=== PATIENT | male | born 1960 | race Caucasian/White ===

== ENCOUNTER 2022-01-01 14:48 | Inpatient (IN) | payer MEDICARE, BC ==
[2022-01-01] MEDS ORDERED: HYDROmorphone 1 MG/ML 1 ML SYRINGE IVP STA (15:21)
[2022-01-01] MEDS ORDERED: SODIUM CHLORIDE 0.9% 1,000 ML IV STA ×2 (15:21)
[2022-01-01] MEDS ORDERED: PROCHLORPERAZINE INJ 10 MG/2 ML VIAL IVP STA (15:26)
--- NOTE | 2022-01-01 15:29 | ED ---
Weakness HPI - General Chief complaint: Weakness Stated complaint: Weakness, post chemo Time Seen by Provider: 01/01/22 14:48 Source: patient, RN notes reviewed Mode of arrival: EMS Limitations: no limitations - History of Present Illness Initial comments: 7-year-old male with history of metastatic rectal cancer who his last chemotherapy 6 days ago who presents by EMS with complaints of generalized weakness nausea vomiting some diarrhea chills decreased oral intake for the past 5 days. No overt fevers she states he does have abdominal discomfort in the lower abdomen. He states he does have a ostomy which seems to be functioning well. When he does vomit however he vomits up greenish colored material. He was given Zofran and morphine in the EMS rig nausea was tolerable he stated the abdominal pain was still moderate. MD Complaint: generalized weakness - Related Data Home Medications Medication Instructions Recorded Confirmed Losartan Potassium [Cozaar] 100 mg PO DAILY 11/07/21 11/07/21 Tamsulosin [Flomax] 0.4 mg PO DAILY 11/07/21 11/07/21 Previous Rx's Medication Instructions Recorded Cefdinir [Omnicef] 300 mg PO BID 4 Days #8 cap 11/14/21 LORazepam [Ativan] 1 mg PO Q6H PRN #4 tab 11/14/21 Lactulose [Cephulac] 15 gm PO DAILY ml 11/14/21 Loperamide [Imodium] 2 mg PO QID PRN cap 11/14/21 Morphine Sulfate [Ms Contin] 30 mg PO Q12HR #3 tab 11/14/21 Petrolatum, White [Aquaphor] 1 applic TOPICAL BID 11/14/21 Sennosides-Docusate Sodium 1 each PO DAILY tab 11/14/21 [Senokot-S] oxyCODONE HCL [OxyIR] 15 mg PO Q6HR PRN #6 tab 11/14/21 Allergies Allergy/AdvReac Type Severity Reaction Status Date / Time No Known Allergies Allergy Verified 11/07/21 13:29 Review of Systems ROS Statement: Those systems with pertinent positive or pertinent negative responses have been documented in the HPI. ROS Other: All systems not noted in ROS Statement are negative. Past Medical History Past Medical History: Cancer, Hypertension, Liver Disease Additional Past Medical History / Comment(s): Cerebral palsy, colon CA with mets History of Any Multi-Drug Resistant Organisms: None Reported Past Surgical History: Back Surgery, Joint Replacement, Orthopedic Surgery Additional Past Surgical History / Comment(s): colostomy Past Anesthesia/Blood Transfusion Reactions: Unable to Obtain Past Psychological History: No Psychological Hx Reported Smoking Status: Former smoker Past Alcohol Use History: Occasional Past Drug Use History: None Reported General Exam - General Exam Comments Initial Comments: This is a well-developed well-nourished awake alert oriented 3 male Limitations: no limitations General appearance: alert, anxious, in distress Head exam: Present: atraumatic, normocephalic, normal inspection Eye exam: Present: normal appearance, PERRL, EOMI. Absent: scleral icterus, conjunctival injection, periorbital swelling ENT exam: Present: mucous membranes dry Neck exam: Present: normal inspection, full ROM. Absent: tenderness, men ingismus, lymphadenopathy Respiratory exam: Present: normal lung sounds bilaterally. Absent: respiratory distress, wheezes, rales, rhonchi, stridor Cardiovascular Exam: Present: regular rate, normal rhythm, normal heart sounds. Absent: systolic murmur, diastolic murmur, rubs, gallop, clicks GI/Abdominal exam: Present: soft, tenderness, normal bowel sounds. Absent: distended, guarding, rebound, rigid, bruit, pulsatile mass (Os be present in the left abdomen appears be functional) Extremities exam: Present: normal inspection, full ROM, normal capillary refill. Absent: tenderness, pedal edema, joint swelling, calf tenderness Back exam: Present: normal inspection Neurological exam: Present: alert, oriented X3, CN II-XII intact Psychiatric exam: Present: normal affect, normal mood Skin exam: Present: warm, dry, intact, normal color. Absent: rash Course Vital Signs 01/01/22 01/01/22 01/01/22 15:07 16:53 17:34 Temperature 98 F Pulse Rate 61 62 63 Respiratory 20 20 20 Rate Blood Pressure 188/95 188/91 180/92 O2 Sat by Pulse 98 96 98 Oximetry Medical Decision Making - Medical Decision Making I did discuss the findings with the patient family also Dr. Jerez patient will be admitted with the patient by Dr. Ford - Lab Data Result diagrams: 01/01/22 16:25 01/01/22 16:53 Lab Results 01/01/22 01/01/22 01/01/22 Range/Units 16:25 16:25 16:25 WBC 7.6 (3.8-10.6) k/uL RBC 4.18 L (4.30-5.90) m/uL Hgb 13.3 (13.0-17.5) gm/dL Hct 39.4 (39.0-53.0) % MCV 94.3 D (80.0-100.0) fL MCH 31.9 (25.0-35.0) pg MCHC 33.9 (31.0-37.0) g/dL RDW 14.5 (11.5-15.5) % Plt Count 106 L (150-450) k/uL MPV 8.5 Neutrophils % 76 % Lymphocytes % 14 % Monocytes % 4 % Eosinophils % 2 % Basophils % 1 % Neutrophils # 5.7 (1.3-7.7) k/uL Lymphocytes # 1.1 (1.0-4.8) k/uL Monocytes # 0.3 (0-1.0) k/uL Eosinophils # 0.1 (0-0.7) k/uL Basophils # 0.0 (0-0.2) k/uL Poikilocytosis Slight Sodium (137-145) mmol/L Potassium (3.5-5.1) mmol/L Chloride (98-107) mmol/L Carbon Dioxide (22-30) mmol/L Anion Gap mmol/L BUN (9-20) mg/dL Creatinine (0.66-1.25) mg/dL Est GFR (CKD-EPI)AfAm (>60 ml/min/1.73 sqM) Est GFR (CKD-EPI)NonAf (>60 ml/min/1.73 sqM) Glucose (74-99) mg/dL Calcium (8.4-10.2) mg/dL Magnesium (1.6-2.3) mg/dL Total Bilirubin (0.2-1.3) mg/dL AST (17-59) U/L ALT (4-49) U/L Alkaline Phosphatase (38-126) U/L Troponin I (0.000-0.034) ng/mL NT-Pro-B Natriuret Pep 855 pg/mL Total Protein (6.3-8.2) g/dL Albumin (3.5-5.0) g/dL Urine Color Yellow Urine Appearance Turbid (Clear) Urine pH 6.0 (5.0-8.0) Ur Specific Mcintyre 1.016 (1.001-1.035) Urine Protein Trace H (Negative) Urine Glucose (UA) Negative (Negative) Urine Ketones Negative (Negative) Urine Blood Small H (Negative) Urine Nitrite Negative (Negative) Urine Bilirubin Negative (Negative) Urine Urobilinogen <2.0 (<2.0) mg/dL Ur Leukocyte Esterase Large H (Negative) Urine RBC 8 H (0-5) /hpf Urine WBC >182 H (0-5) /hpf Urine WBC Clumps Moderate H (None) /hpf Urine Bacteria Occasional H (None) /hpf 01/01/22 01/01/22 Range/Units 16:53 16:53 WBC (3.8-10.6) k/uL RBC (4.30-5.90) m/uL Hgb (13.0-17.5) gm/dL Hct (39.0-53.0) % MCV (80.0-100.0) fL MCH (25.0-35.0) pg MCHC (31.0-37.0) g/dL RDW (11.5-15.5) % Plt Count (150-450) k/uL MPV Neutrophils % % Lymphocytes % % Monocytes % % Eosinophils % % Basophils % % Neutrophils # (1.3-7.7) k/uL Lymphocytes # (1.0-4.8) k/uL Monocytes # (0-1.0) k/uL Eosinophils # (0-0.7) k/uL Basophils # (0-0.2) k/uL Poikilocytosis Sodium 140 (137-145) mmol/L Potassium 3.4 L (3.5-5.1) mmol/L Chloride 108 H (98-107) mmol/L Carbon Dioxide 20 L (22-30) mmol/L Anion Gap 12 mmol/L BUN 14 (9-20) mg/dL Creatinine 0.53 L (0.66-1.25) mg/dL Est GFR (CKD-EPI)AfAm >90 (>60 ml/min/1.73 sqM) Est GFR (CKD-EPI)NonAf >90 (>60 ml/min/1.73 sqM) Glucose 95 (74-99) mg/dL Calcium 9.1 (8.4-10.2) mg/dL Magnesium 1.8 (1.6-2.3) mg/dL Total Bilirubin 1.4 H (0.2-1.3) mg/dL AST 51 (17-59) U/L ALT 38 (4-49) U/L Alkaline Phosphatase 284 H (38-126) U/L Troponin I <0.012 (0.000-0.034) ng/mL NT-Pro-B Natriuret Pep pg/mL Total Protein 7.6 (6.3-8.2) g/dL Albumin 3.9 (3.5-5.0) g/dL Urine Color Urine Appearance (Clear) Urine pH (5.0-8.0) Ur Specific Mcintyre (1.001-1.035) Urine Protein (Negative) Urine Glucose (UA) (Negative) Urine Ketones (Negative) Urine Blood (Negative) Urine Nitrite (Negative) Urine Bilirubin (Negative) Urine Urobilinogen (<2.0) mg/dL Ur Leukocyte Esterase (Negative) Urine RBC (0-5) /hpf Urine WBC (0-5) /hpf Urine WBC Clumps (None) /hpf Urine Bacteria (None) /hpf - Radiology Data Radiology results: report reviewed (Image reviewed x-ray shows evidence of a left lower lobe infiltrate question improving from previous ones x-rays of the abdomen show nonspecific bowel gas pattern.), image reviewed Disposition Clinical Impression: 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
[2022-01-01 16:40] LABS: Basophils % (A) 1 %; Eosinophils # (A) 0.1 k/uL (0-0.7); Eosinophils % (A) 2 %; HCT 39.4 % (39.0-53.0); HGB 13.3 gm/dL (13.0-17.5); Lymphocytes # (A) 1.1 k/uL (1.0-4.8); Lymphocytes % (A) 14 %; MCH 31.9 pg (25.0-35.0); MCHC 33.9 g/dL (31.0-37.0); Mean Platelet Volume 8.5; Monocytes # (A) 0.3 k/uL (0-1.0); Monocytes % (A) 4 %; Neutrophils # (A) 5.7 k/uL (1.3-7.7); Neutrophils % (A) 76 %; Platelet Count 106 k/uL (150-450); Poikilocytosis Slight; RBC 4.18 m/uL (4.30-5.90); RDW 14.5 % (11.5-15.5); WBC 7.6 k/uL (3.8-10.6)
[2022-01-01 16:51] LABS: Appearance,Urine Turbid (Clear); Bacteria,Urine Occasional /hpf; Bilirubin,Urine Negative (Negative); Blood,Urine Small (Negative); Color,Urine Yellow; Glucose,Urine (UA) Negative (Negative); Ketones,Urine Negative (Negative); Leukocyte Esterase,Urine Large (Negative); Nitrite,Urine Negative (Negative); Protein,Urine Trace (Negative); RBC,Urine 8 /hpf (0-5); Specific Gravity,Urine 1.016 (1.001-1.035); Urobilinogen,Urine <2.0 mg/dL (<2.0); WBC,Urine >182 /hpf (0-5)
[2022-01-01 17:02] LABS: MCV 94.3 fL (80.0-100.0)
[2022-01-01 17:17] LABS: ALT 38 U/L (4-49); AST 51 U/L (17-59); African American GFR (CKD) >90 (>60 ml/min/1.73 sqM); Albumin 3.9 g/dL (3.5-5.0); Alkaline Phosphatase 284 U/L (38-126); Anion Gap 12 mmol/L; Blood Urea Nitrogen 14 mg/dL (9-20); Calcium 9.1 mg/dL (8.4-10.2); Carbon Dioxide 20 mmol/L (22-30); Chloride 108 mmol/L (98-107); Glucose 95 mg/dL (74-99); Magnesium 1.8 mg/dL (1.6-2.3); Non-African American GFR(CKD) >90 (>60 ml/min/1.73 sqM); Potassium 3.4 mmol/L (3.5-5.1); Sodium 140 mmol/L (137-145); Total Bilirubin 1.4 mg/dL (0.2-1.3); Total Protein 7.6 g/dL (6.3-8.2)
--- NOTE | 2022-01-01 17:26 | XR ---
EXAMINATION TYPE: XR KUB DATE OF EXAM: 01/01/2022 COMPARISON: NONE HISTORY: Weakness. Abdominal pain TECHNIQUE: 2 views supine FINDINGS: There is no sign of intestinal obstruction or pneumoperitoneum. Fecal pattern is fairly nor mal. There is bilateral hip prosthesis. There are no calcifications over the kidneys. There is fusion surgery in the thoracolumbar junction. IMPRESSION: Nonacute abdomen.
--- NOTE | 2022-01-01 17:28 | XR ---
EXAMINATION TYPE: XR chest 2V DATE OF EXAM: 01/01/2022 COMPARISON: 11/07/2021 HISTORY: Weakness TECHNIQUE: FINDINGS: Heart is normal. There is no heart failure. There is a 2 cm irregular infiltrate in the lat eral aspect of the right mid lung field. There is right central venous catheter with tip in the super ior vena cava. There is multilevel thoracic spine fusion surgery. There is mild subsegmental atelecta sis right lung base. IMPRESSION: There is some mild infiltrate or atelectasis in the right lung which is slightly improved compared to last exam. No heart failure seen. Normal heart.
[2022-01-01] MEDS ORDERED: fentaNYL (PF) 50 MCG/ML 2 ML AMP IV STA (17:36)
[2022-01-01] MEDS ORDERED: cefTRIAXone IN SWFI 1,000 MG/10 ML SYRINGE IVP STA ×2 (18:22→19:55)
[2022-01-01] MEDS ORDERED: PNEUMONIA PROTOCOL UTILIZED 1 EACH MISC PO PRN (18:24)
[2022-01-01] MEDS ORDERED: AZITHROMYCIN 500 MG in SODIUM CHLORIDE 0.9% 250 ML IVPB STA (18:32)
[2022-01-01] MEDS: ACETAMINOPHEN TAB 325 MG TAB PO PRN (20:45)
[2022-01-01 21:43] VITALS: RESP 16
[2022-01-01] MEDS ORDERED: LORazepam 1 MG TAB PO PRN (23:19)
[2022-01-01] MEDS ORDERED: LOPERAMIDE 2 MG CAP PO PRN (23:19)
[2022-01-01] MEDS ORDERED: ONDANSETRON 4 MG/2 ML VIAL IVP PRN (23:20)
[2022-01-01] MEDS: SODIUM CHLORIDE 0.9% 1,000 ML IV SCH (23:28)
[2022-01-01] MEDS: MORPHINE SULFATE ER 30 MG TABLET PO SCH (23:28)
[2022-01-02] MEDS: ACETAMINOPHEN TAB 325 MG TAB PO PRN (06:01)
[2022-01-02 06:26] LABS: HCT 35.1 % (39.0-53.0); HGB 11.7 gm/dL (13.0-17.5); MCH 32.2 pg (25.0-35.0); MCHC 33.3 g/dL (31.0-37.0); MCV 96.7 fL (80.0-100.0); Mean Platelet Volume 9.1; Platelet Count 108 k/uL (150-450); Poikilocytosis Slight; RBC 3.63 m/uL (4.30-5.90); RDW 14.4 % (11.5-15.5); WBC 7.6 k/uL (3.8-10.6)
[2022-01-02 06:31] LABS: INR 1.1 (<1.2); Partial Thromboplastin Time 27.9 sec (22.0-30.0); Prothrombin Time 11.8 sec (9.0-12.0)
[2022-01-02] MEDS: TAMSULOSIN 0.4 MG CAP.ER.24H PO SCH ×2 (07:50→07:51)
[2022-01-02] MEDS ORDERED: SENNOSIDES-DOCUSATE SODIUM 1 EACH TAB PO SCH (09:00)
[2022-01-02 09:07] LABS: African American GFR (CKD) 118.9 (60.0-200.0); Anion Gap 13.3 mmol/L (10.00-18.00); BUN/Creat Ratio 19.43 Ratio (12.00-20.00); Blood Urea Nitrogen 13.6 mg/dL (9.0-27.0); Calcium 8.1 mg/dL (8.7-10.3); Carbon Dioxide 18.7 mmol/L (20.0-27.5); Non-African American GFR(CKD) 102.6 (60.0-200.0); Potassium 3.3 mmol/L (3.5-5.5)
--- NOTE | 2022-01-02 09:36 | XR ---
EXAMINATION TYPE: XR chest 2V DATE OF EXAM: 01/02/2022 COMPARISON: 01/01/2022 TECHNIQUE: PA and lateral views submitted. HISTORY: Cough FINDINGS: Postsurgical changes are noted in the vertebral column. Mediport catheter seen. Coarsened interstitiu m. Hyperinflation suggests COPD. Arthropathy of the AC joint on the left. Vague nodular density right midlung laterally is again noted. Follow resolution recommended. IMPRESSION: 1. COPD correlate for chronic interstitial lung disease. Mild bronchitis or superimposed interstitial pneumonitis in the differential diagnosis. 2. Stable right upper lobe vague area of consolidation or small area of nodularity. Follow-up to reso lution recommended otherwise consider CT chest
[2022-01-02] MEDS ORDERED: PANTOPRAZOLE 40 MG/10 ML VIAL IVP SCH (09:45)
[2022-01-02] MEDS: POTASSIUM CHLORIDE ER 20 MEQ TAB.ER PO SCH ×3 (09:56→12:21)
[2022-01-02] MEDS: MORPHINE SULFATE ER 30 MG TABLET PO SCH (11:15)
--- NOTE | 2022-01-02 11:17 | P.HPIM ---
History of Present Illness Patient returns 61-year-old male with history of metastatic rectal cancer received chemotherapy about 6 days ago this is a 30 round of chemotherapy came in with compensative for generalized weakness nausea vomiting diarrhea all of w hich resolved at this time. Patient was even having diarrhea post colostomy location. Patient does have colostomy in place and having normal stool today. Patient is exposed to his who had viral gastroenteritis. Patient although denied any body aches or fever chills. Patient was vomiting greenish colored material which resolved at this time. She also had a chest x-ray and a KUB x- ray chest X was read as a vague area of consolidation and small area of nodularity both of which I was unable to appreciate when I reviewed the images. Patient doesn't have any clinical symptoms of significant cough with sputum production or fever and leukocytosis. Patient was given antibiotics Rocephin and azithromycin believing that he has pneumonia because of the low clinical suspicion for pneumonia I am discontinuing antibiotics for calcitonin is being ordered. REVIEW OF SYSTEMS: CONSTITUTIONAL: No fever, no malaise, no fatigue. HEENT: No recent visual problems or hearing problems. Denied any sore throat. CARDIOVASCULAR: No chest pain, orthopnea, PND, no palpitations, no syncope. PULMONARY: No shortness of breath, no cough, no hemoptysis. GASTROINTESTINAL: As mentioned in HPI NEUROLOGICAL: No headaches, no weakness, no numbness. HEMATOLOGICAL: Denies any bleeding or petechiae. GENITOURINARY: Denies any burning micturition, frequency, or urgency. MUSCULOSKELETAL/RHEUMATOLOGICAL: Denies any joint pain, swelling, or any muscle pain. ENDOCRINE: Denies any polyuria or polydipsia. The rest of the 14-point review of systems is negative. PHYSICAL EXAMINATION: GENERAL: The patient is alert and oriented x3, not in any acute distress. Well developed, well nourished. HEENT: Pupils are round and equally reacting to light. EOMI. No scleral icterus. No conjunctival pallor. Normocephalic, atraumatic. No pharyngeal erythema. No thyromegaly. CARDIOVASCULAR: S1 and S2 present. No murmurs, rubs, or gallops. PULMONARY: Chest is clear to auscultation, no wheezing or crackles. ABDOMEN: Soft, nontender, nondistended, normoactive bowel sounds. No palpable organomegaly. Colostomy with normal stool MUSCULOSKELETAL: No joint swelling or deformity. EXTREMITIES: No cyanosis, clubbing, or pedal edema. NEUROLOGICAL: Gross neurological examination did not reveal any focal deficits. SKIN: No rashes. Assessment and plan -Vital gastroenteritis with improvement in symptoms. My suspicion is low that patient had mucositis from chemotherapy. Patient's symptoms improved patient can be discharged today -Hypokalemia: Secondary to IV fluids will replace potassium -Hypertension continue with losartan -Rule out pneumonia will not require any antibiotics -History of colon colorectal cancer with metastases to liver: Patient is actively receiving chemotherapy DVT prophylaxis: Patient will be discharged today Past Medical History Past Medical History: Cancer, Hypertension, Liver Disease Additional Past Medical History / Comment(s): Right sided cerebral palsy, colon CA with mets to liver History of Any Multi-Drug Resistant Organisms: None Reported Past Surgical History: Back Surgery, Joint Replacement, Orthopedic Surgery Additional Past Surgical History / Comment(s): colostomy Past Anesthesia/Blood Transfusion Reactions: Unable to Obtain Past Psychological History: No Psychological Hx Reported Smoking Status: Former smoker Past Alcohol Use History: Occasional Past Drug Use History: None Reported Medications and Allergies Home Medications Medication Instructions Recorded Confirmed Type Losartan Potassium [Cozaar] 100 mg PO DAILY 11/07/21 01/01/22 History LORazepam [Ativan] 1 mg PO Q6H PRN #4 tab 11/14/21 01/01/22 Rx Loperamide [Imodium] 2 mg PO QID PRN cap 11/14/21 01/01/22 Rx oxyCODONE HCL [OxyIR] 15 mg PO Q6HR PRN #6 tab 11/14/21 01/01/22 Rx Morphine Sulfate [Ms Contin] 30 mg PO Q12H 01/01/22 01/01/22 History Omeprazole [PriLOSEC] 20 mg PO AC-BRKFST #14 cap 01/02/22 Rx Tamsulosin [Flomax] 0.4 mg PO DAILY #30 01/02/22 Rx Allergies Allergy/AdvReac Type Severity Reaction Status Date / Time No Known Allergies Allergy Verified 01/01/22 19:01 Physical Exam Vitals: Vital Signs Temp Pulse Pulse Resp BP BP Pulse Ox 01/02/22 05:00 98.7 F 86 16 102/62 95 01/01/22 22:16 98.7 F 74 16 155/80 97 01/01/22 22:00 16 01/01/22 21:41 70 16 142/90 97 01/01/22 19:33 68 20 180/92 96 01/01/22 17:34 63 20 180/92 98 01/01/22 16:53 62 20 188/91 96 01/01/22 15:07 98 F 61 20 188/95 98 Intake and Output 01/01/22 01/02/22 01/02/22 22:59 06:59 14:59 Intake Total 1690 Balance 1690 Intake: Intake, IV Titration 500 Amount Sodium Chloride 0.9% 1, 500 000 ml @ 75 mls/hr IV . [id number] ARIEL Rx#:[id number] Oral 1190 Other: Voiding Method Toilet # Voids 2 Weight 62.596 kg Results CBC & Chem 7: 01/02/22 06:06 01/02/22 06:06 Labs: Abnormal Lab Results - Last 24 Hours (Table) 01/01/22 01/01/22 01/01/22 Range/Units 16:25 16:25 16:53 RBC 4.18 L (4.30-5.90) m/uL Hgb (13.0-17.5) gm/dL Hct (39.0-53.0) % Plt Count 106 L (150-450) k/uL Potassium 3.4 L (3.5-5.1) mmol/L Chloride 108 H (98-107) mmol/L Carbon Dioxide 20 L (22-30) mmol/L Creatinine 0.53 L (0.66-1.25) mg/dL Calcium (8.7-10.3) mg/dL Total Bilirubin 1.4 H (0.2-1.3) mg/dL Alkaline Phosphatase 284 H (38-126) U/L Urine Protein Trace H (Negative) Urine Blood Small H (Negative) Ur Leukocyte Esterase Large H (Negative) Urine RBC 8 H (0-5) /hpf Urine WBC >182 H (0-5) /hpf Urine WBC Clumps Moderate H (None) /hpf Urine Bacteria Occasional H (None) /hpf 01/02/22 01/02/22 Range/Units 06:06 06:06 RBC 3.63 L (4.30-5.90) m/uL Hgb 11.7 L (13.0-17.5) gm/dL Hct 35.1 L (39.0-53.0) % Plt Count 108 L (150-450) k/uL Potassium 3.3 L (3.5-5.1) mmol/L Chloride (98-107) mmol/L Carbon Dioxide 18.7 L (22-30) mmol/L Creatinine (0.66-1.25) mg/dL Calcium 8.1 L (8.7-10.3) mg/dL Total Bilirubin (0.2-1.3) mg/dL Alkaline Phosphatase (38-126) U/L Urine Protein (Negative) Urine Blood (Negative) Ur Leukocyte Esterase (Negative) Urine RBC (0-5) /hpf Urine WBC (0-5) /hpf Urine WBC Clumps (None) /hpf Urine Bacteria (None) /hpf Microbiology - Last 24 Hours (Table) 01/01/22 16:25 Urine Culture - Preliminary Urine,Voided Thrombosis Risk Factor Assmnt - Choose All That Apply Any of the Below Risk Factors Present?: Yes Each Factor Represents 1 point: Age 41-60 years Other Risk Factors: Yes Each Risk Factor Represents 2 Points: Malignancy Other congenital or acquired thrombophilia - If yes, enter type in comment: No Thrombosis Risk Factor Assessment Total Risk Factor Score: 3 Thrombosis Risk Factor Assessment Level: Moderate Risk
--- NOTE | 2022-01-02 11:17 | P.DS ---
Providers Date of admission: 01/01/22 18:32 Attending physician: Sharon Jerez MD Consults: 01/01/22 18:24 Consult Physician Routine Consulting Provider: Luis Ford Consult Reason/Comments: Metastatic rectal cancer Do you want consulting provider notified?: Yes Primary care physician: Tonya Lu MD Hospital Course: Please refer to my history of present illness for further details Patient Condition at Discharge: Fair Plan - Discharge Summary Discharge Rx Participant: No New Discharge Prescriptions: New Tamsulosin [Flomax] 0.4 mg PO DAILY #30 Omeprazole [PriLOSEC] 20 mg PO AC-BRKFST #14 cap Continue Losartan Potassium [Cozaar] 100 mg PO DAILY Loperamide [Imodium] 2 mg PO QID PRN cap PRN Reason: Diarrhea oxyCODONE HCL [OxyIR] 15 mg PO Q6HR PRN #6 tab PRN Reason: Pain LORazepam [Ativan] 1 mg PO Q6H PRN #4 tab PRN Reason: Anxiety Morphine Sulfate [Ms Contin] 30 mg PO Q12H Discharge Medication List Losartan Potassium [Cozaar] 100 mg PO DAILY 11/07/21 [History] LORazepam [Ativan] 1 mg PO Q6H PRN #4 tab 11/14/21 [Rx] Loperamide [Imodium] 2 mg PO QID PRN cap 11/14/21 [Rx] oxyCODONE HCL [OxyIR] 15 mg PO Q6HR PRN #6 tab 11/14/21 [Rx] Morphine Sulfate [Ms Contin] 30 mg PO Q12H 01/01/22 [History] Omeprazole [PriLOSEC] 20 mg PO AC-BRKFST #14 cap 01/02/22 [Rx] Tamsulosin [Flomax] 0.4 mg PO DAILY #30 01/02/22 [Rx] Follow up Appointment(s)/Referral(s): Tonya Lu MD [Primary Care Provider] - 3 Days
[2022-01-02 11:51] VITALS: BP 122/70; PULSE 71; TEMP 97.7
[2022-01-02 12:45] VITALS: BMI 19.8
[2022-01-02] MEDS: SODIUM CHLORIDE 0.9% 1,000 ML IV SCH (13:00)
--- NOTE | 2022-01-02 15:17 | P.CONS ---
History of Present Illness - Reason for Consult Consult date: 01/02/22 metastatic rectal adenocarcinoma Requesting physician: Robby Sutherland - Chief Complaint weak, intractable N, bilious V - History of Present Illness Pt admitted yesterday when he presented to the ER with c/o intractable nausea with bilious emesis. He reported progressive weakness. He has bad taste in his mouth which was impacting his oral intake and contributing to his anorexia. He reported some diarrhea and bright red blood in his ostomy but this is no longer apparent. Denies fever, oral irritation, urine symptoms. He is feeling better today. He is not sure if his symptoms were from chemo because he had no side effects previously. Onc Hx: Pt presented to [facility] with rapidly progressive mid abdominal pain and weight loss of 50 LBS in 4-[address] revealed large rectal tumor with evidence of diffuse lymphadenopathy in abdomen, pelvis and retroperitoneal space, diffuse liver mets. Colonoscopy with near complete obstruction, Bx revealed poorly-differentiated Adenocarcinoma. L2 lytic lesion on CT scan. Radiation Oncology consulted on patient. He has cerebral palsey, but able to stand up and walk. After cycle#1 of FOLFOX/Avastin was in P[facility]. His LFTs improved after 1st chemo. Cycle #2 no c/o. Now admitted after cycle #3, completed on 12/26. Cycle #4 due 01/09. He will see Dr. Ford on later this week. Review of Systems 10 point ROS is neg except as stated in HPI Past Medical History Past Medical History: Cancer, Hypertension, Liver Disease Additional Past Medical History / Comment(s): Right sided cerebral palsy, colon CA with mets to liver History of Any Multi-Drug Resistant Organisms: None Reported Past Surgical History: Back Surgery, Joint Replacement, Orthopedic Surgery Additional Past Surgical History / Comment(s): colostomy Past Anesthesia/Blood Transfusion Reactions: Unable to Obtain Past Psychological History: No Psychological Hx Reported Smoking Status: Former smoker Past Alcohol Use History: Occasional Past Drug Use History: None Reported - Past Family History Mother Family Medical History: No Reported History Medications and Allergies Home Medications Medication Instructions Recorded Confirmed Type Losartan Potassium [Cozaar] 100 mg PO DAILY 11/07/21 01/01/22 History LORazepam [Ativan] 1 mg PO Q6H PRN #4 tab 11/14/21 01/01/22 Rx Loperamide [Imodium] 2 mg PO QID PRN cap 11/14/21 01/01/22 Rx oxyCODONE HCL [OxyIR] 15 mg PO Q6HR PRN #6 tab 11/14/21 01/01/22 Rx Morphine Sulfate [Ms Contin] 30 mg PO Q12H 01/01/22 01/01/22 History Omeprazole [PriLOSEC] 20 mg PO AC-BRKFST #14 cap 01/02/22 Rx Tamsulosin [Flomax] 0.4 mg PO DAILY #30 01/02/22 Rx Allergies Allergy/AdvReac Type Severity Reaction Status Date / Time No Known Allergies Allergy Verified 01/01/22 19:01 Physical Exam Vitals: Vital Signs Temp Pulse Pulse Resp BP BP Pulse Ox 01/02/22 11:04 97.7 F 71 16 122/70 95 01/02/22 05:00 98.7 F 86 16 102/62 95 01/01/22 22:16 98.7 F 74 16 155/80 97 01/01/22 22:00 16 01/01/22 21:41 70 16 142/90 97 01/01/22 19:33 68 20 180/92 96 01/01/22 17:34 63 20 180/92 98 01/01/22 16:53 62 20 188/91 96 01/01/22 15:07 98 F 61 20 188/95 98 Intake and Output 01/01/22 01/02/22 01/02/22 22:59 06:59 14:59 Intake Total 1690 Balance 1690 Intake: Intake, IV Titration 500 Amount Sodium Chloride 0.9% 1, 500 000 ml @ 75 mls/hr IV . [id number] [facility] Rx#:[id number] Oral 1190 Other: Voiding Method Toilet # Voids 2 Weight 62.596 kg - Constitutional General appearance: average body habitus, cooperative, no acute distress - EENT Eyes: anicteric sclerae, EOMI ENT: hearing grossly normal, normal oropharynx - Neck Neck: no lymphadenopathy - Respiratory Respiratory: bilateral: CTA - Cardiovascular Rhythm: regular Heart sounds: normal: S1, S2 Abnormal Heart Sounds: no systolic murmur, no diastolic murmur, no rub, no S3 Gallop, no S4 Gallop, no click, no other leg Peripheral Edema: bilateral: None - Gastrointestinal left abd ostomy with liquid brown stool General gastrointestinal: no absent bowel sounds, no decreased bowel sounds, no distended, no hepatomegaly, no hyperactive bowel sounds, normal bowel sounds, no organomegaly, no rigid, no scaphoid, soft, no splenomegaly, no tenderness, no umbilical hernia, no ventral hernia - Integumentary Integumentary: normal - Psychiatric Psychiatric: A&O x's 3, appropriate affect, intact judgment & insight Results CBC & Chem 7: 01/02/22 06:06 01/02/22 06:06 Labs: Abnormal Lab Results - Last 24 Hours (Table) 01/01/22 01/01/22 01/01/22 Range/Units 16:25 16:25 16:53 RBC 4.18 L (4.30-5.90) m/uL Hgb (13.0-17.5) gm/dL Hct (39.0-53.0) % Plt Count 106 L (150-450) k/uL Potassium 3.4 L (3.5-5.1) mmol/L Chloride 108 H (98-107) mmol/L Carbon Dioxide 20 L (22-30) mmol/L Creatinine 0.53 L (0.66-1.25) mg/dL Calcium (8.7-10.3) mg/dL Total Bilirubin 1.4 H (0.2-1.3) mg/dL Alkaline Phosphatase 284 H (38-126) U/L Urine Protein Trace H (Negative) Urine Blood Small H (Negative) Ur Leukocyte Esterase Large H (Negative) Urine RBC 8 H (0-5) /hpf Urine WBC >182 H (0-5) /hpf Urine WBC Clumps Moderate H (None) /hpf Urine Bacteria Occasional H (None) /hpf 01/02/22 01/02/22 Range/Units 06:06 06:06 RBC 3.63 L (4.30-5.90) m/uL Hgb 11.7 L (13.0-17.5) gm/dL Hct 35.1 L (39.0-53.0) % Plt Count 108 L (150-450) k/uL Potassium 3.3 L (3.5-5.1) mmol/L Chloride (98-107) mmol/L Carbon Dioxide 18.7 L (22-30) mmol/L Creatinine (0.66-1.25) mg/dL Calcium 8.1 L (8.7-10.3) mg/dL Total Bilirubin (0.2-1.3) mg/dL Alkaline Phosphatase (38-126) U/L Urine Protein (Negative) Urine Blood (Negative) Ur Leukocyte Esterase (Negative) Urine RBC (0-5) /hpf Urine WBC (0-5) /hpf Urine WBC Clumps (None) /hpf Urine Bacteria (None) /hpf Microbiology - Last 24 Hours (Table) 01/01/22 16:25 Urine Culture - Preliminary Urine,Voided Assessment and Plan (1) Intractable vomiting with nausea Narrative/Plan: Pt doing better with supportive care. Not clear if actually from chemo or if related to possible UTI. Pt received abx in ER. No abx Rx on DC. Will follow up on urine culture. Status: Acute Priority: High Code(s): R11.2 - NAUSEA WITH VOMITING, UNSPECIFIED SNOMED Code(s): 939099399 (2) Rectal cancer Narrative/Plan: Plan is to continue on treatment. May need adjustments in dose if pt acute illness is felt to be 2/2 infection or chemo. He will be seen in ofc for evaluation prior to next cycles. Status: Acute Priority: High Code(s): C20 - MALIGNANT NEOPLASM OF RECTUM SNOMED Code(s): 545695788 Plan: attests: I have performed H&P, developed impression and plan of care. Discussed with dictator. Agree with dictation, documented as a scribe.
[2022-01-03] MEDS ORDERED: LOSARTAN 50 MG TAB PO SCH (09:00)
== END 2022-01-02 13:55 | disposition home or self-care (01) | DRG 392 ==
LOC: EC 14:48 → 5NMEDONC 18:32
PROVIDERS: ADMIT Internal Medicine; ATTEND Internal Medicine
DX: A08.4 Viral intestinal infection, unspecified (principal); C20 Malignant neoplasm of rectum; C78.7 Secondary malignant neoplasm of liver and intrahepatic bile duct; C79.51 Secondary malignant neoplasm of bone; E86.0 Dehydration; Z20.822 Contact with and (suspected) exposure to COVID-19; E87.6 Hypokalemia; G80.9 Cerebral palsy, unspecified; I10 Essential (primary) hypertension; K52.9 Noninfective gastroenteritis and colitis, unspecified; R53.1 Weakness; Z79.899 Other long term (current) drug therapy; Z85.048 Personal history of other malignant neoplasm of rectum, rectosigmoid junction, and anus; Z87.891 Personal history of nicotine dependence; Z93.3 Colostomy status
CPT/HCPCS: 36415; 71046; 74018; 80048; 80053; 81001; 83605; 83735; 83880; 84145; 84484; 85025; 85027; 85610; 85730; 87040; 87086; 87635; 96361; 96365; 96366; 96375; 99285

== ENCOUNTER 2022-02-03 13:10 | Inpatient (IN) | payer MEDICARE, BC ==
[2022-02-03] MEDS ORDERED: SODIUM CHLORIDE 0.9% 1,000 ML IV STA (13:12)
[2022-02-03] MEDS ORDERED: SODIUM CHLORIDE 0.9% 500 ML 500 ML IV STA (13:12)
--- NOTE | 2022-02-03 13:23 | ED ---
General Adult HPI - General Stated complaint: Hypotensive Time Seen by Provider: 02/03/22 13:10 Source: patient, RN notes reviewed, old records reviewed - History of Present Illness Initial comments: This is a 61-year-old male who presents emergency Department with stage IV rectal cancer. Patient wanted to come in today because he was feeling extremely weak and fatigued. Patient states he has no pain patient states that he has been vomiting but not having any diarrhea. Patient denies any shortness of breath or difficulty breathing. Patient does any headache. Patient states he is not taking in much food or fluid. Patient states he's got stage IV cancer with metastases to the bowel and liver. - Related Data Home Medications Medication Instructions Recorded Confirmed Losartan Potassium [Cozaar] 100 mg PO DAILY 11/07/21 02/03/22 Morphine Sulfate [Ms Contin] 30 mg PO Q12H 01/01/22 02/03/22 Previous Rx's Medication Instructions Recorded LORazepam [Ativan] 1 mg PO Q6H PRN #4 tab 11/14/21 Loperamide [Imodium] 2 mg PO QID PRN cap 11/14/21 oxyCODONE HCL [OxyIR] 15 mg PO Q6HR PRN #6 tab 11/14/21 Tamsulosin [Flomax] 0.4 mg PO DAILY #30 01/02/22 Allergies Allergy/AdvReac Type Severity Reaction Status Date / Time No Known Allergies Allergy Verified 02/03/22 14:15 Review of Systems ROS Statement: Those systems with pertinent positive or pertinent negative responses have been documented in the HPI. ROS Other: All systems not noted in ROS Statement are negative. Past Medical History Past Medical History: Cancer, Hypertension, Liver Disease Additional Past Medical History / Comment(s): Right sided cerebral palsy, colon CA with mets to liver History of Any Multi-Drug Resistant Organisms: None Reported Past Surgical History: Back Surgery, Joint Replacement, Orthopedic Surgery Additional Past Surgical History / Comment(s): colostomy Past Anesthesia/Blood Transfusion Reactions: Unable to Obtain Past Psychological History: No Psychological Hx Reported Smoking Status: Former smoker Past Alcohol Use History: Occasional Past Drug Use History: None Reported - Past Family History Mother Family Medical History: No Reported History General Exam - General Exam Comments Initial Comments: GENERAL: Patient is well-developed and well-nourished. Patient is nontoxic and well- hydrated and is in mild distress. ENT: Neck is soft and supple. No significant lymphadenopathy is noted. Oropharynx is clear. Dry mucous membranes. Neck has full range of motion without eliciting any pain. EYES: The sclera were anicteric and conjunctiva were pink and moist. Extraocular movements were intact and pupils were equal round and reactive to light. Eyelids were unremarkable. PULMONARY: Unlabored respirations. Good breath sounds bilaterally. No audible rales rhonchi or wheezing was noted. CARDIOVASCULAR: Patient is tachycardic at about 160 beats a minute and it is irregular. ABDOMEN: Soft and nontender with normal bowel sounds. SKIN: Skin is clear with no lesions or rashes and otherwise unremarkable. NEUROLOGIC: Patient is alert and oriented x3. Cranial nerves II through XII are grossly intact. Motor and sensory are also intact. Normal speech, volume and content. Symmetrical smile. MUSCULOSKELETAL: Normal extremities with adequate strength and full range of motion. LYMPHATICS: No significant lymphadenopathy is noted PSYCHIATRIC: Normal psychiatric evaluation. Course Vital Signs 02/03/22 02/03/22 02/03/22 13:12 13:24 13:30 Temperature 98.2 F Pulse Rate 165 H 126 H 168 H Respiratory 27 H 18 16 Rate Blood Pressure 109/74 61/48 89/59 O2 Sat by Pulse 100 97 100 Oximetry 02/03/22 02/03/22 02/03/22 13:40 14:00 14:12 Temperature Pulse Rate 150 H 154 H 147 H Respiratory 18 18 18 Rate Blood Pressure 108/72 87/67 79/54 O2 Sat by Pulse 99 100 100 Oximetry 02/03/22 02/03/22 02/03/22 14:20 14:25 14:30 Temperature Pulse Rate 151 H 126 H 135 H Respiratory 18 18 18 Rate Blood Pressure 64/51 87/56 101/82 O2 Sat by Pulse 100 100 100 Oximetry 02/03/22 02/03/22 02/03/22 14:40 14:44 14:50 Temperature Pulse Rate 151 H 135 H 149 H Respiratory 18 18 18 Rate Blood Pressure 103/80 91/54 87/53 O2 Sat by Pulse 99 100 100 Oximetry 02/03/22 02/03/22 02/03/22 15:01 15:05 15:57 Temperature Pulse Rate 137 H 147 H 129 H Respiratory 18 18 18 Rate Blood Pressure 87/59 72/52 83/44 O2 Sat by Pulse 97 100 100 Oximetry 02/03/22 02/03/22 02/03/22 16:17 16:34 17:02 Temperature Pulse Rate 126 H 130 H 106 H Respiratory 18 18 18 Rate Blood Pressure 85/46 86/61 96/57 O2 Sat by Pulse 100 99 98 Oximetry 02/03/22 02/03/22 02/03/22 18:31 19:31 20:00 Temperature Pulse Rate 91 79 Respiratory 18 20 20 Rate Blood Pressure 98/67 87/48 O2 Sat by Pulse 98 96 99 Oximetry 02/03/22 02/03/22 20:41 22:16 Temperature Pulse Rate 78 87 Respiratory 22 20 Rate Blood Pressure 92/55 93/57 O2 Sat by Pulse 99 97 Oximetry Procedures - Sepsis Sepsis Focused Exam #1 Sepsis Focused Exam Date: 02/03/22 Sepsis Focused Exam Time: 20:30 Sepsis Focused Exam Complete: Yes Vital Signs & RN Notes Reviewed: Yes Capillary Refill: < 2 Seconds: Fingers Peripheral Pulses: Weak: Radial (R) Skin Color: Normal for Patient Respiratory Exam: normal lung sounds Cardiovascular Exam: regular rate Medical Decision Making - Medical Decision Making EKG shows atrial fibrillation with rapid ventricular response at 152 bpm QRS is 90 QT interval is 295 QTC is 381. Patient's EKG shows no ST segment elevation. Patient refused cardioversion after asking for 5 times he continued to refuse. I tried a couple boluses of Cardizem that did not convert the patient it was at this point time I spoke with cardiology and he agreed that I started him on amiodarone after an amiodarone bolus. He should eventually converted to a sinus rhythm. Chest x-ray shows no acute abnormality. Patient's lactate was high and believe it was secondary to lack of perfusion I find no source of infection however I did start him on cefepime at 625 just in case he is harboring infection and he is neutropenic. I spoke with sound physician agreed to admit the patient admitted the patient wrote admitting orders. Patient refused to be catheterized for urine it was unable to provide us a urine A focused physical exam was done because there was a possibility the patient was in septic shock however no source was found in the emergency department. Patient to get the records fluids and did get antibiotics empirically. - Lab Data Result diagrams: 02/05/22 08:17 02/06/22 07:26 Lab Results 02/03/22 02/03/22 02/03/22 Range/Units 13:59 13:59 13:59 WBC 1.2 L* (3.8-10.6) k/uL RBC 3.48 L (4.30-5.90) m/uL Hgb 10.6 L (13.0-17.5) gm/dL Hct 31.3 L (39.0-53.0) % MCV 89.8 D (80.0-100.0) fL MCH 30.3 (25.0-35.0) pg MCHC 33.7 (31.0-37.0) g/dL RDW 15.5 (11.5-15.5) % Plt Count 115 L (150-450) k/uL MPV 8.8 Neutrophils % (Manual) 40 % Lymphocytes % (Manual) 24 % Monocytes % (Manual) 34 % Basophils % (Manual) 2 % Neutrophils # (Manual) 0.48 L* (1.3-7.7) k/uL Lymphocytes # (Manual) 0.29 L (1.0-4.8) k/uL Monocytes # (Manual) 0.41 (0-1.0) k/uL Basophils # (Manual) 0.02 (0-0.2) k/uL Nucleated RBCs 0 (0-0) /100 WBC Poikilocytosis Slight PT 19.1 H (9.0-12.0) sec INR 1.9 H (<1.2) APTT 25.6 (22.0-30.0) sec Sodium 136 L (137-145) mmol/L Potassium 2.8 L (3.5-5.1) mmol/L Chloride 106 (98-107) mmol/L Carbon Dioxide 11 L (22-30) mmol/L Anion Gap 19 mmol/L BUN 43 H (9-20) mg/dL Creatinine 3.70 H (0.66-1.25) mg/dL Est GFR (CKD-EPI)AfAm 19 (>60 ml/min/1.73 sqM) Est GFR (CKD-EPI)NonAf 17 (>60 ml/min/1.73 sqM) Glucose 95 (74-99) mg/dL Lactic Ac Sepsis Rflx Plasma Lactic Acid Yared (0.7-2.0) mmol/L Calcium 7.2 L (8.4-10.2) mg/dL Magnesium 1.4 L (1.6-2.3) mg/dL Total Bilirubin 1.1 (0.2-1.3) mg/dL AST 33 (17-59) U/L ALT 26 (4-49) U/L Alkaline Phosphatase 123 (38-126) U/L Troponin I (0.000-0.034) ng/mL Total Protein 5.4 L (6.3-8.2) g/dL Albumin 2.4 L (3.5-5.0) g/dL 02/03/22 02/03/22 02/03/22 Range/Units 13:59 13:59 15:13 WBC (3.8-10.6) k/uL RBC (4.30-5.90) m/uL Hgb (13.0-17.5) gm/dL Hct (39.0-53.0) % MCV (80.0-100.0) fL MCH (25.0-35.0) pg MCHC (31.0-37.0) g/dL RDW (11.5-15.5) % Plt Count (150-450) k/uL MPV Neutrophils % (Manual) % Lymphocytes % (Manual) % Monocytes % (Manual) % Basophils % (Manual) % Neutrophils # (Manual) (1.3-7.7) k/uL Lymphocytes # (Manual) (1.0-4.8) k/uL Monocytes # (Manual) (0-1.0) k/uL Basophils # (Manual) (0-0.2) k/uL Nucleated RBCs (0-0) /100 WBC Poikilocytosis PT (9.0-12.0) sec INR (<1.2) APTT (22.0-30.0) sec Sodium (137-145) mmol/L Potassium (3.5-5.1) mmol/L Chloride (98-107) mmol/L Carbon Dioxide (22-30) mmol/L Anion Gap mmol/L BUN (9-20) mg/dL Creatinine (0.66-1.25) mg/dL Est GFR (CKD-EPI)AfAm (>60 ml/min/1.73 sqM) Est GFR (CKD-EPI)NonAf (>60 ml/min/1.73 sqM) Glucose (74-99) mg/dL Lactic Ac Sepsis Rflx Y Plasma Lactic Acid Yared 8.0 H* (0.7-2.0) mmol/L Calcium (8.4-10.2) mg/dL Magnesium (1.6-2.3) mg/dL Total Bilirubin (0.2-1.3) mg/dL AST (17-59) U/L ALT (4-49) U/L Alkaline Phosphatase (38-126) U/L Troponin I 0.039 H* (0.000-0.034) ng/mL Total Protein (6.3-8.2) g/dL Albumin (3.5-5.0) g/dL Critical Care Time Critical Care Time: Yes Total Critical Care Time: 55 Disposition Clinical Impression: Atrial fibrillation with RVR, Hypokalemia, Acute renal failure, Hyponatremia, Elevated troponin, Lactic acidosis Disposition: ADMITTED IP TO THIS [facility] Time of Disposition: 18:30
[2022-02-03] MEDS ORDERED: ONDANSETRON 4 MG/2 ML VIAL IVP STA (13:47)
[2022-02-03] MEDS ORDERED: HYDROmorphone 0.5 MG/0.5 ML SYRINGE IVP STA ×2 (13:47→20:00)
[2022-02-03] MEDS ORDERED: DILTIAZEM DRIP BOLUS FROM BAG 1 MG SOLN IV ONE (13:47)
[2022-02-03] MEDS ORDERED: DILTIAZEM 125 MG in SODIUM CHLORIDE 0.9% 100 ML IV SCH (14:00)
[2022-02-03] MEDS ORDERED: SODIUM CHLORIDE 0.9% 500 ML 500 ML IV ONE (14:13)
[2022-02-03 14:21] LABS: INR 1.9 (<1.2); Partial Thromboplastin Time 25.6 sec (22.0-30.0); Prothrombin Time 19.1 sec (9.0-12.0)
[2022-02-03 14:23] LABS: HCT 31.3 % (39.0-53.0); HGB 10.6 gm/dL (13.0-17.5); MCH 30.3 pg (25.0-35.0); MCHC 33.7 g/dL (31.0-37.0); Mean Platelet Volume 8.8; Platelet Count 115 k/uL (150-450); Poikilocytosis Slight; RBC 3.48 m/uL (4.30-5.90); RDW 15.5 % (11.5-15.5)
[2022-02-03 14:24] LABS: MCV 89.8 fL (80.0-100.0)
[2022-02-03 14:26] LABS: Albumin 2.4 g/dL (3.5-5.0); Calcium 7.2 mg/dL (8.4-10.2); Magnesium 1.4 mg/dL (1.6-2.3); Potassium 2.8 mmol/L (3.5-5.1); Total Bilirubin 1.1 mg/dL (0.2-1.3); Total Protein 5.4 g/dL (6.3-8.2); WBC 1.2 k/uL (3.8-10.6)
[2022-02-03 14:41] LABS: Neutrophils % (M) 40 %
[2022-02-03 14:42] LABS: Basophils # (M) 0.02 k/uL (0-0.2); Lymphocytes # (M) 0.29 k/uL (1.0-4.8); Monocytes # (M) 0.41 k/uL (0-1.0); Neutrophils # (M) 0.48 k/uL (1.3-7.7); Nucleated Red Blood Cells 0 /100 WBC (0-0); Total Cells Counted 50
--- NOTE | 2022-02-03 14:54 | XR ---
EXAMINATION TYPE: XR chest 1V portable DATE OF EXAM: 02/03/2022 COMPARISON: 01/02/2022 HISTORY: History of pneumonia and rectal cancer TECHNIQUE: Single frontal view of the chest is obtained. FINDINGS: There is a Mediport catheter on the right and metallic stabilization rods in the dorsal sp ine. There is a vague small density in the right midlung which was seen previously and is stable. The lung s are clear of airspace consolidation, pleural effusion or pneumothorax. The heart size normal. IMPRESSION: 1. Stable small ill-defined density in the right mid lung. 2. No pleural effusion or pneumothorax. 3. No cardiomegaly or pulmonary vascular congestion.
[2022-02-03] MEDS ORDERED: POTASSIUM CHLORIDE 20 MEQ in WATER FOR INJECTION 1 100ML.BAG IVPB STA (15:31)
[2022-02-03] MEDS ORDERED: SODIUM CHLORIDE 0.9% 1,000 ML IV ONE ×2 (15:58→18:27)
[2022-02-03] MEDS ORDERED: AMIODARONE 360 MG in DEXTROSE 5% IN WATER 200 ML IV ONE ×2 (16:21)
[2022-02-03] MEDS ORDERED: DEXTROSE 5% IN WATER 100 ML with AMIODARONE 150 MG IV ONE (16:21)
[2022-02-03] MEDS ORDERED: HYDROCORTISONE SUCCINATE 100 MG/2 ML VIAL IV STA (17:27)
[2022-02-03] MEDS ORDERED: FILGRASTIM-SNDZ 480 MCG/0.8 ML SYRINGE SQ STA (18:23)
[2022-02-03] MEDS ORDERED: CEFEPIME 2 GM in SODIUM CHLORIDE 0.9% 100 ML IVPB STA (18:25)
[2022-02-03] MEDS ORDERED: NALOXONE 0.4 MG/ML 1 ML VIAL IV PRN (18:31)
[2022-02-03] MEDS: POTASSIUM CHLORIDE 10 MEQ in WATER FOR INJECTION 1 100ML.BAG IVPB SCH ×5 (18:34→23:53)
[2022-02-03 19:15] LABS: HGB 9.7 gm/dL (13.0-17.5); MCH 30.9 pg (25.0-35.0); MCHC 34.6 g/dL (31.0-37.0); MCV 89.1 fL (80.0-100.0); Mean Platelet Volume 9.1; Platelet Count 112 k/uL (150-450); Poikilocytosis Moderate; RBC 3.14 m/uL (4.30-5.90); RDW 15.4 % (11.5-15.5)
[2022-02-03 19:17] LABS: WBC 1.2 k/uL (3.8-10.6)
[2022-02-03 19:47] LABS: Calcium 6.5 mg/dL (8.4-10.2); Total Bilirubin 0.8 mg/dL (0.2-1.3); Total Protein 4.6 g/dL (6.3-8.2)
[2022-02-03 19:51] LABS: Potassium 2.3 mmol/L (3.5-5.1)
[2022-02-03] MEDS: POTASSIUM CHLORIDE ER 20 MEQ TAB.ER PO STA ×2 (21:07→21:41)
[2022-02-03 21:48] LABS: Neutrophils % (M) 40 %
[2022-02-03 21:49] LABS: Band Neutrophils % 13 %; Metamyelocytes # (M) 0.01 k/uL (0); Metamyelocytes % 1 %; Monocytes # (M) 0.35 k/uL (0-1.0); Nucleated Red Blood Cells 0 /100 WBC (0-0); Total Cells Counted 100
[2022-02-03 21:50] LABS: Anisocytosis (M) Present; Poikilocytosis (M) Present; Polychromasia Present
[2022-02-03 22:38] LABS: Glucose,Whole Blood 135 mg/dL (75-99)
[2022-02-03] MEDS: AMIODARONE 450 MG in DEXTROSE 5% IN WATER 250 ML IV SCH ×2 (23:52)
[2022-02-04] MEDS ORDERED: CEFEPIME 2 GM in SODIUM CHLORIDE 0.9% 100 ML IVPB SCH ×2
[2022-02-04] MEDS ORDERED: VANCOMYCIN IV PER PHARMACY 1 EACH MISC MISCELLANE PRN (00:56)
--- NOTE | 2022-02-04 00:59 | P.HPIM ---
History of Present Illness H&P Date: 02/03/22 Patient is a 61-year-old male with a PMH of stage IV rectal CA status post resection with colostomy and chemotherapy with metastasis to the liver, cerebral palsy with right upper extremity weakness, who presents to the emergency room with complaints of intractable nausea, vomiting, and diarrhea. Patient reports that over the past 2 days, he has had severe nausea with vomiting episodes of vomiting to count along with liquid stools in his colostomy bag, having to empty it 3-4 times a day. He reports feeling extremely fatigued as a result and unable to tolerate any food or water. Denies experiencing fever, chills, chest pain, shortness of breath. Denied leg pain or swelling. Denied headaches, focal weakness, numbness, or tingling. Chest x-ray in the emergency room revealed no acute abnormalities with EKG showing A. fib with RVR at 152 bpm. Laboratory evaluation was remarkable for WBC count of 1.2, hemoglobin 9.7, potassium 2.3, CO2 12, BUN 41, creatinine 3.31 (up from 0.7), lactic acid 8.0, with albumin 2.0. Review of systems: Pertinent positives and negatives as discussed in HPI, a complete review of systems was performed and all other systems are negative. Physical examination: General: Chronically ill-appearing male, no acute distress, appears older than stated age Derm: no unusual rashes/lesions no unusual ecchymoses, warm, dry Head: atraumatic, normocephalic, symmetric Eyes: EOMI, no lid lag, anicteric sclera, pupils equal round reactive to light ENT: Nose and ears atraumatic, no thrush, no pharyngeal erythema Neck: No thyromegaly, no cervical lymphadenopathy, trachea midline, supple Mouth: no lip lesion, mucus membranes dry Cardiovascular: Irregularly irregular, no murmur, positive posterior tibial pulse bilateral, no edema, capillary refill less than 2 seconds Lungs: CTA bilateral, no rhonchi, no rales , no accessory muscle use Abdominal: soft, nontender to palpation, colostomy in place with watery stool in bag, no guarding, no appreciable organomegaly, normal bowel sounds Ext: no gross muscle atrophy, muscle strength 3 out of 5 in all extremities grossly except RUE distal strength 2/5 with R wrist contacture Neuro: CN II-XI grossly intact, light touch intact all 4 extremities, finger to nose within normal limits, Psych: Alert, oriented, appropriate affect Assessment/plan Neutropenic sepsis in setting of stage IV rectal CA with chemotherapy -C/w broad spectrum antibiotics with cefepime -Follow-up blood cultures -Hematology/oncology consulted Acute kidney injury, likely secondary to severe dehydration -IV fluids -Monitor BMP Lactic acidosis -Continue IV fluids and monitor to resolution Severe hypokalemia -Replace and monitor Afib with RVR -Continue the amiodarone infusion -Cardiology consulted -Cardiac monitoring DVT prophylaxis -Heparin subq The patient is admitted with an anticipated greater than 2 midnight stay for norman luation of neutropenic sepsis CODE STATUS: full Code Discussed with: Patient Anticipated discharge date: 02/[address]: Home Past Medical History Past Medical History: Cancer, Hypertension, Liver Disease Additional Past Medical History / Comment(s): Right sided cerebral palsy, colon CA with mets to liver History of Any Multi-Drug Resistant Organisms: None Reported Past Surgical History: Back Surgery, Joint Replacement, Orthopedic Surgery Additional Past Surgical History / Comment(s): colostomy Past Anesthesia/Blood Transfusion Reactions: Unable to Obtain Past Psychological History: No Psychological Hx Reported Smoking Status: Former smoker Past Alcohol Use History: Occasional Past Drug Use History: None Reported - Past Family History Mother Family Medical History: No Reported History Medications and Allergies Home Medications Medication Instructions Recorded Confirmed Type Losartan Potassium [Cozaar] 100 mg PO DAILY 11/07/21 02/03/22 History LORazepam [Ativan] 1 mg PO Q6H PRN #4 tab 11/14/21 02/03/22 Rx Loperamide [Imodium] 2 mg PO QID PRN cap 11/14/21 02/03/22 Rx oxyCODONE HCL [OxyIR] 15 mg PO Q6HR PRN #6 tab 11/14/21 02/03/22 Rx Morphine Sulfate [Ms Contin] 30 mg PO Q12H 01/01/22 02/03/22 History Tamsulosin [Flomax] 0.4 mg PO DAILY #30 01/02/22 02/03/22 Rx Allergies Allergy/AdvReac Type Severity Reaction Status Date / Time No Known Allergies Allergy Verified 02/03/22 14:15 Physical Exam Vitals: Vital Signs Temp Pulse Resp BP Pulse Ox 02/03/22 22:16 87 20 93/57 97 02/03/22 20:41 78 22 92/55 99 02/03/22 20:00 79 20 87/48 99 02/03/22 18:31 91 18 98/67 98 02/03/22 17:02 106 H 18 96/57 98 02/03/22 16:34 130 H 18 86/61 99 02/03/22 16:17 126 H 18 85/46 100 02/03/22 15:57 129 H 18 83/44 100 02/03/22 15:05 147 H 18 72/52 100 02/03/22 15:01 137 H 18 87/59 97 02/03/22 14:50 149 H 18 87/53 100 02/03/22 14:44 135 H 18 91/54 100 02/03/22 14:40 151 H 18 103/80 99 02/03/22 14:30 135 H 18 101/82 100 02/03/22 14:25 126 H 18 87/56 100 02/03/22 14:20 151 H 18 64/51 100 02/03/22 14:12 147 H 18 79/54 100 02/03/22 14:00 154 H 18 87/67 100 02/03/22 13:40 150 H 18 108/72 99 02/03/22 13:30 168 H 16 89/59 100 02/03/22 13:24 126 H 18 61/48 97 02/03/22 13:12 98.2 F 165 H 27 H 109/74 100 Intake and Output 02/03/22 02/03/22 02/03/22 06:59 14:59 22:59 Intake Total 4.458 Balance 4.458 Intake: Intake, IV Titration 4.458 Amount Diltiazem 125 mg In 4.458 Sodium Chloride 0.9% 100 ml @ 2.5 MG/HR 2.5 mls/hr IV .Q24H [facility] Rx#: [id number] Other: Weight 72.575 kg Results CBC & Chem 7: 02/03/22 18:49 02/03/22 18:49 Labs: Abnormal Lab Results - Last 24 Hours (Table) 02/03/22 02/03/22 02/03/22 Range/Units 13:59 13:59 13:59 WBC 1.2 L* (3.8-10.6) k/uL RBC 3.48 L (4.30-5.90) m/uL Hgb 10.6 L (13.0-17.5) gm/dL Hct 31.3 L (39.0-53.0) % Plt Count 115 L (150-450) k/uL Neutrophils # (Manual) 0.48 L* (1.3-7.7) k/uL Lymphocytes # (Manual) 0.29 L (1.0-4.8) k/uL Metamyelocytes # (Man) (0) k/uL PT 19.1 H (9.0-12.0) sec INR 1.9 H (<1.2) Sodium 136 L (137-145) mmol/L Potassium 2.8 L (3.5-5.1) mmol/L Chloride (98-107) mmol/L Carbon Dioxide 11 L (22-30) mmol/L BUN 43 H (9-20) mg/dL Creatinine 3.70 H (0.66-1.25) mg/dL Glucose (74-99) mg/dL Plasma Lactic Acid Yared (0.7-2.0) mmol/L Calcium 7.2 L (8.4-10.2) mg/dL Magnesium 1.4 L (1.6-2.3) mg/dL Troponin I (0.000-0.034) ng/mL Total Protein 5.4 L (6.3-8.2) g/dL Albumin 2.4 L (3.5-5.0) g/dL 02/03/22 02/03/22 02/03/22 Range/Units 13:59 13:59 18:45 WBC (3.8-10.6) k/uL RBC (4.30-5.90) m/uL Hgb (13.0-17.5) gm/dL Hct (39.0-53.0) % Plt Count (150-450) k/uL Neutrophils # (Manual) (1.3-7.7) k/uL Lymphocytes # (Manual) (1.0-4.8) k/uL Metamyelocytes # (Man) (0) k/uL PT (9.0-12.0) sec INR (<1.2) Sodium (137-145) mmol/L Potassium (3.5-5.1) mmol/L Chloride (98-107) mmol/L Carbon Dioxide (22-30) mmol/L BUN (9-20) mg/dL Creatinine (0.66-1.25) mg/dL Glucose (74-99) mg/dL Plasma Lactic Acid Yared 8.0 H* 3.6 H* (0.7-2.0) mmol/L Calcium (8.4-10.2) mg/dL Magnesium (1.6-2.3) mg/dL Troponin I 0.039 H* (0.000-0.034) ng/mL Total Protein (6.3-8.2) g/dL Albumin (3.5-5.0) g/dL 02/03/22 02/03/22 02/03/22 Range/Units 18:49 18:49 21:46 WBC 1.2 L* (3.8-10.6) k/uL RBC 3.14 L (4.30-5.90) m/uL Hgb 9.7 L (13.0-17.5) gm/dL Hct 28.0 L (39.0-53.0) % Plt Count 112 L (150-450) k/uL Neutrophils # (Manual) 0.60 L (1.3-7.7) k/uL Lymphocytes # (Manual) 0.20 L (1.0-4.8) k/uL Metamyelocytes # (Man) 0.01 H (0) k/uL PT (9.0-12.0) sec INR (<1.2) Sodium 134 L (137-145) mmol/L Potassium 2.3 L* (3.5-5.1) mmol/L Chloride 109 H (98-107) mmol/L Carbon Dioxide 12 L (22-30) mmol/L BUN 41 H (9-20) mg/dL Creatinine 3.31 H (0.66-1.25) mg/dL Glucose 120 H (74-99) mg/dL Plasma Lactic Acid Yared 2.2 H* (0.7-2.0) mmol/L Calcium 6.5 L (8.4-10.2) mg/dL Magnesium (1.6-2.3) mg/dL Troponin I (0.000-0.034) ng/mL Total Protein 4.6 L (6.3-8.2) g/dL Albumin 2.0 L (3.5-5.0) g/dL
[2022-02-04] MEDS: POTASSIUM CHLORIDE ER 20 MEQ TAB.ER PO SCH ×3 (01:01→22:35)
[2022-02-04] MEDS ORDERED: VANCOMYCIN 1,250 MG in SODIUM CHLORIDE 0.9% 250 ML IVPB ONE ×2 (01:15→14:00)
[2022-02-04] MEDS: SODIUM CHLORIDE 0.9% 1,000 ML IV SCH ×3 (01:24→17:01)
[2022-02-04 01:34] LABS: Amorphous Sediment,Urine Occasional /hpf; Appearance,Urine Cloudy (Clear); Bacteria,Urine Many /hpf; Bilirubin,Urine Negative (Negative); Blood,Urine Small (Negative); Color,Urine Yellow; Glucose,Urine (UA) Negative (Negative); Hyaline Casts,Urine 6 /lpf (0-2); Ketones,Urine Negative (Negative); Leukocyte Esterase,Urine Large (Negative); Nitrite,Urine Negative (Negative); PH, Urine 5.5 (5.0-8.0); Protein,Urine 1+ (Negative); RBC,Urine 4 /hpf (0-5); Specific Gravity,Urine 1.013 (1.001-1.035); Squamous Epithelial Cell,Urine 1 /hpf (0-4); Urobilinogen,Urine <2.0 mg/dL (<2.0); WBC,Urine >182 /hpf (0-5)
[2022-02-04 01:42] LABS: HCT 26.9 % (39.0-53.0); HGB 9.2 gm/dL (13.0-17.5); Hypochromasia Slight; MCH 31.1 pg (25.0-35.0); MCV 91.6 fL (80.0-100.0); Mean Platelet Volume 9.1; Platelet Count 119 k/uL (150-450); Poikilocytosis Moderate; RBC 2.94 m/uL (4.30-5.90); RDW 15.5 % (11.5-15.5); WBC 1.9 k/uL (3.8-10.6)
[2022-02-04] MEDS ORDERED: NOREPINEPHRIN 4 MG-0.9% NS PMX 4 MG/250 ML ML IV ONE (01:50)
[2022-02-04] MEDS: NOREPINEPHRINE 4 MG in SODIUM CHLORIDE 0.9% 250 ML IV SCH (02:01)
[2022-02-04 02:13] LABS: Calcium 6.5 mg/dL (8.4-10.2); Potassium 3.2 mmol/L (3.5-5.1)
[2022-02-04] MEDS: POTASSIUM CHLORIDE 10 MEQ in WATER FOR INJECTION 1 100ML.BAG IVPB SCH ×2 (02:39→04:32)
[2022-02-04] MEDS: DEXTROSE 5% IN WATER 1,000 ML with SODIUM BICARB (1 MEQ/ML) 150 ML IV SCH ×3 (03:18→19:29)
[2022-02-04 03:44] LABS: ABG Base Excess -13.2 mmol/L; ABG HCO3 13 mmol/L (21-25); ABG Oxygen Saturation 96.9 % (94-97); ABG PCO2 26 mmHg (35-45); ABG PH 7.31 (7.35-7.45); ABG PO2 100 mmHg (83-108); ABG TCO2 14 mmol/L (19-24); Allen Test Performed? Yes
[2022-02-04 06:46] LABS: HCT 28.3 % (39.0-53.0); HGB 9.2 gm/dL (13.0-17.5); Hypochromasia Slight; MCH 30.1 pg (25.0-35.0); MCHC 32.5 g/dL (31.0-37.0); MCV 92.5 fL (80.0-100.0); Mean Platelet Volume 9.3; Platelet Count 113 k/uL (150-450); Poikilocytosis Moderate; RBC 3.06 m/uL (4.30-5.90); RDW 15.1 % (11.5-15.5); WBC 2.8 k/uL (3.8-10.6)
[2022-02-04 07:10] LABS: Calcium 6.5 mg/dL (8.4-10.2); Potassium 3.4 mmol/L (3.5-5.1)
[2022-02-04 07:52] LABS: Band Neutrophils % 14 %; Lymphocytes # (M) 0.53 k/uL (1.0-4.8); Metamyelocytes # (M) 0.06 k/uL (0); Metamyelocytes % 2 %; Monocytes # (M) 0.31 k/uL (0-1.0); Neutrophils % (M) 54 %; Nucleated Red Blood Cells 1 /100 WBC (0-0); Total Cells Counted 100
--- NOTE | 2022-02-04 08:40 | US ---
EXAMINATION TYPE: US renals and bladder DATE OF EXAM: 02/04/2022 COMPARISON: CT CLINICAL HISTORY: Acute renal failure . Acute renal failure. EXAM MEASUREMENTS: Right Kidney: 11.9 x 6.6 x 6.7 cm Left Kidney: 10.7 x 5.7 x 5.3 cm Right Kidney: There appears to be hydronephrosis-dilated anechoic collecting system seen. Left Kidney: There appears to be hydronephrosis-dilated anechoic collecting system seen. Bladder: Wall appears thickened at 0.7 cm. Echogenic material seen within the bladder: 6.2 x 7.3 x 2. 6 cm. Bilateral Jets seen: Not during ultrasound exam. Incidental findings: -Spleen appears to be slightly enlarged measuring 13.7 cm in length (versus upper limits of normal). -Free fluid seen within the right and left pelvic area. IMPRESSION: 1. Mild bilateral hydronephrosis with debris layering in the urinary bladder. Correlate for urinary bladder outlet obstruction. Correlation with urinalysis for cystitis. 2. Spleen at the upper limits of normal for size.
--- NOTE | 2022-02-04 09:44 | P.NPCON ---
History of Present Illness - Reason for Consult acute renal failure - History of Present Illness Reason for consultation: Acute kidney injury History of present illness: Patient is a 61-year-old male seen in renal consultation for acute kidney injury. Patient's creatinine from December 2021 was 0.7. This admission was elevated at 3.7 and is down to 3.09 today. Patient has history of colon cancer with metastatic disease. He has a colostomy. Patient states his last chemotherapy was about 10 days ago. He was receiving FOLFOX. He presented with nausea vomiting and diarrhea going on for about 2-3 days. Oral intake has been poor. He was noted to be in A. fib with RVR and is currently maintained on amiodarone drip. Cardizem drip has been discontinued. He is also on low-dose Levophed. He did receive 4 L of normal saline on admission and is currently maintained on bicarb drip running at 1 50 mL an hour. Patient bicarb level was 9 on admission and is 12 today. He is nonoliguric. Denies chest pain or shortness of breath. Denies use of nonsteroidals. He was on losartan which is currently held. No history of diabetes. Feels hungry and is requesting food. Vital signs are stable. On low-dose Levophed. General: Awake. No acute distress. HEENT: Head exam is unremarkable. LUNGS: Breath sounds decreased. HEART: Rate and Rhythm are regular. ABDOMEN: Soft. Colostomy noted. Liquid stool noted. EXTREMITITES: No edema. Past Medical History Past Medical History: Cancer, Hypertension, Liver Disease Additional Past Medical History / Comment(s): Right sided cerebral palsy, colon CA with mets to liver History of Any Multi-Drug Resistant Organisms: None Reported Past Surgical History: Back Surgery, Joint Replacement, Orthopedic Surgery Additional Past Surgical History / Comment(s): colostomy Past Anesthesia/Blood Transfusion Reactions: Unable to Obtain Past Psychological History: No Psychological Hx Reported Smoking Status: Former smoker Past Alcohol Use History: Occasional Past Drug Use History: None Reported - Past Family History Mother Family Medical History: No Reported History Medications and Allergies Home Medications Medication Instructions Recorded Confirmed Type Losartan Potassium [Cozaar] 100 mg PO DAILY 11/07/21 02/03/22 History LORazepam [Ativan] 1 mg PO Q6H PRN #4 tab 11/14/21 02/03/22 Rx Loperamide [Imodium] 2 mg PO QID PRN cap 11/14/21 02/03/22 Rx oxyCODONE HCL [OxyIR] 15 mg PO Q6HR PRN #6 tab 11/14/21 02/03/22 Rx Morphine Sulfate [Ms Contin] 30 mg PO Q12H 01/01/22 02/03/22 History Tamsulosin [Flomax] 0.4 mg PO DAILY #30 01/02/22 02/03/22 Rx Allergies Allergy/AdvReac Type Severity Reaction Status Date / Time No Known Allergies Allergy Verified 02/03/22 14:15 Physical Exam Vitals: Vital Signs Temp Pulse Resp BP Pulse Ox 02/04/22 07:00 55 L 18 96/58 96 02/04/22 06:30 54 L 17 86/55 97 02/04/22 06:00 55 L 19 95/59 97 02/04/22 05:30 54 L 15 92/61 96 02/04/22 05:00 54 L 18 86/58 96 02/04/22 04:30 59 L 19 88/58 96 02/04/22 04:00 97.4 F L 55 L 31 H 89/63 97 02/04/22 03:32 97 02/04/22 03:30 56 L 17 88/59 94 L 02/04/22 03:00 53 L 17 84/57 96 02/04/22 02:30 56 L 16 84/57 96 02/04/22 02:15 55 L 18 81/45 96 02/04/22 02:00 55 L 18 81/45 96 02/04/22 01:45 57 L 16 72/51 96 02/04/22 01:30 59 L 16 72/51 96 02/04/22 01:15 62 23 71/42 96 02/04/22 01:00 59 L 18 86/49 95 02/04/22 00:00 65 17 86/49 95 02/03/22 23:00 97.4 F L 67 17 83/59 96 02/03/22 22:30 36 H 97 02/03/22 22:16 87 20 93/57 97 02/03/22 20:41 78 22 92/55 99 02/03/22 20:00 79 20 87/48 99 02/03/22 19:31 20 96 02/03/22 18:31 91 18 98/67 98 02/03/22 17:02 106 H 18 96/57 98 02/03/22 16:34 130 H 18 86/61 99 02/03/22 16:17 126 H 18 85/46 100 02/03/22 15:57 129 H 18 83/44 100 02/03/22 15:05 147 H 18 72/52 100 02/03/22 15:01 137 H 18 87/59 97 02/03/22 14:50 149 H 18 87/53 100 02/03/22 14:44 135 H 18 91/54 100 02/03/22 14:40 151 H 18 103/80 99 02/03/22 14:30 135 H 18 101/82 100 02/03/22 14:25 126 H 18 87/56 100 02/03/22 14:20 151 H 18 64/51 100 02/03/22 14:12 147 H 18 79/54 100 02/03/22 14:00 154 H 18 87/67 100 02/03/22 13:40 150 H 18 108/72 99 02/03/22 13:30 168 H 16 89/59 100 02/03/22 13:24 126 H 18 61/48 97 02/03/22 13:12 98.2 F 165 H 27 H 109/74 100 Intake and Output 02/03/22 02/04/22 02/04/22 22:59 06:59 14:59 Intake Total 4.458 1075 Output Total 0 2020 Balance 4.458 -945 Intake: Intake, IV Titration 4.458 975 Amount Dextrose 5% in Water 1, 600 000 ml @ 150 mls/hr IV . Q7H40M [facility] with Sodium Bicarb (1 Meq/ml) 150 ml Rx#:[id number] Diltiazem 125 mg In 4.458 Sodium Chloride 0.9% 100 ml @ 2.5 MG/HR 2.5 mls/hr IV .Q24H [facility] Rx#: [id number] Sodium Chloride 0.9% 1, 375 000 ml @ 125 mls/hr IV . Q8H [facility] Rx#:[id number] Oral 100 Output: Urine 0 70 Stool 1950 Other: Voiding Method External Catheter External Catheter # Voids 1 Weight 63.4 kg 63.4 kg Results - Lab Results Most recent lab results ABG pH 7.31 (7.35-7.45) L 02/04/22 03:41 ABG pCO2 26 mmHg (35-45) L 02/04/22 03:41 ABG pO2 100 mmHg (83-108) 02/04/22 03:41 ABG HCO3 13 mmol/L (21-25) L 02/04/22 03:41 ABG O2 Saturation 96.9 % (94-97) 02/04/22 03:41 Calcium 6.5 mg/dL (8.4-10.2) L 02/04/22 05:51 Magnesium 1.4 mg/dL (1.6-2.3) L 02/03/22 13:59 02/04/22 05:51 02/04/22 05:51 Assessment and Plan Plan: Assessment: 1. Acute kidney injury secondary to ATN secondary to septic shock. Creatinine 3.7 on admission and is 3.09 today. Baseline creatinine 0.7 from December 2021. 2. Metabolic acidosis secondary to acute kidney injury and GI losses. 3. Colon cancer status post colostomy with metastatic disease. 4. A. fib with RVR maintained on amiodarone drip. 5. Hypokalemia from poor intake and intrasellar shifting from IV bicarb. 6. Hypomagnesemia from GI losses. 7. Hypocalcemia secondary to acute kidney injury and hypoalbuminemia. Plan: Maintain bicarb drip. Wean vasopressors. Continue to monitor renal function and urine output. Replace potassium. Repeat magnesium level today. Check ionized calcium level. Follow-up cultures. Check C. diff as well. Thank you for the consultation. I will continue to follow the patient with you during his hospital stay.
[2022-02-04] MEDS: CEFEPIME 1 GM in SODIUM CHLORIDE 0.9% 50 ML IVPB SCH ×2 (10:05→20:43)
[2022-02-04] MEDS: HEPARIN SODIUM,PORCINE/PF 5,000 UNIT/0.5 ML SYRINGE SQ SCH ×3 (10:05→16:17)
[2022-02-04 10:52] LABS: Magnesium 1.4 mg/dL (1.6-2.3)
[2022-02-04 11:20] LABS: Ionized Calcium 4.2 mg/dL (4.5-5.3)
[2022-02-04] MEDS ORDERED: POTASSIUM CHLORIDE ER 20 MEQ TAB.ER PO STA (11:54)
[2022-02-04] MEDS ORDERED: Magnesium Replacement Protocol 1 EACH MISC MISCELLANE PRN (11:55)
--- NOTE | 2022-02-04 12:04 | P.CNPUL ---
History of Present Illness Consult date: 02/04/22 Chief complaint: Generalized weakness, A. fib, acute kidney injury History of present illness: This is a 61-year-old male patient who came in to the burst department yesterday with generalized weakness, intractable nausea and vomiting and diarrhea as the patient is a colostomy the patient has been having liquidy stool in his colostomy bag. The patient was having high output liquidy stool and his bag was emptying and getting filled up multiple times a day. At the same time, the patient was feeling very much fatigued and was unable to maintain himself. He had no fever chills. No symptoms of acute shortness of breath. He came into the ED with the patient was found to be in A. fib with RVR. His heart rate was around 150. His white cell count was at 1.2 and hemoglobin was at 9.7 and the potassium level was at 2.3 with a mean of 41 and a creatinine of 3.3 consistent with acute kidney injury knowing that his baseline kidney function has been within normal limits. 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 The patient underwent colectomy and diverting colostomy. Note that the patient also had diffuse lymphadenopathy in the abdomen and pelvis and the retroperitoneal space and diffuse liver metastases. he was also found to have a L2 lytic lesion. The patient received radiation to his back. The patient was also given 4 cycles of systemic chemotherapy using FOLFOX/Avastin combination. Note that he got sick after the third cycle when he was hospitalized and at that time the patient was found to have enterococcus p UTI. Currently is being admitted following his fourth cycle the was given to approximately a week ago. In the emergency department, the patient was given filgrastim and a white cell count is improving for now. The patient was given examination cefepime and vancomycin. The patient was given a total of 4 L of IV fluid in the patient's urine output is currently no other 30s an hour and the creatinine is down to 3.0. Overnight, he was placed on amiodarone and Cardizem and the Cardizem drip has been off and the patient converted into normal sinus rhythm and amiodarone drip will be also discontinued today. He remains on low dose norepinephrine at a rate of 0.05 mg/kg/m. He is awake and alert. He is on room air oxygen. His chest x-ray showing some atelectatic changes and small effusion the lung bases bilaterally. Review of Systems Constitutional: Reports fatigue, Reports lethargy, Reports poor appetite, Reports weakness Eyes: denies as per HPI, denies blurred vision, denies bulging eye, denies decreased vision, denies diplopia, denies discharge, denies dry eye, denies irritation, denies itching, denies pain, denies photophobia, denies loss of peripheral vision, denies loss of vision, denies tunnel vision/blind spots Ears: deny: decreased hearing, ear discharge, earache, tinnitus Ears, nose, mouth and throat: Reports as per HPI Breasts: absent: as per HPI, gynecomastia Cardiovascular: Reports as per HPI Respiratory: Reports as per HPI Gastrointestinal: Reports change in bowel habits, Reports diarrhea, Reports nausea, Reports vomiting Genitourinary: Reports as per HPI Musculoskeletal: Reports muscle weakness Musculoskeletal: absent: ankle pain, ankle stiffness, ankle swelling Integumentary: Reports as per HPI Neurological: Reports as per HPI Psychiatric: Reports as per HPI Endocrine: Reports as per HPI Hematologic/Lymphatic: Reports as per HPI Allergic/Immunologic: Reports as per HPI Past Medical History Past Medical History: Cancer, Hypertension, Liver Disease Additional Past Medical History / Comment(s): Right sided cerebral palsy, colon CA with mets to liver History of Any Multi-Drug Resistant Organisms: None Reported Past Surgical History: Back Surgery, Joint Replacement, Orthopedic Surgery Additional Past Surgical History / Comment(s): colostomy Past Anesthesia/Blood Transfusion Reactions: Unable to Obtain Past Psychological History: No Psychological Hx Reported Smoking Status: Former smoker Past Alcohol Use History: Occasional Past Drug Use History: None Reported - Past Family History Mother Family Medical History: No Reported History Medications and Allergies Home Medications Medication Instructions Recorded Confirmed Type Losartan Potassium [Cozaar] 100 mg PO DAILY 11/07/21 02/03/22 History LORazepam [Ativan] 1 mg PO Q6H PRN #4 tab 11/14/21 02/03/22 Rx Loperamide [Imodium] 2 mg PO QID PRN cap 11/14/21 02/03/22 Rx oxyCODONE HCL [OxyIR] 15 mg PO Q6HR PRN #6 tab 11/14/21 02/03/22 Rx Morphine Sulfate [Ms Contin] 30 mg PO Q12H 01/01/22 02/03/22 History Tamsulosin [Flomax] 0.4 mg PO DAILY #30 01/02/22 02/03/22 Rx Allergies Allergy/AdvReac Type Severity Reaction Status Date / Time No Known Allergies Allergy Verified 02/03/22 14:15 Physical Exam Vitals: Vital Signs Temp Pulse Resp BP Pulse Ox 02/04/22 11:30 56 L 16 114/68 98 02/04/22 11:00 56 L 15 120/75 97 02/04/22 10:30 55 L 14 107/77 98 02/04/22 10:00 55 L 15 121/76 98 02/04/22 09:30 54 L 12 110/74 98 02/04/22 09:00 55 L 17 112/71 97 02/04/22 08:30 54 L 11 L 103/63 97 02/04/22 08:00 53 L 15 99/88 96 02/04/22 07:30 58 L 28 H 100/67 97 02/04/22 07:00 55 L 18 96/58 96 02/04/22 06:30 54 L 17 86/55 97 02/04/22 06:00 55 L 19 95/59 97 02/04/22 05:30 54 L 15 92/61 96 02/04/22 05:00 54 L 18 86/58 96 02/04/22 04:30 59 L 19 88/58 96 02/04/22 04:00 97.4 F L 55 L 31 H 89/63 97 02/04/22 03:32 97 02/04/22 03:30 56 L 17 88/59 94 L 02/04/22 03:00 53 L 17 84/57 96 02/04/22 02:30 56 L 16 84/57 96 02/04/22 02:15 55 L 18 81/45 96 02/04/22 02:00 55 L 18 81/45 96 02/04/22 01:45 57 L 16 72/51 96 02/04/22 01:30 59 L 16 72/51 96 02/04/22 01:15 62 23 71/42 96 02/04/22 01:00 59 L 18 86/49 95 02/04/22 00:00 65 17 86/49 95 02/03/22 23:00 97.4 F L 67 17 83/59 96 02/03/22 22:30 36 H 97 02/03/22 22:16 87 20 93/57 97 02/03/22 20:41 78 22 92/55 99 02/03/22 20:00 79 20 87/48 99 02/03/22 19:31 20 96 02/03/22 18:31 91 18 98/67 98 02/03/22 17:02 106 H 18 96/57 98 02/03/22 16:34 130 H 18 86/61 99 02/03/22 16:17 126 H 18 85/46 100 02/03/22 15:57 129 H 18 83/44 100 02/03/22 15:05 147 H 18 72/52 100 02/03/22 15:01 137 H 18 87/59 97 02/03/22 14:50 149 H 18 87/53 100 02/03/22 14:44 135 H 18 91/54 100 02/03/22 14:40 151 H 18 103/80 99 02/03/22 14:30 135 H 18 101/82 100 02/03/22 14:25 126 H 18 87/56 100 02/03/22 14:20 151 H 18 64/51 100 02/03/22 14:12 147 H 18 79/54 100 02/03/22 14:00 154 H 18 87/67 100 02/03/22 13:40 150 H 18 108/72 99 02/03/22 13:30 168 H 16 89/59 100 02/03/22 13:24 126 H 18 61/48 97 02/03/22 13:12 98.2 F 165 H 27 H 109/74 100 Intake and Output 02/03/22 02/04/22 02/04/22 22:59 06:59 14:59 Intake Total 4.458 1075 719.17 Output Total 0 2020 640 Balance 4.458 -945 79.17 Intake: IV 150 Dextrose 5% in Water 1, 150 000 ml @ 150 mls/hr IV . Q7H40M [facility] with Sodium Bicarb (1 Meq/ml) 150 ml Rx#:[id number] Intake, IV Titration 4.458 975 569.17 Amount Dextrose 5% in Water 1, 600 450 000 ml @ 150 mls/hr IV . Q7H40M [facility] with Sodium Bicarb (1 Meq/ml) 150 ml Rx#:[id number] Diltiazem 125 mg In 4.458 Sodium Chloride 0.9% 100 ml @ 2.5 MG/HR 2.5 mls/hr IV .Q24H [facility] Rx#: [id number] Norepinephrine 4 mg In 119.17 Sodium Chloride 0.9% 250 ml @ 0.05 MCG/KG/MIN 12. 078 mls/hr IV .Q21H2M [facility] Rx#:[id number] Sodium Chloride 0.9% 1, 375 000 ml @ 125 mls/hr IV . Q8H [facility] Rx#:[id number] Oral 100 Output: Urine 0 70 40 Stool 1950 600 Other: Voiding Method External Catheter External Catheter External Catheter # Voids 1 Weight 63.4 kg 63.4 kg General: Chronically ill-appearing male, no acute distress, appears older than stated age, the patient is currently on room air oxygen and the patient is calm and comfortable and communicating Derm: no unusual rashes/lesions no unusual ecchymoses, warm, dry Head: atraumatic, normocephalic, symmetric Eyes: EOMI, no lid lag, anicteric sclera, pupils equal round reactive to light ENT: Nose and ears atraumatic, no thrush, no pharyngeal erythema Neck: No thyromegaly, no cervical lymphadenopathy, trachea midline, supple Mouth: no lip lesion, mucus membranes dry Cardiovascular: Irregularly irregular, no murmur, positive posterior tibial pulse bilateral, no edema, capillary refill less than 2 seconds Lungs: CTA bilateral, no rhonchi, no rales , no accessory muscle use Abdominal: soft, nontender to palpation, colostomy in place with watery stool in bag, no guarding, no appreciable organomegaly, normal bowel sounds, the patient has a colostomy bag that his fall with liquidy material. No direct tenderness no rebound tensile guarding. Ext: no gross muscle atrophy, muscle strength 3 out of 5 in all extremities grossly except RUE distal strength 2/5 with R wrist contacture Neuro: CN II-XI grossly intact, light touch intact all 4 extremities, finger to nose within normal limits, Psych: Alert, oriented, appropriate affect Results - Laboratory Findings CBC and BMP: 02/04/22 05:51 02/04/22 05:51 ABG ABG pH 7.31 (7.35-7.45) L 02/04/22 03:41 ABG pCO2 26 mmHg (35-45) L 02/04/22 03:41 ABG pO2 100 mmHg (83-108) 02/04/22 03:41 ABG O2 Saturation 96.9 % (94-97) 02/04/22 03:41 PT/INR, D-dimer PT 19.1 sec (9.0-12.0) H 02/03/22 13:59 INR 1.9 (<1.2) H 02/03/22 13:59 Abnormal lab findings: Abnormal Labs 02/03/22 02/03/22 02/03/22 13:59 13:59 13:59 WBC 1.2 L* RBC 3.48 L Hgb 10.6 L Hct 31.3 L Plt Count 115 L Neutrophils # (Manual) 0.48 L* Lymphocytes # (Manual) 0.29 L Metamyelocytes # (Man) Nucleated RBCs PT 19.1 H INR 1.9 H ABG pH ABG pCO2 ABG HCO3 ABG Total CO2 Sodium 136 L Potassium 2.8 L Chloride Carbon Dioxide 11 L BUN 43 H Creatinine 3.70 H Glucose POC Glucose (mg/dL) Plasma Lactic Acid Yared Calcium 7.2 L Ionized Calcium Santosh Magnesium 1.4 L Troponin I Total Protein 5.4 L Albumin 2.4 L Urine Protein Urine Blood Ur Leukocyte Esterase Urine WBC Urine WBC Clumps Amorphous Sediment Urine Bacteria Hyaline Casts 02/03/22 02/03/22 02/03/22 13:59 13:59 18:45 WBC RBC Hgb Hct Plt Count Neutrophils # (Manual) Lymphocytes # (Manual) Metamyelocytes # (Man) Nucleated RBCs PT INR ABG pH ABG pCO2 ABG HCO3 ABG Total CO2 Sodium Potassium Chloride Carbon Dioxide BUN Creatinine Glucose POC Glucose (mg/dL) Plasma Lactic Acid Yared 8.0 H* 3.6 H* Calcium Ionized Calcium Santosh Magnesium Troponin I 0.039 H* Total Protein Albumin Urine Protein Urine Blood Ur Leukocyte Esterase Urine WBC Urine WBC Clumps Amorphous Sediment Urine Bacteria Hyaline Casts 02/03/22 02/03/22 02/03/22 18:49 18:49 21:46 WBC 1.2 L* RBC 3.14 L Hgb 9.7 L Hct 28.0 L Plt Count 112 L Neutrophils # (Manual) 0.60 L Lymphocytes # (Manual) 0.20 L Metamyelocytes # (Man) 0.01 H Nucleated RBCs PT INR ABG pH ABG pCO2 ABG HCO3 ABG Total CO2 Sodium 134 L Potassium 2.3 L* Chloride 109 H Carbon Dioxide 12 L BUN 41 H Creatinine 3.31 H Glucose 120 H POC Glucose (mg/dL) Plasma Lactic Acid Yared 2.2 H* Calcium 6.5 L Ionized Calcium Santosh Magnesium Troponin I Total Protein 4.6 L Albumin 2.0 L Urine Protein Urine Blood Ur Leukocyte Esterase Urine WBC Urine WBC Clumps Amorphous Sediment Urine Bacteria Hyaline Casts 02/03/22 02/04/22 02/04/22 22:36 01:13 01:15 WBC 1.9 L RBC 2.94 L Hgb 9.2 L Hct 26.9 L Plt Count 119 L Neutrophils # (Manual) Lymphocytes # (Manual) Metamyelocytes # (Man) Nucleated RBCs PT INR ABG pH ABG pCO2 ABG HCO3 ABG Total CO2 Sodium Potassium Chloride Carbon Dioxide BUN Creatinine Glucose POC Glucose (mg/dL) 135 H Plasma Lactic Acid Yared Calcium Ionized Calcium Santosh Magnesium Troponin I Total Protein Albumin Urine Protein 1+ H Urine Blood Small H Ur Leukocyte Esterase Large H Urine WBC >182 H Urine WBC Clumps Many H Amorphous Sediment Occasional H Urine Bacteria Many H Hyaline Casts 6 H 02/04/22 02/04/22 02/04/22 01:15 03:41 05:51 WBC 2.8 L RBC 3.06 L Hgb 9.2 L Hct 28.3 L Plt Count 113 L Neutrophils # (Manual) Lymphocytes # (Manual) 0.53 L Metamyelocytes # (Man) 0.06 H Nucleated RBCs 1 H PT INR ABG pH 7.31 L ABG pCO2 26 L ABG HCO3 13 L ABG Total CO2 14 L Sodium 133 L Potassium 3.2 L Chloride 110 H Carbon Dioxide 9 L* BUN 43 H Creatinine 3.18 H Glucose 130 H POC Glucose (mg/dL) Plasma Lactic Acid Yared Calcium 6.5 L Ionized Calcium Santosh Magnesium Troponin I Total Protein Albumin Urine Protein Urine Blood Ur Leukocyte Esterase Urine WBC Urine WBC Clumps Amorphous Sediment Urine Bacteria Hyaline Casts 02/04/22 02/04/22 05:51 10:03 WBC RBC Hgb Hct Plt Count Neutrophils # (Manual) Lymphocytes # (Manual) Metamyelocytes # (Man) Nucleated RBCs PT INR ABG pH ABG pCO2 ABG HCO3 ABG Total CO2 Sodium 134 L Potassium 3.4 L Chloride 109 H Carbon Dioxide 12 L BUN 43 H Creatinine 3.09 H Glucose 187 H POC Glucose (mg/dL) Plasma Lactic Acid Yared Calcium 6.5 L Ionized Calcium Santosh 4.2 L Magnesium 1.4 L Troponin I Total Protein Albumin Urine Protein Urine Blood Ur Leukocyte Esterase Urine WBC Urine WBC Clumps Amorphous Sediment Urine Bacteria Hyaline Casts - Diagnostic Findings Chest x-ray: image reviewed Assessment and Plan Plan: 1 hypotension, consider neutropenic sepsis exacerbated by a new onset atrial fibrillation with rapid ventricular response, hypovolemia and acute kidney injury. The patient is still under investigation. The patient was given a total of 4 L of IV fluid in the form of normal saline and the patient is currently on a bicarb infusion and the patient is also on low dose norepinephrine infusion 2 acute new onset atrial fibrillation with RVR, treated with a combination of Cardizem and amiodarone and the patient is currently on normal sinus rhythm. 3 acute kidney injury, consider obstructive uropathy as the patient's The Kidneys Showed Some early hydronephrosis. Nevertheless, the bladder itself is thickened and the patient is to had a Shipman catheter in place and there are signs of UTI on his urinalysis 4 UTI suspected, cultures were sent and the patient was covered with empiric antibiotics 5 electrode imbalance with hypokalemia, being replaced, the patient was also found to have hypomagnesemia and hypocalcemia 6 mild lactic acidosis 7 metabolic acidosis essentially of a non-anion gap type 8 metastatic rectal carcinoma post colectomy and diverting colostomy. The patient has received a total of 4 cycles of systemic chemotherapy utilizing FOLFOX/Avastin and the last cycle was approximately 4 weeks ago. The patient has had metastases to L2 spine and to the liver and there is also a vague opacity in the right midlung which could be potentially pulmonary metastases 9 neutropenia secondary to systemic chemotherapy 10 anemia secondary to above 11 recent enterococcal UTI Plan Continue bicarb infusion for now Wean off levo fed and discontinue if possible keeping a mean arterial pressure above 65 Monitor urine output This is a Shipman catheter May need a urology consultation as the patient has lymphadenopathy within the abdomen and this could potentially cause obstructive uropathy. We will insert a Shipman catheter and the patient will be reevaluated Consult nephrology Continue the current antibiotic coverage with IV cefepime and vancomycin Given another dose of filgrastim regarding underlying neutropenia Stop Cardizem and amiodarone for now Replace electrolytes Condition is critical and obviously prognosis poor baseline above-mentioned comorbidities. We'll continue to follow. Time with Patient: Greater than 30
[2022-02-04] MEDS: MAGNESIUM SULFATE-D5W PMX 1 GM in DEXTROSE/WATER 1 100ML.BAG IVPB SCH ×3 (12:40→17:59)
[2022-02-04] MEDS: AMIODARONE 200 MG TAB PO SCH ×2 (12:41→20:43)
[2022-02-04] MEDS ORDERED: FILGRASTIM-SNDZ 480 MCG/0.8 ML SYRINGE SQ ONE (13:00)
--- NOTE | 2022-02-04 14:16 | P.CRDCN ---
History of Present Illness Consult date: 02/04/22 History of present illness: This is a 61-year-old gentleman with history of metastatic rectal cancer including hepatic metastasis came to the hospital with complaints of nausea vomiting diarrhea. Patient also has a colostomy and has been having liquid stools. On arrival in the emergency room patient was found to be in atrial fibrillation with rapid ventricular response. Patient was initially put on IV Cardizem and subsequently switched to IV amiodarone. Patient did convert to sinus rhythm. Patient does have neutropenia and anemia. It is felt that patient may have sepsis. He is also require some vasopressin as per blood pressure support. Patient appears very cachectic and weak. From Cardec standpoint we'll continue with by mouth amiodarone. We'll get an echocardiogram to assess LV function. 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 Review of Systems As per the chart Past Medical History Past Medical History: Cancer, Hypertension, Liver Disease Additional Past Medical History / Comment(s): Right sided cerebral palsy, colon CA with mets to liver History of Any Multi-Drug Resistant Organisms: None Reported Past Surgical History: Back Surgery, Joint Replacement, Orthopedic Surgery Additional Past Surgical History / Comment(s): colostomy Past Anesthesia/Blood Transfusion Reactions: Unable to Obtain Past Psychological History: No Psychological Hx Reported Smoking Status: Former smoker Past Alcohol Use History: Occasional Past Drug Use History: None Reported - Past Family History Mother Family Medical History: No Reported History Medications and Allergies Home Medications Medication Instructions Recorded Confirmed Type Losartan Potassium [Cozaar] 100 mg PO DAILY 11/07/21 02/03/22 History LORazepam [Ativan] 1 mg PO Q6H PRN #4 tab 11/14/21 02/03/22 Rx Loperamide [Imodium] 2 mg PO QID PRN cap 11/14/21 02/03/22 Rx oxyCODONE HCL [OxyIR] 15 mg PO Q6HR PRN #6 tab 11/14/21 02/03/22 Rx Morphine Sulfate [Ms Contin] 30 mg PO Q12H 01/01/22 02/03/22 History Tamsulosin [Flomax] 0.4 mg PO DAILY #30 01/02/22 02/03/22 Rx Allergies Allergy/AdvReac Type Severity Reaction Status Date / Time No Known Allergies Allergy Verified 02/03/22 14:15 Physical Exam Vitals: Vital Signs Temp Pulse Resp BP Pulse Ox 02/04/22 11:30 56 L 16 114/68 98 02/04/22 11:00 56 L 15 120/75 97 02/04/22 10:30 55 L 14 107/77 98 02/04/22 10:00 55 L 15 121/76 98 02/04/22 09:30 54 L 12 110/74 98 02/04/22 09:00 55 L 17 112/71 97 02/04/22 08:30 54 L 11 L 103/63 97 02/04/22 08:00 53 L 15 99/88 96 02/04/22 07:30 58 L 28 H 100/67 97 02/04/22 07:00 55 L 18 96/58 96 02/04/22 06:30 54 L 17 86/55 97 02/04/22 06:00 55 L 19 95/59 97 02/04/22 05:30 54 L 15 92/61 96 02/04/22 05:00 54 L 18 86/58 96 02/04/22 04:30 59 L 19 88/58 96 02/04/22 04:00 97.4 F L 55 L 31 H 89/63 97 02/04/22 03:32 97 02/04/22 03:30 56 L 17 88/59 94 L 02/04/22 03:00 53 L 17 84/57 96 02/04/22 02:30 56 L 16 84/57 96 02/04/22 02:15 55 L 18 81/45 96 02/04/22 02:00 55 L 18 81/45 96 02/04/22 01:45 57 L 16 72/51 96 02/04/22 01:30 59 L 16 72/51 96 02/04/22 01:15 62 23 71/42 96 02/04/22 01:00 59 L 18 86/49 95 02/04/22 00:00 65 17 86/49 95 02/03/22 23:00 97.4 F L 67 17 83/59 96 02/03/22 22:30 36 H 97 02/03/22 22:16 87 20 93/57 97 02/03/22 20:41 78 22 92/55 99 02/03/22 20:00 79 20 87/48 99 02/03/22 19:31 20 96 02/03/22 18:31 91 18 98/67 98 02/03/22 17:02 106 H 18 96/57 98 02/03/22 16:34 130 H 18 86/61 99 02/03/22 16:17 126 H 18 85/46 100 02/03/22 15:57 129 H 18 83/44 100 02/03/22 15:05 147 H 18 72/52 100 02/03/22 15:01 137 H 18 87/59 97 02/03/22 14:50 149 H 18 87/53 100 02/03/22 14:44 135 H 18 91/54 100 02/03/22 14:40 151 H 18 103/80 99 02/03/22 14:30 135 H 18 101/82 100 02/03/22 14:25 126 H 18 87/56 100 02/03/22 14:20 151 H 18 64/51 100 02/03/22 14:12 147 H 18 79/54 100 Intake and Output 02/03/22 02/04/22 02/04/22 22:59 06:59 14:59 Intake Total 4.458 1075 719.17 Output Total 0 2020 640 Balance 4.458 -945 79.17 Intake: IV 150 Dextrose 5% in Water 1, 150 000 ml @ 150 mls/hr IV . Q7H40M [facility] with Sodium Bicarb (1 Meq/ml) 150 ml Rx#:[id number] Intake, IV Titration 4.458 975 569.17 Amount Dextrose 5% in Water 1, 600 450 000 ml @ 150 mls/hr IV . Q7H40M [facility] with Sodium Bicarb (1 Meq/ml) 150 ml Rx#:[id number] Diltiazem 125 mg In 4.458 Sodium Chloride 0.9% 100 ml @ 2.5 MG/HR 2.5 mls/hr IV .Q24H [facility] Rx#: [id number] Norepinephrine 4 mg In 119.17 Sodium Chloride 0.9% 250 ml @ 0.05 MCG/KG/MIN 12. 078 mls/hr IV .Q21H2M [facility] Rx#:[id number] Sodium Chloride 0.9% 1, 375 000 ml @ 125 mls/hr IV . Q8H [facility] Rx#:[id number] Oral 100 Output: Urine 0 70 40 Stool 1950 600 Other: Voiding Method External Catheter External Catheter External Catheter # Voids 1 Weight 63.4 kg 63.4 kg 63.4 kg GENERAL EXAM: Patient is weak, frail and cachectic HEENT: Normocephalic. NECK: No masses, no nuchal rigidity. CHEST: No chest wall deformity. LUNGS:, Diminished breath sounds HEART: S1 and S2 normal with no audible mumurs or gallops. Regular rhythm ABDOMEN: Previous colostomy SKIN: No rashes CENTRAL NERVOUS SYSTEM: No focal deficits. EXTREMITIES: No cyanosis, clubbing or edema. Results 02/04/22 05:51 02/04/22 05:51 Cardiac Enzymes 02/03/22 02/03/22 02/03/22 Range/Units 13:59 13:59 18:49 AST 33 25 (17-59) U/L Troponin I 0.039 H* (0.000-0.034) ng/mL Coagulation 02/03/22 Range/Units 13:59 PT 19.1 H (9.0-12.0) sec APTT 25.6 (22.0-30.0) sec CBC 02/03/22 02/03/22 02/04/22 Range/Units 13:59 18:49 01:15 WBC 1.2 L* 1.2 L* 1.9 L (3.8-10.6) k/uL RBC 3.48 L 3.14 L 2.94 L (4.30-5.90) m/uL Hgb 10.6 L 9.7 L 9.2 L (13.0-17.5) gm/dL Hct 31.3 L 28.0 L 26.9 L (39.0-53.0) % Plt Count 115 L 112 L 119 L (150-450) k/uL 02/04/22 Range/Units 05:51 WBC 2.8 L (3.8-10.6) k/uL RBC 3.06 L (4.30-5.90) m/uL Hgb 9.2 L (13.0-17.5) gm/dL Hct 28.3 L (39.0-53.0) % Plt Count 113 L (150-450) k/uL Comprehensive Metabolic Panel 02/03/22 02/03/22 02/04/22 Range/Units 13:59 18:49 01:15 Sodium 136 L 134 L 133 L (137-145) mmol/L Potassium 2.8 L 2.3 L* 3.2 L (3.5-5.1) mmol/L Chloride 106 109 H 110 H (98-107) mmol/L Carbon Dioxide 11 L 12 L 9 L* (22-30) mmol/L BUN 43 H 41 H 43 H (9-20) mg/dL Creatinine 3.70 H 3.31 H 3.18 H (0.66-1.25) mg/dL Glucose 95 120 H 130 H (74-99) mg/dL Calcium 7.2 L 6.5 L 6.5 L (8.4-10.2) mg/dL AST 33 25 (17-59) U/L ALT 26 14 (4-49) U/L Alkaline Phosphatase 123 105 (38-126) U/L Total Protein 5.4 L 4.6 L (6.3-8.2) g/dL Albumin 2.4 L 2.0 L (3.5-5.0) g/dL 02/04/22 Range/Units 05:51 Sodium 134 L (137-145) mmol/L Potassium 3.4 L (3.5-5.1) mmol/L Chloride 109 H (98-107) mmol/L Carbon Dioxide 12 L (22-30) mmol/L BUN 43 H (9-20) mg/dL Creatinine 3.09 H (0.66-1.25) mg/dL Glucose 187 H (74-99) mg/dL Calcium 6.5 L (8.4-10.2) mg/dL AST (17-59) U/L ALT (4-49) U/L Alkaline Phosphatase (38-126) U/L Total Protein (6.3-8.2) g/dL Albumin (3.5-5.0) g/dL Current Medications Generic Name Dose Route Start Last Admin Trade Name Freq PRN Reason Stop Dose Admin Amiodarone HCl 200 mg 02/04/22 12:00 02/04/22 12:41 Amiodarone 200 Mg Tab PO 200 mg BID [facility] Administration Heparin Sodium (Porcine) 5,000 unit 02/04/22 08:00 02/04/22 10:05 Heparin Sodium,Porcine/Pf 5,000 Unit/0.5 Ml Syringe SQ 5,000 unit Q8HR [facility] Administration Amiodarone HCl 450 mg/ 250 mls @ 16.667 mls/hr 02/03/22 22:30 02/03/22 23:52 Dextrose/Water IV 02/04/22 16:29 0.5 mg/min .Q15H [facility] 16.667 mls/hr Administration Protocol 0.5 MG/MIN Cefepime HCl 1 gm/ Sodium 50 mls @ 12.5 mls/hr 02/04/22 09:00 02/04/22 10:05 Chloride IVPB 12.5 mls/hr Q12HR [facility] Administration Sodium Chloride 1,000 mls @ 125 mls/hr 02/04/22 01:00 02/04/22 10:05 Saline 0.9% IV Not Given .Q8H [facility] Norepinephrine Bitartrate 4 mg 254 mls @ 12.078 mls/hr 02/04/22 01:45 02/04/22 11:53 / Sodium Chloride IV 0.03 mcg/kg/min .Q21H2M [facility] 7.247 mls/hr Titration Protocol 0.05 MCG/KG/MIN Sodium Bicarbonate 150 ml/ 1,150 mls @ 150 mls/hr 02/04/22 03:00 02/04/22 10:06 Dextrose/Water IV 150 mls/hr .Q7H40M [facility] Administration Vancomycin HCl 1,250 mg/ 250 mls @ 125 mls/hr 02/04/22 14:00 Sodium Chloride IVPB 02/04/22 15:59 ONCE ONE Magnesium Sulfate/Dextrose 1 100 mls @ 100 mls/hr 02/04/22 12:00 02/04/22 12:40 gm/ IV Solution IVPB 02/04/22 14:59 100 mls/hr Q1H [facility] Administration Miscellaneous Information 1 each 02/04/22 00:56 Vancomycin Iv Per Pharmacy 1 Each Misc MISCELLANE DIRECTED PRN Per Protocol Protocol Miscellaneous Information 1 each 02/04/22 11:55 Magnesium Replacement Protocol 1 Each Misc MISCELLANE DAILY PRN Per Protocol Protocol Naloxone HCl 0.2 mg 02/03/22 18:31 Naloxone 0.4 Mg/Ml 1 Ml Vial IV Q2M PRN Opioid Reversal Intake and Output 02/03/22 02/04/22 02/04/22 22:59 06:59 14:59 Intake Total 4.458 1075 719.17 Output Total 0 2020 640 Balance 4.458 -945 79.17 Intake: IV 150 Dextrose 5% in Water 1, 150 000 ml @ 150 mls/hr IV . Q7H40M [facility] with Sodium Bicarb (1 Meq/ml) 150 ml Rx#:[id number] Intake, IV Titration 4.458 975 569.17 Amount Dextrose 5% in Water 1, 600 450 000 ml @ 150 mls/hr IV . Q7H40M [facility] with Sodium Bicarb (1 Meq/ml) 150 ml Rx#:[id number] Diltiazem 125 mg In 4.458 Sodium Chloride 0.9% 100 ml @ 2.5 MG/HR 2.5 mls/hr IV .Q24H [facility] Rx#: [id number] Norepinephrine 4 mg In 119.17 Sodium Chloride 0.9% 250 ml @ 0.05 MCG/KG/MIN 12. 078 mls/hr IV .Q21H2M [facility] Rx#:[id number] Sodium Chloride 0.9% 1, 375 000 ml @ 125 mls/hr IV . Q8H [facility] Rx#:[id number] Oral 100 Output: Urine 0 70 40 Stool 1950 600 Other: Voiding Method External Catheter External Catheter External Catheter # Voids 1 Weight 63.4 kg 63.4 kg 63.4 kg Patient Weight 02/05/22 06:59 Weight 63.4 kg 02/04/22 05:51 02/04/22 05:51 EKG Interpretations (text) Initial EKG showed atrial fibrillation. Subsequent EKG showed conversion to sinus Assessment and Plan (1) Acute renal failure Current Visit: Yes Status: Acute Code(s): N17.9 - ACUTE KIDNEY FAILURE, UNSPECIFIED SNOMED Code(s): 80898495 (2) Atrial fibrillation with RVR Current Visit: Yes Status: Acute Code(s): I48.91 - UNSPECIFIED ATRIAL FIBRILLATION SNOMED Code(s): 470717266454173 (3) Elevated troponin Current Visit: Yes Status: Acute Code(s): R77.8 - OTHER SPECIFIED ABNORMALITIES OF PLASMA PROTEINS SNOMED Code(s): 555352329 (4) Intractable vomiting with nausea Current Visit: No Status: Acute Priority: High Code(s): R11.2 - NAUSEA WITH VOMITING, UNSPECIFIED SNOMED Code(s): 969212272 (5) Rectal cancer metastatic to bone Current Visit: No Status: Acute Code(s): C20 - MALIGNANT NEOPLASM OF RECTUM; C79.51 - SECONDARY MALIGNANT NEOPLASM OF BONE SNOMED Code(s): 318519882 Plan: Continue current treatment with amiodarone. Rest of the management with antibiotics and vasopressors as needed. Prognosis is guarded
[2022-02-04] MEDS: AMIODARONE 450 MG in DEXTROSE 5% IN WATER 250 ML IV SCH ×2 (14:37)
[2022-02-04] MEDS ORDERED: MORPHINE SULFATE 2 MG/ML SYRINGE IM STA (16:04)
[2022-02-04] MEDS: MORPHINE SULFATE 2 MG/ML SYRINGE ONE ×2 (16:07→17:00)
--- NOTE | 2022-02-04 18:18 | P.PN ---
Subjective Progress Note Date: 02/04/22 Principal diagnosis: Neutropenic sepsis Patient was seen and examined. No acute events overnight. Patient reports improvement in his nausea and vomiting. His diarrhea has improved. He reports intractable generalized pain. He is on MS Contin and oxycodone at home which she has not been receiving here due to hypotension. Heart rate controlled in the 50s. He is on Levothroid 2 mics. Objective - Vital Signs Vital signs: Vital Signs Temp 95.9 F L 02/04/22 16:00 Pulse 52 L 02/04/22 18:00 Resp 16 02/04/22 18:00 BP 86/58 02/04/22 18:00 Pulse Ox 97 02/04/22 18:00 Intake & Output 02/03/22 02/04/22 02/04/22 18:59 06:59 18:59 Intake Total 4.458 1075 2638.802 Output Total 2020 1565 Balance 4.458 -945 1073.802 Weight 72.575 kg 63.4 kg 63.4 kg Intake: IV 1800.0 Cefepime 1 gm In Sodium 50.0 Chloride 0.9% 50 ml @ 12. 5 mls/hr IVPB Q12HR [facility] Rx#:[id number] Dextrose 5% in Water 1, 1200 000 ml @ 150 mls/hr IV . Q7H40M [facility] with Sodium Bicarb (1 Meq/ml) 150 ml Rx#:[id number] Magnesium Sulfate-D5w Pmx 300 1 gm In Dextrose/Water 1 100ml.bag @ 100 mls/hr IVPB Q1H [facility] Rx#: [id number] Vancomycin 1,250 mg In 250 Sodium Chloride 0.9% 250 ml @ 125 mls/hr IVPB ONCE ONE Rx#:[id number] Intake, IV Titration 4.458 975 838.802 Amount Amiodarone 450 mg In 245.838 Dextrose 5% in Water 250 ml @ 0.5 MG/MIN 16.667 mls/hr IV .Q15H [facility] Rx#: [id number] Dextrose 5% in Water 1, 600 450 000 ml @ 150 mls/hr IV . Q7H40M [facility] with Sodium Bicarb (1 Meq/ml) 150 ml Rx#:[id number] Diltiazem 125 mg In 4.458 Sodium Chloride 0.9% 100 ml @ 2.5 MG/HR 2.5 mls/hr IV .Q24H [facility] Rx#: [id number] Norepinephrine 4 mg In 142.964 Sodium Chloride 0.9% 250 ml @ 0.05 MCG/KG/MIN 12. 078 mls/hr IV .Q21H2M [facility] Rx#:[id number] Sodium Chloride 0.9% 1, 375 000 ml @ 125 mls/hr IV . Q8H [facility] Rx#:[id number] Oral 100 Output: Urine 70 665 Stool 1950 900 Other: Voiding Method External Catheter Indwelling Catheter # Voids 1 - Exam General: [non toxic], [no distress], [cachectic ill-appearing] Derm: [warm], [dry] Head: [atraumatic], [normocephalic], [symmetric] Eyes: [EOMI], [no lid lag], [anicteric sclera] Mouth: [no lip lesion], [mucus membranes moist] Cardiovascular: [Irregularly regular], [no murmur], [positive posterior tibial pulse bilateral], Lungs: [CTA bilateral], [no rhonchi, no rales] , [no accessory muscle use] Abdominal: [soft], [ nontender to palpation], [no guarding], [no appreciable organomegaly], [colostomy in place] Ext: [no gross muscle atrophy], [no edema], [no contractures] Neuro: [no focal neuro deficits] Psych: [Alert], [oriented], [appropriate affect] - Labs CBC & Chem 7: 02/04/22 05:51 02/04/22 05:51 Labs: Abnormal Lab Results - Last 24 Hours (Table) 02/03/22 02/03/22 02/03/22 Range/Units 18:45 18:49 18:49 WBC 1.2 L* (3.8-10.6) k/uL RBC 3.14 L (4.30-5.90) m/uL Hgb 9.7 L (13.0-17.5) gm/dL Hct 28.0 L (39.0-53.0) % Plt Count 112 L (150-450) k/uL Neutrophils # (Manual) 0.60 L (1.3-7.7) k/uL Lymphocytes # (Manual) 0.20 L (1.0-4.8) k/uL Metamyelocytes # (Man) 0.01 H (0) k/uL Nucleated RBCs (0-0) /100 WBC ABG pH (7.35-7.45) ABG pCO2 (35-45) mmHg ABG HCO3 (21-25) mmol/L ABG Total CO2 (19-24) mmol/L Sodium 134 L (137-145) mmol/L Potassium 2.3 L* (3.5-5.1) mmol/L Chloride 109 H (98-107) mmol/L Carbon Dioxide 12 L (22-30) mmol/L BUN 41 H (9-20) mg/dL Creatinine 3.31 H (0.66-1.25) mg/dL Glucose 120 H (74-99) mg/dL POC Glucose (mg/dL) (75-99) mg/dL Plasma Lactic Acid Yared 3.6 H* (0.7-2.0) mmol/L Calcium 6.5 L (8.4-10.2) mg/dL Ionized Calcium Santosh (4.5-5.3) mg/dL Magnesium (1.6-2.3) mg/dL Total Protein 4.6 L (6.3-8.2) g/dL Albumin 2.0 L (3.5-5.0) g/dL Urine Protein (Negative) Urine Blood (Negative) Ur Leukocyte Esterase (Negative) Urine WBC (0-5) /hpf Urine WBC Clumps (None) /hpf Amorphous Sediment (None) /hpf Urine Bacteria (None) /hpf Hyaline Casts (0-2) /lpf 02/03/22 02/03/22 02/04/22 Range/Units 21:46 22:36 01:13 WBC (3.8-10.6) k/uL RBC (4.30-5.90) m/uL Hgb (13.0-17.5) gm/dL Hct (39.0-53.0) % Plt Count (150-450) k/uL Neutrophils # (Manual) (1.3-7.7) k/uL Lymphocytes # (Manual) (1.0-4.8) k/uL Metamyelocytes # (Man) (0) k/uL Nucleated RBCs (0-0) /100 WBC ABG pH (7.35-7.45) ABG pCO2 (35-45) mmHg ABG HCO3 (21-25) mmol/L ABG Total CO2 (19-24) mmol/L Sodium (137-145) mmol/L Potassium (3.5-5.1) mmol/L Chloride (98-107) mmol/L Carbon Dioxide (22-30) mmol/L BUN (9-20) mg/dL Creatinine (0.66-1.25) mg/dL Glucose (74-99) mg/dL POC Glucose (mg/dL) 135 H (75-99) mg/dL Plasma Lactic Acid Yared 2.2 H* (0.7-2.0) mmol/L Calcium (8.4-10.2) mg/dL Ionized Calcium Santosh (4.5-5.3) mg/dL Magnesium (1.6-2.3) mg/dL Total Protein (6.3-8.2) g/dL Albumin (3.5-5.0) g/dL Urine Protein 1+ H (Negative) Urine Blood Small H (Negative) Ur Leukocyte Esterase Large H (Negative) Urine WBC >182 H (0-5) /hpf Urine WBC Clumps Many H (None) /hpf Amorphous Sediment Occasional H (None) /hpf Urine Bacteria Many H (None) /hpf Hyaline Casts 6 H (0-2) /lpf 02/04/22 02/04/22 02/04/22 Range/Units 01:15 01:15 03:41 WBC 1.9 L (3.8-10.6) k/uL RBC 2.94 L (4.30-5.90) m/uL Hgb 9.2 L (13.0-17.5) gm/dL Hct 26.9 L (39.0-53.0) % Plt Count 119 L (150-450) k/uL Neutrophils # (Manual) (1.3-7.7) k/uL Lymphocytes # (Manual) (1.0-4.8) k/uL Metamyelocytes # (Man) (0) k/uL Nucleated RBCs (0-0) /100 WBC ABG pH 7.31 L (7.35-7.45) ABG pCO2 26 L (35-45) mmHg ABG HCO3 13 L (21-25) mmol/L ABG Total CO2 14 L (19-24) mmol/L Sodium 133 L (137-145) mmol/L Potassium 3.2 L (3.5-5.1) mmol/L Chloride 110 H (98-107) mmol/L Carbon Dioxide 9 L* (22-30) mmol/L BUN 43 H (9-20) mg/dL Creatinine 3.18 H (0.66-1.25) mg/dL Glucose 130 H (74-99) mg/dL POC Glucose (mg/dL) (75-99) mg/dL Plasma Lactic Acid Yared (0.7-2.0) mmol/L Calcium 6.5 L (8.4-10.2) mg/dL Ionized Calcium Santosh (4.5-5.3) mg/dL Magnesium (1.6-2.3) mg/dL Total Protein (6.3-8.2) g/dL Albumin (3.5-5.0) g/dL Urine Protein (Negative) Urine Blood (Negative) Ur Leukocyte Esterase (Negative) Urine WBC (0-5) /hpf Urine WBC Clumps (None) /hpf Amorphous Sediment (None) /hpf Urine Bacteria (None) /hpf Hyaline Casts (0-2) /lpf 02/04/22 02/04/22 02/04/22 Range/Units 05:51 05:51 10:03 WBC 2.8 L (3.8-10.6) k/uL RBC 3.06 L (4.30-5.90) m/uL Hgb 9.2 L (13.0-17.5) gm/dL Hct 28.3 L (39.0-53.0) % Plt Count 113 L (150-450) k/uL Neutrophils # (Manual) (1.3-7.7) k/uL Lymphocytes # (Manual) 0.53 L (1.0-4.8) k/uL Metamyelocytes # (Man) 0.06 H (0) k/uL Nucleated RBCs 1 H (0-0) /100 WBC ABG pH (7.35-7.45) ABG pCO2 (35-45) mmHg ABG HCO3 (21-25) mmol/L ABG Total CO2 (19-24) mmol/L Sodium 134 L (137-145) mmol/L Potassium 3.4 L (3.5-5.1) mmol/L Chloride 109 H (98-107) mmol/L Carbon Dioxide 12 L (22-30) mmol/L BUN 43 H (9-20) mg/dL Creatinine 3.09 H (0.66-1.25) mg/dL Glucose 187 H (74-99) mg/dL POC Glucose (mg/dL) (75-99) mg/dL Plasma Lactic Acid Yared (0.7-2.0) mmol/L Calcium 6.5 L (8.4-10.2) mg/dL Ionized Calcium Santosh 4.2 L (4.5-5.3) mg/dL Magnesium 1.4 L (1.6-2.3) mg/dL Total Protein (6.3-8.2) g/dL Albumin (3.5-5.0) g/dL Urine Protein (Negative) Urine Blood (Negative) Ur Leukocyte Esterase (Negative) Urine WBC (0-5) /hpf Urine WBC Clumps (None) /hpf Amorphous Sediment (None) /hpf Urine Bacteria (None) /hpf Hyaline Casts (0-2) /lpf Microbiology - Last 24 Hours (Table) 02/03/22 15:16 Blood Culture - Preliminary Blood No Growth after 24 hours 02/03/22 15:03 Blood Culture - Preliminary Blood No Growth after 24 hours 02/04/22 01:13 Urine Culture - Preliminary Urine,Voided Assessment and Plan Assessment: Neutropenic sepsis in setting of stage IV rectal CA with chemotherapy -C/w broad spectrum antibiotics with cefepime -Leukopenia improving s/p Filgastrim 02/03 and 02/04 -Follow-up blood cultures (negative prelim at 24H) -Currently on Levophed at 2 mics, attempting to wean -Urine culture prelim negative -Hematology/oncology consulted Acute kidney injury, likely secondary to severe dehydration Severe metabolic acidosis -In the setting of severe dehydration and sepsis -IV fluids - D5 sodium bicarbonate at 150 cc/hr -Nephrology consulted -Monitor BMP Hypokalemia -Replace and monitor Afib with RVR -Amiodarone drip discontinued and patient maintained on amiodarone by mouth -Cardiology on board -Echocardiogram ordered -Cardiac monitoring DVT prophylaxis -Heparin subq Resolved: Lactic acidosis The patient is admitted with an anticipated greater than 2 midnight stay for evaluation of neutropenic sepsis CODE STATUS: full Code Discussed with: Patient Anticipated discharge date: 02/[address]: Home
[2022-02-04] MEDS ORDERED: Potassium Replacement Protocol 1 EACH MISC MISCELLANE PRN (22:15)
[2022-02-04] MEDS: POTASSIUM CHLORIDE 20 MEQ in WATER FOR INJECTION 1 100ML.BAG IVPB SCH (22:31)
[2022-02-05] MEDS: HEPARIN SODIUM,PORCINE/PF 5,000 UNIT/0.5 ML SYRINGE SQ SCH ×4 (00:11→16:41)
--- NOTE | 2022-02-05 00:28 | P.CONS ---
History of Present Illness - Reason for Consult Consult date: 02/04/22 SIRS, NVD, rectal ca on chemo - History of Present Illness The patient is a 61-year-old white male, well known to our service. He is followed by Dr. Ford in the office. The patient has a known history of rectal cancer, for which he is on chemotherapy with FOLFOX/Avastin. He is status post 4 cycles, with last chemotherapy completed on 01/25/22. The patient states that he developed intractable nausea, vomiting, and diarrhea starting about 4-5 days after her pump removal, and progressive. Oral intake decreased markedly. He also developed significant mouth sores making it difficult for him to take anything by mouth other than liquids. Stools were watery a significant increase in need for emptying the colostomy bag. He developed progressive weakness, leading him to come to the ER. In the ER, he was found to be hypotensive, and in A. fib with RVR. He was also neutropenic. He denied any obvious fevers. Creatinine was markedly increased, in the 3+ range, whereas baseline is less than 1. He was admitted to the ICU, and started on aggressive IV hydration, filgrastim, IV antibiotics, as well as pressors and Cardizem drip. Consult was placed for further evaluation and recommendations. Oncology history as follows: Pt presented to [facility] with rapidly progressive mid abdominal pain and weight loss of 50 LBS in 4-[address] revealed large rectal tumor with evidence of diffuse lymphadenopathy in abdomen, pelvis and retroperitoneal space, diffuse liver mets. Colonoscopy with near complete obstruction, Bx revealed poorly-differentiated Adenocarcinoma. L2 lytic lesion on CT scan. Radiation Oncology consulted on patient. He has cerebral palsey, but able to stand up and walk. After cycle#1 of FOLFOX/Avastin was in PAM. His LFTs improved after 1st chemo. Cycle #2 no c/o. Now admitted after cycle #3, completed on 12/26. Cycle #4 due 01/09. He will see Dr. Ford on later this week. Review of Systems Constitutional: Reports chronic pain, Reports fatigue, Reports poor appetite, Reports weight loss Eyes: denies blurred vision, denies pain Ears: deny: decreased hearing, ear discharge, earache, tinnitus Ears, nose, mouth and throat: Reports mouth pain (mucositis), Denies headache, Denies sore throat Cardiovascular: Reports as per HPI, Reports decreased exercise tolerance Respiratory: Denies cough Gastrointestinal: Reports diarrhea, Reports loss of appetite, Reports nausea, Reports vomiting Genitourinary: Reports as per HPI Musculoskeletal: Reports muscle weakness Integumentary: Denies pruritus, Denies rash Neurological: Reports as per HPI, Reports ataxia (cerebral palsy), Reports weakness Psychiatric: Denies anxiety, Denies depression Endocrine: Reports fatigue, Reports weight change Hematologic/Lymphatic: Reports as per HPI Past Medical History Past Medical History: Cancer, Hypertension, Liver Disease Additional Past Medical History / Comment(s): Right sided cerebral palsy, colon CA with mets to liver History of Any Multi-Drug Resistant Organisms: None Reported Past Surgical History: Back Surgery, Joint Replacement, Orthopedic Surgery Additional Past Surgical History / Comment(s): colostomy Past Anesthesia/Blood Transfusion Reactions: Unable to Obtain Past Psychological History: No Psychological Hx Reported Smoking Status: Former smoker Past Alcohol Use History: Occasional Past Drug Use History: None Reported - Past Family History Mother Family Medical History: No Reported History Medications and Allergies Home Medications Medication Instructions Recorded Confirmed Type Losartan Potassium [Cozaar] 100 mg PO DAILY 11/07/21 02/03/22 History LORazepam [Ativan] 1 mg PO Q6H PRN #4 tab 11/14/21 02/03/22 Rx Loperamide [Imodium] 2 mg PO QID PRN cap 11/14/21 02/03/22 Rx oxyCODONE HCL [OxyIR] 15 mg PO Q6HR PRN #6 tab 11/14/21 02/03/22 Rx Morphine Sulfate [Ms Contin] 30 mg PO Q12H 01/01/22 02/03/22 History Tamsulosin [Flomax] 0.4 mg PO DAILY #30 01/02/22 02/03/22 Rx Allergies Allergy/AdvReac Type Severity Reaction Status Date / Time No Known Allergies Allergy Verified 02/03/22 14:15 Physical Exam Vitals: Vital Signs Temp Pulse Resp BP Pulse Ox 02/04/22 11:30 56 L 16 114/68 98 02/04/22 11:00 56 L 15 120/75 97 02/04/22 10:30 55 L 14 107/77 98 02/04/22 10:00 55 L 15 121/76 98 02/04/22 09:30 54 L 12 110/74 98 02/04/22 09:00 55 L 17 112/71 97 02/04/22 08:30 54 L 11 L 103/63 97 02/04/22 08:00 53 L 15 99/88 96 02/04/22 07:30 58 L 28 H 100/67 97 02/04/22 07:00 55 L 18 96/58 96 02/04/22 06:30 54 L 17 86/55 97 02/04/22 06:00 55 L 19 95/59 97 02/04/22 05:30 54 L 15 92/61 96 02/04/22 05:00 54 L 18 86/58 96 02/04/22 04:30 59 L 19 88/58 96 02/04/22 04:00 97.4 F L 55 L 31 H 89/63 97 02/04/22 03:32 97 02/04/22 03:30 56 L 17 88/59 94 L 02/04/22 03:00 53 L 17 84/57 96 02/04/22 02:30 56 L 16 84/57 96 02/04/22 02:15 55 L 18 81/45 96 02/04/22 02:00 55 L 18 81/45 96 02/04/22 01:45 57 L 16 72/51 96 02/04/22 01:30 59 L 16 72/51 96 02/04/22 01:15 62 23 71/42 96 02/04/22 01:00 59 L 18 86/49 95 02/04/22 00:00 65 17 86/49 95 02/03/22 23:00 97.4 F L 67 17 83/59 96 02/03/22 22:30 36 H 97 02/03/22 22:16 87 20 93/57 97 02/03/22 20:41 78 22 92/55 99 02/03/22 20:00 79 20 87/48 99 02/03/22 19:31 20 96 02/03/22 18:31 91 18 98/67 98 02/03/22 17:02 106 H 18 96/57 98 02/03/22 16:34 130 H 18 86/61 99 02/03/22 16:17 126 H 18 85/46 100 02/03/22 15:57 129 H 18 83/44 100 02/03/22 15:05 147 H 18 72/52 100 02/03/22 15:01 137 H 18 87/59 97 02/03/22 14:50 149 H 18 87/53 100 02/03/22 14:44 135 H 18 91/54 100 02/03/22 14:40 151 H 18 103/80 99 02/03/22 14:30 135 H 18 101/82 100 02/03/22 14:25 126 H 18 87/56 100 02/03/22 14:20 151 H 18 64/51 100 02/03/22 14:12 147 H 18 79/54 100 02/03/22 14:00 154 H 18 87/67 100 02/03/22 13:40 150 H 18 108/72 99 02/03/22 13:30 168 H 16 89/59 100 02/03/22 13:24 126 H 18 61/48 97 02/03/22 13:12 98.2 F 165 H 27 H 109/74 100 Intake and Output 02/03/22 02/04/22 02/04/22 22:59 06:59 14:59 Intake Total 4.458 1075 719.17 Output Total 0 2020 640 Balance 4.458 -945 79.17 Intake: IV 150 Dextrose 5% in Water 1, 150 000 ml @ 150 mls/hr IV . Q7H40M ARIEL with Sodium Bicarb (1 Meq/ml) 150 ml Rx#:[id number] Intake, IV Titration 4.458 975 569.17 Amount Dextrose 5% in Water 1, 600 450 000 ml @ 150 mls/hr IV . Q7H40M ARIEL with Sodium Bicarb (1 Meq/ml) 150 ml Rx#:[id number] Diltiazem 125 mg In 4.458 Sodium Chloride 0.9% 100 ml @ 2.5 MG/HR 2.5 mls/hr IV .Q24H ARIEL Rx#: [id number] Norepinephrine 4 mg In 119.17 Sodium Chloride 0.9% 250 ml @ 0.05 MCG/KG/MIN 12. 078 mls/hr IV .Q21H2M ARIEL Rx#:[id number] Sodium Chloride 0.9% 1, 375 000 ml @ 125 mls/hr IV . Q8H ARIEL Rx#:[id number] Oral 100 Output: Urine 0 70 40 Stool 1950 600 Other: Voiding Method External Catheter External Catheter External Catheter # Voids 1 Weight 63.4 kg 63.4 kg 63.4 kg - Constitutional generalized weakness, lethargy, arousable, oriented General appearance: no acute distress - EENT Eyes: EOMI, PERRLA ENT: other (diffuse mucositis) - Neck Neck: no lymphadenopathy Thyroid: bilateral: normal size - Respiratory Respiratory: bilateral: CTA - Cardiovascular Rhythm: irregularly irregular Heart sounds: normal: S1, S2 - Gastrointestinal Ostomy RLQ liquid brown stool General gastrointestinal: normal bowel sounds, soft - Integumentary Integumentary: normal - Neurologic Neurologic: CNII-XII intact - Musculoskeletal Musculoskeletal: generalized weakness, right sided weakness (right upper extremity weakness, contracture, chronic due to cerebral palsy) - Psychiatric Psychiatric: A&O x's 3, appropriate affect Results CBC & Chem 7: 02/04/22 05:51 02/04/22 20:50 Labs: Abnormal Lab Results - Last 24 Hours (Table) 02/03/22 02/03/22 02/03/22 Range/Units 13:59 13:59 13:59 WBC 1.2 L* (3.8-10.6) k/uL RBC 3.48 L (4.30-5.90) m/uL Hgb 10.6 L (13.0-17.5) gm/dL Hct 31.3 L (39.0-53.0) % Plt Count 115 L (150-450) k/uL Neutrophils # (Manual) 0.48 L* (1.3-7.7) k/uL Lymphocytes # (Manual) 0.29 L (1.0-4.8) k/uL Metamyelocytes # (Man) (0) k/uL Nucleated RBCs (0-0) /100 WBC PT 19.1 H (9.0-12.0) sec INR 1.9 H (<1.2) ABG pH (7.35-7.45) ABG pCO2 (35-45) mmHg ABG HCO3 (21-25) mmol/L ABG Total CO2 (19-24) mmol/L Sodium 136 L (137-145) mmol/L Potassium 2.8 L (3.5-5.1) mmol/L Chloride (98-107) mmol/L Carbon Dioxide 11 L (22-30) mmol/L BUN 43 H (9-20) mg/dL Creatinine 3.70 H (0.66-1.25) mg/dL Glucose (74-99) mg/dL POC Glucose (mg/dL) (75-99) mg/dL Plasma Lactic Acid Yared (0.7-2.0) mmol/L Calcium 7.2 L (8.4-10.2) mg/dL Ionized Calcium Santosh (4.5-5.3) mg/dL Magnesium 1.4 L (1.6-2.3) mg/dL Troponin I (0.000-0.034) ng/mL Total Protein 5.4 L (6.3-8.2) g/dL Albumin 2.4 L (3.5-5.0) g/dL Urine Protein (Negative) Urine Blood (Negative) Ur Leukocyte Esterase (Negative) Urine WBC (0-5) /hpf Urine WBC Clumps (None) /hpf Amorphous Sediment (None) /hpf Urine Bacteria (None) /hpf Hyaline Casts (0-2) /lpf 02/03/22 02/03/22 02/03/22 Range/Units 13:59 13:59 18:45 WBC (3.8-10.6) k/uL RBC (4.30-5.90) m/uL Hgb (13.0-17.5) gm/dL Hct (39.0-53.0) % Plt Count (150-450) k/uL Neutrophils # (Manual) (1.3-7.7) k/uL Lymphocytes # (Manual) (1.0-4.8) k/uL Metamyelocytes # (Man) (0) k/uL Nucleated RBCs (0-0) /100 WBC PT (9.0-12.0) sec INR (<1.2) ABG pH (7.35-7.45) ABG pCO2 (35-45) mmHg ABG HCO3 (21-25) mmol/L ABG Total CO2 (19-24) mmol/L Sodium (137-145) mmol/L Potassium (3.5-5.1) mmol/L Chloride (98-107) mmol/L Carbon Dioxide (22-30) mmol/L BUN (9-20) mg/dL Creatinine (0.66-1.25) mg/dL Glucose (74-99) mg/dL POC Glucose (mg/dL) (75-99) mg/dL Plasma Lactic Acid Yared 8.0 H* 3.6 H* (0.7-2.0) mmol/L Calcium (8.4-10.2) mg/dL Ionized Calcium Santosh (4.5-5.3) mg/dL Magnesium (1.6-2.3) mg/dL Troponin I 0.039 H* (0.000-0.034) ng/mL Total Protein (6.3-8.2) g/dL Albumin (3.5-5.0) g/dL Urine Protein (Negative) Urine Blood (Negative) Ur Leukocyte Esterase (Negative) Urine WBC (0-5) /hpf Urine WBC Clumps (None) /hpf Amorphous Sediment (None) /hpf Urine Bacteria (None) /hpf Hyaline Casts (0-2) /lpf 02/03/22 02/03/22 02/03/22 Range/Units 18:49 18:49 21:46 WBC 1.2 L* (3.8-10.6) k/uL RBC 3.14 L (4.30-5.90) m/uL Hgb 9.7 L (13.0-17.5) gm/dL Hct 28.0 L (39.0-53.0) % Plt Count 112 L (150-450) k/uL Neutrophils # (Manual) 0.60 L (1.3-7.7) k/uL Lymphocytes # (Manual) 0.20 L (1.0-4.8) k/uL Metamyelocytes # (Man) 0.01 H (0) k/uL Nucleated RBCs (0-0) /100 WBC PT (9.0-12.0) sec INR (<1.2) ABG pH (7.35-7.45) ABG pCO2 (35-45) mmHg ABG HCO3 (21-25) mmol/L ABG Total CO2 (19-24) mmol/L Sodium 134 L (137-145) mmol/L Potassium 2.3 L* (3.5-5.1) mmol/L Chloride 109 H (98-107) mmol/L Carbon Dioxide 12 L (22-30) mmol/L BUN 41 H (9-20) mg/dL Creatinine 3.31 H (0.66-1.25) mg/dL Glucose 120 H (74-99) mg/dL POC Glucose (mg/dL) (75-99) mg/dL Plasma Lactic Acid Yared 2.2 H* (0.7-2.0) mmol/L Calcium 6.5 L (8.4-10.2) mg/dL Ionized Calcium Santosh (4.5-5.3) mg/dL Magnesium (1.6-2.3) mg/dL Troponin I (0.000-0.034) ng/mL Total Protein 4.6 L (6.3-8.2) g/dL Albumin 2.0 L (3.5-5.0) g/dL Urine Protein (Negative) Urine Blood (Negative) Ur Leukocyte Esterase (Negative) Urine WBC (0-5) /hpf Urine WBC Clumps (None) /hpf Amorphous Sediment (None) /hpf Urine Bacteria (None) /hpf Hyaline Casts (0-2) /lpf 02/03/22 02/04/22 02/04/22 Range/Units 22:36 01:13 01:15 WBC 1.9 L (3.8-10.6) k/uL RBC 2.94 L (4.30-5.90) m/uL Hgb 9.2 L (13.0-17.5) gm/dL Hct 26.9 L (39.0-53.0) % Plt Count 119 L (150-450) k/uL Neutrophils # (Manual) (1.3-7.7) k/uL Lymphocytes # (Manual) (1.0-4.8) k/uL Metamyelocytes # (Man) (0) k/uL Nucleated RBCs (0-0) /100 WBC PT (9.0-12.0) sec INR (<1.2) ABG pH (7.35-7.45) ABG pCO2 (35-45) mmHg ABG HCO3 (21-25) mmol/L ABG Total CO2 (19-24) mmol/L Sodium (137-145) mmol/L Potassium (3.5-5.1) mmol/L Chloride (98-107) mmol/L Carbon Dioxide (22-30) mmol/L BUN (9-20) mg/dL Creatinine (0.66-1.25) mg/dL Glucose (74-99) mg/dL POC Glucose (mg/dL) 135 H (75-99) mg/dL Plasma Lactic Acid Yared (0.7-2.0) mmol/L Calcium (8.4-10.2) mg/dL Ionized Calcium Santosh (4.5-5.3) mg/dL Magnesium (1.6-2.3) mg/dL Troponin I (0.000-0.034) ng/mL Total Protein (6.3-8.2) g/dL Albumin (3.5-5.0) g/dL Urine Protein 1+ H (Negative) Urine Blood Small H (Negative) Ur Leukocyte Esterase Large H (Negative) Urine WBC >182 H (0-5) /hpf Urine WBC Clumps Many H (None) /hpf Amorphous Sediment Occasional H (None) /hpf Urine Bacteria Many H (None) /hpf Hyaline Casts 6 H (0-2) /lpf 02/04/22 02/04/22 02/04/22 Range/Units 01:15 03:41 05:51 WBC 2.8 L (3.8-10.6) k/uL RBC 3.06 L (4.30-5.90) m/uL Hgb 9.2 L (13.0-17.5) gm/dL Hct 28.3 L (39.0-53.0) % Plt Count 113 L (150-450) k/uL Neutrophils # (Manual) (1.3-7.7) k/uL Lymphocytes # (Manual) 0.53 L (1.0-4.8) k/uL Metamyelocytes # (Man) 0.06 H (0) k/uL Nucleated RBCs 1 H (0-0) /100 WBC PT (9.0-12.0) sec INR (<1.2) ABG pH 7.31 L (7.35-7.45) ABG pCO2 26 L (35-45) mmHg ABG HCO3 13 L (21-25) mmol/L ABG Total CO2 14 L (19-24) mmol/L Sodium 133 L (137-145) mmol/L Potassium 3.2 L (3.5-5.1) mmol/L Chloride 110 H (98-107) mmol/L Carbon Dioxide 9 L* (22-30) mmol/L BUN 43 H (9-20) mg/dL Creatinine 3.18 H (0.66-1.25) mg/dL Glucose 130 H (74-99) mg/dL POC Glucose (mg/dL) (75-99) mg/dL Plasma Lactic Acid Yared (0.7-2.0) mmol/L Calcium 6.5 L (8.4-10.2) mg/dL Ionized Calcium Santosh (4.5-5.3) mg/dL Magnesium (1.6-2.3) mg/dL Troponin I (0.000-0.034) ng/mL Total Protein (6.3-8.2) g/dL Albumin (3.5-5.0) g/dL Urine Protein (Negative) Urine Blood (Negative) Ur Leukocyte Esterase (Negative) Urine WBC (0-5) /hpf Urine WBC Clumps (None) /hpf Amorphous Sediment (None) /hpf Urine Bacteria (None) /hpf Hyaline Casts (0-2) /lpf 02/04/22 02/04/22 Range/Units 05:51 10:03 WBC (3.8-10.6) k/uL RBC (4.30-5.90) m/uL Hgb (13.0-17.5) gm/dL Hct (39.0-53.0) % Plt Count (150-450) k/uL Neutrophils # (Manual) (1.3-7.7) k/uL Lymphocytes # (Manual) (1.0-4.8) k/uL Metamyelocytes # (Man) (0) k/uL Nucleated RBCs (0-0) /100 WBC PT (9.0-12.0) sec INR (<1.2) ABG pH (7.35-7.45) ABG pCO2 (35-45) mmHg ABG HCO3 (21-25) mmol/L ABG Total CO2 (19-24) mmol/L Sodium 134 L (137-145) mmol/L Potassium 3.4 L (3.5-5.1) mmol/L Chloride 109 H (98-107) mmol/L Carbon Dioxide 12 L (22-30) mmol/L BUN 43 H (9-20) mg/dL Creatinine 3.09 H (0.66-1.25) mg/dL Glucose 187 H (74-99) mg/dL POC Glucose (mg/dL) (75-99) mg/dL Plasma Lactic Acid Yared (0.7-2.0) mmol/L Calcium 6.5 L (8.4-10.2) mg/dL Ionized Calcium Santosh 4.2 L (4.5-5.3) mg/dL Magnesium 1.4 L (1.6-2.3) mg/dL Troponin I (0.000-0.034) ng/mL Total Protein (6.3-8.2) g/dL Albumin (3.5-5.0) g/dL Urine Protein (Negative) Urine Blood (Negative) Ur Leukocyte Esterase (Negative) Urine WBC (0-5) /hpf Urine WBC Clumps (None) /hpf Amorphous Sediment (None) /hpf Urine Bacteria (None) /hpf Hyaline Casts (0-2) /lpf Microbiology - Last 24 Hours (Table) 02/04/22 01:13 Urine Culture - Preliminary Urine,Voided Comments: EKG image reviewed Chest x-ray: report reviewed US - abdomen: report reviewed Assessment and Plan (1) SIRS (systemic inflammatory response syndrome) Narrative/Plan: The patient had presented with hypotension, and tachycardia. The patient was neutropenic on presentation, though he was afebrile. He is improved with aggressive hydration, pressors, and IV antibiotics. Cultures are negative so far. - Given his symptoms, the patient may have infection from oral or GI source. Noninfectious etiology, due to severe dehydration from nausea, vomiting and diarrhea is also possible - Patient is on filgrastim, with improvement in WBC. ANC today is greater than 1000. Discontinue filgrastim, once ANC is normal Current Visit: Yes Status: Acute Code(s): R65.10 - SIRS OF NON-INFECTIOUS ORIGIN W/O ACUTE ORGAN DYSFUNCTION SNOMED Code(s): 550861632 (2) Dehydration Narrative/Plan: due to intractable nausea, vomiting and diarrhea. Patient is being aggressively hydrated. He is currently on low-dose pressors. Nausea, vomiting is improved. Continue aggressive hydration, along with treatment for diarrhea. Current Visit: No Status: Acute Code(s): E86.0 - DEHYDRATION SNOMED Code(s): 46483493 (3) Acute renal failure Narrative/Plan: Most likely due to dehydration. However, we'll ultrasound mentions possibility of mild hydronephrosis. CT scans in 11/19 had not shown any evidence of the same. Consult neurology for further evaluation. Current Visit: Yes Status: Acute Code(s): N17.9 - ACUTE KIDNEY FAILURE, UNSPECIFIED SNOMED Code(s): 11644468 (4) Rectal cancer Narrative/Plan: Diagnostic and therapeutic circumstances as described. Due to adverse events, chemotherapy dose was reduced after cycle #2. However, the patient is having similar side effects after cycle #4. Treatment will be on hold until acute condition resolves. The patient will need further dose adjustment prior to resuming treatment Current Visit: No Status: Acute Priority: High Code(s): C20 - MALIGNANT NEOPLASM OF RECTUM SNOMED Code(s): 015126407 Plan: continue IV antiemetics. Start Lomotil. Clear liquids. Treatment for mucositis.
[2022-02-05] MEDS: POTASSIUM CHLORIDE 20 MEQ in WATER FOR INJECTION 1 100ML.BAG IVPB SCH ×3 (01:42→05:47)
[2022-02-05] MEDS: POTASSIUM CHLORIDE ER 20 MEQ TAB.ER PO SCH ×2 (02:26→05:52)
[2022-02-05] MEDS: NOREPINEPHRINE 4 MG in SODIUM CHLORIDE 0.9% 250 ML IV SCH (02:33)
[2022-02-05] MEDS: DEXTROSE 5% IN WATER 1,000 ML with SODIUM BICARB (1 MEQ/ML) 150 ML IV SCH ×3 (03:12→23:17)
[2022-02-05] MEDS ORDERED: SODIUM CHLORIDE 0.9% 1,000 ML IV ONE (08:14)
[2022-02-05] MEDS: AMIODARONE 200 MG TAB PO SCH ×2 (08:25→21:30)
[2022-02-05] MEDS: CEFEPIME 1 GM in SODIUM CHLORIDE 0.9% 50 ML IVPB SCH (08:37)
[2022-02-05 08:57] LABS: HGB 10.2 gm/dL (13.0-17.5); Hypochromasia Slight; MCH 30.6 pg (25.0-35.0); MCHC 34.2 g/dL (31.0-37.0); MCV 89.6 fL (80.0-100.0); Mean Platelet Volume 9.4; Platelet Count 151 k/uL (150-450); Poikilocytosis Moderate; RBC 3.34 m/uL (4.30-5.90); RDW 15.7 % (11.5-15.5); WBC 10.6 k/uL (3.8-10.6)
[2022-02-05 09:00] LABS: Albumin 2.2 g/dL (3.5-5.0); Calcium 7.5 mg/dL (8.4-10.2); Magnesium 2.3 mg/dL (1.6-2.3); Potassium 2.9 mmol/L (3.5-5.1); Total Bilirubin 0.8 mg/dL (0.2-1.3); Total Protein 4.9 g/dL (6.3-8.2)
[2022-02-05] MEDS ORDERED: DIPHENOX-ATROP 2.5-0.025 MG 1 EACH TAB PO SCH (09:00)
--- NOTE | 2022-02-05 09:14 | P.PN ---
Subjective Patient is seen in follow-up for acute kidney injury. Creatinine 3.09 as of yesterday evening. Potassium low at 2.3 and has been replaced. Magnesium was also replaced. Patient having high output from the colostomy. Urine output 40- 50 mL an hour. Denies chest pain or shortness of breath. On clear liquid diet. On bicarb drip for IV fluids. Off Cardizem and amiodarone drip. Now on oral amiodarone. On low-dose Levophed. Vital signs are stable. On vasopressor support. General: Awake and alert. No acute distress. HEENT: Head exam is unremarkable. LUNGS: Breath sounds decreased. HEART: Rate and Rhythm are regular. ABDOMEN: Soft, no distention. Colostomy noted. EXTREMITITES: No edema. Objective - Vital Signs Vital signs: Vital Signs Temp 97.9 F 02/05/22 08:00 Pulse 59 L 02/05/22 09:00 Resp 12 02/05/22 09:00 BP 98/60 02/05/22 09:00 Pulse Ox 99 02/05/22 09:00 Intake & Output 02/04/22 02/05/22 02/05/22 18:59 06:59 18:59 Intake Total 2655.469 2027.464 588.306 Output Total 1565 2290 845 Balance 1090.469 -262.536 -256.694 Weight 63.4 kg 63.4 kg Intake: IV 1800.0 1800 462.5 Cefepime 1 gm In Sodium 50.0 12.5 Chloride 0.9% 50 ml @ 12. 5 mls/hr IVPB Q12HR ARIEL Rx#:[id number] Dextrose 5% in Water 1, 1200 1800 450 000 ml @ 150 mls/hr IV . Q7H40M ARIEL with Sodium Bicarb (1 Meq/ml) 150 ml Rx#:[id number] Magnesium Sulfate-D5w Pmx 300 1 gm In Dextrose/Water 1 100ml.bag @ 100 mls/hr IVPB Q1H ARIEL Rx#: [id number] Vancomycin 1,250 mg In 250 Sodium Chloride 0.9% 250 ml @ 125 mls/hr IVPB ONCE ONE Rx#:[id number] Intake, IV Titration 855.469 127.464 25.806 Amount Amiodarone 450 mg In 245.838 Dextrose 5% in Water 250 ml @ 0.5 MG/MIN 16.667 mls/hr IV .Q15H ARIEL Rx#: [id number] Dextrose 5% in Water 1, 450 000 ml @ 150 mls/hr IV . Q7H40M ARIEL with Sodium Bicarb (1 Meq/ml) 150 ml Rx#:[id number] Norepinephrine 4 mg In 159.631 127.464 25.806 Sodium Chloride 0.9% 250 ml @ 0.05 MCG/KG/MIN 12. 078 mls/hr IV .Q21H2M ARIEL Rx#:[id number] Oral 100 100 Output: Urine 665 440 145 Stool 900 1850 700 Other: Voiding Method Indwelling Catheter Indwelling Catheter - Labs CBC & Chem 7: 02/05/22 08:17 02/04/22 20:50 Labs: Abnormal Lab Results - Last 24 Hours (Table) 02/04/22 02/04/22 02/05/22 Range/Units 10:03 20:50 08:17 RBC 3.34 L (4.30-5.90) m/uL Hgb 10.2 L (13.0-17.5) gm/dL Hct 30.0 L (39.0-53.0) % RDW 15.7 H (11.5-15.5) % Potassium 2.3 L* (3.5-5.1) mmol/L Ionized Calcium Santosh 4.2 L (4.5-5.3) mg/dL Magnesium 1.4 L (1.6-2.3) mg/dL Microbiology - Last 24 Hours (Table) 02/03/22 15:16 Blood Culture - Preliminary Blood No Growth after 24 hours 02/03/22 15:03 Blood Culture - Preliminary Blood No Growth after 24 hours 02/04/22 01:13 Urine Culture - Preliminary Urine,Voided Assessment and Plan Plan: Assessment: 1. Acute kidney injury secondary to ATN secondary to septic shock/hemodynamic instability. Creatinine 3.7 on admission and was 3.09 yesterday. Baseline creatinine 0.7 from December 2021. Bilateral hydronephrosis noted on kidney ultrasound. 2. Metabolic acidosis secondary to acute kidney injury and GI losses. On bicarb drip. 3. Colon cancer status post colostomy with metastatic disease. 4. A. fib with RVR maintained on oral amiodarone. 5. Hypokalemia from poor intake, hypomagnesemia and intracellular shifting from IV bicarb. Being replaced. 6. Hypomagnesemia from GI losses. Replaced. 7. Hypocalcemia secondary to acute kidney injury and hypoalbuminemia. Replaced. Plan: Maintain bicarb drip. Wean vasopressors. Continue to monitor renal function and urine output. Follow-up cultures. Follow-up morning labs. Patient having high output from the colostomy. C. diff was negative. He is on Lomotil. Consult urology.
[2022-02-05 10:30] LABS: Band Neutrophils % 2 %; Lymphocytes # (M) 0.74 k/uL (1.0-4.8); Metamyelocytes # (M) 0.11 k/uL (0); Metamyelocytes % 1 %; Monocytes # (M) 0.32 k/uL (0-1.0); Myelocytes # (M) 0.11 k/uL (0); Myelocytes % 1 %; Neutrophils % (M) 87 %; Nucleated Red Blood Cells 0 /100 WBC (0-0); Total Cells Counted 200
[2022-02-05 10:31] LABS: Anisocytosis (M) Present; RBC Fragments Present
[2022-02-05 10:32] LABS: Toxic Granulation Present; Toxic Vacuolation Present
[2022-02-05] MEDS: POTASSIUM CHLORIDE 10 MEQ in WATER FOR INJECTION 1 100ML.BAG IVPB SCH ×6 (10:56→18:26)
[2022-02-05] MEDS: VANCOMYCIN 1,250 MG in SODIUM CHLORIDE 0.9% 250 ML IVPB SCH (10:56)
--- NOTE | 2022-02-05 11:33 | P.PN ---
Subjective Progress Note Date: 02/05/22 This is a 61-year-old gentleman with metastatic rectal cancer who was admitted with a picture of sepsis. We're asked to see the patient because of atrial fibrillation with RVR. Patient converted to sinus rhythm and has been maintaining sinus rhythm is on by mouth amiodarone. He also has a renal dysfunction being followed by nephrology. From cardiac point we'll continue with current medical therapy. We will follow Objective - Vital Signs Vital signs: Vital Signs Temp 97.9 F 02/05/22 08:00 Pulse 57 L 02/05/22 10:30 Resp 12 02/05/22 10:30 BP 90/52 02/05/22 10:30 Pulse Ox 97 02/05/22 10:30 Intake & Output 02/04/22 02/05/22 02/05/22 18:59 06:59 18:59 Intake Total 2655.469 2027.464 750.806 Output Total 1565 2290 1025 Balance 1090.469 -262.536 -274.194 Weight 63.4 kg 63.4 kg Intake: IV 1800.0 1800 625.0 Cefepime 1 gm In Sodium 50.0 25.0 Chloride 0.9% 50 ml @ 12. 5 mls/hr IVPB Q12HR [facility] Rx#:[id number] Dextrose 5% in Water 1, 1200 1800 600 000 ml @ 150 mls/hr IV . Q7H40M [facility] with Sodium Bicarb (1 Meq/ml) 150 ml Rx#:[id number] Magnesium Sulfate-D5w Pmx 300 1 gm In Dextrose/Water 1 100ml.bag @ 100 mls/hr IVPB Q1H [facility] Rx#: [id number] Vancomycin 1,250 mg In 250 Sodium Chloride 0.9% 250 ml @ 125 mls/hr IVPB ONCE ONE Rx#:[id number] Intake, IV Titration 855.469 127.464 25.806 Amount Amiodarone 450 mg In 245.838 Dextrose 5% in Water 250 ml @ 0.5 MG/MIN 16.667 mls/hr IV .Q15H [facility] Rx#: [id number] Dextrose 5% in Water 1, 450 000 ml @ 150 mls/hr IV . Q7H40M [facility] with Sodium Bicarb (1 Meq/ml) 150 ml Rx#:[id number] Norepinephrine 4 mg In 159.631 127.464 25.806 Sodium Chloride 0.9% 250 ml @ 0.05 MCG/KG/MIN 12. 078 mls/hr IV .Q21H2M [facility] Rx#:[id number] Oral 100 100 Output: Urine 665 440 225 Stool 900 1850 800 Other: Voiding Method Indwelling Catheter Indwelling Catheter Indwelling Catheter - Exam GENERAL EXAM: Patient is cachectic but seemed more alert today. In no acute distress HEENT: Normocephalic. Normal reaction of pupils, equal size, normal range of extraocular motion. No erythema or exudates in the throat. NECK: No masses, no nuchal rigidity. CHEST: No chest wall deformity. LUNGS: Equal air entry with no crackles or wheeze. HEART: S1 and S2 normal with no audible mumurs or gallops. Regular rhythm, femorals equal on both sides.. ABDOMEN: No hepatosplenomegaly, normal bowel sounds, no guarding or rigidity. SKIN: No rashes CENTRAL NERVOUS SYSTEM: No focal deficits. EXTREMITIES: No cyanosis, clubbing or edema. - Labs CBC & Chem 7: 02/05/22 08:17 02/05/22 08:17 Labs: Abnormal Lab Results - Last 24 Hours (Table) 02/04/22 02/05/22 02/05/22 Range/Units 20:50 08:17 08:17 RBC 3.34 L (4.30-5.90) m/uL Hgb 10.2 L (13.0-17.5) gm/dL Hct 30.0 L (39.0-53.0) % RDW 15.7 H (11.5-15.5) % Neutrophils # (Manual) 9.40 H (1.3-7.7) k/uL Lymphocytes # (Manual) 0.74 L (1.0-4.8) k/uL Metamyelocytes # (Man) 0.11 H (0) k/uL Myelocytes # (Manual) 0.11 H (0) k/uL Sodium 134 L (137-145) mmol/L Potassium 2.3 L* 2.9 L (3.5-5.1) mmol/L Carbon Dioxide 20 L (22-30) mmol/L BUN 35 H (9-20) mg/dL Creatinine 1.88 H (0.66-1.25) mg/dL Glucose 147 H (74-99) mg/dL Calcium 7.5 L (8.4-10.2) mg/dL Total Protein 4.9 L (6.3-8.2) g/dL Albumin 2.2 L (3.5-5.0) g/dL Microbiology - Last 24 Hours (Table) 02/03/22 15:16 Blood Culture - Preliminary Blood No Growth after 24 hours 02/03/22 15:03 Blood Culture - Preliminary Blood No Growth after 24 hours 02/04/22 01:13 Urine Culture - Preliminary Urine,Voided Assessment and Plan (1) Acute renal failure Current Visit: Yes Status: Acute Code(s): N17.9 - ACUTE KIDNEY FAILURE, UNSPECIFIED SNOMED Code(s): 68457310 (2) Atrial fibrillation with RVR Current Visit: Yes Status: Acute Code(s): I48.91 - UNSPECIFIED ATRIAL FIBRILLATION SNOMED Code(s): 667312460190769 (3) Elevated troponin Current Visit: Yes Status: Acute Code(s): R77.8 - OTHER SPECIFIED ABNORMALITIES OF PLASMA PROTEINS SNOMED Code(s): 413639468 (4) Intractable vomiting with nausea Current Visit: No Status: Acute Priority: High Code(s): R11.2 - NAUSEA WITH VOMITING, UNSPECIFIED SNOMED Code(s): 215562269 (5) 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 On by mouth amiodarone . The dose needs to be tapered down to 200 mg daily gradually. 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
--- NOTE | 2022-02-05 12:03 | P.PN ---
Subjective Progress Note Date: 02/05/22 61-year-old male patient was received systemic chemotherapy for metastatic rectal cancer. The patient came in with neutropenia, dehydration, diarrhea, and suspected to have sepsis. The patient was also in atrial fibrillation with rapid ventricular response and the patient was moved to the intensive care unit. This morning, the patient is calm and comfortable. The patient has already converted into normal sinus rhythm. The patient is currently on oral amiodarone. At the same time, the patient continues to be on a bicarb infusion at the rate of 150 mL an hour and the patient is also on broad-spectrum antibiotics with a combination of cefepime and vancomycin. Norepinephrine is a low dose of 0.02 microvascular kilogram per minute and this can be easily discontinued. Meanwhile, the fluid balance is -940 mL as the patient has considerable amount of output from his colostomy she is quite extensive. C. diff evaluation in the fluid from the colostomy has been negative. The urine culture is negative. Blood cultures negative. The patient was given G-CSF the patient's white cell count improved and currently white cell count is up to 10.6 with a hemoglobin of 10.7. The patient is on room air oxygen for now. The patient has no specific complaints. He is feeling better compared to yesterday. As mentioned earlier, the patient seemed FOLFOX systemic chemotherapy 4 and Avastin. He does have some stomatitis also. Objective - Vital Signs Vital signs: Vital Signs Temp 97.9 F 02/05/22 08:00 Pulse 57 L 02/05/22 10:30 Resp 12 02/05/22 10:30 BP 90/52 02/05/22 10:30 Pulse Ox 97 02/05/22 10:30 Intake & Output 02/04/22 02/05/22 02/05/22 18:59 06:59 18:59 Intake Total 2655.469 2027.464 750.806 Output Total 1565 2290 1025 Balance 1090.469 -262.536 -274.194 Weight 63.4 kg 63.4 kg Intake: IV 1800.0 1800 625.0 Cefepime 1 gm In Sodium 50.0 25.0 Chloride 0.9% 50 ml @ 12. 5 mls/hr IVPB Q12HR [facility] Rx#:[id number] Dextrose 5% in Water 1, 1200 1800 600 000 ml @ 150 mls/hr IV . Q7H40M [facility] with Sodium Bicarb (1 Meq/ml) 150 ml Rx#:[id number] Magnesium Sulfate-D5w Pmx 300 1 gm In Dextrose/Water 1 100ml.bag @ 100 mls/hr IVPB Q1H [facility] Rx#: [id number] Vancomycin 1,250 mg In 250 Sodium Chloride 0.9% 250 ml @ 125 mls/hr IVPB ONCE ONE Rx#:[id number] Intake, IV Titration 855.469 127.464 25.806 Amount Amiodarone 450 mg In 245.838 Dextrose 5% in Water 250 ml @ 0.5 MG/MIN 16.667 mls/hr IV .Q15H [facility] Rx#: [id number] Dextrose 5% in Water 1, 450 000 ml @ 150 mls/hr IV . Q7H40M [facility] with Sodium Bicarb (1 Meq/ml) 150 ml Rx#:[id number] Norepinephrine 4 mg In 159.631 127.464 25.806 Sodium Chloride 0.9% 250 ml @ 0.05 MCG/KG/MIN 12. 078 mls/hr IV .Q21H2M [facility] Rx#:[id number] Oral 100 100 Output: Urine 665 440 225 Stool 900 1850 800 Other: Voiding Method Indwelling Catheter Indwelling Catheter Indwelling Catheter - Exam General: Chronically ill-appearing male, no acute distress, appears older than stated age, the patient is currently on room air oxygen and the patient is calm and comfortable and communicating Derm: no unusual rashes/lesions no unusual ecchymoses, warm, dry Head: atraumatic, normocephalic, symmetric Eyes: EOMI, no lid lag, anicteric sclera, pupils equal round reactive to light ENT: Nose and ears atraumatic, no thrush, no pharyngeal erythema Neck: No thyromegaly, no cervical lymphadenopathy, trachea midline, supple Mouth: no lip lesion, mucus membranes dry Cardiovascular: Regular consistent with normal sinus rhythm no murmur, positive posterior tibial pulse bilateral, no edema, capillary refill less than 2 seconds Lungs: CTA bilateral, no rhonchi, no rales , no accessory muscle use Abdominal: soft, nontender to palpation, colostomy in place with watery stool in bag, no guarding, no appreciable organomegaly, normal bowel sounds, the patient has a colostomy bag that his fall with liquidy material. No direct tenderness no rebound tensile guarding. Ext: no gross muscle atrophy, muscle strength 3 out of 5 in all extremities grossly except RUE distal strength 2/5 with R wrist contacture Neuro: CN II-XI grossly intact, light touch intact all 4 extremities, finger to nose within normal limits, Psych: Alert, oriented, appropriate affect - Labs CBC & Chem 7: 02/05/22 08:17 02/05/22 08:17 Labs: Abnormal Lab Results - Last 24 Hours (Table) 02/04/22 02/05/22 02/05/22 Range/Units 20:50 08:17 08:17 RBC 3.34 L (4.30-5.90) m/uL Hgb 10.2 L (13.0-17.5) gm/dL Hct 30.0 L (39.0-53.0) % RDW 15.7 H (11.5-15.5) % Neutrophils # (Manual) 9.40 H (1.3-7.7) k/uL Lymphocytes # (Manual) 0.74 L (1.0-4.8) k/uL Metamyelocytes # (Man) 0.11 H (0) k/uL Myelocytes # (Manual) 0.11 H (0) k/uL Sodium 134 L (137-145) mmol/L Potassium 2.3 L* 2.9 L (3.5-5.1) mmol/L Carbon Dioxide 20 L (22-30) mmol/L BUN 35 H (9-20) mg/dL Creatinine 1.88 H (0.66-1.25) mg/dL Glucose 147 H (74-99) mg/dL Calcium 7.5 L (8.4-10.2) mg/dL Total Protein 4.9 L (6.3-8.2) g/dL Albumin 2.2 L (3.5-5.0) g/dL Microbiology - Last 24 Hours (Table) 02/03/22 15:16 Blood Culture - Preliminary Blood No Growth after 24 hours 02/03/22 15:03 Blood Culture - Preliminary Blood No Growth after 24 hours 02/04/22 01:13 Urine Culture - Preliminary Urine,Voided Assessment and Plan Plan: 1 hypotension, consider neutropenic sepsis exacerbated by a new onset atrial fibrillation with rapid ventricular response, hypovolemia and acute kidney injury. The patient is still under investigation. The patient was given a total of 4 L of IV fluid in the form of normal saline and the patient is currently on a bicarb infusion and the patient is also on low dose norepinephrine infusion. On today's evaluation, the patient has converted into normal sinus rhythm. The patient on low dose of norepinephrine infusion. The white cell count is improved and the patient is currently on broad-spectrum antibiotics for now. 2 acute new onset atrial fibrillation with RVR, treated with a combination of Cardizem and amiodarone and the patient is currently on normal sinus rhythm. 3 acute kidney injury, improving, creatinine is down to 1.8 4 UTI suspected, cultures were sent and the patient was covered with empiric antibiotics, final culture are still pending for now. 5 electrode imbalance with hypokalemia, being replaced, the patient was also found to have hypomagnesemia and hypocalcemia, potassium level needs to be replaced on the current level is at 2.9 6 mild lactic acidosis, improved with a level is down to 1.6 7 metabolic acidosis essentially of a non-anion gap type, still on a bicarb infu kiera with 0 bicarb is up to 20 8 metastatic rectal carcinoma post colectomy and diverting colostomy. The patient has received a total of 4 cycles of systemic chemotherapy utilizing FOLFOX/Avastin and the last cycle was approximately 4 weeks ago. The patient has had metastases to L2 spine and to the liver and there is also a vague opacity in the right midlung which could be potentially pulmonary metastases 9 neutropenia secondary to systemic chemotherapy 10 anemia secondary to above 11 recent enterococcal UTI Plan Continue bicarb infusion for now, bicarb is up to 20, improving Wean off levo fed and discontinue if possible keeping a mean arterial pressure above 65, currently on a low-dose norepinephrine infusion Monitor urine output is adequate and the patient's creatinine is also improving Keep the Shipman catheter in place Consult nephrology is appreciated Continue the current antibiotic coverage with IV cefepime and vancomycin Stop the filgrastim as the patient white cell count has normalized Stop Cardizem and amiodarone is oral for now and the patient is on no anticoagulants We'll modify antibiotics within next 24-48 hours Replace electrolytes Condition is critical and obviously prognosis poor baseline above-mentioned comorbidities. We'll continue to follow.
[2022-02-05] MEDS: MAG HYDROX/AL HYDROX/SIMETH 30 ML, diphenhydrAMINE ELIXIR 75 MG, LIDOCAINE VISCOUS 2% 3... PO SCH ×9 (12:14→23:28)
--- NOTE | 2022-02-05 13:29 | P.PN ---
Subjective Progress Note Date: 02/05/22 The patient looks somewhat stronger. Blood pressure is still low requiring low-dose pressors. He continues to have significant output of liquid stool from his ostomy. He had been complaining of increasing abdominal pain, which is improved since starting IV morphine. Objective - Vital Signs Vital signs: Vital Signs Temp 97.9 F 02/05/22 08:00 Pulse 57 L 02/05/22 10:30 Resp 12 02/05/22 10:30 BP 90/52 02/05/22 10:30 Pulse Ox 97 02/05/22 10:30 Intake & Output 02/04/22 02/05/22 02/05/22 18:59 06:59 18:59 Intake Total 2655.469 2027.464 750.806 Output Total 1565 2290 1025 Balance 1090.469 -262.536 -274.194 Weight 63.4 kg 63.4 kg Intake: IV 1800.0 1800 625.0 Cefepime 1 gm In Sodium 50.0 25.0 Chloride 0.9% 50 ml @ 12. 5 mls/hr IVPB Q12HR [facility] Rx#:[id number] Dextrose 5% in Water 1, 1200 1800 600 000 ml @ 150 mls/hr IV . Q7H40M [facility] with Sodium Bicarb (1 Meq/ml) 150 ml Rx#:[id number] Magnesium Sulfate-D5w Pmx 300 1 gm In Dextrose/Water 1 100ml.bag @ 100 mls/hr IVPB Q1H [facility] Rx#: [id number] Vancomycin 1,250 mg In 250 Sodium Chloride 0.9% 250 ml @ 125 mls/hr IVPB ONCE ONE Rx#:[id number] Intake, IV Titration 855.469 127.464 25.806 Amount Amiodarone 450 mg In 245.838 Dextrose 5% in Water 250 ml @ 0.5 MG/MIN 16.667 mls/hr IV .Q15H [facility] Rx#: [id number] Dextrose 5% in Water 1, 450 000 ml @ 150 mls/hr IV . Q7H40M [facility] with Sodium Bicarb (1 Meq/ml) 150 ml Rx#:[id number] Norepinephrine 4 mg In 159.631 127.464 25.806 Sodium Chloride 0.9% 250 ml @ 0.05 MCG/KG/MIN 12. 078 mls/hr IV .Q21H2M [facility] Rx#:[id number] Oral 100 100 Output: Urine 665 440 225 Stool 900 1850 800 Other: Voiding Method Indwelling Catheter Indwelling Catheter Indwelling Catheter - Constitutional General appearance: Present: no acute distress - EENT Eyes: Present: EOMI ENT: Present: hearing grossly normal, other (Mucositis) - Respiratory Respiratory: bilateral: CTA - Cardiovascular Rhythm: regular Heart sounds: normal: S1, S2 - Gastrointestinal General gastrointestinal: Present: normal bowel sounds, soft Localized gastrointestinal: tender: RUQ, RLQ - Integumentary Integumentary: Present: normal - Neurologic Neurologic: Present: CNII-XII intact - Musculoskeletal Musculoskeletal: Present: generalized weakness, right sided weakness - Psychiatric Psychiatric: Present: A&O x's 3, appropriate affect - Labs CBC & Chem 7: 02/05/22 08:17 02/05/22 08:17 Labs: Abnormal Lab Results - Last 24 Hours (Table) 02/04/22 02/05/22 02/05/22 Range/Units 20:50 08:17 08:17 RBC 3.34 L (4.30-5.90) m/uL Hgb 10.2 L (13.0-17.5) gm/dL Hct 30.0 L (39.0-53.0) % RDW 15.7 H (11.5-15.5) % Neutrophils # (Manual) 9.40 H (1.3-7.7) k/uL Lymphocytes # (Manual) 0.74 L (1.0-4.8) k/uL Metamyelocytes # (Man) 0.11 H (0) k/uL Myelocytes # (Manual) 0.11 H (0) k/uL Sodium 134 L (137-145) mmol/L Potassium 2.3 L* 2.9 L (3.5-5.1) mmol/L Carbon Dioxide 20 L (22-30) mmol/L BUN 35 H (9-20) mg/dL Creatinine 1.88 H (0.66-1.25) mg/dL Glucose 147 H (74-99) mg/dL Calcium 7.5 L (8.4-10.2) mg/dL Total Protein 4.9 L (6.3-8.2) g/dL Albumin 2.2 L (3.5-5.0) g/dL Microbiology - Last 24 Hours (Table) 02/03/22 15:16 Blood Culture - Preliminary Blood No Growth after 24 hours 02/03/22 15:03 Blood Culture - Preliminary Blood No Growth after 24 hours 02/04/22 01:13 Urine Culture - Preliminary Urine,Voided Assessment and Plan (1) SIRS (systemic inflammatory response syndrome) Narrative/Plan: Patient's hemodynamics have improved. He however continues to require low-dose pressors to maintain blood pressure. Cultures have been negative. He is continuing on IV antibiotics. WBC has normalized. Current Visit: Yes Status: Acute Code(s): R65.10 - SIRS OF NON-INFECTIOUS ORIGIN W/O ACUTE ORGAN DYSFUNCTION SNOMED Code(s): 040936298 (2) Dehydration Narrative/Plan: This is improved with ongoing aggressive IV hydration. Oral intake remains generally poor because of decreased appetite and mucositis. - Nausea and vomiting is improved - Continue clears - Increase Lomotil dose as diarrhea is still significant Current Visit: No Status: Acute Code(s): E86.0 - DEHYDRATION SNOMED Code(s): 68453132 (3) Acute renal failure Narrative/Plan: Creatinine improved significantly with ongoing hydration. Current Visit: Yes Status: Acute Code(s): N17.9 - ACUTE KIDNEY FAILURE, UNSPECIFIED SNOMED Code(s): 80048047 (4) Rectal cancer Narrative/Plan: The patient has had severe treatment related adverse effects, despite dose reduction. This raises the possibility of DPD deficiency clinically. Patient and his have indicated that they did not want to try the same chemotherapy again. He was advised that active treatment would not be a consideration until his acute condition is resolved, and performance status improves significantly. He will need to be assessed by Dr. Ford prior to resuming any treatment. Current Visit: No Status: Acute Priority: High Code(s): C20 - MALIGNANT NEOPLASM OF RECTUM SNOMED Code(s): 897196061
--- NOTE | 2022-02-05 14:32 | XR ---
EXAMINATION TYPE: XR abdomen 2V DATE OF EXAM: 02/05/2022 COMPARISON: 01/01/2022 HISTORY: Abdominal pain TECHNIQUE: 3 views FINDINGS: There are some mild gas distended loops of bowel. No free air. There is bilateral hip prost hesis. There is bilateral rods stabilizing the thoracic spine. The lungs are clear of consolidation. There is no heart failure. There is right central venous catheter with tip in the right atrium. IMPRESSION: No evidence of active cardiopulmonary disease. There is evidence for some intestinal ileu s. No free air seen.
--- NOTE | 2022-02-05 16:05 | P.PN ---
Subjective Progress Note Date: 02/05/22 Patient was seen and examined. No acute events overnight. Patient reports no complaints today. Leukopenia resolved. His potassium was 2.3 which is being replaced. Bicarb improving from 12-20 with bicarbonate drip. He reports intractable generalized pain. He is on MS Contin and oxycodone at home which she has not been receiving here due to hypotension. Heart rate controlled in the 50s. He is on Levothroid 2 mics. Objective - Vital Signs Vital signs: Vital Signs Temp 97.5 F L 02/05/22 12:00 Pulse 59 L 02/05/22 15:00 Resp 14 02/05/22 15:00 BP 88/54 02/05/22 15:00 Pulse Ox 95 02/05/22 15:00 Intake & Output 02/04/22 02/05/22 02/05/22 18:59 06:59 18:59 Intake Total 2655.469 2027.464 1352.457 Output Total 1565 2290 1125 Balance 1090.469 -262.536 227.457 Weight 63.4 kg 63.4 kg Intake: IV 1800.0 1800 1200.0 Cefepime 1 gm In Sodium 50.0 50.0 Chloride 0.9% 50 ml @ 12. 5 mls/hr IVPB Q12HR [facility] Rx#:[id number] Dextrose 5% in Water 1, 1200 1800 1050 000 ml @ 150 mls/hr IV . Q7H40M [facility] with Sodium Bicarb (1 Meq/ml) 150 ml Rx#:[id number] Magnesium Sulfate-D5w Pmx 300 1 gm In Dextrose/Water 1 100ml.bag @ 100 mls/hr IVPB Q1H [facility] Rx#: [id number] Potassium Chloride 20 meq 100 In Water For Injection 1 100ml.bag @ 50 mls/hr IVPB Q2HR [facility] Rx#: [id number] Vancomycin 1,250 mg In 250 Sodium Chloride 0.9% 250 ml @ 125 mls/hr IVPB ONCE ONE Rx#:[id number] Intake, IV Titration 855.469 127.464 52.457 Amount Amiodarone 450 mg In 245.838 Dextrose 5% in Water 250 ml @ 0.5 MG/MIN 16.667 mls/hr IV .Q15H [facility] Rx#: [id number] Dextrose 5% in Water 1, 450 000 ml @ 150 mls/hr IV . Q7H40M [facility] with Sodium Bicarb (1 Meq/ml) 150 ml Rx#:[id number] Norepinephrine 4 mg In 159.631 127.464 52.457 Sodium Chloride 0.9% 250 ml @ 0.05 MCG/KG/MIN 12. 078 mls/hr IV .Q21H2M [facility] Rx#:[id number] Oral 100 100 Output: Urine 665 440 325 Stool 900 1850 800 Other: Voiding Method Indwelling Catheter Indwelling Catheter Indwelling Catheter # Bowel Movements 1 - Exam General: [non toxic], [no distress], [cachectic ill-appearing] Derm: [warm], [dry] Head: [atraumatic], [normocephalic], [symmetric] Eyes: [EOMI], [no lid lag], [anicteric sclera] Mouth: [no lip lesion], [mucus membranes moist] Cardiovascular: [Irregularly regular], [no murmur], [positive posterior tibial pulse bilateral], Lungs: [CTA bilateral], [no rhonchi, no rales] , [no accessory muscle use] Abdominal: [soft], [ nontender to palpation], [no guarding], [no appreciable organomegaly], [colostomy in place] Ext: [no gross muscle atrophy], [no edema], [no contractures] Neuro: [no focal neuro deficits] Psych: [Alert], [oriented], [appropriate affect] - Labs CBC & Chem 7: 02/05/22 08:17 02/05/22 08:17 Labs: Abnormal Lab Results - Last 24 Hours (Table) 02/04/22 02/05/22 02/05/22 Range/Units 20:50 08:17 08:17 RBC 3.34 L (4.30-5.90) m/uL Hgb 10.2 L (13.0-17.5) gm/dL Hct 30.0 L (39.0-53.0) % RDW 15.7 H (11.5-15.5) % Neutrophils # (Manual) 9.40 H (1.3-7.7) k/uL Lymphocytes # (Manual) 0.74 L (1.0-4.8) k/uL Metamyelocytes # (Man) 0.11 H (0) k/uL Myelocytes # (Manual) 0.11 H (0) k/uL Sodium 134 L (137-145) mmol/L Potassium 2.3 L* 2.9 L (3.5-5.1) mmol/L Carbon Dioxide 20 L (22-30) mmol/L BUN 35 H (9-20) mg/dL Creatinine 1.88 H (0.66-1.25) mg/dL Glucose 147 H (74-99) mg/dL Calcium 7.5 L (8.4-10.2) mg/dL Total Protein 4.9 L (6.3-8.2) g/dL Albumin 2.2 L (3.5-5.0) g/dL Microbiology - Last 24 Hours (Table) 02/03/22 15:16 Blood Culture - Preliminary Blood No Growth after 24 hours 02/03/22 15:03 Blood Culture - Preliminary Blood No Growth after 24 hours Assessment and Plan Assessment: Neutropenic sepsis in setting of stage IV rectal CA with chemotherapy -C/w broad spectrum antibiotics with cefepime and Vancomycin -Leukopenia resolved s/p Filgastrim 02/03 and 02/04 (discontinued now) -Follow-up blood cultures (negative prelim at 24H) -Currently on Levophed at 2 mics, attempting to wean -Urine culture prelim negative -Hematology/oncology consulted Acute kidney injury, likely secondary to severe dehydration Severe metabolic acidosis -In the setting of severe dehydration and sepsis -IV fluids - D5 sodium bicarbonate at 150 cc/hr -Nephrology on board -Monitor BMP Hypokalemia -Replace and monitor Afib with RVR -Amiodarone drip discontinued and patient maintained on amiodarone by mouth -Cardiology on board -Echocardiogram ordered -Cardiac monitoring DVT prophylaxis -Heparin subq Resolved: Lactic acidosis The patient is admitted with an anticipated greater than 2 midnight stay for evaluation of neutropenic sepsis CODE STATUS: full Code Discussed with: Patient Anticipated discharge date: 02/[address]: Home
[2022-02-05] MEDS: DIPHENOX-ATROP 2.5-0.025 MG 1 EACH TAB PO SCH ×2 (16:40→23:18)
[2022-02-05] MEDS: CEFEPIME 2 GM in SODIUM CHLORIDE 0.9% 100 ML IVPB SCH (21:30)
[2022-02-06] MEDS: NOREPINEPHRINE 4 MG in SODIUM CHLORIDE 0.9% 250 ML IV SCH ×2 (01:47→05:44)
[2022-02-06] MEDS: HEPARIN SODIUM,PORCINE/PF 5,000 UNIT/0.5 ML SYRINGE SQ SCH ×4 (01:47→23:55)
[2022-02-06] MEDS: DEXTROSE 5% IN WATER 1,000 ML with SODIUM BICARB (1 MEQ/ML) 150 ML IV SCH ×2 (01:48→08:17)
[2022-02-06 08:14] LABS: Calcium 7.5 mg/dL (8.4-10.2); Potassium 3.1 mmol/L (3.5-5.1)
[2022-02-06] MEDS: DIPHENOX-ATROP 2.5-0.025 MG 1 EACH TAB PO SCH ×4 (08:16→20:32)
[2022-02-06] MEDS: CEFEPIME 2 GM in SODIUM CHLORIDE 0.9% 100 ML IVPB SCH ×2 (08:16→20:30)
[2022-02-06] MEDS: VANCOMYCIN 1,250 MG in SODIUM CHLORIDE 0.9% 250 ML IVPB SCH (08:16)
[2022-02-06] MEDS: AMIODARONE 200 MG TAB PO SCH (08:16)
[2022-02-06] MEDS: MAG HYDROX/AL HYDROX/SIMETH 30 ML, diphenhydrAMINE ELIXIR 75 MG, LIDOCAINE VISCOUS 2% 3... PO SCH ×9 (08:16→20:31)
[2022-02-06] MEDS ORDERED: POTASSIUM CHLORIDE ER 20 MEQ TAB.ER PO SCH (09:00)
--- NOTE | 2022-02-06 09:03 | P.PN ---
Subjective Patient is seen in follow-up for acute kidney injury. Renal function improving. Output from the colostomy improved. Nonoliguric. Denies chest pain or shortness of breath. On clear liquid diet. On bicarb drip for IV fluids. Acidosis improved. On low-dose Levophed. Vital signs are stable. On vasopressor support. General: Awake and alert. No acute distress. HEENT: Head exam is unremarkable. LUNGS: Breath sounds decreased. HEART: Rate and Rhythm are regular. ABDOMEN: Soft, no distention. Colostomy noted. EXTREMITITES: No edema. Objective - Vital Signs Vital signs: Vital Signs Temp 97.7 F 02/06/22 08:00 Pulse 80 02/06/22 08:30 Resp 10 L 02/06/22 08:30 BP 91/58 02/06/22 08:30 Pulse Ox 94 L 02/06/22 08:30 Intake & Output 02/05/22 02/06/22 02/06/22 18:59 06:59 18:59 Intake Total 7352.443 8200.845 300 Output Total 1205 1195 370 Balance 647.457 716.845 -70 Weight 63 kg Intake: IV 1700.0 1800 300 Cefepime 1 gm In Sodium 50.0 Chloride 0.9% 50 ml @ 12. 5 mls/hr IVPB Q12HR [facility] Rx#:[id number] Dextrose 5% in Water 1, 1350 1800 300 000 ml @ 150 mls/hr IV . Q7H40M [facility] with Sodium Bicarb (1 Meq/ml) 150 ml Rx#:[id number] Potassium Chloride 20 meq 300 In Water For Injection 1 100ml.bag @ 50 mls/hr IVPB Q2HR [facility] Rx#: [id number] Intake, IV Titration 52.457 111.845 Amount Norepinephrine 4 mg In 52.457 111.845 Sodium Chloride 0.9% 250 ml @ 0.05 MCG/KG/MIN 12. 078 mls/hr IV .Q21H2M [facility] Rx#:[id number] Oral 100 Output: Urine 405 620 370 Stool 800 575 Other: Voiding Method Indwelling Catheter Indwelling Catheter # Bowel Movements 1 - Labs CBC & Chem 7: 02/05/22 08:17 02/06/22 07:26 Labs: Abnormal Lab Results - Last 24 Hours (Table) 02/05/22 02/05/22 02/06/22 Range/Units 08:17 08:17 07:26 RBC 3.34 L (4.30-5.90) m/uL Hgb 10.2 L (13.0-17.5) gm/dL Hct 30.0 L (39.0-53.0) % RDW 15.7 H (11.5-15.5) % Neutrophils # (Manual) 9.40 H (1.3-7.7) k/uL Lymphocytes # (Manual) 0.74 L (1.0-4.8) k/uL Metamyelocytes # (Man) 0.11 H (0) k/uL Myelocytes # (Manual) 0.11 H (0) k/uL Sodium 134 L 136 L (137-145) mmol/L Potassium 2.9 L 3.1 L (3.5-5.1) mmol/L Carbon Dioxide 20 L (22-30) mmol/L BUN 35 H 24 H (9-20) mg/dL Creatinine 1.88 H 1.28 H (0.66-1.25) mg/dL Glucose 147 H (74-99) mg/dL Calcium 7.5 L 7.5 L (8.4-10.2) mg/dL Total Protein 4.9 L (6.3-8.2) g/dL Albumin 2.2 L (3.5-5.0) g/dL Microbiology - Last 24 Hours (Table) 02/03/22 15:16 Blood Culture - Preliminary Blood No Growth after 48 hours 02/03/22 15:03 Blood Culture - Preliminary Blood No Growth after 48 hours Assessment and Plan Plan: Assessment: 1. Acute kidney injury secondary to ATN secondary to septic shock/hemodynamic instability. Creatinine 3.7 on admission and down to 1.28 today. Baseline creatinine 0.7 from December 2021. Bilateral hydronephrosis noted on kidney ultrasound. Urology consulted. 2. Metabolic acidosis secondary to acute kidney injury and GI losses. On b icarb drip. Improved. 3. Colon cancer status post colostomy with metastatic disease. 4. A. fib with RVR maintained on oral amiodarone. 5. Hypokalemia from poor intake, hypomagnesemia and intracellular shifting from IV bicarb. Being replaced. 6. Hypomagnesemia from GI losses. Replaced. 7. Hypocalcemia secondary to acute kidney injury and hypoalbuminemia. Replaced. Improved. Plan: Stop bicarb drip. Start normal saline at 75 mL an hour. Wean vasopressors. Continue to monitor renal function and urine output. Follow-up cultures. Repeat magnesium level today as well.
[2022-02-06] MEDS: POTASSIUM CHLORIDE ER 20 MEQ TAB.ER PO SCH ×3 (09:31→12:37)
[2022-02-06] MEDS: SODIUM CHLORIDE 0.9% 1,000 ML IV SCH ×2 (09:31→23:11)
[2022-02-06] MEDS: POTASSIUM CHLORIDE 10 MEQ in WATER FOR INJECTION 1 100ML.BAG IVPB SCH ×6 (09:31→15:59)
--- NOTE | 2022-02-06 12:08 | P.PN ---
Subjective Progress Note Date: 02/06/22 Principal diagnosis: Neutropenic sepsis and septic shock 61-year-old male patient was received systemic chemotherapy for metastatic rectal cancer. The patient came in with neutropenia, dehydration, diarrhea, and suspected to have sepsis. The patient was also in atrial fibrillation with rapid ventricular response and the patient was moved to the intensive care unit. This morning, the patient is calm and comfortable. The patient has already converted into normal sinus rhythm. The patient is currently on oral amiodarone. At the same time, the patient continues to be on a bicarb infusion at the rate of 150 mL an hour and the patient is also on broad-spectrum antibiotics with a combination of cefepime and vancomycin. Norepinephrine is a low dose of 0.02 microvascular kilogram per minute and this can be easily discontinued. Meanwhile, the fluid balance is -940 mL as the patient has considerable amount of output from his colostomy she is quite extensive. C. diff evaluation in the fluid from the colostomy has been negative. The urine culture is negative. Blood cultures negative. The patient was given G-CSF the patient's white cell count improved and currently white cell count is up to 10.6 with a hemoglobin of 10.7. The patient is on room air oxygen for now. The patient has no specific complaints. He is feeling better compared to yesterday. As mentioned earlier, the patient seemed FOLFOX systemic chemotherapy 4 and Avastin. He does have some stomatitis also. Reevaluated today on 02/06/22, patient remains in the ICU, he is actually on room air with O2 sat showed 94%, he is becoming more hemodynamically stable nonetheless he still requires norepinephrine at 0.05 mcg/kg/m, today I discontinued his bicarb. Remains on cefepime and vancomycin. Overall the patient has made a dramatic improvement and he seems to be clinically stabilizing. Blood cultures are negative so far since admission and urine culture remains pending. Patient is not in any distress, his blood pressure is marginal with a systolic of 90 and diastolic of 79. He is in sinus rhythm with occasional premature atrial contractions. He is alert and oriented 3. And he is in excellent today. CBC is relatively normal electrolytes are normal except for potassium of 3.1. Renal functioning is steadily improving BUN is down to 24 creatinine is down to 1.28. Remains on IV fluid in the form of 0.9 normal saline at 100 mL per hour. Objective - Vital Signs Vital signs: Vital Signs Temp 97.7 F 02/06/22 08:00 Pulse 73 02/06/22 11:30 Resp 16 02/06/22 11:30 BP 95/68 02/06/22 11:30 Pulse Ox 96 02/06/22 11:30 Intake & Output 02/05/22 02/06/22 02/06/22 18:59 06:59 18:59 Intake Total 6413.857 1760.845 850 Output Total 1205 1195 1045 Balance 647.457 716.845 -195 Weight 63 kg Intake: IV 1700.0 1800 850 Cefepime 1 gm In Sodium 50.0 100 Chloride 0.9% 50 ml @ 12. 5 mls/hr IVPB Q12HR [facility] Rx#:[id number] Dextrose 5% in Water 1, 1350 1800 450 000 ml @ 150 mls/hr IV . Q7H40M [facility] with Sodium Bicarb (1 Meq/ml) 150 ml Rx#:[id number] Potassium Chloride 20 meq 300 In Water For Injection 1 100ml.bag @ 50 mls/hr IVPB Q2HR [facility] Rx#: [id number] Sodium Chloride 0.9% 1, 300 000 ml @ 75 mls/hr IV . [id number] [facility] Rx#:[id number] Intake, IV Titration 52.457 111.845 Amount Norepinephrine 4 mg In 52.457 111.845 Sodium Chloride 0.9% 250 ml @ 0.05 MCG/KG/MIN 12. 078 mls/hr IV .Q21H2M [facility] Rx#:[id number] Oral 100 Output: Urine 405 620 745 Stool 800 575 300 Other: Voiding Method Indwelling Catheter Indwelling Catheter Indwelling Catheter # Bowel Movements 1 - Exam Physical Exam: Revealed a 61-year-old white male in no distress. Head: Atraumatic, normocephalic. HEENT:[Neck is supple.] [No neck masses.] [No thyromegaly.] [No JVD.] Chest: [Clear throughout, no crackles, no rhonchi, no wheezes.] Cardiac Exam: [Normal S1 and S2, no S3 gallop, no murmur.] Abdomen: [Soft, nontender, no megaly, no rebound, no guarding, normal bowel sounds.] Ostomy bag seems to be intact. Extremities: [No clubbing, no edema, no cyanosis.] There is evidence of right upper extremity weakness, and the right wrist contracture, chronic related to his cerebral palsy. Neurological Exam: [No focal neurologic deficit.] Alert oriented 3. Psychiatric: Normal mood affect and normal mental status examination. Skin: No rashes. - Labs CBC & Chem 7: 02/05/22 08:17 02/06/22 07:26 Labs: Abnormal Lab Results - Last 24 Hours (Table) 02/06/22 Range/Units 07:26 Sodium 136 L (137-145) mmol/L Potassium 3.1 L (3.5-5.1) mmol/L BUN 24 H (9-20) mg/dL Creatinine 1.28 H (0.66-1.25) mg/dL Calcium 7.5 L (8.4-10.2) mg/dL Microbiology - Last 24 Hours (Table) 02/03/22 15:16 Blood Culture - Preliminary Blood No Growth after 48 hours 02/03/22 15:03 Blood Culture - Preliminary Blood No Growth after 48 hours Assessment and Plan Assessment: Impression: Acute neutropenic sepsis and septic shock New-onset atrial fibrillation Acute kidney injury secondary to acute tubular necrosis and hypotension Possible urinary tract infection, cultures are pending. Neutropenia secondary to systemic chemotherapy Metastatic rectal carcinoma previous colectomy and diverting colostomy Recommendation: Continue present supportive care measures Discontinue bicarb drip. Continue IV fluids Titrate and possibly discontinue norepinephrine today. Continue empiric antibiotics Replace electrolytes accordingly We will continue to monitor in the ICU on telemetry is off norepinephrine then we could potentially transfer the patient to oncology. We'll continue to follow Time with Patient: Less than 30
--- NOTE | 2022-02-06 13:35 | PN ---
PROGRESS NOTE Mr. Lee is a gentleman with multiple comorbid conditions who went into atrial fibrillation and has since then converted to sinus rhythm. He is resting comfortably at the time of my evaluation. He is actually afebrile. He is in sinus rhythm today. He is on amiodarone and has had some episodes of bradycardia. I will decrease his amiodarone to 200 mg daily from b.i.d. and continue security monitor. I had considered beta ba, but I will hold it in view of bradycardia. He is on a very small dose of Levophed. He is resting comfortably without symptoms. JVD not evident. S1-S2 heard normally. Short systolic murmur noted. Lungs reveal diminished air entry. Abdomen is soft. Lower extremity exam is unremarkable. IMPRESSION: Paroxysmal atrial fibrillation, back in sinus rhythm. Continue amiodarone and reduce the dose to 200 mg once daily. Continue to follow him and, based on clinical course, we will make further recommendations. MMODL / IJN: [id number] /
--- NOTE | 2022-02-06 15:04 | P.PN ---
Subjective Progress Note Date: 02/06/22 No significant events overnight. Patient was seen and examined in the ICU, admitted for neutropenic sepsis and septic shock. Source of infection has not been identified, the patient is improving clinically and daily basis, norepinephrine drip is being titrated down. Vital signs have been normal, he has been afebrile. He still complaining of diffuse abdominal pain, but this is improving as well. Objective - Vital Signs Vital signs: Vital Signs Temp 98.6 F 02/06/22 12:00 Pulse 68 02/06/22 14:15 Resp 13 02/06/22 14:15 BP 91/50 02/06/22 14:15 Pulse Ox 95 02/06/22 14:15 Intake & Output 02/05/22 02/06/22 02/06/22 18:59 06:59 18:59 Intake Total 2614.269 4232.845 1038.092 Output Total 1205 1195 1120 Balance 647.457 716.845 -81.908 Weight 63 kg Intake: IV 1700.0 1800 950 Cefepime 1 gm In Sodium 50.0 100 Chloride 0.9% 50 ml @ 12. 5 mls/hr IVPB Q12HR [facility] Rx#:[id number] Dextrose 5% in Water 1, 1350 1800 450 000 ml @ 150 mls/hr IV . Q7H40M [facility] with Sodium Bicarb (1 Meq/ml) 150 ml Rx#:[id number] Potassium Chloride 20 meq 300 In Water For Injection 1 100ml.bag @ 50 mls/hr IVPB Q2HR [facility] Rx#: [id number] Sodium Chloride 0.9% 1, 400 000 ml @ 75 mls/hr IV . [id number] [facility] Rx#:[id number] Intake, IV Titration 52.457 111.845 88.092 Amount Norepinephrine 4 mg In 52.457 111.845 88.092 Sodium Chloride 0.9% 250 ml @ 0.05 MCG/KG/MIN 12. 078 mls/hr IV .Q21H2M [facility] Rx#:[id number] Oral 100 Output: Urine 405 620 820 Stool 800 575 300 Other: Voiding Method Indwelling Catheter Indwelling Catheter Indwelling Catheter # Bowel Movements 1 - Constitutional General appearance: Present: average body habitus, cooperative, no acute distress - EENT Eyes: Present: EOMI, PERRLA - Neck Neck: Present: normal ROM - Respiratory Respiratory: bilateral: CTA, negative: wheezing - Cardiovascular Rhythm: regular Heart sounds: normal: S1, S2 Abnormal Heart Sounds: Absent: systolic murmur, diastolic murmur - Gastrointestinal General gastrointestinal: Present: decreased bowel sounds, distended Localized gastrointestinal: tender: diffuse (Ostomy bag in place, small amount of liquid bilious stool) - Integumentary Integumentary: Present: normal. Absent: jaundiced - Neurologic Neurologic: Present: CNII-XII intact, focal deficits - Musculoskeletal Musculoskeletal Comment(s): There is evidence of right upper extremity weakness, and the right wrist con tracture, chronic related to his cerebral palsy. Musculoskeletal: Absent: generalized weakness - Psychiatric Psychiatric: Present: A&O x's 3, appropriate affect - Labs CBC & Chem 7: 02/05/22 08:17 02/06/22 07:26 Labs: Abnormal Lab Results - Last 24 Hours (Table) 02/06/22 Range/Units 07:26 Sodium 136 L (137-145) mmol/L Potassium 3.1 L (3.5-5.1) mmol/L BUN 24 H (9-20) mg/dL Creatinine 1.28 H (0.66-1.25) mg/dL Calcium 7.5 L (8.4-10.2) mg/dL Microbiology - Last 24 Hours (Table) 02/04/22 01:13 Urine Culture - Final Urine,Voided Enterococcus faecium 02/03/22 15:16 Blood Culture - Preliminary Blood No Growth after 48 hours 02/03/22 15:03 Blood Culture - Preliminary Blood No Growth after 48 hours Assessment and Plan Assessment: Neutropenic sepsis in setting of stage IV rectal CA with chemotherapy -Improving, epinephrine drip is being titrated down -No source of infection identified -C/w broad spectrum antibiotics with cefepime and Vancomycin -Leukopenia resolved s/p Filgastrim 02/03 and 02/04 (discontinued now) -Follow-up blood cultures Acute kidney injury likely secondary to severe dehydration and bilateral hydronephrosis -Renal function improving -Appreciate further recommendations from nephrology and urology -Creatinine 1.28 down from 3.7 this admission Hypokalemia -Replace and monitor Afib with RVR -Amiodarone drip discontinued and patient maintained on amiodarone by mouth -Cardiology on board -Echocardiogram ordered -Cardiac monitoring DVT prophylaxis -Heparin subq Resolved: Lactic acidosis Time with Patient: Greater than 30
--- NOTE | 2022-02-06 16:56 | P.PN ---
Subjective Progress Note Date: 02/06/22 Principal diagnosis: N,V,D, mucositis-chemo induced In f/u today pt reporting persistent diarrhea, mucositis. Nausea and vomiting a little better. His is brining him some soup and he is hungry for it. Objective - Vital Signs Vital signs: Vital Signs Temp 97.7 F 02/06/22 08:00 Pulse 73 02/06/22 11:30 Resp 16 02/06/22 11:30 BP 95/68 02/06/22 11:30 Pulse Ox 96 02/06/22 11:30 Intake & Output 02/05/22 02/06/22 02/06/22 18:59 06:59 18:59 Intake Total 8683.373 6715.845 650 Output Total 1205 1195 895 Balance 647.457 716.845 -245 Weight 63 kg Intake: IV 1700.0 1800 650 Cefepime 1 gm In Sodium 50.0 100 Chloride 0.9% 50 ml @ 12. 5 mls/hr IVPB Q12HR [facility] Rx#:[id number] Dextrose 5% in Water 1, 1350 1800 450 000 ml @ 150 mls/hr IV . Q7H40M [facility] with Sodium Bicarb (1 Meq/ml) 150 ml Rx#:[id number] Potassium Chloride 20 meq 300 In Water For Injection 1 100ml.bag @ 50 mls/hr IVPB Q2HR [facility] Rx#: [id number] Sodium Chloride 0.9% 1, 100 000 ml @ 75 mls/hr IV . [id number] [facility] Rx#:[id number] Intake, IV Titration 52.457 111.845 Amount Norepinephrine 4 mg In 52.457 111.845 Sodium Chloride 0.9% 250 ml @ 0.05 MCG/KG/MIN 12. 078 mls/hr IV .Q21H2M [facility] Rx#:[id number] Oral 100 Output: Urine 405 620 595 Stool 800 575 300 Other: Voiding Method Indwelling Catheter Indwelling Catheter Indwelling Catheter # Bowel Movements 1 - Constitutional General appearance: Present: cooperative, no acute distress, thin - EENT Eyes: Present: anicteric sclerae, EOMI ENT: Present: hearing grossly normal - Respiratory Respiratory: bilateral: CTA - Cardiovascular Rhythm: regular Heart sounds: normal: S1, S2 Abnormal Heart Sounds: Absent: systolic murmur, diastolic murmur, rub, S3 Gallop, S4 Gallop, click, other - Peripheral edema leg Peripheral Edema: bilateral: None - Gastrointestinal General gastrointestinal: Present: normal bowel sounds, soft - Integumentary Integumentary: Present: pale - Neurologic Neurologic: Present: CNII-XII intact (Grossly) - Musculoskeletal Musculoskeletal: Present: generalized weakness - Psychiatric Psychiatric: Present: A&O x's 3, appropriate affect, intact judgment & insight - Labs CBC & Chem 7: 02/05/22 08:17 02/06/22 07:26 Labs: Abnormal Lab Results - Last 24 Hours (Table) 02/06/22 Range/Units 07:26 Sodium 136 L (137-145) mmol/L Potassium 3.1 L (3.5-5.1) mmol/L BUN 24 H (9-20) mg/dL Creatinine 1.28 H (0.66-1.25) mg/dL Calcium 7.5 L (8.4-10.2) mg/dL Microbiology - Last 24 Hours (Table) 02/03/22 15:16 Blood Culture - Preliminary Blood No Growth after 48 hours 02/03/22 15:03 Blood Culture - Preliminary Blood No Growth after 48 hours Assessment and Plan (1) Acute renal failure Narrative/Plan: 2/2 dehydration, improving with hydration Current Visit: Yes Status: Acute Priority: High Code(s): N17.9 - ACUTE KIDNEY FAILURE, UNSPECIFIED SNOMED Code(s): 05640356 (2) Diarrhea Narrative/Plan: 2/2 chemo. Increased lomotil to max dose today. Current Visit: Yes Status: Acute Priority: High Code(s): R19.7 - DIARRHEA, UNSPECIFIED SNOMED Code(s): 32010728 (3) Mucositis (ulcerative) due to antineoplastic therapy Narrative/Plan: Stable, cont kools, add salt and soda. Current Visit: Yes Status: Acute Priority: High Code(s): K12.31 - ORAL MUCOSITIS (ULCERATIVE) DUE TO ANTINEOPLASTIC THERAPY SNOMED Code(s): 101133983 (4) Hypokalemia Narrative/Plan: 2/2 diarrhea. Cont potassium replacement per protocol. Current Visit: Yes Status: Acute Priority: High Code(s): E87.6 - HYPOKALEMIA SNOMED Code(s): 92672820 (5) Dehydration Narrative/Plan: Improving with IV fluids. Pt is wanting broth and soup. Intake as tolerated. Current Visit: Yes Status: Acute Priority: High Code(s): E86.0 - DEHYDRATION SNOMED Code(s): 96658796 (6) Rectal adenocarcinoma Narrative/Plan: Pt unfortunately has not tolerated treatment. This is 2nd admit post chemo. Pt reported to staff that he no longer wants to do chemo. Would recommend that pt cont to follow with Oncologist until such time that they would like make other arrangements for care. Will ask Palliative Care to meet with pt and for question and answer session. Current Visit: Yes Status: Acute Priority: High Code(s): C20 - MALIGNANT NEOPLASM OF RECTUM SNOMED Code(s): 893404617
[2022-02-06] MEDS ORDERED: TERBUTALINE 1 MG/ML VIAL SQ ONE (19:00)
--- NOTE | 2022-02-06 20:40 | P.GSCN ---
History of Present Illness Consult date: 02/06/22 Reason for Consult: Hydronephrosis Requesting physician: Bowen Clarke History of present illness: Patient is a 61-year-old male with a history of stage IV rectal CA metastatic to the liver, s/p resection with colostomy and chemotherapy. He is now admitted with intractable nausea, vomiting, and diarrhea. He reports lower abdominal discomfort. He denies dysuria and hematuria. Review of Systems - Genitourinary Denies dysuria, Denies flank pain, Denies hematuria Past Medical History Past Medical History: Cancer, Hypertension, Liver Disease Additional Past Medical History / Comment(s): Right sided cerebral palsy, colon CA with mets to liver History of Any Multi-Drug Resistant Organisms: None Reported Past Surgical History: Back Surgery, Joint Replacement, Orthopedic Surgery Additional Past Surgical History / Comment(s): colostomy Past Anesthesia/Blood Transfusion Reactions: Unable to Obtain Past Psychological History: No Psychological Hx Reported Smoking Status: Former smoker Past Alcohol Use History: Occasional Past Drug Use History: None Reported - Past Family History Mother Family Medical History: No Reported History Medications and Allergies Home Medications Medication Instructions Recorded Confirmed Type Losartan Potassium [Cozaar] 100 mg PO DAILY 11/07/21 02/03/22 History LORazepam [Ativan] 1 mg PO Q6H PRN #4 tab 11/14/21 02/03/22 Rx Loperamide [Imodium] 2 mg PO QID PRN cap 11/14/21 02/03/22 Rx oxyCODONE HCL [OxyIR] 15 mg PO Q6HR PRN #6 tab 11/14/21 02/03/22 Rx Morphine Sulfate [Ms Contin] 30 mg PO Q12H 01/01/22 02/03/22 History Tamsulosin [Flomax] 0.4 mg PO DAILY #30 01/02/22 02/03/22 Rx Allergies Allergy/AdvReac Type Severity Reaction Status Date / Time No Known Allergies Allergy Verified 02/03/22 14:15 Surgical - Exam Vital Signs Temp Pulse Resp BP Pulse Ox 98.2 F 165 H 27 H 109/74 100 02/03/22 13:12 02/03/22 13:12 02/03/22 13:12 02/03/22 13:12 02/03/22 13:12 - General well developed, well nourished, no distress - Respiratory normal respiratory effort - Abdomen Abdomen: soft, tender (Mild lower abdominal tenderness), no guarding, no rigid, no rebound - Genitourinary normal penis with no external lesions, testicles non-tender - Psychiatric oriented to time, oriented to person, oriented to place, speech is normal, memory intact Results - Labs 02/05/22 08:17 02/06/22 07:26 Abnormal Lab Results - Last 24 Hours (Table) 02/05/22 02/05/22 Range/Units 08:17 08:17 RBC 3.34 L (4.30-5.90) m/uL Hgb 10.2 L (13.0-17.5) gm/dL Hct 30.0 L (39.0-53.0) % RDW 15.7 H (11.5-15.5) % Neutrophils # (Manual) 9.40 H (1.3-7.7) k/uL Lymphocytes # (Manual) 0.74 L (1.0-4.8) k/uL Metamyelocytes # (Man) 0.11 H (0) k/uL Myelocytes # (Manual) 0.11 H (0) k/uL Sodium 134 L (137-145) mmol/L Potassium 2.9 L (3.5-5.1) mmol/L Carbon Dioxide 20 L (22-30) mmol/L BUN 35 H (9-20) mg/dL Creatinine 1.88 H (0.66-1.25) mg/dL Glucose 147 H (74-99) mg/dL Calcium 7.5 L (8.4-10.2) mg/dL Total Protein 4.9 L (6.3-8.2) g/dL Albumin 2.2 L (3.5-5.0) g/dL Microbiology - Last 24 Hours (Table) 02/03/22 15:16 Blood Culture - Preliminary Blood No Growth after 48 hours 02/03/22 15:03 Blood Culture - Preliminary Blood No Growth after 48 hours Diabetes panel 02/05/22 Range/Units 08:17 Sodium 134 L (137-145) mmol/L Potassium 2.9 L (3.5-5.1) mmol/L Chloride 101 (98-107) mmol/L Carbon Dioxide 20 L (22-30) mmol/L BUN 35 H (9-20) mg/dL Creatinine 1.88 H (0.66-1.25) mg/dL Glucose 147 H (74-99) mg/dL Calcium 7.5 L (8.4-10.2) mg/dL AST 25 (17-59) U/L ALT 22 (4-49) U/L Alkaline Phosphatase 108 (38-126) U/L Total Protein 4.9 L (6.3-8.2) g/dL Albumin 2.2 L (3.5-5.0) g/dL Calcium panel 02/05/22 Range/Units 08:17 Calcium 7.5 L (8.4-10.2) mg/dL Albumin 2.2 L (3.5-5.0) g/dL Pituitary panel 02/05/22 Range/Units 08:17 Sodium 134 L (137-145) mmol/L Potassium 2.9 L (3.5-5.1) mmol/L Chloride 101 (98-107) mmol/L Carbon Dioxide 20 L (22-30) mmol/L BUN 35 H (9-20) mg/dL Creatinine 1.88 H (0.66-1.25) mg/dL Glucose 147 H (74-99) mg/dL Calcium 7.5 L (8.4-10.2) mg/dL Adrenal panel 02/05/22 Range/Units 08:17 Sodium 134 L (137-145) mmol/L Potassium 2.9 L (3.5-5.1) mmol/L Chloride 101 (98-107) mmol/L Carbon Dioxide 20 L (22-30) mmol/L BUN 35 H (9-20) mg/dL Creatinine 1.88 H (0.66-1.25) mg/dL Glucose 147 H (74-99) mg/dL Calcium 7.5 L (8.4-10.2) mg/dL Total Bilirubin 0.8 (0.2-1.3) mg/dL AST 25 (17-59) U/L ALT 22 (4-49) U/L Alkaline Phosphatase 108 (38-126) U/L Total Protein 4.9 L (6.3-8.2) g/dL Albumin 2.2 L (3.5-5.0) g/dL - Imaging US - kidney/bladder: report reviewed, image reviewed Assessment and Plan (1) Unspecified hydronephrosis Current Visit: Yes Status: Acute Code(s): N13.30 - UNSPECIFIED HYDRONEPHROSIS SNOMED Code(s): 18057229 Plan: The cause of the patient's hydronephrosis is unclear. Ultrasound showed significant bladder debris, which is sometimes seen in patients with chronic incomplete bladder emptying. He currently has a Shipman catheter in place, draining urine which is somewhat cloudy in appearance. The serum creatinine level at the time of admission was 3.70, but has been gradually improving. I advised the patient that he could undergo cystoscopy with bilateral retrograde pyelograms for further evaluation. He prefers a course of conservative management, which I am in agreement with, as long as his renal function continues to improve. It would be reasonable to repeat the ultrasound with the Shipman catheter in place to determine whether or not the hydronephrosis resolves. If so, I would attribute the hydronephrosis to incomplete bladder emptying. Conversely, if the hydronephrosis persists, the differential diagnosis would include pelvic malignancy. Time with Patient: Greater than 30
[2022-02-06] MEDS: POTASSIUM CHLORIDE 20 MEQ in WATER FOR INJECTION 1 100ML.BAG IVPB SCH (22:51)
[2022-02-07] MEDS: POTASSIUM CHLORIDE 20 MEQ in WATER FOR INJECTION 1 100ML.BAG IVPB SCH (01:03)
[2022-02-07 05:37] LABS: African American GFR (CKD) >90 (>60 ml/min/1.73 sqM); Anion Gap 4 mmol/L; Blood Urea Nitrogen 17 mg/dL (9-20); Calcium 6.7 mg/dL (8.4-10.2); Carbon Dioxide 29 mmol/L (22-30); Chloride 104 mmol/L (98-107); Glucose 80 mg/dL (74-99); Non-African American GFR(CKD) 88 (>60 ml/min/1.73 sqM); Potassium 3.9 mmol/L (3.5-5.1); Sodium 137 mmol/L (137-145)
[2022-02-07 05:41] LABS: Basophils % (A) 0 %; Eosinophils # (A) 0.1 k/uL (0-0.7); Eosinophils % (A) 1 %; HCT 29.4 % (39.0-53.0); HGB 9.6 gm/dL (13.0-17.5); Hypochromasia Slight; Lymphocytes # (A) 1.2 k/uL (1.0-4.8); Lymphocytes % (A) 12 %; MCH 29.5 pg (25.0-35.0); MCHC 32.7 g/dL (31.0-37.0); MCV 90.3 fL (80.0-100.0); Mean Platelet Volume 8.7; Monocytes # (A) 1.2 k/uL (0-1.0); Monocytes % (A) 11 %; Neutrophils # (A) 7.7 k/uL (1.3-7.7); Neutrophils % (A) 73 %; Platelet Count 112 k/uL (150-450); Poikilocytosis Moderate; RBC 3.26 m/uL (4.30-5.90); RDW 15.4 % (11.5-15.5); WBC 10.7 k/uL (3.8-10.6)
--- NOTE | 2022-02-07 08:16 | ECHOF ---
Referral Reason:Hypotension MEASUREMENTS -------- HEIGHT: 0.0 cm WEIGHT: 0.0 kg BP: RVIDd: 3.7 cm (< 3.3) IVSd: 1.0 cm (0.6 - 1.1) LVIDd: 5.1 cm (3.9 - 5.3) LVPWd: 1.0 cm (0.6 - 1.1) IVSs: 1.5 cm LVIDs: 2.9 cm LVPWs: 1.2 cm LA Diam: 3.8 cm (2.7 - 3.8) Ao Diam: 2.9 cm (2.0 - 3.7) AV Cusp: 2.1 cm (1.5 - 2.6) MV EXCURSION: 24.989 mm (> 18.000) MV EF SLOPE: 179 mm/s (70 - 150) EPSS: 0.9 cm MV E Fan: 0.96 m/s MV DecT: 274 ms MV A Fan: 0.55 m/s MV E/A Ratio: 1.74 RAP: 5.00 mmHg RVSP: 17.74 mmHg FINDINGS -------- Resting bradycardia (HR<60bpm). This was a technically good study. The left ventricular size is normal. Left ventricular wall thickness is normal. Overall left vent ricular systolic function is normal with, an EF between 55 - 60 %. The right ventricle is mildly enlarged. The left atrium is normal in size. The right atrium is normal in size. Interatrial and interventricular septum intact. There is mild aortic valve sclerosis. There is trace mitral regurgitation. Mild tricuspid regurgitation present. Right ventricular systolic pressure is normal at < 35 mmHg. The pulmonic valve is normal. The aortic root size is normal. Normal inferior vena cava with normal inspiratory collapse consistent with estimated right atrial pre ssure of 5 mmHg. There is no pericardial effusion. CONCLUSIONS -------- 1. The left ventricular size is normal. 2. Left ventricular wall thickness is normal. 3. Overall left ventricular systolic function is normal with, an EF between 55 - 60 %. 4. The right ventricle is mildly enlarged. 5. There is mild aortic valve sclerosis. 6. There is trace mitral regurgitation. 7. Mild tricuspid regurgitation present. 8. There is no pericardial effusion. INTERLOCKING INSTALLER: Chelo Galvez RDCS
[2022-02-07] MEDS ORDERED: POTASSIUM CHLORIDE ER 10 MEQ TAB.ER.PRT PO SCH (09:00)
[2022-02-07] MEDS: METOPROLOL TARTRATE 12.5 MG TAB PO SCH (09:32)
[2022-02-07] MEDS: AMIODARONE 200 MG TAB PO SCH (09:32)
[2022-02-07] MEDS: MAGNESIUM SULFATE-D5W PMX 1 GM in DEXTROSE/WATER 1 100ML.BAG IVPB SCH ×2 (09:33→10:55)
[2022-02-07] MEDS: MAG HYDROX/AL HYDROX/SIMETH 30 ML, diphenhydrAMINE ELIXIR 75 MG, LIDOCAINE VISCOUS 2% 3... PO SCH ×9 (09:34→20:34)
[2022-02-07] MEDS ORDERED: POTASSIUM CHLORIDE ER 20 MEQ TAB.ER PO STA (09:35)
[2022-02-07] MEDS: HEPARIN SODIUM,PORCINE/PF 5,000 UNIT/0.5 ML SYRINGE SQ SCH ×4 (09:35→23:11)
--- NOTE | 2022-02-07 09:36 | P.PN ---
Subjective Patient is seen in follow-up for acute kidney injury. Renal function improving. Stool more formed. Nonoliguric. Denies chest pain or shortness of breath. Requesting his diet to be advanced. On normal saline for IV fluids. Acidosis improved. On low-dose Levophed. Vital signs are stable. On vasopressor support. General: Awake and alert. No acute distress. HEENT: Head exam is unremarkable. LUNGS: Breath sounds decreased. HEART: Rate and Rhythm are regular. ABDOMEN: Soft, no distention. Colostomy noted. EXTREMITITES: No edema. Objective - Vital Signs Vital signs: Vital Signs Temp 98.4 F 02/07/22 08:00 Pulse 60 02/07/22 09:15 Resp 18 02/07/22 09:15 BP 94/60 02/07/22 09:15 Pulse Ox 95 02/07/22 09:15 Intake & Output 02/06/22 02/07/22 02/07/22 18:59 06:59 18:59 Intake Total 5098.158 7746.605 150 Output Total 1845 2105 290 Balance -281.908 -629.395 -140 Weight 67.2 kg Intake: IV 1475 1025 150 Cefepime 1 gm In Sodium 100 Chloride 0.9% 50 ml @ 12. 5 mls/hr IVPB Q12HR [facility] Rx#:[id number] Dextrose 5% in Water 1, 450 000 ml @ 150 mls/hr IV . Q7H40M [facility] with Sodium Bicarb (1 Meq/ml) 150 ml Rx#:[id number] Potassium Chloride 20 meq 200 In Water For Injection 1 100ml.bag @ 50 mls/hr IVPB Q2H [facility] Rx#: [id number] Sodium Chloride 0.9% 1, 925 825 150 000 ml @ 75 mls/hr IV . [id number] [facility] Rx#:[id number] Intake, IV Titration 88.092 50.605 Amount Norepinephrine 4 mg In 88.092 50.605 Sodium Chloride 0.9% 250 ml @ 0.05 MCG/KG/MIN 12. 078 mls/hr IV .Q21H2M [facility] Rx#:[id number] Oral 400 Output: Urine 1195 730 165 Stool 650 1375 125 Other: Voiding Method Indwelling Catheter Indwelling Catheter - Labs CBC & Chem 7: 02/07/22 04:58 02/07/22 04:58 Labs: Abnormal Lab Results - Last 24 Hours (Table) 02/06/22 02/07/22 02/07/22 Range/Units 19:45 04:58 04:58 WBC 10.7 H (3.8-10.6) k/uL RBC 3.26 L (4.30-5.90) m/uL Hgb 9.6 L (13.0-17.5) gm/dL Hct 29.4 L (39.0-53.0) % Plt Count 112 L (150-450) k/uL Monocytes # 1.2 H (0-1.0) k/uL Potassium 3.2 L (3.5-5.1) mmol/L Calcium 6.7 L (8.4-10.2) mg/dL Microbiology - Last 24 Hours (Table) 02/03/22 15:16 Blood Culture - Preliminary Blood No Growth after 72 hours 02/03/22 15:03 Blood Culture - Preliminary Blood No Growth after 72 hours 02/04/22 01:13 Urine Culture - Final Urine,Voided Enterococcus faecium Assessment and Plan Plan: Assessment: 1. Acute kidney injury secondary to ATN secondary to septic shock/hemodynamic instability. Creatinine 3.7 on admission and down to 0.94 today. Baseline creatinine 0.7 from December 2021. Bilateral hydronephrosis noted on kidney ultrasound. Urology consulted. 2. Metabolic acidosis secondary to acute kidney injury and GI losses. s/p bicarb drip. Resolved. 3. Colon cancer status post colostomy with metastatic disease. 4. A. fib with RVR maintained on oral amiodarone. 5. Hypokalemia from poor intake, hypomagnesemia and intracellular shifting from IV bicarb. Replaced. Better. 6. Hypomagnesemia from GI losses and poor intake. 7. Hypocalcemia secondary to acute kidney injury, IV fluids and hypoalbuminemia. Corrected calcium near 8. 8. Septic shock secondary to enterococcus UTI. On antibiotics. Plan: Maintain normal saline at 75 mL an hour. Wean vasopressors. Continue to monitor renal function and urine output. Replace potassium and magnesium per protocol. 1 g IV calcium gluconate today.
[2022-02-07] MEDS ORDERED: CALCIUM GLUCONATE IN NACL 1 GM in SALINE 1 100ML.BAG IVPB ONE (10:00)
[2022-02-07] MEDS: DIPHENOX-ATROP 2.5-0.025 MG 1 EACH TAB PO SCH ×4 (10:11→20:34)
[2022-02-07] MEDS: CEFEPIME 2 GM in SODIUM CHLORIDE 0.9% 100 ML IVPB SCH ×2 (10:11→16:51)
[2022-02-07] MEDS: MORPHINE SULFATE ER 30 MG TABLET PO SCH ×2 (10:59→23:07)
[2022-02-07] MEDS ORDERED: VANCOMYCIN 1,250 MG in SODIUM CHLORIDE 0.9% 250 ML IVPB SCH ×3 (11:00)
--- NOTE | 2022-02-07 11:33 | P.PN ---
Subjective Progress Note Date: 02/07/22 Principal diagnosis: Neutropenic sepsis and septic shock 61-year-old male patient was received systemic chemotherapy for metastatic rectal cancer. The patient came in with neutropenia, dehydration, diarrhea, and suspected to have sepsis. The patient was also in atrial fibrillation with rapid ventricular response and the patient was moved to the intensive care unit. This morning, the patient is calm and comfortable. The patient has already converted into normal sinus rhythm. The patient is currently on oral amiodarone. At the same time, the patient continues to be on a bicarb infusion at the rate of 150 mL an hour and the patient is also on broad-spectrum antibiotics with a combination of cefepime and vancomycin. Norepinephrine is a low dose of 0.02 microvascular kilogram per minute and this can be easily discontinued. Meanwhile, the fluid balance is -940 mL as the patient has considerable amount of output from his colostomy she is quite extensive. C. diff evaluation in the fluid from the colostomy has been negative. The urine culture is negative. Blood cultures negative. The patient was given G-CSF the patient's white cell count improved and currently white cell count is up to 10.6 with a hemoglobin of 10.7. The patient is on room air oxygen for now. The patient has no specific complaints. He is feeling better compared to yesterday. As mentioned earlier, the patient seemed FOLFOX systemic chemotherapy 4 and Avastin. He does have some stomatitis also. Reevaluated today on 02/06/22, patient remains in the ICU, he is actually on room air with O2 sat showed 94%, he is becoming more hemodynamically stable nonetheless he still requires norepinephrine at 0.05 mcg/kg/m, today I discontinued his bicarb. Remains on cefepime and vancomycin. Overall the patient has made a dramatic improvement and he seems to be clinically stabilizing. Blood cultures are negative so far since admission and urine culture remains pending. Patient is not in any distress, his blood pressure is marginal with a systolic of 90 and diastolic of 79. He is in sinus rhythm with occasional premature atrial contractions. He is alert and oriented 3. And he is in excellent today. CBC is relatively normal electrolytes are normal except for potassium of 3.1. Renal functioning is steadily improving BUN is down to 24 creatinine is down to 1.28. Remains on IV fluid in the form of 0.9 normal saline at 100 mL per hour. Reevaluated today on 02/07/22, patient remains in the ICU, he is still requiring norepinephrine at 0.02 mcg/kg/m, he is on room air, does not seem to be in any distress. Hoping to taper and discontinue norepinephrine today and then we cou ld potentially transfer the patient out of the ICU to a regular medical floor. His renal functioning is improving, patient has good urine output, metabolic acidosis has resolved. Remains on antibiotics for his enterococcal UTI. WBC count is 10.7 hemoglobin is 9.6. Electrolytes are normal renal profile is normal creatinine is down to 0.94, it was 1.88 on the ., And as high as 3.70 on 02/03. Patient remains on cefepime, vancomycin, and he is now on oral amiodarone. Objective - Vital Signs Vital signs: Vital Signs Temp 98.4 F 02/07/22 08:00 Pulse 62 02/07/22 10:15 Resp 14 02/07/22 10:15 BP 103/69 02/07/22 10:15 Pulse Ox 96 02/07/22 10:15 Intake & Output 02/06/22 02/07/22 02/07/22 18:59 06:59 18:59 Intake Total 2344.442 7129.605 364.769 Output Total 1845 2105 615 Balance -281.908 -629.395 -250.231 Weight 67.2 kg Intake: IV 1475 1025 270 Cefepime 1 gm In Sodium 100 Chloride 0.9% 50 ml @ 12. 5 mls/hr IVPB Q12HR [facility] Rx#:[id number] Dextrose 5% in Water 1, 450 000 ml @ 150 mls/hr IV . Q7H40M [facility] with Sodium Bicarb (1 Meq/ml) 150 ml Rx#:[id number] Magnesium Sulfate-D5w Pmx 100 1 gm In Dextrose/Water 1 100ml.bag @ 100 mls/hr IVPB Q1H [facility] Rx#: [id number] Potassium Chloride 20 meq 200 In Water For Injection 1 100ml.bag @ 50 mls/hr IVPB Q2H [facility] Rx#: [id number] Sodium Chloride 0.9% 1, 925 825 170 000 ml @ 75 mls/hr IV . [id number] [facility] Rx#:[id number] Intake, IV Titration 88.092 50.605 94.769 Amount Norepinephrine 4 mg In 88.092 50.605 94.769 Sodium Chloride 0.9% 250 ml @ 0.05 MCG/KG/MIN 12. 078 mls/hr IV .Q21H2M [facility] Rx#:[id number] Oral 400 Output: Urine 1195 730 265 Stool 650 1375 350 Other: Voiding Method Indwelling Catheter Indwelling Catheter Indwelling Catheter - Exam Physical Exam: Revealed a 61-year-old white male in no distress. Head: Atraumatic, normocephalic. HEENT:[Neck is supple.] [No neck masses.] [No thyromegaly.] [No JVD.] Chest: [Clear throughout, no crackles, no rhonchi, no wheezes.] Cardiac Exam: [Normal S1 and S2, no S3 gallop, no murmur.] Abdomen: [Soft, nontender, no megaly, no rebound, no guarding, normal bowel sounds.] Ostomy bag seems to be intact. Extremities: [No clubbing, no edema, no cyanosis.] There is evidence of right upper extremity weakness, and the right wrist contracture, chronic related to his cerebral palsy. Neurological Exam: [No focal neurologic deficit.] Alert oriented 3. Psychiatric: Normal mood affect and normal mental status examination. Skin: No rashes. - Labs CBC & Chem 7: 02/07/22 04:58 02/07/22 04:58 Labs: Abnormal Lab Results - Last 24 Hours (Table) 02/06/22 02/07/22 02/07/22 Range/Units 19:45 04:58 04:58 WBC 10.7 H (3.8-10.6) k/uL RBC 3.26 L (4.30-5.90) m/uL Hgb 9.6 L (13.0-17.5) gm/dL Hct 29.4 L (39.0-53.0) % Plt Count 112 L (150-450) k/uL Monocytes # 1.2 H (0-1.0) k/uL Potassium 3.2 L (3.5-5.1) mmol/L Calcium 6.7 L (8.4-10.2) mg/dL Microbiology - Last 24 Hours (Table) 02/03/22 15:16 Blood Culture - Preliminary Blood No Growth after 72 hours 02/03/22 15:03 Blood Culture - Preliminary Blood No Growth after 72 hours 02/04/22 01:13 Urine Culture - Final Urine,Voided Enterococcus faecium Assessment and Plan Assessment: Impression: Acute neutropenic sepsis and septic shock New-onset atrial fibrillation Acute kidney injury secondary to acute tubular necrosis and hypotension Acute urinary tract infection secondary to Enterococcus faecieum Neutropenia secondary to systemic chemotherapy Metastatic rectal carcinoma previous colectomy and diverting colostomy Recommendation: Continue present supportive care measures Discontinue bicarb drip. Continue IV fluids Titrate and possibly discontinue norepinephrine, if tolerated. Continue antibiotics Replace electrolytes accordingly We will continue to monitor in the ICU, and considering the patient is still requiring norepinephrine We'll continue to follow Time with Patient: Less than 30
[2022-02-07] MEDS: SODIUM CHLORIDE 0.9% 1,000 ML IV SCH ×2 (12:33→23:08)
[2022-02-07] MEDS: NOREPINEPHRINE 4 MG in SODIUM CHLORIDE 0.9% 250 ML IV SCH (12:34)
--- NOTE | 2022-02-07 15:30 | PN ---
PROGRESS NOTE This gentleman has multiple comorbid conditions, including sepsis. He was in atrial fibrillation but has converted to sinus rhythm. His rhythm is in sinus. Rate is about 70. I will add a small dose of metoprolol tartrate 12.5 mg in the morning and see how he does. His vitals are stable. He is doing much better today. S1-S2 heard normally. Short systolic murmur noted. Lungs reveal diminished air entry. Abdomen is soft. Lower extremities reveal diminished pulses. Central nervous system is grossly within normal limits. Prognosis remains guarded. From a cardiac standpoint, he is in a sinus rhythm and heart rate is not that low; a small dose of beta ba should be sufficient. We will see how he does on this regimen and go from there. No other intervention from a cardiac standpoint. MMODL / IJN: [id number] /
--- NOTE | 2022-02-07 18:55 | P.PN ---
Subjective Progress Note Date: 02/07/22 Patient is a 61-year-old male for history of stage IV rectal cancer status post resection with colostomy and chemotherapy with metastatic disease to the liver, cerebral palsy with right upper extremity weakness, and hypertension who initially presented to the emergency room with complaints of intractable nausea, vomiting, and diarrhea. Patient was found have neutropenic sepsis and was started on broad-spectrum antibiotics with cefepime. He he was started on IV fluids due to OZZY and lactic acidosis. He was given aggressive potassium supplementation due to severe hypokalemia. Patient seen and examined at bedside. He reports he is doing much better today than yesterday. He denies any chest pain, shortness of breath is chronic for him, he has chronic abdominal pain which is unchanged. General: non toxic, no distress, appears at stated age Derm: warm, dry Head: atraumatic, normocephalic, symmetric Eyes: EOMI, no lid lag, anicteric sclera Mouth: no lip lesion, mucus membranes moist Cardiovascular: S1S2 reg, no murmur, positive posterior tibial pulse bilateral, Lungs: Coarse breath sounds bilateral, no rhonchi, no rales , no accessory muscle use Abdominal: soft, nontender to palpation, no guarding, no appreciable organomegaly Ext: no gross muscle atrophy, no edema, + right upper extremity contracture Neuro: CN II-XI grossly intact, no focal neuro deficits Psych: Alert, oriented, appropriate affect Assessment/paln: Neutropenic sepsis due to Entercocclus UTI in setting of stage IV rectal CA with chemotherapy Diarrhear - lomotil, add cholestyramine -levo being down titrated -down titrate to rocephin -Leukopenia resolved s/p Filgastrim 02/03 and 02/04 -blood cultures negative Acute kidney injury, resolved Hypokalemia, resolved Afib with RVR -Amiodarone drip discontinued and patient maintained on amiodarone by mouth -Cardiology on board -Echocardiogram EF 55-60% -Cardiac monitoring DVT prophylaxis -Heparin subq Resolved: Lactic acidosis Objective - Vital Signs Vital signs: Vital Signs Temp 98.4 F 02/07/22 16:00 Pulse 63 02/07/22 18:00 Resp 11 L 02/07/22 18:00 BP 95/60 02/07/22 18:00 Pulse Ox 96 02/07/22 18:00 Intake & Output 02/06/22 02/07/22 02/07/22 18:59 06:59 18:59 Intake Total 3055.040 1818.605 1100.880 Output Total 1845 2105 1055 Balance -281.908 -629.395 45.880 Weight 67.2 kg 67.2 kg Intake: IV 1475 1025 795 Cefepime 1 gm In Sodium 100 Chloride 0.9% 50 ml @ 12. 5 mls/hr IVPB Q12HR [facility] Rx#:[id number] Dextrose 5% in Water 1, 450 000 ml @ 150 mls/hr IV . Q7H40M [facility] with Sodium Bicarb (1 Meq/ml) 150 ml Rx#:[id number] Magnesium Sulfate-D5w Pmx 100 1 gm In Dextrose/Water 1 100ml.bag @ 100 mls/hr IVPB Q1H [facility] Rx#: [id number] Potassium Chloride 20 meq 200 In Water For Injection 1 100ml.bag @ 50 mls/hr IVPB Q2H [facility] Rx#: [id number] Sodium Chloride 0.9% 1, 925 825 695 000 ml @ 75 mls/hr IV . [id number] [facility] Rx#:[id number] Intake, IV Titration 88.092 50.605 105.880 Amount Norepinephrine 4 mg In 88.092 50.605 105.880 Sodium Chloride 0.9% 250 ml @ 0.05 MCG/KG/MIN 12. 078 mls/hr IV .Q21H2M [facility] Rx#:[id number] Oral 400 200 Output: Urine 1195 730 705 Stool 650 1375 350 Other: Voiding Method Indwelling Catheter Indwelling Catheter Indwelling Catheter - Labs CBC & Chem 7: 02/07/22 04:58 02/07/22 04:58 Labs: Abnormal Lab Results - Last 24 Hours (Table) 02/06/22 02/07/22 02/07/22 Range/Units 19:45 04:58 04:58 WBC 10.7 H (3.8-10.6) k/uL RBC 3.26 L (4.30-5.90) m/uL Hgb 9.6 L (13.0-17.5) gm/dL Hct 29.4 L (39.0-53.0) % Plt Count 112 L (150-450) k/uL Monocytes # 1.2 H (0-1.0) k/uL Potassium 3.2 L (3.5-5.1) mmol/L Calcium 6.7 L (8.4-10.2) mg/dL Microbiology - Last 24 Hours (Table) 02/03/22 15:16 Blood Culture - Preliminary Blood No Growth after 96 hours 02/03/22 15:03 Blood Culture - Preliminary Blood No Growth after 96 hours
[2022-02-07] MEDS: CHOLESTYRAMINE (WITH SUGAR) 4 GM PACKET PO SCH (20:34)
[2022-02-08 05:07] LABS: HCT 28.6 % (39.0-53.0); HGB 9.4 gm/dL (13.0-17.5); Hypochromasia Moderate; MCH 30.5 pg (25.0-35.0); MCHC 32.8 g/dL (31.0-37.0); MCV 92.9 fL (80.0-100.0); Mean Platelet Volume 9.2; Platelet Count 121 k/uL (150-450); Poikilocytosis Moderate; RBC 3.08 m/uL (4.30-5.90); RDW 15.4 % (11.5-15.5)
[2022-02-08 05:30] LABS: African American GFR (CKD) >90 (>60 ml/min/1.73 sqM); Anion Gap 3 mmol/L; Blood Urea Nitrogen 13 mg/dL (9-20); Calcium 7.3 mg/dL (8.4-10.2); Carbon Dioxide 28 mmol/L (22-30); Chloride 105 mmol/L (98-107); Glucose 83 mg/dL (74-99); Magnesium 2.1 mg/dL (1.6-2.3); Non-African American GFR(CKD) 89 (>60 ml/min/1.73 sqM); Potassium 3.7 mmol/L (3.5-5.1); Sodium 136 mmol/L (137-145)
[2022-02-08] MEDS ORDERED: POTASSIUM CHLORIDE ER 20 MEQ TAB.ER PO SCH (08:00)
--- NOTE | 2022-02-08 09:12 | PN ---
PROGRESS NOTE Mr. Lee is in sinus rhythm and he is on a very small dose of Levophed. Pressure is 120. Levophed is going to be weaned off. We will then continue his metoprolol tartrate 12.5 mg daily in the morning along with amiodarone 200 mg b.i.d. Vitals are stable. No JVD. S1-S2 heard normally. Short systolic murmur. Lungs reveal improved air entry. Abdomen is soft. Lower extremities reveal diminished pulses. Central nervous system: No focal deficits. Plan is to continue current medical regimen of metoprolol 12.5 mg every morning and amiodarone 200 mg b.i.d. After one week we can reduce the amiodarone to 200 mg daily. I will continue to see the patient as needed. MMODL / IJN: [id number] /
[2022-02-08] MEDS: CHOLESTYRAMINE (WITH SUGAR) 4 GM PACKET PO SCH ×3 (09:18→20:31)
[2022-02-08] MEDS: DIPHENOX-ATROP 2.5-0.025 MG 1 EACH TAB PO SCH ×4 (09:20→20:31)
[2022-02-08] MEDS: MORPHINE SULFATE ER 30 MG TABLET PO SCH ×2 (09:20→20:31)
[2022-02-08] MEDS: AMIODARONE 200 MG TAB PO SCH (09:20)
[2022-02-08] MEDS: HEPARIN SODIUM,PORCINE/PF 5,000 UNIT/0.5 ML SYRINGE SQ SCH ×2 (09:21→17:35)
[2022-02-08] MEDS: MAG HYDROX/AL HYDROX/SIMETH 30 ML, diphenhydrAMINE ELIXIR 75 MG, LIDOCAINE VISCOUS 2% 3... PO SCH ×9 (09:22→20:32)
--- NOTE | 2022-02-08 09:29 | P.PN ---
Subjective Patient is seen in follow-up for acute kidney injury. Renal function back to baseline. Remains on low-dose Levophed. On IV fluids. Denies chest pain or shortness of breath. Tolerating oral intake. Vital signs are stable. On vasopressor support. General: Awake and alert. No acute distress. HEENT: Head exam is unremarkable. LUNGS: Breath sounds decreased. HEART: Rate and Rhythm are regular. ABDOMEN: Soft, no distention. Colostomy noted. EXTREMITITES: No edema. Objective - Vital Signs Vital signs: Vital Signs Temp 98.1 F 02/08/22 09:00 Pulse 75 02/08/22 09:00 Resp 12 02/08/22 09:00 BP 97/60 02/08/22 09:00 Pulse Ox 95 02/08/22 09:00 Intake & Output 02/07/22 02/08/22 02/08/22 18:59 06:59 18:59 Intake Total 7893.758 6707.079 75 Output Total 1115 1140 75 Balance 60.880 -8.921 0 Weight 67.2 kg 70 kg Intake: IV 870 900 75 Magnesium Sulfate-D5w Pmx 100 1 gm In Dextrose/Water 1 100ml.bag @ 100 mls/hr IVPB Q1H [facility] Rx#: [id number] Sodium Chloride 0.9% 1, 770 900 75 000 ml @ 75 mls/hr IV . [id number] [facility] Rx#:[id number] Intake, IV Titration 105.880 31.079 Amount Norepinephrine 4 mg In 105.880 31.079 Sodium Chloride 0.9% 250 ml @ 0.05 MCG/KG/MIN 12. 078 mls/hr IV .Q21H2M [facility] Rx#:[id number] Oral 200 200 Output: Urine 765 915 75 Stool 350 225 Other: Voiding Method Indwelling Catheter Indwelling Catheter - Labs CBC & Chem 7: 02/08/22 04:53 02/08/22 04:53 Labs: Abnormal Lab Results - Last 24 Hours (Table) 02/08/22 02/08/22 Range/Units 04:53 04:53 RBC 3.08 L (4.30-5.90) m/uL Hgb 9.4 L (13.0-17.5) gm/dL Hct 28.6 L (39.0-53.0) % Plt Count 121 L (150-450) k/uL Sodium 136 L (137-145) mmol/L Calcium 7.3 L (8.4-10.2) mg/dL Microbiology - Last 24 Hours (Table) 02/03/22 15:16 Blood Culture - Preliminary Blood No Growth after 96 hours 02/03/22 15:03 Blood Culture - Preliminary Blood No Growth after 96 hours Assessment and Plan Plan: Assessment: 1. Acute kidney injury secondary to ATN secondary to septic shock/hemodynamic instability. Creatinine 3.7 on admission and down to 0.93 today. Baseline creatinine 0.7 from December 2021. Bilateral hydronephrosis noted on kidney ultrasound. Urology following. 2. Metabolic acidosis secondary to acute kidney injury and GI losses. s/p bicarb drip. Resolved. 3. Colon cancer status post colostomy with metastatic disease. 4. A. fib with RVR maintained on oral amiodarone. 5. Hypokalemia from poor intake, hypomagnesemia and intracellular shifting from IV bicarb. Replaced. 6. Hypomagnesemia from GI losses and poor intake. 7. Hypocalcemia secondary to acute kidney injury, IV fluids and hypoalbuminemia. Improved. 8. Septic shock secondary to enterococcus UTI. On antibiotics. Plan: Maintain normal saline at 75 mL an hour. Wean vasopressors. Continue to monitor renal function and urine output. Replace potassium and magnesium per protocol. I will sign off. Please call with any questions or concerns
[2022-02-08] MEDS ORDERED: VANCOMYCIN TROUGH DUE 1 EACH MISC MISCELLANE ONE (10:00)
--- NOTE | 2022-02-08 11:48 | P.PN ---
Subjective Progress Note Date: 02/08/22 Principal diagnosis: Neutropenic sepsis and septic shock 61-year-old male patient was received systemic chemotherapy for metastatic rectal cancer. The patient came in with neutropenia, dehydration, diarrhea, and suspected to have sepsis. The patient was also in atrial fibrillation with rapid ventricular response and the patient was moved to the intensive care unit. This morning, the patient is calm and comfortable. The patient has already converted into normal sinus rhythm. The patient is currently on oral amiodarone. At the same time, the patient continues to be on a bicarb infusion at the rate of 150 mL an hour and the patient is also on broad-spectrum antibiotics with a combination of cefepime and vancomycin. Norepinephrine is a low dose of 0.02 microvascular kilogram per minute and this can be easily discontinued. Meanwhile, the fluid balance is -940 mL as the patient has considerable amount of output from his colostomy she is quite extensive. C. diff evaluation in the fluid from the colostomy has been negative. The urine culture is negative. Blood cultures negative. The patient was given G-CSF the patient's white cell count improved and currently white cell count is up to 10.6 with a hemoglobin of 10.7. The patient is on room air oxygen for now. The patient has no specific complaints. He is feeling better compared to yesterday. As mentioned earlier, the patient seemed FOLFOX systemic chemotherapy 4 and Avastin. He does have some stomatitis also. Reevaluated today on 02/06/22, patient remains in the ICU, he is actually on room air with O2 sat showed 94%, he is becoming more hemodynamically stable nonetheless he still requires norepinephrine at 0.05 mcg/kg/m, today I discontinued his bicarb. Remains on cefepime and vancomycin. Overall the patient has made a dramatic improvement and he seems to be clinically stabilizing. Blood cultures are negative so far since admission and urine culture remains pending. Patient is not in any distress, his blood pressure is marginal with a systolic of 90 and diastolic of 79. He is in sinus rhythm with occasional premature atrial contractions. He is alert and oriented 3. And he is in excellent today. CBC is relatively normal electrolytes are normal except for potassium of 3.1. Renal functioning is steadily improving BUN is down to 24 creatinine is down to 1.28. Remains on IV fluid in the form of 0.9 normal saline at 100 mL per hour. Reevaluated today on 02/07/22, patient remains in the ICU, he is still requiring norepinephrine at 0.02 mcg/kg/m, he is on room air, does not seem to be in any distress. Hoping to taper and discontinue norepinephrine today and then we cou ld potentially transfer the patient out of the ICU to a regular medical floor. His renal functioning is improving, patient has good urine output, metabolic acidosis has resolved. Remains on antibiotics for his enterococcal UTI. WBC count is 10.7 hemoglobin is 9.6. Electrolytes are normal renal profile is normal creatinine is down to 0.94, it was 1.88 on the ., And as high as 3.70 on 02/03. Patient remains on cefepime, vancomycin, and he is now on oral amiodarone. Patient was reevaluated today on 02/08/2022, remains in the ICU, however the patient seems to be doing much better today, not in any distress, he is off norepinephrine, blood pressure remains stable, his urine output is excellent. Labs are improving, WBC count is 9 hemoglobin is 9.4. Electrolytes are normal renal profile is normal, last urine culture from showed enterococcus. Patient remains on antibiotics as per ID on the case. Objective - Vital Signs Vital signs: Vital Signs Temp 98.1 F 02/08/22 09:00 Pulse 55 L 02/08/22 11:30 Resp 20 02/08/22 11:30 BP 92/58 02/08/22 11:30 Pulse Ox 96 02/08/22 11:30 Intake & Output 02/07/22 02/08/22 02/08/22 18:59 06:59 18:59 Intake Total 8888.190 4244.079 319.324 Output Total 1115 1140 250 Balance 60.880 -8.921 69.324 Weight 67.2 kg 70 kg Intake: IV 870 900 300 Magnesium Sulfate-D5w Pmx 100 1 gm In Dextrose/Water 1 100ml.bag @ 100 mls/hr IVPB Q1H [facility] Rx#: [id number] Sodium Chloride 0.9% 1, 770 900 300 000 ml @ 75 mls/hr IV . [id number] [facility] Rx#:[id number] Intake, IV Titration 105.880 31.079 19.324 Amount Norepinephrine 4 mg In 105.880 31.079 19.324 Sodium Chloride 0.9% 250 ml @ 0.05 MCG/KG/MIN 12. 078 mls/hr IV .Q21H2M [facility] Rx#:[id number] Oral 200 200 Output: Urine 765 915 250 Stool 350 225 Other: Voiding Method Indwelling Catheter Indwelling Catheter Indwelling Catheter - Exam Physical Exam: Revealed a 61-year-old white male in no distress. On room air. Head: Atraumatic, normocephalic. HEENT:[Neck is supple.] [No neck masses.] [No thyromegaly.] [No JVD.] Chest: [Clear throughout, no crackles, no rhonchi, no wheezes.] Cardiac Exam: [Normal S1 and S2, no S3 gallop, no murmur.] Abdomen: [Soft, nontender, no megaly, no rebound, no guarding, normal bowel sounds.] Ostomy bag seems to be intact. Extremities: [No clubbing, trace of bipedal edema, no cyanosis.] There is jun dence of right upper extremity weakness, and the right wrist contracture Neurological Exam: [No focal neurologic deficit.] Alert oriented 3. Psychiatric: Normal mood affect and normal mental status examination. Skin: No rashes. - Labs CBC & Chem 7: 02/08/22 04:53 02/08/22 04:53 Labs: Abnormal Lab Results - Last 24 Hours (Table) 02/08/22 02/08/22 Range/Units 04:53 04:53 RBC 3.08 L (4.30-5.90) m/uL Hgb 9.4 L (13.0-17.5) gm/dL Hct 28.6 L (39.0-53.0) % Plt Count 121 L (150-450) k/uL Sodium 136 L (137-145) mmol/L Calcium 7.3 L (8.4-10.2) mg/dL Microbiology - Last 24 Hours (Table) 02/03/22 15:16 Blood Culture - Preliminary Blood No Growth after 96 hours 02/03/22 15:03 Blood Culture - Preliminary Blood No Growth after 96 hours Assessment and Plan Assessment: Impression: Acute neutropenic sepsis and septic shock New-onset atrial fibrillation Acute kidney injury secondary to acute tubular necrosis and hypotension Acute urinary tract infection secondary to Enterococcus faecieum Neutropenia secondary to systemic chemotherapy Metastatic rectal carcinoma previous colectomy and diverting colostomy Recommendation: Continue present supportive care measures Continue IV fluids Patient is off norepinephrine today. Continue antibiotics Replace electrolytes accordingly Transferred to oncology floor today. We'll continue to follow Time with Patient: Less than 30
--- NOTE | 2022-02-08 12:13 | P.PN ---
Progress Note - Text Progress Note Date: 02/08/22 Mr. Lee's Shipman catheter is draining blood-tinged urine. His serum creatinine level has normalized. I discussed with him the fact that ultrasound had shown what appeared to be a significant amount of debris within the bladder, and that cystoscopy should be considered at some point in the future for further evaluation. He wishes to focus primarily on his current health issues and is not at this time interested in scheduling cystoscopy.
--- NOTE | 2022-02-08 13:41 | US ---
EXAMINATION TYPE: US venous doppler duplex LE LT DATE OF EXAM: 02/08/2022 1:30 PM COMPARISON: NONE CLINICAL HISTORY: unilateral swelling. Left leg swelling. No redness. Per nurse, patient is on bloo d thinners (Heparin) but has been refusing them. ICU patient. SIDE PERFORMED: Left TECHNIQUE: The lower extremity deep venous system is examined utilizing real time linear array sonog justus with graded compression, doppler sonography and color-flow sonography. VESSELS IMAGED: Common Femoral Vein Deep Femoral Vein Greater Saphenous Vein * Femoral Vein Popliteal Vein Small Saphenous Vein * Proximal Calf Veins (* superficial vessels) Left Leg: Positive for DVT, compressions deferred. Echogenic thrombus extends from the external perfecto c, femoral veins distal left femoral vein. There may be some popliteal thrombus as well. Little flow is evident within the popliteal vein. IMPRESSION: 1. Deep venous thrombosis left lower extremity. A Red level critical message alert has been initiated for Ashley Meade DO via the [employer] Critical Results System on 02/08/2022 1:38 PM. This message alert has been sent to Ashley Meade DO via the preferences provided by the clinician for the receipt of Radiology Critical Findings. [facility] [id number].
[2022-02-08] MEDS: NOREPINEPHRINE 4 MG in SODIUM CHLORIDE 0.9% 250 ML IV SCH (14:48)
[2022-02-08] MEDS: METOPROLOL TARTRATE 12.5 MG TAB PO SCH (14:51)
[2022-02-08] MEDS: AMPICILLIN-SULBACTAM 3 GM in SODIUM CHLORIDE 0.9% 100 ML IVPB SCH ×2 (14:51→17:34)
[2022-02-08] MEDS: SODIUM CHLORIDE 0.9% 1,000 ML IV SCH (14:55)
--- NOTE | 2022-02-08 17:43 | P.PN ---
Subjective Progress Note Date: 02/08/22 Principal diagnosis: N,V,D, mucositis-chemo induced In f/u today pt reporting small improvement in diarrhea and mucositis. Nausea better. He is wanting to eat now. Denies fevers, has generalized weakness Objective - Vital Signs Vital signs: Vital Signs Temp 98.1 F 02/08/22 09:00 Pulse 55 L 02/08/22 11:30 Resp 20 02/08/22 11:30 BP 92/58 02/08/22 11:30 Pulse Ox 96 02/08/22 11:30 Intake & Output 02/07/22 02/08/22 02/08/22 18:59 06:59 18:59 Intake Total 7894.730 8358.079 319.324 Output Total 1115 1140 250 Balance 60.880 -8.921 69.324 Weight 67.2 kg 70 kg Intake: IV 870 900 300 Magnesium Sulfate-D5w Pmx 100 1 gm In Dextrose/Water 1 100ml.bag @ 100 mls/hr IVPB Q1H [facility] Rx#: [id number] Sodium Chloride 0.9% 1, 770 900 300 000 ml @ 75 mls/hr IV . [id number] [facility] Rx#:[id number] Intake, IV Titration 105.880 31.079 19.324 Amount Norepinephrine 4 mg In 105.880 31.079 19.324 Sodium Chloride 0.9% 250 ml @ 0.05 MCG/KG/MIN 12. 078 mls/hr IV .Q21H2M [facility] Rx#:[id number] Oral 200 200 Output: Urine 765 915 250 Stool 350 225 Other: Voiding Method Indwelling Catheter Indwelling Catheter Indwelling Catheter - Constitutional General appearance: Present: cooperative, no acute distress, thin - EENT Eyes: Present: anicteric sclerae, EOMI ENT: Present: hearing grossly normal - Respiratory Respiratory: bilateral: CTA - Cardiovascular Rhythm: regular Heart sounds: normal: S1, S2 - Gastrointestinal General gastrointestinal: Present: normal bowel sounds, soft, tenderness. Absent: absent bowel sounds, decreased bowel sounds, distended, hepatomegaly, hyperactive bowel sounds, organomegaly, rigid, scaphoid, splenomegaly, umbilical hernia, ventral hernia - Integumentary Integumentary: Present: pale - Musculoskeletal Musculoskeletal: Present: generalized weakness - Psychiatric Psychiatric: Present: A&O x's 3, appropriate affect, intact judgment & insight - Labs CBC & Chem 7: 02/08/22 04:53 02/08/22 04:53 Labs: Abnormal Lab Results - Last 24 Hours (Table) 02/08/22 02/08/22 Range/Units 04:53 04:53 RBC 3.08 L (4.30-5.90) m/uL Hgb 9.4 L (13.0-17.5) gm/dL Hct 28.6 L (39.0-53.0) % Plt Count 121 L (150-450) k/uL Sodium 136 L (137-145) mmol/L Calcium 7.3 L (8.4-10.2) mg/dL Microbiology - Last 24 Hours (Table) 02/03/22 15:16 Blood Culture - Preliminary Blood No Growth after 96 hours 02/03/22 15:03 Blood Culture - Preliminary Blood No Growth after 96 hours - Imaging and Cardiology Venous US: report reviewed Assessment and Plan (1) Acute renal failure Narrative/Plan: 2/2 dehydration, improving with hydration Current Visit: Yes Status: Acute Priority: High Code(s): N17.9 - ACUTE KIDNEY FAILURE, UNSPECIFIED SNOMED Code(s): 69861503 (2) Diarrhea Narrative/Plan: 2/2 chemo. Increased lomotil to max dose today. Patient is noting small improvements in consistency Current Visit: Yes Status: Acute Priority: High Code(s): R19.7 - DIARRHEA, UNSPECIFIED SNOMED Code(s): 86628324 (3) Mucositis (ulcerative) due to antineoplastic therapy Narrative/Plan: Stable, cont kools, salt and soda. Current Visit: Yes Status: Acute Priority: High Code(s): K12.31 - ORAL MUCOSITIS (ULCERATIVE) DUE TO ANTINEOPLASTIC THERAPY SNOMED Code(s): 369788795 (4) Hypokalemia Narrative/Plan: 2/2 diarrhea. Cont potassium replacement per protocol. Current Visit: Yes Status: Acute Priority: High Code(s): E87.6 - HYPOKALEMIA SNOMED Code(s): 13789065 (5) Dehydration Narrative/Plan: Improving with IV fluids. Pt is reporting that he is starting to get an appetite Current Visit: Yes Status: Acute Priority: High Code(s): E86.0 - DEHYDRATION SNOMED Code(s): 72390325 (6) Rectal adenocarcinoma Narrative/Plan: Pt unfortunately has not tolerated treatment very well. This is 2nd admit post chemo with significant SE. He was found to have UTI this admit. Patient's symptoms are improving the further he gets away from chemotherapy. Patient will follow-up with Oncologist and they will discuss his case and determine what approach pt wishes to pursue. They will make the arrangements for the plan of care pt decides upon. Doppler ordered of left lower extremity ordered for unilateral swelling. Later reported positive for DVT. Case was discussed briefly with Internal Medicine. Order was placed for filter since patient is having hematuria and blood from Ostomy. Current Visit: Yes Status: Acute Priority: High Code(s): C20 - MALIGNANT NEOPLASM OF RECTUM SNOMED Code(s): 607720137
--- NOTE | 2022-02-08 19:03 | P.PN ---
Subjective Progress Note Date: 02/08/22 (delayed charting seen at 1410) Patient is a 61-year-old male for history of stage IV rectal cancer status post resection with colostomy and chemotherapy with metastatic disease to the liver, cerebral palsy with right upper extremity weakness, and hypertension who initially presented to the emergency room with complaints of intractable nausea, vomiting, and diarrhea. Patient was found have neutropenic sepsis and was started on broad-spectrum antibiotics with cefepime. He he was started on IV fluids due to OZZY and lactic acidosis. He was given aggressive potassium supplementation due to severe hypokalemia. Patient seen and examined at bedside. Sitting in bed. States that he feels gre at. Denies any nausea, vomiting. increased output from ostomy bag present at bedside. informed them that he has + DVT left. Discussed not a candidate for anticoagulation due to hematuria and bleeding from ostomy. Recommended that patient be bed rest and evaluated for IVC filter. At risk for d evelopment of PE while not on anticoagulation. General: non toxic, no distress, appears at stated age Derm: warm, dry Head: atraumatic, normocephalic, symmetric Eyes: EOMI, no lid lag, anicteric sclera Mouth: no lip lesion, mucus membranes moist Cardiovascular: S1S2 reg, no murmur, positive posterior tibial pulse bilateral, Lungs: Coarse breath sounds bilateral, no rhonchi, no rales , no accessory muscle use Abdominal: soft, nontender to palpation, no guarding, no appreciable organomegaly Ext: no gross muscle atrophy, left LE edema, + right upper extremity contracture Neuro: CN II-XI grossly intact, no focal neuro deficits Psych: Alert, oriented, appropriate affect Assessment/paln: Neutropenic sepsis due to Entercoccus UTI in setting of stage IV rectal CA with chemotherapy Diarrhea - lomotil, increase cholestyramine - unasyn X 7-10 days, D#5 of appropriate treatment -Leukopenia resolved s/p Filgastrim 02/03 and 02/04 -blood cultures negative Left lower extremity DVT - not an candidate for AC due to hematuria and bleeding from ostomy - consult vascular sx for IVC filter - d/w oncology Anemia, thrombocytopenia - stable - follow cbc Hematuria - urology following recommended cystoscopy but patient declined. bleeding from ostomy - pressure Afib with RVR -Amiodarone drip discontinued and patient maintained on amiodarone by mouth -Cardiology on board -Echocardiogram EF 55-60% -Cardiac monitoring DVT prophylaxis -Heparin subq Resolved: Lactic acidosis Acute kidney injury, resolved Hypokalemia, resolved poor overall prognosis - palliative care to evaluate patient Objective - Vital Signs Vital signs: Vital Signs Temp 98.8 F 02/08/22 16:00 Pulse 50 L 02/08/22 18:00 Resp 15 02/08/22 18:00 BP 92/57 02/08/22 18:00 Pulse Ox 97 02/08/22 18:00 Intake & Output 02/07/22 02/08/22 02/08/22 18:59 06:59 18:59 Intake Total 9726.059 1171.079 919.324 Output Total 1115 1140 885 Balance 60.880 -8.921 34.324 Weight 67.2 kg 70 kg Intake: IV 870 900 900 Magnesium Sulfate-D5w Pmx 100 1 gm In Dextrose/Water 1 100ml.bag @ 100 mls/hr IVPB Q1H [facility] Rx#: [id number] Sodium Chloride 0.9% 1, 770 900 900 000 ml @ 75 mls/hr IV . [id number] [facility] Rx#:[id number] Intake, IV Titration 105.880 31.079 19.324 Amount Norepinephrine 4 mg In 105.880 31.079 19.324 Sodium Chloride 0.9% 250 ml @ 0.05 MCG/KG/MIN 12. 078 mls/hr IV .Q21H2M [facility] Rx#:[id number] Oral 200 200 Output: Urine 765 915 885 Stool 350 225 Other: Voiding Method Indwelling Catheter Indwelling Catheter Indwelling Catheter - Labs CBC & Chem 7: 02/08/22 04:53 02/08/22 04:53 Labs: Abnormal Lab Results - Last 24 Hours (Table) 02/08/22 02/08/22 Range/Units 04:53 04:53 RBC 3.08 L (4.30-5.90) m/uL Hgb 9.4 L (13.0-17.5) gm/dL Hct 28.6 L (39.0-53.0) % Plt Count 121 L (150-450) k/uL Sodium 136 L (137-145) mmol/L Calcium 7.3 L (8.4-10.2) mg/dL Microbiology - Last 24 Hours (Table) 02/03/22 15:16 Blood Culture - Preliminary Blood No Growth after 120 hours 02/03/22 15:03 Blood Culture - Preliminary Blood No Growth after 120 hours
[2022-02-09] MEDS: HEPARIN SODIUM,PORCINE/PF 5,000 UNIT/0.5 ML SYRINGE SQ SCH ×4 (00:12→23:54)
[2022-02-09] MEDS: AMPICILLIN-SULBACTAM 3 GM in SODIUM CHLORIDE 0.9% 100 ML IVPB SCH ×3 (02:26→18:22)
[2022-02-09 05:30] LABS: Anisocytosis Slight; HCT 27.8 % (39.0-53.0); HGB 9.1 gm/dL (13.0-17.5); Hypochromasia Moderate; MCH 30.6 pg (25.0-35.0); MCHC 32.8 g/dL (31.0-37.0); MCV 93.4 fL (80.0-100.0); Mean Platelet Volume 8.8; Platelet Count 124 k/uL (150-450); Poikilocytosis Moderate; RBC 2.97 m/uL (4.30-5.90); RDW 16.2 % (11.5-15.5); WBC 7.6 k/uL (3.8-10.6)
[2022-02-09] MEDS: SODIUM CHLORIDE 0.9% 1,000 ML IV SCH ×2 (05:31→18:22)
[2022-02-09 06:00] LABS: INR 1.8 (<1.2)
[2022-02-09 06:04] LABS: ALT 9 U/L (4-49); AST 18 U/L (17-59); African American GFR (CKD) >90 (>60 ml/min/1.73 sqM); Albumin 1.8 g/dL (3.5-5.0); Alkaline Phosphatase 130 U/L (38-126); Anion Gap 2 mmol/L; Blood Urea Nitrogen 9 mg/dL (9-20); Calcium 7.1 mg/dL (8.4-10.2); Carbon Dioxide 26 mmol/L (22-30); Chloride 107 mmol/L (98-107); Glucose 81 mg/dL (74-99); Magnesium 1.6 mg/dL (1.6-2.3); Non-African American GFR(CKD) >90 (>60 ml/min/1.73 sqM); Phosphorus 2.7 mg/dL (2.5-4.5); Potassium 3.7 mmol/L (3.5-5.1); Sodium 135 mmol/L (137-145); Total Bilirubin 0.5 mg/dL (0.2-1.3); Total Protein 4.7 g/dL (6.3-8.2)
[2022-02-09] MEDS: CHOLESTYRAMINE (WITH SUGAR) 4 GM PACKET PO SCH (09:06)
[2022-02-09] MEDS: DIPHENOX-ATROP 2.5-0.025 MG 1 EACH TAB PO SCH ×4 (09:57→21:28)
[2022-02-09] MEDS: MORPHINE SULFATE ER 30 MG TABLET PO SCH ×2 (09:57→21:28)
[2022-02-09] MEDS: METOPROLOL TARTRATE 12.5 MG TAB PO SCH (09:57)
[2022-02-09] MEDS: AMIODARONE 200 MG TAB PO SCH (09:57)
[2022-02-09] MEDS: MAG HYDROX/AL HYDROX/SIMETH 30 ML, diphenhydrAMINE ELIXIR 75 MG, LIDOCAINE VISCOUS 2% 3... PO SCH ×9 (09:58→21:28)
--- NOTE | 2022-02-09 13:04 | P.PN ---
Subjective Progress Note Date: 02/09/22 Principal diagnosis: Neutropenic sepsis and septic shock 61-year-old male patient was received systemic chemotherapy for metastatic rectal cancer. The patient came in with neutropenia, dehydration, diarrhea, and suspected to have sepsis. The patient was also in atrial fibrillation with rapid ventricular response and the patient was moved to the intensive care unit. This morning, the patient is calm and comfortable. The patient has already converted into normal sinus rhythm. The patient is currently on oral amiodarone. At the same time, the patient continues to be on a bicarb infusion at the rate of 150 mL an hour and the patient is also on broad-spectrum antibiotics with a combination of cefepime and vancomycin. Norepinephrine is a low dose of 0.02 microvascular kilogram per minute and this can be easily discontinued. Meanwhile, the fluid balance is -940 mL as the patient has considerable amount of output from his colostomy she is quite extensive. C. diff evaluation in the fluid from the colostomy has been negative. The urine culture is negative. Blood cultures negative. The patient was given G-CSF the patient's white cell count improved and currently white cell count is up to 10.6 with a hemoglobin of 10.7. The patient is on room air oxygen for now. The patient has no specific complaints. He is feeling better compared to yesterday. As mentioned earlier, the patient seemed FOLFOX systemic chemotherapy 4 and Avastin. He does have some stomatitis also. Reevaluated today on 02/06/22, patient remains in the ICU, he is actually on room air with O2 sat showed 94%, he is becoming more hemodynamically stable nonetheless he still requires norepinephrine at 0.05 mcg/kg/m, today I discontinued his bicarb. Remains on cefepime and vancomycin. Overall the patient has made a dramatic improvement and he seems to be clinically stabilizing. Blood cultures are negative so far since admission and urine culture remains pending. Patient is not in any distress, his blood pressure is marginal with a systolic of 90 and diastolic of 79. He is in sinus rhythm with occasional premature atrial contractions. He is alert and oriented 3. And he is in excellent today. CBC is relatively normal electrolytes are normal except for potassium of 3.1. Renal functioning is steadily improving BUN is down to 24 creatinine is down to 1.28. Remains on IV fluid in the form of 0.9 normal saline at 100 mL per hour. Reevaluated today on 02/07/22, patient remains in the ICU, he is still requiring norepinephrine at 0.02 mcg/kg/m, he is on room air, does not seem to be in any distress. Hoping to taper and discontinue norepinephrine today and then we cou ld potentially transfer the patient out of the ICU to a regular medical floor. His renal functioning is improving, patient has good urine output, metabolic acidosis has resolved. Remains on antibiotics for his enterococcal UTI. WBC count is 10.7 hemoglobin is 9.6. Electrolytes are normal renal profile is normal creatinine is down to 0.94, it was 1.88 on the ., And as high as 3.70 on 02/03. Patient remains on cefepime, vancomycin, and he is now on oral amiodarone. Patient was reevaluated today on 02/08/2022, remains in the ICU, however the patient seems to be doing much better today, not in any distress, he is off norepinephrine, blood pressure remains stable, his urine output is excellent. Labs are improving, WBC count is 9 hemoglobin is 9.4. Electrolytes are normal renal profile is normal, last urine culture from showed enterococcus. Patient remains on antibiotics as per ID on the case. Reevaluated today on 02/09/2022, patient continues to do well, however he is developing worsening hematuria, and the patient does have acute deep vein thrombosis. Has been on subcu heparin, however considering the worsening hematuria, urology was consulted, and feeling was that the patient cannot be on anticoagulation therapy. Hence I'm recommending vascular surgery evaluation for a IVC filter placement via otherwise the patient is doing well, he is not in any distress, remains off norepinephrine, blood pressure is marginal, but not requiring any pressors at this point. WBC count is 7.6 hemoglobin is 9.1 electrolytes are normal INR is 1.8, patient is not on any Coumadin. Objective - Vital Signs Vital signs: Vital Signs Temp 97.7 F 02/09/22 08:00 Pulse 79 02/09/22 11:00 Resp 14 02/09/22 11:00 BP 111/74 02/09/22 11:00 Pulse Ox 96 02/09/22 11:00 Intake & Output 02/08/22 02/09/22 02/09/22 18:59 06:59 18:59 Intake Total 919.324 900 375 Output Total 885 1150 260 Balance 34.324 -250 115 Weight 72 kg Intake: IV 900 900 375 Sodium Chloride 0.9% 1, 900 900 375 000 ml @ 75 mls/hr IV . [id number] [facility] Rx#:[id number] Intake, IV Titration 19.324 Amount Norepinephrine 4 mg In 19.324 Sodium Chloride 0.9% 250 ml @ 0.05 MCG/KG/MIN 12. 078 mls/hr IV .Q21H2M [facility] Rx#:[id number] Output: Urine 885 950 260 Stool 200 Other: Voiding Method Indwelling Catheter Indwelling Catheter Indwelling Catheter - Exam Physical Exam: Revealed a 61-year-old white male in no distress. On room air. Head: Atraumatic, normocephalic. HEENT:[Neck is supple.] [No neck masses.] [No thyromegaly.] [No JVD.] Chest: [Clear throughout, no crackles, no rhonchi, no wheezes.] Cardiac Exam: [Normal S1 and S2, no S3 gallop, no murmur.] Abdomen: [Soft, nontender, no megaly, no rebound, no guarding, normal bowel sounds.] Ostomy bag seems to be intact. Extremities: [No clubbing, trace of bipedal edema, no cyanosis.] There is evidence of right upper extremity weakness, and the right wrist contracture Neurological Exam: [No focal neurologic deficit.] Alert oriented 3. Psychiatric: Normal mood affect and normal mental status examination. Skin: No rashes. - Labs CBC & Chem 7: 02/09/22 05:15 02/09/22 05:15 Labs: Abnormal Lab Results - Last 24 Hours (Table) 02/09/22 02/09/22 02/09/22 Range/Units 05:15 05:15 05:36 RBC 2.97 L (4.30-5.90) m/uL Hgb 9.1 L (13.0-17.5) gm/dL Hct 27.8 L (39.0-53.0) % RDW 16.2 H (11.5-15.5) % Plt Count 124 L (150-450) k/uL PT 18.0 H (9.0-12.0) sec INR 1.8 H (<1.2) Sodium 135 L (137-145) mmol/L Calcium 7.1 L (8.4-10.2) mg/dL Alkaline Phosphatase 130 H (38-126) U/L Total Protein 4.7 L (6.3-8.2) g/dL Albumin 1.8 L (3.5-5.0) g/dL Microbiology - Last 24 Hours (Table) 02/03/22 15:16 Blood Culture - Preliminary Blood No Growth after 120 hours 02/03/22 15:03 Blood Culture - Preliminary Blood No Growth after 120 hours Assessment and Plan Assessment: Impression: Acute neutropenic sepsis and septic shock, resolved. New-onset atrial fibrillation presently in sinus rhythm Acute kidney injury secondary to acute tubular necrosis and hypotension, improved Acute urinary tract infection secondary to Enterococcus faecieum Neutropenia secondary to systemic chemotherapy Metastatic rectal carcinoma previous colectomy and diverting colostomy Hematuria, and according to urology, patient is not to receive any anticoagulation therapy hence the patient will need to have IVC filter placement for his deep vein thrombosis. Deep vein thrombosis/acute. Recommendation: Continue present supportive care measures Continue IV fluids Discontinue anticoagulation. Arrange for IVC filter placement. Continue antibiotics Replace electrolytes accordingly Consider transfer to oncology in the next 24 hours We'll continue to follow Time with Patient: Less than 30
--- NOTE | 2022-02-09 14:48 | P.PN ---
Subjective Progress Note Date: 02/09/22 (delayed charting seen at 0930) Principal diagnosis: intractable vomiting/diarrhea Patient is a 61-year-old male for history of stage IV rectal cancer status post resection with colostomy and chemotherapy with metastatic disease to the liver, cerebral palsy with right upper extremity weakness, and hypertension who initially presented to the emergency room with complaints of intractable nausea, vomiting, and diarrhea. Patient was found have neutropenic sepsis and was started on broad-spectrum antibiotics with cefepime. He he was started on IV fluids due to MELISA and lactic acidosis. He was also found to have A fib with RVR and required amio infusion. He was given aggressive potassium supplementation due to severe hypokalemia. He was seen by pulmonary, oncology, cardiology, urology, and nephrology. He did require vasopressor support. His evaluation for neutropenic sepsis resulted in discovery of an enterococcus urinary tract infection. Eventually he was able to come off of IV amiodarone and onto oral amiodarone. Antibiotics were transitioned to Unasyn to cover enterococcus. Patient did develop significant hematuria and has been followed by urology. He developed significant left lower extremity swelling after having refused multiple heparin injections was ultimately found have a left large cavity DVT. He is unable to have full dose anticoagulation secondary to hematuria and bleeding from his ostomy site. Vascular surgery was placed for possible IVC filter after consultation with oncology. Renal Ultrasound: mild bilateral hydronephrosis with debris in the urinary bladder. Echo: EF 55-60% Abdominal x-ray: intestinal ileus Venous Doppler: left lower extremity DVT Patient seen and examined at bedside. He is feeling tired today and frustrated with being in the hospital. He denies any chest pain, shortness breath, nausea, vomiting. General: non toxic, no distress, appears at stated age Derm: warm, dry Head: atraumatic, normocephalic, symmetric Eyes: EOMI, no lid lag, anicteric sclera Mouth: no lip lesion, mucus membranes moist Cardiovascular: S1S2 reg, no murmur, positive posterior tibial pulse bilateral, Lungs: Rhonchi bilateral bases,, no accessory muscle use Abdominal: soft, nontender to palpation, no guarding, no appreciable o rganomegaly Ext: no gross muscle atrophy, left LE edema, + right upper extremity contracture Neuro: CN II-XI grossly intact, no focal neuro deficits, dusky appearance to finger nailbeds bilaterally Psych: Alert, oriented, appropriate affect Assessment/paln: Neutropenic sepsis due to Entercoccus UTI in setting of stage IV rectal CA with chemotherapy Diarrhea, c diff negative - lomotil - unasyn X 7-10 days, D#6 of appropriate treatment -Leukopenia resolved s/p Filgastrim 02/03 and 02/04 -blood cultures negative Left lower extremity DVT - not an candidate for AC due to hematuria and bleeding from ostomy - await vascular surgery recs Anemia, thrombocytopenia - stable - follow cbc Hematuria - urology following recommended cystoscopy but patient declined. Pain related to malignancy - continue home regiment of oxy and MS contin Afib with RVR -Amiodarone drip discontinued and patient maintained on amiodarone by mouth -Cardiology on board -Echocardiogram EF 55-60% -Cardiac monitoring poor overall prognosis - palliative care to evaluate patient Lactic acidosis, resolved Acute kidney injury, resolved Hypokalemia, resolved bleeding from ostomy, resolved DVT prophylaxis: Heparin Discussed with: patient, nursing, oncology Anticipated discharge: in 3-[address]: unknown A total of 35 minutes was spent on the care of this complex patient more than 50% of the time was spent in counseling and care coordination. Objective - Vital Signs Vital signs: Vital Signs Temp 97.6 F 02/09/22 12:00 Pulse 70 02/09/22 13:00 Resp 14 02/09/22 13:00 BP 113/81 02/09/22 13:00 Pulse Ox 95 02/09/22 13:00 Intake & Output 02/08/22 02/09/22 02/09/22 18:59 06:59 18:59 Intake Total 919.324 900 525 Output Total 885 1150 460 Balance 34.324 -250 65 Weight 72 kg Intake: IV 900 900 525 Sodium Chloride 0.9% 1, 900 900 525 000 ml @ 75 mls/hr IV . [id number] [facility] Rx#:[id number] Intake, IV Titration 19.324 Amount Norepinephrine 4 mg In 19.324 Sodium Chloride 0.9% 250 ml @ 0.05 MCG/KG/MIN 12. 078 mls/hr IV .Q21H2M [facility] Rx#:[id number] Output: Urine 885 950 460 Stool 200 Other: Voiding Method Indwelling Catheter Indwelling Catheter Indwelling Catheter - Labs CBC & Chem 7: 02/09/22 05:15 02/09/22 05:15 Labs: Abnormal Lab Results - Last 24 Hours (Table) 02/09/22 02/09/22 02/09/22 Range/Units 05:15 05:15 05:36 RBC 2.97 L (4.30-5.90) m/uL Hgb 9.1 L (13.0-17.5) gm/dL Hct 27.8 L (39.0-53.0) % RDW 16.2 H (11.5-15.5) % Plt Count 124 L (150-450) k/uL PT 18.0 H (9.0-12.0) sec INR 1.8 H (<1.2) Sodium 135 L (137-145) mmol/L Calcium 7.1 L (8.4-10.2) mg/dL Alkaline Phosphatase 130 H (38-126) U/L Total Protein 4.7 L (6.3-8.2) g/dL Albumin 1.8 L (3.5-5.0) g/dL Microbiology - Last 24 Hours (Table) 02/03/22 15:16 Blood Culture - Preliminary Blood No Growth after 120 hours 02/03/22 15:03 Blood Culture - Preliminary Blood No Growth after 120 hours
--- NOTE | 2022-02-09 15:33 | P.CONS ---
History of Present Illness - Reason for Consult Consult date: 02/09/22 Stage IV metastatic Cancer Requesting physician: Ashley Meade - Chief Complaint Nausea, Vomiting, Diarrhea,weakness - History of Present Illness Patient is a 61-year-old male for history of stage IV rectal cancer status post resection with colostomy and chemotherapy with metastatic disease to the liver, cerebral palsy with right upper extremity weakness, and hypertension who initially presented to the emergency room on 02/03 with complaints of intractable nausea, vomiting, and diarrhea. Patient was found have neutropenic sepsis and was started on broad-spectrum antibiotics with cefepime. He he was started on IV fluids due to OZZY and lactic acidosis. The patient was started on Levophed and adequatelyy fluid resuscitated. Levophed has now been off for over 24 hours. The patient continues to do well, however he is developing worsening hematuria, and the patient does have acute deep vein thrombosis. Has been on subcu heparin, however considering the worsening hematuria, urology was consulted. The patient cannot be on anticoagulation therapy. Vascular surgery has been consulted for a IVC filter placement. Review of Systems Review Of Systems: Constitutional: No fever, no chills, no night sweats. Reports recent weight loss. Reports chronic pain and weakness, and fatigue. HEENT: No headache. No blurred vision or double vision, no loss of vision. No loss of Hearing, no ringing in the ears, no dizziness. No nasal drainage or congestion. No epistaxis. Reports sores in mouth from chemo. Lungs: No shortness of breath, cough, no sputum production. No wheezing Cardiovascular: No chest pain, Reports lower extremity edema. No palpitations. No paroxysmal nocturnal dyspnea. No orthopnea. No lightheadedness or dizziness. No syncopal episodes. Abdominal: Reports abdominal pain and loss of appetite and loose stool. No nausea or vomiting. Genitourinary: No dysuria. Musculoskeletal: Reports muscle weakness. No frequent falls. No back pain. No neck pain. Integumentary: No wounds, no lesions. No rash or pruritus. No unusual bruising. No change in hair or nails. Neurologic: No aphasia. Reports ataxia and generalized weakness. Psychiatric: No depression. Reports Anxiety. Past Medical History Past Medical History: Cancer, Hypertension, Liver Disease Additional Past Medical History / Comment(s): Right sided cerebral palsy, colon CA with mets to liver History of Any Multi-Drug Resistant Organisms: None Reported Past Surgical History: Back Surgery, Joint Replacement, Orthopedic Surgery Additional Past Surgical History / Comment(s): colostomy Past Anesthesia/Blood Transfusion Reactions: Unable to Obtain Past Psychological History: No Psychological Hx Reported Smoking Status: Former smoker Past Alcohol Use History: Occasional Past Drug Use History: None Reported - Past Family History Mother Family Medical History: No Reported History Medications and Allergies Home Medications Medication Instructions Recorded Confirmed Type Losartan Potassium [Cozaar] 100 mg PO DAILY 11/07/21 02/03/22 History LORazepam [Ativan] 1 mg PO Q6H PRN #4 tab 11/14/21 02/03/22 Rx Loperamide [Imodium] 2 mg PO QID PRN cap 11/14/21 02/03/22 Rx oxyCODONE HCL [OxyIR] 15 mg PO Q6HR PRN #6 tab 11/14/21 02/03/22 Rx Morphine Sulfate [Ms Contin] 30 mg PO Q12H 01/01/22 02/03/22 History Tamsulosin [Flomax] 0.4 mg PO DAILY #30 01/02/22 02/03/22 Rx Allergies Allergy/AdvReac Type Severity Reaction Status Date / Time No Known Allergies Allergy Verified 02/03/22 14:15 Physical Exam Vitals: Vital Signs Temp Pulse Resp BP Pulse Ox 02/09/22 14:00 65 16 118/72 97 02/09/22 13:00 70 14 113/81 95 02/09/22 12:00 97.6 F 73 15 125/76 95 02/09/22 11:00 79 14 111/74 96 02/09/22 10:00 68 16 102/56 96 02/09/22 09:00 56 L 15 84/57 97 02/09/22 08:00 97.7 F 52 L 20 88/51 96 02/09/22 07:49 94 L 02/09/22 07:00 53 L 14 97/57 95 02/09/22 06:00 65 13 98/55 96 02/09/22 05:00 53 L 12 85/55 97 02/09/22 04:00 37.1 F L 51 L 13 99/53 97 02/09/22 03:00 61 13 94/53 98 02/09/22 02:00 56 L 12 88/57 95 02/09/22 01:00 54 L 13 105/63 95 02/09/22 00:00 98.8 F 54 L 13 104/64 96 02/08/22 23:40 54 L 15 104/64 96 02/08/22 23:00 68 9 L 96/60 97 02/08/22 22:00 66 10 L 84/63 95 02/08/22 21:00 83 23 117/58 96 02/08/22 20:13 96 02/08/22 20:00 98.6 F 51 L 19 103/65 97 02/08/22 19:00 54 L 13 92/57 96 02/08/22 18:00 50 L 15 92/57 97 02/08/22 17:00 51 L 13 89/56 96 02/08/22 16:00 98.8 F 61 13 115/68 96 02/08/22 15:00 69 20 107/71 95 Intake and Output 02/08/22 02/09/22 02/09/22 22:59 06:59 14:59 Intake Total 600 600 600 Output Total 910 600 535 Balance -310 0 65 Intake: IV 600 600 600 Sodium Chloride 0.9% 1, 600 600 600 000 ml @ 75 mls/hr IV . [id number] [facility] Rx#:[id number] Output: Urine 810 500 535 Stool 100 100 Other: Voiding Method Indwelling Catheter Indwelling Catheter Indwelling Catheter Weight 72 kg General: Patient awake alert and oriented x 3. No acute distress. HEENT: Head is atraumatic, normocephalic Neck is supple. Sclerae are clear. Pupils equal, round and reactive to light bilaterally. CV: Heart regular in rate and rhythm positive S1 and S2. No clicks, rubs or murmurs. No JVD. Peripheral pulses equal. 2/4 Lungs: Clear to auscultation bilaterally. No wheezes rales or rhonchi. Respirations even and nonlabored. No intercostal retractions. Abdomen/GI: Soft. Bowel sounds present in all 4 quadrants. Bowel sounds normoactive. Colosstomy present with liquid brown stool, + abdominal tenderness. : Shipman bag with clear, pink-yellow urine Musculoskeletal/ Extremities: Right upper extremity weakness, and contracture due to CP. + Generalized weakness. Vascular: Radial pulses equal. 2/4, +1 bilateral LE edema. Skin: No rash. Neurologic: Awake, alert and oriented times 3. Psychiatric: Anxious. Results CBC & Chem 7: 02/09/22 05:15 02/09/22 05:15 Labs: Abnormal Lab Results - Last 24 Hours (Table) 02/09/22 02/09/22 02/09/22 Range/Units 05:15 05:15 05:36 RBC 2.97 L (4.30-5.90) m/uL Hgb 9.1 L (13.0-17.5) gm/dL Hct 27.8 L (39.0-53.0) % RDW 16.2 H (11.5-15.5) % Plt Count 124 L (150-450) k/uL PT 18.0 H (9.0-12.0) sec INR 1.8 H (<1.2) Sodium 135 L (137-145) mmol/L Calcium 7.1 L (8.4-10.2) mg/dL Alkaline Phosphatase 130 H (38-126) U/L Total Protein 4.7 L (6.3-8.2) g/dL Albumin 1.8 L (3.5-5.0) g/dL Microbiology - Last 24 Hours (Table) 02/03/22 15:16 Blood Culture - Preliminary Blood No Growth after 120 hours 02/03/22 15:03 Blood Culture - Preliminary Blood No Growth after 120 hours Chest x-ray: report reviewed Abdominal x-ray: report reviewed Venous US: report reviewed Assessment and Plan Assessment: Social - The patient is retired and worked at [employer]. He is and does not have any children. The patient lives at home with his and dogs. The patient stated he was a former smoker. Spiritual/Cultural - The patient is [employer] and considers his spiritual beliefs a source of strength and comfort. He is a member of a faith in [facility], but does not attend regularly. No cultural practices/restrictions identified. Functional - Prior to admission the patient was able to walk around independently using assistive devices. He has a cane, wheelchair, and a walker at home. After his last chemo treatment, the patient was unable to tell when he had to go to the bathroom and became incontinent requiring the use of briefs. He has a showerchair at home and requires assistance bathing/showering. He is able to feed himself and occasionally helps his out in the kitchen at home. He states he has a decreased appetite and has not been able to eat well due to sores in his mouth from the chemo. He has had recent weight loss. Karnofsky score - 30 PPS 30 Psych/Emotional - The patient denies any depression and remains hopeful. He has a considerable amount of anxiety. He feels as though he has good support from his . However, his is feeling overwhelmed. Plan: A great deal of time was spent educating the patient and his about his medical conditions and his poor prognosis. The patient was very adamant that he was getting better and his treatment was working. It was reiterated that we are managing the side effects of the chemotherapy, but the side effects are outweighing any benefit at this point. His was in agreement. He was informed that he is not tolerating the chemotherapy and it is not an option anymore. He got very upset and stated "There has to be something they can do still...like radiation". He believes the chemo is keeping him alive. When as ked what was more important to him: prolonged survival, to optimize function, or optimize comfort, he stated prolonged survival was his top priority. He values quantity of life rather than quality of life. He focuses more on treating the side effects of the chemo, which are better now. He has to be constantly refocused to the bigger picture which is his underlying stage IV metastatic cancer. The patient would like to continue with aggressive treatment at this time stating "I want to live". His is in disagreement and does not want to see him suffer. He would prefer quality of life over quantity. Will continue to follow the patient and provide support to him and his . Crys Wilkinson [facility] Spectralink [id number] Email: [email or web address] Time with Patient: Greater than 30
[2022-02-09] MEDS ORDERED: MIDAZOLAM 2 MG/2 ML VIAL IV ONE (16:30)
[2022-02-09] MEDS ORDERED: LIDOCAINE 1% INJ 10MG/ML (20 ML MDV) SQ ONE (16:32)
[2022-02-09] MEDS ORDERED: IV FLUID CONTINUATION 1,000 ML IV ONE (16:44)
[2022-02-09] MEDS ORDERED: IOPAMIDOL-250 100ML BTL IV ONE (16:50)
--- NOTE | 2022-02-09 18:33 | CONS ---
CONSULTATION This is a 61-year-old gentleman who has history of rectal cancer. He had resection and colostomy. The patient also had chemotherapy. The patient has history of metastatic disease into the liver. The patient also has a history of cerebral palsy. I was consulted for placement of a filter. This patient has a history of for DVT of the left leg, history of bleeding, hematuria and GI bleed, history of hypertension, atrial fibrillation. PHYSICAL EXAMINATION: NECK: Supple. No bruit appreciated. CHEST: Clear. A few crackles at lung bases. First and second sounds present. ABDOMEN: Soft, nontender. Patient has a colostomy. VASCULAR EXAMINATION: Femorals are palpable bilaterally. PLAN: Placement of a filter. Risks and complications discussed. MMODL / IJN: [id number] /
--- NOTE | 2022-02-09 18:49 | OP ---
OPERATIVE REPORT PREOPERATIVE DIAGNOSIS: 1. Acute deep vein thrombosis, left iliofemoral. 2. History of metastatic rectal cancer to the liver. 3. Hematuria and gastrointestinal bleed. 4. Contraindication to heparin. POSTOPERATIVE DIAGNOSIS: 1. Acute deep vein thrombosis, left iliofemoral. 2. History of metastatic rectal cancer to the liver. 3. Hematuria and gastrointestinal bleed. 4. Contraindication to heparin. PROCEDURE: 1. Inferior vena cavogram. 2. Placement of a Tulip filter, infrarenal. Sedation time is 25 minutes. PROCEDURE DESCRIPTION: The patient was brought to the track laborer. Right groin was prepped and drapes were applied in sterile manner. Ultrasound-guided micropuncture was introduced into right femoral vein. Micropuncture guidewire was passed. Then a 4-Citizen [place] sheath was advanced on top of the guidewire. Then we passed a regular guidewire and a 6-Citizen Of [place] sheath was advanced on the top of the guidewire. Flushed with heparin saline. After that guidewire was passed. We parked it in the vena cava and a pigtail catheter was advanced on the top of the guidewire. Pigtail was advanced at the bifurcation of the right and left iliac veins. Vena cavogram was performed. Both renal veins were visualized. After that, the 6-Citizen Of [place] sheath was removed. We placed dilator and sheath on top of the guidewire, which was parked at the renal level. Through the sheath we introduced the Tulip filter, which was deployed below the renal vein, and sheath was removed. Pressure was held. Patient tolerated the procedure well and was transferred to the intensive care unit in satisfactory condition. MMODL / IJN: [id number] /
[2022-02-10] MEDS: AMPICILLIN-SULBACTAM 3 GM in SODIUM CHLORIDE 0.9% 100 ML IVPB SCH ×3 (03:38→17:23)
[2022-02-10 05:06] LABS: Anisocytosis Slight; HCT 26.6 % (39.0-53.0); HGB 8.7 gm/dL (13.0-17.5); Hypochromasia Moderate; MCH 30.9 pg (25.0-35.0); MCHC 32.8 g/dL (31.0-37.0); MCV 94.2 fL (80.0-100.0); Mean Platelet Volume 8.3; Platelet Count 114 k/uL (150-450); Poikilocytosis Moderate; RBC 2.82 m/uL (4.30-5.90); WBC 7.9 k/uL (3.8-10.6)
[2022-02-10 06:07] LABS: African American GFR (CKD) >90 (>60 ml/min/1.73 sqM); Anion Gap 3 mmol/L; Blood Urea Nitrogen 7 mg/dL (9-20); Carbon Dioxide 24 mmol/L (22-30); Chloride 109 mmol/L (98-107); Glucose 82 mg/dL (74-99); Non-African American GFR(CKD) >90 (>60 ml/min/1.73 sqM); Potassium 3.5 mmol/L (3.5-5.1); Sodium 136 mmol/L (137-145)
--- NOTE | 2022-02-10 08:20 | IR ---
EXAMINATION TYPE: IR IVC filter placement DATE OF EXAM: 02/09/2022 COMPARISON: NONE HISTORY: Fluoroscopy time. Fluoroscopy was provided to the referring clinician.
--- NOTE | 2022-02-10 09:11 | PN ---
PROGRESS NOTE Mr. Lee is in sinus rhythm today. Heart rate is about 70 beats per minute. He has DVT, recurrent hematuria. He had an IVC filter placed yesterday and he still has hematuria. I will decrease the amiodarone to 200 mg every other day, continue metoprolol tartrate 12.5 mg daily. Vitals are stable. S1-S2 heard normally. Short systolic murmur noted. Lungs reveal diminished air entry. Abdomen is soft. Lower extremities reveal diminished pulses. Central nervous system grossly within normal limits. Mr. Lee is in sinus rhythm. We will see him as needed and continue current medical regimen. He is not anticoagulated because of hematuria and he is going to be seen by Urology today. MMODL / IJN: [id number] /
[2022-02-10] MEDS: MORPHINE SULFATE ER 30 MG TABLET PO SCH ×2 (09:33→20:24)
[2022-02-10] MEDS: POTASSIUM CHLORIDE ER 20 MEQ TAB.ER PO SCH ×2 (09:33→13:18)
[2022-02-10] MEDS: METOPROLOL TARTRATE 12.5 MG TAB PO SCH (09:33)
[2022-02-10] MEDS: DIPHENOX-ATROP 2.5-0.025 MG 1 EACH TAB PO SCH ×4 (09:33→20:17)
[2022-02-10] MEDS: MAG HYDROX/AL HYDROX/SIMETH 30 ML, diphenhydrAMINE ELIXIR 75 MG, LIDOCAINE VISCOUS 2% 3... PO SCH ×12 (09:42→20:18)
[2022-02-10] MEDS: HEPARIN SODIUM,PORCINE/PF 5,000 UNIT/0.5 ML SYRINGE SQ SCH ×2 (09:48→16:20)
[2022-02-10] MEDS: SODIUM CHLORIDE 0.9% 1,000 ML IV SCH (09:49)
[2022-02-10 11:49] VITALS: BMI 23.3
--- NOTE | 2022-02-10 12:48 | P.PN ---
Subjective Progress Note Date: 02/10/22 Principal diagnosis: Jose weber with RVR, metastatic rectal cancer, neutropenic sepsis and septic shock On 02/10/2022 patient seen in follow-up in the intensive care unit, he is awake and alert, in no acute distress, breathing comfortably, he is oriented 3, denies any specific complaints, room air pulse ox is 97%, afebrile, blood pressure stable, he is on point in the setting at a rate of 75 ML per hour, he is not requiring any vasopressor support. No complaints of dyspnea, no chest discomfort. He is currently in sinus mechanism. Patient has been transitioned to oral amiodarone. She remains on subcu heparin 5000 units every 8 hours, remains on Unasyn for antibiotic coverage. Urine culture showed enterococcus faecium. Blood culture has shown no growth. Today's labs have been reviewed with blood cell count 7.9, hemoglobin is 8.7, his electrolytes and renal profile were unremarkable. Patient is tolerating regular diet. Objective - Vital Signs Vital signs: Vital Signs Temp 98.2 F 02/10/22 08:00 Pulse 61 02/10/22 09:00 Resp 11 L 02/10/22 09:00 BP 126/77 02/10/22 09:00 Pulse Ox 97 02/10/22 09:00 Intake & Output 02/09/22 02/10/22 02/10/22 18:59 06:59 18:59 Intake Total 970 900 225 Output Total 970 1040 220 Balance 0 -140 5 Weight 73.9 kg 73.9 kg Intake: IV 970 900 225 Sodium Chloride 0.9% 1, 900 900 225 000 ml @ 75 mls/hr IV . [id number] [facility] Rx#:[id number] Output: Urine 820 1000 220 Stool 150 40 Other: Voiding Method Indwelling Catheter Indwelling Catheter - Exam GENERAL EXAM: Alert, very pleasant, 61-year-old white male on room air, resting comfortably in bed in intensive care unit, breathing comfortably, comfortable in no apparent distress. HEAD: Normocephalic/atraumatic. EYES: Normal reaction of pupils, equal size. Conjunctiva pink, sclera white. NOSE: Clear with pink turbinates. THROAT: No erythema or exudates. NECK: No masses, no JVD, no thyroid enlargement, no adenopathy. CHEST: No chest wall deformity. Symmetrical expansion. LUNGS: Equal air entry with no crackles, wheeze, rhonchi or dullness. CVS: Regular rate and rhythm, normal S1 and S2, no gallops, no murmurs, no rubs ABDOMEN: Soft, nontender. No hepatosplenomegaly, normal bowel sounds, no guarding or rigidity. Colostomy EXTREMITIES: No clubbing, no edema, no cyanosis, 2+ pulses and upper and lower extremities. MUSCULOSKELETAL: Muscle strength and tone normal. SPINE: No scoliosis or deformity SKIN: No rashes CENTRAL NERVOUS SYSTEM: Alert and oriented -3. No focal deficits, tone is normal in all 4 extremities. PSYCHIATRIC: Alert and oriented -3. Appropriate affect. Intact judgment and insight. - Labs CBC & Chem 7: 02/10/22 04:56 02/10/22 04:56 Labs: Abnormal Lab Results - Last 24 Hours (Table) 02/10/22 02/10/22 Range/Units 04:56 04:56 RBC 2.82 L (4.30-5.90) m/uL Hgb 8.7 L (13.0-17.5) gm/dL Hct 26.6 L (39.0-53.0) % RDW 16.0 H (11.5-15.5) % Plt Count 114 L (150-450) k/uL Sodium 136 L (137-145) mmol/L Chloride 109 H (98-107) mmol/L BUN 7 L (9-20) mg/dL Calcium 7.0 L (8.4-10.2) mg/dL Microbiology - Last 24 Hours (Table) 02/03/22 15:16 Blood Culture - Final Blood No Growth after 144 hours 02/03/22 15:03 Blood Culture - Final Blood No Growth after 144 hours Assessment and Plan Plan: Assessment: #1. Acute neutropenic sepsis and septic shock, resolved #2. New onset atrial fibrillation, patient has converted to sinus rhythm #3. Acute kidney injury secondary to ATN and hypotension, improved and recovered #4. Acute urinary tract infection secondary to enterococcus VC #5. Neutropenia secondary to systemic chemotherapy #6. Metastatic rectal carcinoma with previous colectomy and diverting colostomy #7. Hematuria, and according to urology patient is not to receive any anticoagulation therapy, and patient received an IVC filter placement for his DVT #8. Acute DVT Plan: Hemodynamically patient is stable Breathing comfortably, Stable as her saturations Continue antibiotics Continue current medical treatment No acute events overnight Palliative care services were consulted Clinically patient is improved We'll transfer the patient out of intensive care unit to medical oncology floor I have personally seen and examined the patient, performed the documentation and the assessment and plan as written. Number of minutes spent on the visit: 10 Time with Patient: Less than 30
[2022-02-10] MEDS ORDERED: PHYTONADIONE 5 MG in SODIUM CHLORIDE 0.9% 50 ML IVPB STA (13:14)
--- NOTE | 2022-02-10 16:35 | P.PN ---
Progress Note - Text Progress Note Date: 02/10/22 There was a family meeting today. The patient, his , his brother, his aunt, career and transition teacher, and palliative care COMMISSARY PRODUCTION SUPERVISOR were present. The patient's goal is to continue with aggressive care and go home. There is concern regarding the patients judgement and insight. This was discussed with the patients attending. The family is worried about not being able to care for the patient at home. The patient agreed that a rehab facility would be a better alternative at this point. They prefer [facility] when medically stable for discharge. Crys Wilkinson [facility] Palliative Care Spectralink [phone] Email: [email or web address]
--- NOTE | 2022-02-10 17:16 | P.PN ---
Subjective Progress Note Date: 02/10/22 Dr. Ryder has spoken to primary team regarding vitamin K and at this time will await action on administering until ok with urology Objective - Vital Signs Vital signs: Vital Signs Temp 98.2 F 02/10/22 08:00 Pulse 61 02/10/22 09:00 Resp 11 L 02/10/22 09:00 BP 126/77 02/10/22 09:00 Pulse Ox 97 02/10/22 09:00 Intake & Output 02/09/22 02/10/22 02/10/22 18:59 06:59 18:59 Intake Total 970 900 225 Output Total 970 1040 220 Balance 0 -140 5 Weight 73.9 kg 73.9 kg Intake: IV 970 900 225 Sodium Chloride 0.9% 1, 900 900 225 000 ml @ 75 mls/hr IV . [id number] [facility] Rx#:[id number] Output: Urine 820 1000 220 Stool 150 40 Other: Voiding Method Indwelling Catheter Indwelling Catheter - Exam HEAD: Normocephalic/atraumatic. EYES: Conjunctiva pink, sclera white. Mouth: mucocitis improving NECK: No masses, no JVD, no thyroid enlargement, no adenopathy. LUNGS: no crackles, wheeze, rhonchi or dullness. gen: Alert - Labs CBC & Chem 7: 02/10/22 04:56 02/10/22 04:56 Labs: Abnormal Lab Results - Last 24 Hours (Table) 02/10/22 02/10/22 Range/Units 04:56 04:56 RBC 2.82 L (4.30-5.90) m/uL Hgb 8.7 L (13.0-17.5) gm/dL Hct 26.6 L (39.0-53.0) % RDW 16.0 H (11.5-15.5) % Plt Count 114 L (150-450) k/uL Sodium 136 L (137-145) mmol/L Chloride 109 H (98-107) mmol/L BUN 7 L (9-20) mg/dL Calcium 7.0 L (8.4-10.2) mg/dL Microbiology - Last 24 Hours (Table) 02/03/22 15:16 Blood Culture - Final Blood No Growth after 144 hours 02/03/22 15:03 Blood Culture - Final Blood No Growth after 144 hours Assessment and Plan Plan: - Imaging and Cardiology Venous US: report reviewed Assessment and Plan (1) Acute renal failure Narrative/Plan: 2/2 dehydration, improving with hydration Urology ffollowing Nephrology Folowing Current Visit: Yes Status: Acute Priority: High Code(s): N17.9 - ACUTE KIDNEY FAILURE, UNSPECIFIED SNOMED Code(s): 78374593 (2) Diarrhea Narrative/Plan: 2/2 chemo. Increased lomotil to max dose today. Patient is noting small impro vements in consistency Add Questran Current Visit: Yes Status: Acute Priority: High Code(s): R19.7 - DIARRHEA, UNSPECIFIED SNOMED Code(s): 33124206 (3) Mucositis (ulcerative) due to antineoplastic therapy Narrative/Plan: Stable, cont kools, salt and soda. Current Visit: Yes Status: Acute Priority: High Code(s): K12.31 - ORAL MUCOSITIS (ULCERATIVE) DUE TO ANTINEOPLASTIC THERAPY SNOMED Code(s): 711866315 (4) Hypokalemia Narrative/Plan: 2/2 diarrhea. Cont potassium replacement per protocol. Check Magnesium Current Visit: Yes Status: Acute Priority: High Code(s): E87.6 - HYPOKALEMIA SNOMED Code(s): 37051992 (5) Dehydration Narrative/Plan: Appetite improving Current Visit: Yes Status: Acute Priority: High Code(s): E86.0 - DEHYDRATION SNOMED Code(s): 36684248 (6) Rectal adenocarcinoma Narrative/Plan: Pt unfortunately has not tolerated treatment very well. He was found to have UTI this admit. Treatment continued Patient's symptoms are improving the further he gets away from chemotherapy. Patient will follow-up with Oncologist and they will discuss his case and determine what approach pt wishes to pursue. They will make the arrangements for the plan of care pt decides upon. Doppler ordered of left lower extremity ordered for unilateral swelling. Later reported positive for DVT. Case was discussed briefly with Internal Medicine. Order was placed for filter since patient is having hematuria and blood from Ostomy. Current Visit: Yes Status: Acute Priority: High Code(s): C20 - MALIGNANT NEOPLASM OF RECTUM SNOMED Code(s): 965600443 Dr. Simon: I have completed the full history and physical and developed the above impression and plan, agree with dictation, dictated as a scribe.
[2022-02-10] MEDS: CHOLESTYRAMINE (WITH SUGAR) 4 GM PACKET PO SCH ×2 (17:21→20:14)
--- NOTE | 2022-02-10 17:24 | P.PN ---
Subjective Progress Note Date: 02/10/22 (delayed charting seen at 1030) Principal diagnosis: intractable vomiting/diarrhea Patient is a 61-year-old male for history of stage IV rectal cancer status post resection with colostomy and chemotherapy with metastatic disease to the liver, cerebral palsy with right upper extremity weakness, and hypertension who initially presented to the emergency room with complaints of intractable nausea, vomiting, and diarrhea. Patient was found have neutropenic sepsis and was started on broad-spectrum antibiotics with cefepime. He he was started on IV fluids due to MELISA and lactic acidosis. He was also found to have A fib with RVR and required amio infusion. He was given aggressive potassium supplementation due to severe hypokalemia. He was seen by pulmonary, oncology, cardiology, urology, and nephrology. He did require vasopressor support. His evaluation for neutropenic sepsis resulted in discovery of an enterococcus urinary tract infection. Eventually he was able to come off of IV amiodarone and onto oral amiodarone. Antibiotics were transitioned to Unasyn to cover enterococcus. Patient did develop significant hematuria and has been followed by urology. He developed significant left lower extremity swelling after having refused multiple heparin injections was ultimately found have a left large cavity DVT. He is unable to have full dose anticoagulation secondary to hematuria and bleeding from his ostomy site. Vascular surgery was placed for possible IVC filter after consultation with oncology. Renal Ultrasound: mild bilateral hydronephrosis with debris in the urinary bladder. Echo: EF 55-60% Abdominal x-ray: intestinal ileus Venous Doppler: left lower extremity DVT Patient seen and examined at bedside. States he is feeling well today. Denies any chest pain or shortness of breath. Still having some intermittent nausea and abdominal pain. General: non toxic, no distress, appears at stated age Derm: warm, dry Head: atraumatic, normocephalic, symmetric Eyes: EOMI, no lid lag, anicteric sclera Mouth: no lip lesion, mucus membranes moist Cardiovascular: S1S2 reg, no murmur, positive posterior tibial pulse bilateral, Lungs: Rhonchi bilateral bases,, no accessory muscle use Abdominal: soft, nontender to palpation, no guarding, no appreciable organomegaly Ext: no gross muscle atrophy, left LE edema, + right upper extremity contractures Neuro: CN II-XI grossly intact, no focal neuro deficits, dusky appearance to finger nailbeds bilaterally Psych: Alert, oriented, appropriate affect Assessment/paln: Neutropenic sepsis due to Entercoccus UTI in setting of stage IV rectal CA with chemotherapy Diarrhea, c diff negative - lomotil - unasyn X 7-10 days, D#7 of appropriate treatment -Leukopenia resolved s/p Filgastrim 02/03 and 02/04 -blood cultures negative Left lower extremity DVT - not an candidate for AC due to hematuria and bleeding from ostomy - await vascular surgery recs Anemia, thrombocytopenia - stable - follow cbc Hematuria - urology following recommended cystoscopy but patient declined. Pain related to malignancy - continue home regiment of oxy and MS contin Afib with RVR -Amiodarone drip discontinued and patient maintained on amiodarone by mouth -Cardiology on board -Echocardiogram EF 55-60% -Cardiac monitoring poor overall prognosis - palliative care to evaluate patient Lactic acidosis, resolved Acute kidney injury, resolved Hypokalemia, resolved bleeding from ostomy, resolved DVT prophylaxis: Heparin Discussed with: patient, nursing, oncology Anticipated discharge: in 3-[address]: unknown A total of 35 minutes was spent on the care of this complex patient more than 50% of the time was spent in counseling and care coordination. Objective - Vital Signs Vital signs: Vital Signs Temp 98.6 F 02/10/22 11:00 Pulse 67 02/10/22 12:00 Resp 14 02/10/22 12:00 BP 104/63 02/10/22 12:00 Pulse Ox 96 02/10/22 12:00 Intake & Output 02/09/22 02/10/22 02/10/22 18:59 06:59 18:59 Intake Total 970 900 450 Output Total 970 1040 395 Balance 0 -140 55 Weight 73.9 kg 73.9 kg Intake: IV 970 900 450 Sodium Chloride 0.9% 1, 900 900 450 000 ml @ 75 mls/hr IV . [id number] [facility] Rx#:[id number] Output: Urine 820 1000 395 Stool 150 40 Other: Voiding Method Indwelling Catheter Indwelling Catheter Indwelling Catheter - Labs CBC & Chem 7: 02/10/22 04:56 02/10/22 04:56 Labs: Abnormal Lab Results - Last 24 Hours (Table) 02/10/22 02/10/22 Range/Units 04:56 04:56 RBC 2.82 L (4.30-5.90) m/uL Hgb 8.7 L (13.0-17.5) gm/dL Hct 26.6 L (39.0-53.0) % RDW 16.0 H (11.5-15.5) % Plt Count 114 L (150-450) k/uL Sodium 136 L (137-145) mmol/L Chloride 109 H (98-107) mmol/L BUN 7 L (9-20) mg/dL Calcium 7.0 L (8.4-10.2) mg/dL Microbiology - Last 24 Hours (Table) 02/03/22 15:16 Blood Culture - Final Blood No Growth after 144 hours 02/03/22 15:03 Blood Culture - Final Blood No Growth after 144 hours
[2022-02-11] MEDS: SODIUM CHLORIDE 0.9% 1,000 ML IV SCH ×4 (00:56→22:29)
[2022-02-11] MEDS: HEPARIN SODIUM,PORCINE/PF 5,000 UNIT/0.5 ML SYRINGE SQ SCH ×4 (00:57→23:43)
[2022-02-11] MEDS: AMPICILLIN-SULBACTAM 3 GM in SODIUM CHLORIDE 0.9% 100 ML IVPB SCH ×3 (03:02→18:21)
[2022-02-11] MEDS: CHOLESTYRAMINE (WITH SUGAR) 4 GM PACKET PO SCH ×4 (07:06→21:16)
[2022-02-11 08:34] LABS: Anisocytosis Slight; HCT 31.6 % (39.0-53.0); Hypochromasia Moderate; MCH 30.2 pg (25.0-35.0); MCHC 31.6 g/dL (31.0-37.0); MCV 95.4 fL (80.0-100.0); Mean Platelet Volume 8.1; Platelet Count 136 k/uL (150-450); Poikilocytosis Slight; RBC 3.31 m/uL (4.30-5.90); RDW 16.2 % (11.5-15.5); WBC 7.5 k/uL (3.8-10.6)
[2022-02-11] MEDS: METOPROLOL TARTRATE 12.5 MG TAB PO SCH (08:49)
[2022-02-11] MEDS: AMIODARONE 200 MG TAB PO SCH (08:49)
[2022-02-11] MEDS: DIPHENOX-ATROP 2.5-0.025 MG 1 EACH TAB PO SCH ×4 (08:49→21:21)
[2022-02-11 08:57] LABS: African American GFR (CKD) >90 (>60 ml/min/1.73 sqM); Anion Gap 6 mmol/L; Blood Urea Nitrogen 6 mg/dL (9-20); Calcium 7.1 mg/dL (8.4-10.2); Carbon Dioxide 20 mmol/L (22-30); Chloride 112 mmol/L (98-107); Glucose 89 mg/dL (74-99); Magnesium 1.4 mg/dL (1.6-2.3); Non-African American GFR(CKD) >90 (>60 ml/min/1.73 sqM); Potassium 3.8 mmol/L (3.5-5.1); Sodium 138 mmol/L (137-145)
[2022-02-11] MEDS: MAG HYDROX/AL HYDROX/SIMETH 30 ML, diphenhydrAMINE ELIXIR 75 MG, LIDOCAINE VISCOUS 2% 3... PO SCH ×9 (09:46→21:16)
[2022-02-11] MEDS: MORPHINE SULFATE ER 30 MG TABLET PO SCH ×2 (10:19→22:28)
--- NOTE | 2022-02-11 12:14 | P.PN ---
Progress Note - Text Progress Note Date: 02/11/22 The patient underwent IVC filter placement and is no longer receiving anticoagulants other than subcutaneous heparin. The Shipman catheter continues to drain clear yellow urine. From a urologic standpoint, the catheter may be removed when no longer medically needed. I stressed to Mr. Lee the need to undergo office cystoscopy upon discharge given the abnormal CT scan findings.
[2022-02-11] MEDS: MAGNESIUM SULFATE-D5W PMX 1 GM in DEXTROSE/WATER 1 100ML.BAG IVPB SCH ×4 (12:38→16:04)
--- NOTE | 2022-02-11 17:57 | P.PN ---
Subjective Progress Note Date: 02/11/22 (Delayed charting seen at 0930) Principal diagnosis: intractable vomiting/diarrhea Patient is a 61-year-old male for history of stage IV rectal cancer status post resection with colostomy and chemotherapy with metastatic disease to the liver, cerebral palsy with right upper extremity weakness, and hypertension who initially presented to the emergency room with complaints of intractable nausea, vomiting, and diarrhea. Patient was found have neutropenic sepsis and was started on broad-spectrum antibiotics with cefepime. He he was started on IV fluids due to MELISA and lactic acidosis. He was also found to have A fib with RVR and required amio infusion. He was given aggressive potassium supplementation due to severe hypokalemia. He was seen by pulmonary, oncology, cardiology, urology, and nephrology. He did require vasopressor support. His evaluation for neutropenic sepsis resulted in discovery of an enterococcus urinary tract infection. Eventually he was able to come off of IV amiodarone and onto oral amiodarone. Antibiotics were transitioned to Unasyn to cover enterococcus. Patient did develop significant hematuria and has been followed by urology. He developed significant left lower extremity swelling after having refused multiple heparin injections was ultimately found have a left large cavity DVT. He is unable to have full dose anticoagulation secondary to hematuria and bleeding from his ostomy site. Vascular surgery was consulted and IVC filter was placed. His hematuria improved. Renal Ultrasound: mild bilateral hydronephrosis with debris in the urinary bladder. Echo: EF 55-60% Abdominal x-ray: intestinal ileus Venous Doppler: left lower extremity DVT Patient seen and examined at bedside. Doing well. No complaints, no nausea, we discussed needing to get out of bed today. No chest pain. No shortness of breath. General: non toxic, no distress, appears at stated age Derm: warm, dry Head: atraumatic, normocephalic, symmetric Eyes: EOMI, no lid lag, anicteric sclera Mouth: no lip lesion, mucus membranes dry Cardiovascular: S1S2 reg, no murmur, positive posterior tibial pulse bilateral, Lungs: Rhonchi bilateral bases, no accessory muscle use Abdominal: soft, nontender to palpation, no guarding, no appreciable organomegaly Ext: no gross muscle atrophy, left LE edema, + right upper extremity contractures Neuro: CN II-XI grossly intact, no focal neuro deficits, dusky appearance to finger nailbeds bilaterally Psych: Alert, oriented, appropriate affect Assessment/paln: Neutropenic sepsis due to Entercoccus UTI in setting of stage IV rectal CA with chemotherapy Diarrhea, c diff negative - lomotil - unasyn X 7-10 days, D#8 of appropriate treatment -Leukopenia resolved s/p Filgastrim 02/03 and 02/04 -blood cultures negative Left lower extremity DVT - consider anticoagulation if no hematuria in AM after foreman is removed. - s/p IVC filter 02/09 Anemia, thrombocytopenia - stable - follow cbc Hematuria, improved - urology- outpatient cystoscopy Hypomagnesemia - replace and recheck in AM Pain related to malignancy - continue home regiment of oxy and MS contin Afib with RVR -Amiodarone drip discontinued and patient maintained on amiodarone by mouth -Cardiology on board -Echocardiogram EF 55-60% -Cardiac monitoring poor overall prognosis - palliative care to evaluate patient Lactic acidosis, resolved Acute kidney injury, resolved Hypokalemia, resolved bleeding from ostomy, resolved DVT prophylaxis: Heparin Discussed with: patient, nursing, Dr. Wolfe Anticipated discharge: in 3-[address]: unknown A total of 35 minutes was spent on the care of this complex patient more than 50% of the time was spent in counseling and care coordination. Objective - Vital Signs Vital signs: Vital Signs Temp 98.3 F 02/11/22 14:00 Pulse 54 L 02/11/22 14:00 Resp 18 02/11/22 14:00 BP 104/63 02/11/22 14:00 Pulse Ox 97 02/11/22 14:00 Intake & Output 02/10/22 02/11/22 02/11/22 18:59 06:59 18:59 Intake Total 879 097 3876 Output Total 724 535 5595 Balance 55 590 -390 Weight 73.9 kg Intake: IV 450 600 300 Sodium Chloride 0.9% 1, 450 600 300 000 ml @ 75 mls/hr IV . [id number] [facility] Rx#:[id number] Intake, IV Titration 400 Amount Magnesium Sulfate-D5w Pmx 400 1 gm In Dextrose/Water 1 100ml.bag @ 100 mls/hr IVPB Q1H [facility] Rx#: [id number] Oral 240 360 Output: Urine 201 755 1482 Stool 150 Other: Voiding Method Indwelling Catheter Indwelling Catheter Indwelling Catheter # Voids 0 - Labs CBC & Chem 7: 02/11/22 08:07 02/11/22 08:07 Labs: Abnormal Lab Results - Last 24 Hours (Table) 02/11/22 02/11/22 Range/Units 08:07 08:07 RBC 3.31 L (4.30-5.90) m/uL Hgb 10.0 L (13.0-17.5) gm/dL Hct 31.6 L (39.0-53.0) % RDW 16.2 H (11.5-15.5) % Plt Count 136 L (150-450) k/uL Chloride 112 H (98-107) mmol/L Carbon Dioxide 20 L (22-30) mmol/L BUN 6 L (9-20) mg/dL Calcium 7.1 L (8.4-10.2) mg/dL Magnesium 1.4 L (1.6-2.3) mg/dL
[2022-02-12] MEDS: AMPICILLIN-SULBACTAM 3 GM in SODIUM CHLORIDE 0.9% 100 ML IVPB SCH ×3 (01:24→17:28)
[2022-02-12] MEDS: CHOLESTYRAMINE (WITH SUGAR) 4 GM PACKET PO SCH ×4 (06:40→21:32)
[2022-02-12 08:04] LABS: Anisocytosis Slight; HCT 30.7 % (39.0-53.0); HGB 9.9 gm/dL (13.0-17.5); Hypochromasia Moderate; MCH 30.8 pg (25.0-35.0); MCHC 32.2 g/dL (31.0-37.0); MCV 95.6 fL (80.0-100.0); Mean Platelet Volume 8.6; Platelet Count 138 k/uL (150-450); Poikilocytosis Slight; RBC 3.21 m/uL (4.30-5.90); RDW 16.5 % (11.5-15.5); WBC 7.1 k/uL (3.8-10.6)
[2022-02-12 08:21] LABS: African American GFR (CKD) >90 (>60 ml/min/1.73 sqM); Anion Gap 5 mmol/L; Blood Urea Nitrogen 5 mg/dL (9-20); Calcium 7.2 mg/dL (8.4-10.2); Carbon Dioxide 20 mmol/L (22-30); Chloride 112 mmol/L (98-107); Glucose 84 mg/dL (74-99); Non-African American GFR(CKD) >90 (>60 ml/min/1.73 sqM); Sodium 137 mmol/L (137-145)
[2022-02-12] MEDS: MAG HYDROX/AL HYDROX/SIMETH 30 ML, diphenhydrAMINE ELIXIR 75 MG, LIDOCAINE VISCOUS 2% 3... PO SCH ×9 (10:07→21:33)
[2022-02-12] MEDS: MORPHINE SULFATE ER 30 MG TABLET PO SCH ×2 (10:08→22:57)
[2022-02-12] MEDS: DIPHENOX-ATROP 2.5-0.025 MG 1 EACH TAB PO SCH ×4 (10:08→21:32)
[2022-02-12] MEDS: HEPARIN SODIUM,PORCINE/PF 5,000 UNIT/0.5 ML SYRINGE SQ SCH ×2 (10:08→17:27)
[2022-02-12] MEDS: METOPROLOL TARTRATE 12.5 MG TAB PO SCH (10:08)
--- NOTE | 2022-02-12 13:25 | P.PN ---
Subjective Progress Note Date: 02/12/22 (delayed charting seen at approx 10 am) Principal diagnosis: intractable vomiting/diarrhea Patient is a 61-year-old male for history of stage IV rectal cancer status post resection with colostomy and chemotherapy with metastatic disease to the liver, cerebral palsy with right upper extremity weakness, and hypertension who initially presented to the emergency room with complaints of intractable nausea, vomiting, and diarrhea. Patient was found have neutropenic sepsis and was started on broad-spectrum antibiotics with cefepime. He he was started on IV fluids due to MELISA and lactic acidosis. He was also found to have A fib with RVR and required amio infusion. He was given aggressive potassium supplementation due to severe hypokalemia. He was seen by pulmonary, oncology, cardiology, urology, and nephrology. He did require vasopressor support. His evaluation for neutropenic sepsis resulted in discovery of an enterococcus urinary tract infection. Eventually he was able to come off of IV amiodarone and onto oral amiodarone. Antibiotics were transitioned to Unasyn to cover enterococcus. Patient did develop significant hematuria and has been followed by urology. He developed significant left lower extremity swelling after having refused multiple heparin injections was ultimately found have a left large cavity DVT. He is unable to have full dose anticoagulation secondary to hematuria and bleeding from his ostomy site. Vascular surgery was consulted and IVC filter was placed. His hematuria improved and his formean is removed. Renal Ultrasound: mild bilateral hydronephrosis with debris in the urinary bladder. Echo: EF 55-60% Abdominal x-ray: intestinal ileus Venous Doppler: left lower extremity DVT Patient seen and examined at bedside. Increased output from ostomy which is distressing to the patient. Abd pain and gurgling. No shortness of breath. General: non toxic, no distress, appears at stated age Derm: warm, dry Head: atraumatic, normocephalic, symmetric Eyes: EOMI, no lid lag, anicteric sclera Mouth: no lip lesion, mucus membranes dry Cardiovascular: S1S2 reg, no murmur, positive posterior tibial pulse bilateral, Lungs: Rhonchi bilateral bases, no accessory muscle use Abdominal: soft, nontender to palpation, no guarding, no appreciable organomegaly Ext: no gross muscle atrophy, left LE edema, + right upper extremity contracture s Neuro: CN II-XI grossly intact, no focal neuro deficits, dusky appearance to finger nailbeds bilaterally Psych: Alert, oriented, appropriate affect Assessment/paln: Neutropenic sepsis due to Entercoccus UTI in setting of stage IV rectal CA with chemotherapy Diarrhea, c diff negative - lomotil - unasyn X 7-10 days, D#9 of appropriate treatment - stop in AM -Leukopenia resolved s/p Filgastrim 02/03 and 02/04 -blood cultures negative Left lower extremity DVT - has not been on AC due to bleeding and anticoagulation - s/p IVC filter 02/09 Anemia, thrombocytopenia-- related to chemo - stable - follow cbc Hematuria, improved - urology recommendations appreciated- outpatient cystoscopy Pain related to malignancy - continue home regiment of oxy and MS contin Afib with RVR -Amiodarone drip discontinued and patient maintained on amiodarone by mouth -Cardiology on board -Echocardiogram EF 55-60% -Cardiac monitoring poor overall prognosis - palliative care to evaluate patient Lactic acidosis, resolved Acute kidney injury, resolved Hypokalemia, resolved bleeding from ostomy, resolved Hypomagnesemia, resolved DVT prophylaxis: Heparin Discussed with: patient, nursing Anticipated discharge: in 1-[address]: HH vs SNF A total of 35 minutes was spent on the care of this complex patient more than 50% of the time was spent in counseling and care coordination. Objective - Vital Signs Vital signs: Vital Signs Temp 97.6 F 02/12/22 08:00 Pulse 62 02/12/22 08:00 Resp 18 02/12/22 08:00 BP 104/65 02/12/22 08:00 Pulse Ox 97 02/12/22 08:00 Intake & Output 02/11/22 02/12/22 02/12/22 18:59 06:59 18:59 Intake Total 1060 360 Output Total 1450 525 Balance -390 -525 360 Intake: IV 300 Sodium Chloride 0.9% 1, 300 000 ml @ 75 mls/hr IV . [id number] [facility] Rx#:[id number] Intake, IV Titration 400 Amount Magnesium Sulfate-D5w Pmx 400 1 gm In Dextrose/Water 1 100ml.bag @ 100 mls/hr IVPB Q1H [facility] Rx#: [id number] Oral 360 360 Output: Urine 1300 425 Stool 150 100 Other: Voiding Method Indwelling Catheter Urinal Urinal # Voids 0 - Labs CBC & Chem 7: 02/12/22 07:21 02/12/22 07:21 Labs: Abnormal Lab Results - Last 24 Hours (Table) 02/12/22 02/12/22 Range/Units 07:21 07:21 RBC 3.21 L (4.30-5.90) m/uL Hgb 9.9 L (13.0-17.5) gm/dL Hct 30.7 L (39.0-53.0) % RDW 16.5 H (11.5-15.5) % Plt Count 138 L (150-450) k/uL Chloride 112 H (98-107) mmol/L Carbon Dioxide 20 L (22-30) mmol/L BUN 5 L (9-20) mg/dL Calcium 7.2 L (8.4-10.2) mg/dL
[2022-02-12] MEDS: SODIUM CHLORIDE 0.9% 1,000 ML IV SCH (17:27)
[2022-02-13] MEDS: HEPARIN SODIUM,PORCINE/PF 5,000 UNIT/0.5 ML SYRINGE SQ SCH ×4 (00:11→22:29)
[2022-02-13] MEDS: AMPICILLIN-SULBACTAM 3 GM in SODIUM CHLORIDE 0.9% 100 ML IVPB SCH ×3 (01:57→17:54)
[2022-02-13] MEDS: SODIUM CHLORIDE 0.9% 1,000 ML IV SCH ×2 (04:30→17:53)
[2022-02-13] MEDS: DIPHENOX-ATROP 2.5-0.025 MG 1 EACH TAB PO SCH ×4 (09:09→22:29)
[2022-02-13] MEDS: AMIODARONE 200 MG TAB PO SCH (09:09)
[2022-02-13] MEDS: METOPROLOL TARTRATE 12.5 MG TAB PO SCH (09:09)
[2022-02-13] MEDS: CHOLESTYRAMINE (WITH SUGAR) 4 GM PACKET PO SCH ×5 (09:09→20:47)
[2022-02-13] MEDS: MAG HYDROX/AL HYDROX/SIMETH 30 ML, diphenhydrAMINE ELIXIR 75 MG, LIDOCAINE VISCOUS 2% 3... PO SCH ×9 (09:12→22:30)
[2022-02-13 09:50] LABS: African American GFR (CKD) 112.5 (60.0-200.0); Anion Gap 10.7 mmol/L (10.00-18.00); BUN/Creat Ratio 7.25 Ratio (12.00-20.00); Blood Urea Nitrogen 5.8 mg/dL (9.0-27.0); Calcium 7.5 mg/dL (8.7-10.3); Carbon Dioxide 18.3 mmol/L (20.0-27.5); Non-African American GFR(CKD) 97.1 (60.0-200.0); Potassium 3.6 mmol/L (3.5-5.5)
[2022-02-13] MEDS: MORPHINE SULFATE ER 30 MG TABLET PO SCH ×2 (10:00→22:30)
[2022-02-13 10:01] LABS: HCT 26.8 % (39.6-50.0); HGB 8.2 g/dL (13.0-17.0); MCH 29.2 pg (27.0-32.0); MCHC 30.6 g/dL (32.0-37.0); MCV 95.4 fL (80.0-97.0); Mean Platelet Volume 12.8 fL (9.5-12.2); NRBC Per 100 WBC 0 /100 WBCS (0.0-0.0); Platelet Count 117 X 10*3/uL (140-440); RBC 2.81 X 10*6/uL (4.40-5.60); RDW 16.7 % (11.5-14.5); WBC 8.29 X 10*3/uL (4.50-10.00)
--- NOTE | 2022-02-13 11:12 | P.PN ---
Subjective Progress Note Date: 02/13/22 Principal diagnosis: intractable vomiting/diarrhea Patient is a 61-year-old male for history of stage IV rectal cancer status post resection with colostomy and chemotherapy with metastatic disease to the liver, cerebral palsy with right upper extremity weakness, and hypertension who initially presented to the emergency room with complaints of intractable nausea, vomiting, and diarrhea. Patient was found have neutropenic sepsis and was started on broad-spectrum antibiotics with cefepime. He he was started on IV fluids due to MELISA and lactic acidosis. He was also found to have A fib with RVR and required amio infusion. He was given aggressive potassium supplementation due to severe hypokalemia. He was seen by pulmonary, oncology, cardiology, urology, and nephrology. He did require vasopressor support. His evaluation for neutropenic sepsis resulted in discovery of an enterococcus urinary tract infection. Eventually he was able to come off of IV amiodarone and onto oral amiodarone. Antibiotics were transitioned to Unasyn to cover enterococcus. Patient did develop significant hematuria and has been followed by urology. He developed significant left lower extremity swelling after having refused multiple heparin injections was ultimately found have a left large cavity DVT. He is unable to have full dose anticoagulation secondary to hematuria and bleeding from his ostomy site. Vascular surgery was consulted and IVC filter was placed. His hematuria improved and his foreman was removed. He continued to struggle with intermittent bleeding in his ostomy bag. Renal Ultrasound: mild bilateral hydronephrosis with debris in the urinary bladder. Echo: EF 55-60% Abdominal x-ray: intestinal ileus Venous Doppler: left lower extremity DVT Patient seen and examined at bedside. He had bleeding from his ostomy overnight on 02/12. He continues to struggle with abdominal pain but has been eating. No chest pain. General: non toxic, no distress, appears at stated age Derm: warm, dry Head: atraumatic, normocephalic, symmetric Eyes: EOMI, no lid lag, anicteric sclera Mouth: no lip lesion, mucus membranes dry Cardiovascular: S1S2 reg, no murmur, positive posterior tibial pulse bilateral, Lungs: Rhonchi bilateral bases, no accessory muscle use Abdominal: soft, nontender to palpation, no guarding, no appreciable organomegaly Ext: no gross muscle atrophy, left LE edema, + right upper extremity contractures Neuro: CN II-XI grossly intact, no focal neuro deficits, dusky appearance to finger nail beds bilaterally Psych: Alert, oriented, appropriate affect Assessment/paln: Neutropenic sepsis due to Entercoccus UTI in setting of stage IV rectal CA with chemotherapy Diarrhea, c diff negative - lomotil - unasyn X s/p D#10 of appropriate treatment - Leukopenia resolved s/p Filgastrim 02/03 and 02/04 - blood cultures negative Left lower extremity DVT - has not been on AC due to bleeding- hematuria is resolved but still having intermittent bleeding from ostomy - s/p IVC filter 02/09 Anemia, thrombocytopenia-- related to chemo - Decreased today - follow cbc Hematuria, improved - urology recommendations appreciated- outpatient cystoscopy Pain related to malignancy - continue home regiment of oxy and MS contin A fib with RVR -Amiodarone drip discontinued and patient maintained on amiodarone by mouth -Cardiology on board -Echocardiogram EF 55-60% -Cardiac monitoring poor overall prognosis - palliative care to evaluate patient Lactic acidosis, resolved Acute kidney injury, resolved Hypokalemia, resolved bleeding from ostomy, resolved Hypomagnesemia, resolved DVT prophylaxis: Heparin Discussed with: patient, nursing Anticipated discharge: in 1-[address]: vs SNF A total of 35 minutes was spent on the care of this complex patient more than 50% of the time was spent in counseling and care coordination. Active Medications Generic Name Dose Route Start Last Admin Trade Name Freq PRN Reason Stop Dose Admin Amiodarone HCl 200 mg 02/11/22 09:00 02/13/22 09:09 Amiodarone 200 Mg Tab PO 200 mg Q48H [facility] Administration Cholestyramine Resin 4 gm 02/10/22 17:30 02/13/22 09:23 Cholestyramine (With Sugar) 4 Gm Packet PO Not Given ACHS [facility] Al Hydroxide/Mg Hydroxide 30 0 ml 02/05/22 09:00 02/13/22 09:12 ml/ Diphenhydramine HCl 75 mg/ PO 5 ml Lidocaine HCl 30 ml TID [facility] Administration Diphenoxylate HCl/Atropine 2 each 02/06/22 13:00 02/13/22 09:09 Diphenox-Atrop 2.5-0.025 Mg 1 Each Tab PO 2 each QID [facility] Administration Heparin Sodium (Porcine) 5,000 unit 02/04/22 08:00 02/13/22 09:09 Heparin Sodium,Porcine/Pf 5,000 Unit/0.5 Ml Syringe SQ 5,000 unit Q8HR [facility] Administration Sodium Chloride 1,000 mls @ 75 mls/hr 02/06/22 09:15 02/13/22 04:30 Saline 0.9% IV 75 mls/hr .[id number] [facility] Administration Ampicillin Sodium/Sulbactam 100 mls @ 200 mls/hr 02/08/22 10:00 02/13/22 09:09 Sodium 3 gm/ Sodium Chloride IVPB 200 mls/hr Q8H [facility] Administration Metoprolol Tartrate 12.5 mg 02/07/22 09:00 02/13/22 09:09 Metoprolol Tartrate 12.5 Mg Tab PO 12.5 mg DAILY [facility] Administration Miscellaneous Information 1 each 02/04/22 11:55 Magnesium Replacement Protocol 1 Each Misc MISCELLANE DAILY PRN Per Protocol Protocol Miscellaneous Information 1 each 02/04/22 22:15 Potassium Replacement Protocol 1 Each Misc MISCELLANE DAILY PRN Per Protocol Protocol Morphine Sulfate 30 mg 02/07/22 10:30 02/13/22 10:00 Morphine Sulfate Er 30 Mg Tablet PO 30 mg Q12H [facility] Administration Protocol Naloxone HCl 0.2 mg 02/03/22 18:31 Naloxone 0.4 Mg/Ml 1 Ml Vial IV Q2M PRN Opioid Reversal Oxycodone HCl 15 mg 02/04/22 17:55 02/13/22 00:11 Oxycodone Hcl 5 Mg Tab PO 15 mg Q6HR PRN Administration Pain Objective - Vital Signs Vital signs: Vital Signs Temp 98.6 F 02/13/22 04:32 Pulse 64 02/13/22 04:32 Resp 18 02/13/22 04:32 BP 105/67 02/13/22 04:32 Pulse Ox 95 02/13/22 04:32 Intake & Output 02/12/22 02/13/22 02/13/22 18:59 06:59 18:59 Intake Total 1560 550 180 Output Total 550 100 Balance 1560 0 80 Intake: IV 600 150 Sodium Chloride 0.9% 1, 600 150 000 ml @ 75 mls/hr IV . [id number] COUNTS INCLUDE 234 BEDS AT THE [facility] Rx#:[id number] Oral 960 400 180 Output: Urine 300 Stool 250 100 Other: Voiding Method Urinal Urinal # Voids 2 - Labs CBC & Chem 7: 02/13/22 05:42 02/13/22 05:41 Labs: Abnormal Lab Results - Last 24 Hours (Table) 02/13/22 02/13/22 Range/Units 05:41 05:42 RBC 2.81 L (4.40-5.60) X 10*6/uL Hgb 8.2 L (13.0-17.0) g/dL Hct 26.8 L (39.6-50.0) % MCHC 30.6 L (32.0-37.0) g/dL RDW 16.7 H (11.5-14.5) % Plt Count 117 L (140-440) X 10*3/uL MPV 12.8 H (9.5-12.2) fL Chloride 111 H (96-109) mmol/L Carbon Dioxide 18.3 L (20.0-27.5) mmol/L BUN 5.8 L (9.0-27.0) mg/dL BUN/Creatinine Ratio 7.25 L (12.00-20.00) Ratio Calcium 7.5 L (8.7-10.3) mg/dL
--- NOTE | 2022-02-13 12:43 | P.PN ---
Progress Note - Text Progress Note Date: 02/13/22 Met with the patient today. He had some intermittent bleeding from his ostomy over the weekend. His goals remain the same, to continue aggressive treatment. He is hoping to be medically cleared today or tomorrow and go to [facility] for rehab. Crys Wilkinson [facility] Palliative Care Spectralink [phone] Email: [email or web address]
[2022-02-13] MEDS ORDERED: ONDANSETRON 4 MG/2 ML VIAL IVP PRN (12:46)
--- NOTE | 2022-02-13 17:48 | P.PN ---
Subjective Progress Note Date: 02/13/22 Patient seen in follow-up. Discussed case with primary team. Hematuria has ceased however yesterday he had large amount of bleeding from ostomy. Drop in hemoglobin one gram since yesterday, therefore discharge to rehab was held today. Patient has been refusing to work with PT/OT, we discusseed this today and he states he was up and worked with therapy today. Spoke in detail with primary team Objective - Vital Signs Vital signs: Vital Signs Temp 98.1 F 02/13/22 11:05 Pulse 75 02/13/22 11:05 Resp 18 02/13/22 11:05 BP 106/69 02/13/22 11:05 Pulse Ox 97 02/13/22 11:05 Intake & Output 02/12/22 02/13/22 02/13/22 18:59 06:59 18:59 Intake Total 1560 550 180 Output Total 550 550 Balance 1560 0 -370 Intake: IV 600 150 Sodium Chloride 0.9% 1, 600 150 000 ml @ 75 mls/hr IV . [id number] [facility] Rx#:[id number] Oral 960 400 180 Output: Urine 300 Stool 250 550 Other: Voiding Method Urinal Urinal Urinal Diaper # Voids 2 - Exam HEAD: Normocephalic/atraumatic. EYES: Conjunctiva pink, sclera white. Mouth: mucocitis improving NECK: No masses, no JVD, no thyroid enlargement, no adenopathy. LUNGS: no crackles, wheeze, rhonchi or dullness. gen: Alert - Labs CBC & Chem 7: 02/13/22 05:42 02/13/22 05:41 Labs: Abnormal Lab Results - Last 24 Hours (Table) 02/13/22 02/13/22 Range/Units 05:41 05:42 RBC 2.81 L (4.40-5.60) X 10*6/uL Hgb 8.2 L (13.0-17.0) g/dL Hct 26.8 L (39.6-50.0) % MCHC 30.6 L (32.0-37.0) g/dL RDW 16.7 H (11.5-14.5) % Plt Count 117 L (140-440) X 10*3/uL MPV 12.8 H (9.5-12.2) fL Chloride 111 H (96-109) mmol/L Carbon Dioxide 18.3 L (20.0-27.5) mmol/L BUN 5.8 L (9.0-27.0) mg/dL BUN/Creatinine Ratio 7.25 L (12.00-20.00) Ratio Calcium 7.5 L (8.7-10.3) mg/dL Assessment and Plan Plan: - Imaging and Cardiology Venous US: report reviewed Assessment and Plan (1) Acute renal failure Narrative/Plan: 2/2 dehydration, improving with hydration Urology ffollowing Nephrology Folowing Current Visit: Yes Status: Acute Priority: High Code(s): N17.9 - ACUTE KIDNEY FAILURE, UNSPECIFIED SNOMED Code(s): 02005762 (2) Diarrhea Narrative/Plan: 2/2 chemo. Increased lomotil to max dose today. Patient is noting small improvements in consistency imrproved Current Visit: Yes Status: Acute Priority: High Code(s): R19.7 - DIARRHEA, UNSPECIFIED SNOMED Code(s): 78149673 (3) Mucositis (ulcerative) due to antineoplastic therapy Narrative/Plan: Stable, cont kools, salt and soda. Current Visit: Yes Status: Acute Priority: High Code(s): K12.31 - ORAL MUCOSITIS (ULCERATIVE) DUE TO ANTINEOPLASTIC THERAPY SNOMED Code(s): 541347362 (4) Hypokalemia Narrative/Plan: 2/2 diarrhea. Current Visit: Yes Status: Acute Priority: High Code(s): E87.6 - HYPOKALEMIA SNOMED Code(s): 19093227 (5) Dehydration Narrative/Plan: Appetite improving Current Visit: Yes Status: Acute Priority: High Code(s): E86.0 - DEHYDRATION SNOMED Code(s): 16380824 (6) Rectal adenocarcinoma Narrative/Plan: Pt unfortunately has not tolerated treatment very well. He was found to have UTI this admit. Treatment continued Patient's symptoms are improving the further he gets away from chemotherapy. Patient will follow-up with Oncologist and they will discuss his case and determine what approach pt wishes to pursue. They will make the arrangements for the plan of care pt decides upon. Doppler ordered of left lower extremity ordered for unilateral swelling. Later reported positive for DVT. Case was discussed briefly with Internal Medicine. Order was placed for filter since patient is having hematuria and blood from Ostomy. Ostomy bleeding 02/12/22 - dischharge to rehab held related to this. CBC in am. IV Iron today and in am prior to rehab Current Visit: Yes Status: Acute Priority: High Code(s): C20 - MALIGNANT NEOPLASM OF RECTUM SNOMED Code(s): 733703905 Dr. Simon: I have completed the full history and physical and developed the above impression and plan, agree with dictation, dictated as a scribe.
[2022-02-13] MEDS: SODIUM FERRIC GLUCONAT-SUCROSE 125 MG in SODIUM CHLORIDE 0.9% 100 ML IVPB SCH (22:29)
[2022-02-14] MEDS: AMPICILLIN-SULBACTAM 3 GM in SODIUM CHLORIDE 0.9% 100 ML IVPB SCH ×3 (02:26→17:13)
[2022-02-14] MEDS: SODIUM CHLORIDE 0.9% 1,000 ML IV SCH ×3 (05:08→17:23)
[2022-02-14] MEDS: CHOLESTYRAMINE (WITH SUGAR) 4 GM PACKET PO SCH ×4 (07:35→20:22)
[2022-02-14] MEDS: HEPARIN SODIUM,PORCINE/PF 5,000 UNIT/0.5 ML SYRINGE SQ SCH ×3 (07:46→22:21)
[2022-02-14] MEDS: METOPROLOL TARTRATE 12.5 MG TAB PO SCH (07:57)
[2022-02-14] MEDS: SODIUM FERRIC GLUCONAT-SUCROSE 125 MG in SODIUM CHLORIDE 0.9% 100 ML IVPB SCH (09:01)
[2022-02-14] MEDS: MAG HYDROX/AL HYDROX/SIMETH 30 ML, diphenhydrAMINE ELIXIR 75 MG, LIDOCAINE VISCOUS 2% 3... PO SCH ×9 (09:05→22:21)
[2022-02-14] MEDS: DIPHENOX-ATROP 2.5-0.025 MG 1 EACH TAB PO SCH ×4 (10:28→22:21)
[2022-02-14] MEDS: MORPHINE SULFATE ER 30 MG TABLET PO SCH ×2 (10:41→22:20)
--- NOTE | 2022-02-14 15:56 | P.PN ---
Subjective Progress Note Date: 02/14/22 Principal diagnosis: N,V,D, mucositis-chemo induced In f/u today pt reporting some blood in ostomy, but less, mucositis is better, he is eating some now. Denies fevers, has generalized weakness Objective - Vital Signs Vital signs: Vital Signs Temp 98 F 02/14/22 12:05 Pulse 58 L 02/14/22 12:05 Resp 16 02/14/22 12:05 BP 96/60 02/14/22 12:05 Pulse Ox 94 L 02/14/22 12:05 Intake & Output 02/13/22 02/14/22 02/14/22 18:59 06:59 18:59 Intake Total 1080 590 460 Output Total 550 Balance 530 590 460 Intake: IV 900 Sodium Chloride 0.9% 1, 900 000 ml @ 75 mls/hr IV . [id number] [facility] Rx#:[id number] Oral 180 590 460 Output: Stool 550 Other: Voiding Method Urinal Urinal Urinal Diaper Diaper Diaper # Voids 4 - Constitutional General appearance: Present: cooperative, no acute distress, thin - EENT Eyes: Present: anicteric sclerae, EOMI ENT: Present: hearing grossly normal - Respiratory Respiratory: bilateral: CTA - Cardiovascular Rhythm: regular Heart sounds: normal: S1, S2 Abnormal Heart Sounds: Absent: systolic murmur, diastolic murmur, rub, S3 Gallop, S4 Gallop, click, other - Peripheral edema leg Peripheral Edema: bilateral: None - Gastrointestinal General gastrointestinal: Present: soft - Psychiatric Psychiatric: Present: A&O x's 3, appropriate affect, intact judgment & insight - Labs CBC & Chem 7: 02/13/22 05:42 02/13/22 05:41 Assessment and Plan (1) Acute renal failure Narrative/Plan: 2/2 dehydration. Pt is back to baseline cr. Current Visit: Yes Status: Acute Priority: High Code(s): N17.9 - ACUTE KIDNEY FAILURE, UNSPECIFIED SNOMED Code(s): 70600602 (2) Diarrhea Narrative/Plan: 2/2 chemo. Small improvements. Cont antidiarrheals. Current Visit: Yes Status: Acute Priority: High Code(s): R19.7 - DIARRHEA, UNSPECIFIED SNOMED Code(s): 47518343 (3) Mucositis (ulcerative) due to antineoplastic therapy Narrative/Plan: Recovered. Cont kools, salt and soda. Current Visit: Yes Status: Acute Priority: High Code(s): K12.31 - ORAL MUCOSITIS (ULCERATIVE) DUE TO ANTINEOPLASTIC THERAPY SNOMED Code(s): 278642529 (4) Hypokalemia Narrative/Plan: 2/2 diarrhea. Cont potassium replacement per protocol. Current Visit: Yes Status: Acute Priority: High Code(s): E87.6 - HYPOKALEMIA SNOMED Code(s): 95036675 (5) Dehydration Narrative/Plan: Improving with IV fluids. Pt is reporting that he is starting to get an appetite Current Visit: Yes Status: Acute Priority: High Code(s): E86.0 - DEHYDRATION SNOMED Code(s): 53328879 (6) Rectal adenocarcinoma Narrative/Plan: Side effects of treatment. 2nd admit for the same. Appt to follow-up with Onco logist to discuss his case and determine what approach pt wishes to pursue. They will make the arrangements for the plan of care pt decides upon. Current Visit: Yes Status: Acute Priority: High Code(s): C20 - MALIGNANT NEOPLASM OF RECTUM SNOMED Code(s): 598052216 (7) Left leg DVT Narrative/Plan: Pt has IVC filter since he was having hematuria and blood from Ostomy. Pending cystoscopy. If bleeding subsides, may be able to consider oral anticoagulation. Current Visit: Yes Status: Acute Priority: High Code(s): I82.402 - ACUTE EMBOLISM AND THOMBOS UNSP DEEP VEINS OF L LOW EXTREM SNOMED Code(s): 407424727 Plan: Doctor attests: I performed a history and physical examination of this patient, developed impression and plan of care, discussed with dictator. I agree with dictators note, documented as a scribe.
--- NOTE | 2022-02-14 17:42 | P.PN ---
Subjective Principal diagnosis: Patient is a 61-year-old male for history of stage IV rectal cancer status post resection with colostomy and chemotherapy with metastatic disease to the liver, cerebral palsy with right upper extremity weakness, and hypertension who initially presented to the emergency room with complaints of intractable nausea, vomiting, and diarrhea. Patient was found have neutropenic sepsis and was started on broad-spectrum antibiotics with cefepime. He he was started on IV fluids due to MELISA and lactic acidosis. He was also found to have A fib with RVR and required amio infusion Doing okay despite morning. Denies any nausea or vomiting and tolerating diet. Denies any bloody discharge from his ostomy. No respiratory complaints. Objective - Vital Signs Vital signs: Vital Signs Temp 98 F 02/14/22 12:05 Pulse 58 L 02/14/22 12:05 Resp 16 02/14/22 12:05 BP 96/60 02/14/22 12:05 Pulse Ox 94 L 02/14/22 12:05 Intake & Output 02/13/22 02/14/22 02/14/22 18:59 06:59 18:59 Intake Total 1080 590 460 Output Total 550 Balance 530 590 460 Weight 73.9 kg Intake: IV 900 Sodium Chloride 0.9% 1, 900 000 ml @ 75 mls/hr IV . [id number] [facility] Rx#:[id number] Oral 180 590 460 Output: Stool 550 Other: Voiding Method Urinal Urinal Urinal Diaper Diaper Diaper # Voids 4 - Exam Patient seen and examined at bedside. He had bleeding from his ostomy overnight on 02/12. He continues to struggle with abdominal pain but has been eating. No chest pain. General: non toxic, no distress, appears at stated age Derm: warm, dry Head: atraumatic, normocephalic, symmetric Eyes: EOMI, no lid lag, anicteric sclera Mouth: no lip lesion, mucus membranes dry Cardiovascular: S1S2 reg, no murmur, positive posterior tibial pulse bilateral, Lungs: Rhonchi bilateral bases, no accessory muscle use Abdominal: soft, nontender to palpation, no guarding, no appreciable organomegaly Ext: no gross muscle atrophy, left LE edema, + right upper extremity contractures Neuro: CN II-XI grossly intact, no focal neuro deficits, dusky appearance to finger nail beds bilaterally Psych: Alert, oriented, appropriate affect - Labs CBC & Chem 7: 02/13/22 05:42 02/13/22 05:41 Assessment and Plan Assessment: #Neutropenic sepsis due to Entercoccus UTI in setting of stage IV rectal CA with chemotherapy - unasyn X s/p D#10 of appropriate treatment - Leukopenia resolved s/p Filgastrim 02/03 and 02/04 - blood cultures negative #Left lower extremity DVT - has not been on AC due to bleeding- hematuria is resolved but still having intermittent bleeding from ostomy - s/p IVC filter 02/09 #Anemia, thrombocytopenia-- related to chemo - Decreased today - follow cbc #Hematuria, improved - urology recommendations appreciated- outpatient cystoscopy #Pain related to malignancy - continue home regiment of oxy and MS contin #A fib with RVR -Amiodarone drip discontinued and patient maintained on amiodarone by mouth Low-dose metoprolol -Cardiology on board -Echocardiogram EF 55-60% -Cardiac monitoring poor overall prognosis - palliative care to evaluate patient , patient is likely hospice appropriate
[2022-02-14 19:21] LABS: Basophils # (A) 0.11 X 10*3/uL (0.00-0.10); Eosinophils # (A) 0.07 X 10*3/uL (0.04-0.35); Eosinophils % (A) 0.7 %; HCT 31.7 % (39.6-50.0); HGB 9.6 g/dL (13.0-17.0); Immature Grans, Automated 1.3 %; Lymphocytes # (A) 1.54 X 10*3/uL (0.90-5.00); Lymphocytes % (A) 14.4 %; MCH 29.8 pg (27.0-32.0); MCHC 30.3 g/dL (32.0-37.0); MCV 98.4 fL (80.0-97.0); Mean Platelet Volume 12.3 fL (9.5-12.2); Monocytes # (A) 0.81 X 10*3/uL (0.20-1.00); Monocytes % (A) 7.6 %; NRBC Per 100 WBC 0 /100 WBCS (0.0-0.0); Neutrophils # (A) 7.99 X 10*3/uL (1.80-7.70); Platelet Count 149 X 10*3/uL (140-440); RBC 3.22 X 10*6/uL (4.40-5.60); RDW 17.6 % (11.5-14.5); WBC 10.66 X 10*3/uL (4.50-10.00)
[2022-02-14 19:42] LABS: Anion Gap 10.3 mmol/L (10.00-18.00); BUN/Creat Ratio 6.4 Ratio (12.00-20.00); Blood Urea Nitrogen 6.3 mg/dL (9.0-27.0); Calcium 7.5 mg/dL (8.7-10.3); Carbon Dioxide 18.3 mmol/L (20.0-27.5); Non-African American GFR(CKD) 83.7 (60.0-200.0); Potassium 3.8 mmol/L (3.5-5.5)
[2022-02-15] MEDS: AMPICILLIN-SULBACTAM 3 GM in SODIUM CHLORIDE 0.9% 100 ML IVPB SCH ×2 (03:28→11:14)
[2022-02-15] MEDS: AMIODARONE 200 MG TAB PO SCH (08:43)
[2022-02-15] MEDS: CHOLESTYRAMINE (WITH SUGAR) 4 GM PACKET PO SCH ×4 (08:43→13:28)
[2022-02-15] MEDS: DIPHENOX-ATROP 2.5-0.025 MG 1 EACH TAB PO SCH ×2 (08:44→13:31)
[2022-02-15] MEDS: METOPROLOL TARTRATE 12.5 MG TAB PO SCH (08:44)
[2022-02-15] MEDS: MAG HYDROX/AL HYDROX/SIMETH 30 ML, diphenhydrAMINE ELIXIR 75 MG, LIDOCAINE VISCOUS 2% 3... PO SCH ×3 (08:54)
[2022-02-15] MEDS: HEPARIN SODIUM,PORCINE/PF 5,000 UNIT/0.5 ML SYRINGE SQ SCH (08:54)
[2022-02-15] MEDS: MORPHINE SULFATE ER 30 MG TABLET PO SCH (10:51)
--- NOTE | 2022-02-15 12:00 | P.PN ---
Subjective Progress Note Date: 02/15/22 Hemoglobin improved, no further evidence of bleeding. PLan for discharge to rehab soon Objective - Vital Signs Vital signs: Vital Signs Temp 98.2 F 02/15/22 08:33 Pulse 58 L 02/15/22 10:49 Resp 16 02/15/22 08:33 BP 105/62 02/15/22 10:49 Pulse Ox 97 02/15/22 08:33 Intake & Output 02/14/22 02/15/22 02/15/22 18:59 06:59 18:59 Intake Total 1360 Output Total 1000 Balance 1360 -1000 Weight 73.9 kg Intake: IV 900 Sodium Chloride 0.9% 1, 900 000 ml @ 75 mls/hr IV . [id number] ARIEL Rx#:[id number] Oral 460 Output: Urine 550 Stool 450 Other: Voiding Method Urinal Urinal Urinal Diaper Diaper Diaper # Voids 1 # Bowel Movements 210 - Exam HEAD: Normocephalic/atraumatic. EYES: Conjunctiva pink, sclera white. Mouth: mucocitis improving NECK: No masses, no JVD, no thyroid enlargement, no adenopathy. LUNGS: no crackles, wheeze, rhonchi or dullness. gen: Alert - Labs CBC & Chem 7: 02/14/22 10:29 02/14/22 10:29 Labs: Abnormal Lab Results - Last 24 Hours (Table) 02/14/22 02/14/22 Range/Units 10:29 10:29 WBC 10.66 H (4.50-10.00) X 10*3/uL RBC 3.22 L (4.40-5.60) X 10*6/uL Hgb 9.6 L (13.0-17.0) g/dL Hct 31.7 L (39.6-50.0) % MCV 98.4 H (80.0-97.0) fL MCHC 30.3 L (32.0-37.0) g/dL RDW 17.6 H (11.5-14.5) % MPV 12.3 H (9.5-12.2) fL Immature Gran # 0.14 H (0.00-0.04) X 10*3/uL Neutrophils # 7.99 H (1.80-7.70) X 10*3/uL Basophils # 0.11 H (0.00-0.10) X 10*3/uL Carbon Dioxide 18.3 L (20.0-27.5) mmol/L BUN 6.3 L (9.0-27.0) mg/dL BUN/Creatinine Ratio 6.40 L (12.00-20.00) Ratio Calcium 7.5 L (8.7-10.3) mg/dL Assessment and Plan Plan: - Imaging and Cardiology Venous US: report reviewed Assessment and Plan (1) Acute renal failure - improved Narrative/Plan: 2/2 dehydration, improving with hydration Urology following Nephrology Folowing Current Visit: Yes Status: Acute Priority: High Code(s): N17.9 - ACUTE KIDNEY FAILURE, UNSPECIFIED SNOMED Code(s): 88986118 (2) Diarrhea - resolving Narrative/Plan: 2/2 chemo. Increased lomotil to max dose today. Patient is noting small improvements in consistency improved Current Visit: Yes Status: Acute Priority: High Code(s): R19.7 - DIARRHEA, UNSPECIFIED SNOMED Code(s): 29242261 (3) Mucositis (ulcerative) due to antineoplastic therapy - resolved Narrative/Plan: Stable, cont kools, salt and soda. Current Visit: Yes Status: Acute Priority: High Code(s): K12.31 - ORAL MUCOSITIS (ULCERATIVE) DUE TO ANTINEOPLASTIC THERAPY SNOMED Code(s): 504443085 (4) Hypokalemia Narrative/Plan: 2/2 diarrhea. Current Visit: Yes Status: Acute Priority: High Code(s): E87.6 - HYPOKALEMIA SNOMED Code(s): 18243441 (5) Dehydration Narrative/Plan: Appetite improving Current Visit: Yes Status: Acute Priority: High Code(s): E86.0 - DEHYDRATION SNOMED Code(s): 20795904 (6) Rectal adenocarcinoma Narrative/Plan: Pt unfortunately has not tolerated treatment very well. He was found to have UTI this admit. Treatment continued Patient's symptoms are improving the further he gets away from chemotherapy. Patient will follow-up with Oncologist and they will discuss his case and determine what approach pt wishes to pursue. They will make the arrangements for the plan of care pt decides upon. Doppler ordered of left lower extremity ordered for unilateral swelling. Later reported positive for DVT. Case was discussed briefly with Internal Medicine. Order was placed for filter since patient is having hematuria and blood from Ostomy. Ostomy bleeding 02/12/22 - discharge to rehab held related to this on 02/12/22, Iron given CBC improving Plan to discharge to rehab within next 24 hours, patient will need to follow-up with Dr. Ford after discharged from rehab Current Visit: Yes Status: Acute Priority: High Code(s): C20 - MALIGNANT NEOPLASM OF RECTUM SNOMED Code(s): 728735463 Dr. Simon: I have completed the full history and physical and developed the above impression and plan, agree with dictation, dictated as a scribe.
--- NOTE | 2022-02-15 12:43 | P.DS ---
Providers Date of admission: 02/03/22 18:31 Expected date of discharge: 02/15/22 Attending physician: Ashley Meade DO Consults: 02/03/22 18:31 Consult Physician Stat Consulting Provider: Gissel Phipps Consult Reason/Comments: Critical care management Do you want consulting provider notified?: Yes 02/03/22 18:56 Consult Physician Urgent Consulting Provider: Bowen Clarke Consult Reason/Comments: Acute renal failure Do you want consulting provider notified?: Yes 02/03/22 18:57 Consult Physician Urgent Consulting Provider: [facility] Consult Reason/Comments: A. fib with rapid ventricular response Do you want consulting provider notified?: Yes 02/05/22 09:13 Consult Physician Routine Consulting Provider: Az Faulkner Consult Reason/Comments: hydronephrosis Do you want consulting provider notified?: Yes 02/08/22 14:41 Consult Physician Routine Consulting Provider: Neal Reyes Consult Reason/Comments: IVC filter Do you want consulting provider notified?: Yes 02/09/22 10:39 Consult to Palliative Care Routine Consulting Provider: Crys Wilkinson Consult Reason/Comments: stage IV cancer Do you want consulting provider notified?: Yes 02/13/22 18:56 Consult Physician Urgent Consulting Provider: Henrique Ryder Consult Reason/Comments: Rectal cancer history Do you want consulting provider notified?: Already Contacted 02/15/22 11:08 Consult Physician Routine Consulting Provider: Bethany Bennett Consult Reason/Comments: UTI Do you want consulting provider notified?: Yes Primary care physician: Tonya Lu MD Hospital Course: History of present illness per H&P: Patient is a 61-year-old male for history of stage IV rectal cancer status post resection with colostomy and chemotherapy with metastatic disease to the liver, cerebral palsy with right upper extremity weakness, and hypertension who initially presented to the emergency room with complaints of intractable nausea, vomiting, and diarrhea. Patient was found have neutropenic sepsis and was started on broad-spectrum antibiotics with cefepime. He he was started on IV fluids due to MELISA and lactic acidosis. He was also found to have A fib with RVR and required amio infusion. He was given aggressive potassium supplementation due to severe hypokalemia. He was seen by pulmonary, oncology, cardiology, urology, and nephrology. He did require vasopressor support. His evaluation for neutropenic sepsis resulted in discovery of an enterococcus urinary tract infection. Eventually he was able to come off of IV amiodarone and onto oral amiodarone. Antibiotics were transitioned to Unasyn to cover enterococcus. Patient did develop significant hematuria and has been followed by urology. He developed significant left lower extremity swelling after having refused multiple heparin injections was ultimately found have a left large cavity DVT. He is unable to have full dose anticoagulation secondary to hematuria and bleeding from his ostomy site. Vascular surgery was consulted and IVC filter was placed. His hematuria improved and his foreman was removed. He continued to struggle with intermittent bleeding in his ostomy bag. Detailed the problem list : Neutropenic sepsis due to Entercoccus UTI in setting of stage IV rectal CA with chemotherapy Diarrhea, c diff negative - lomotil - unasyn X s/p D#10 of appropriate treatment - Leukopenia resolved s/p Filgastrim 02/03 and 02/04 - blood cultures negative Left lower extremity DVT - has not been on AC due to bleeding- hematuria is resolved but still having intermittent bleeding from ostomy - s/p IVC filter 02/09 Anemia, thrombocytopenia-- related to chemo -Hemoglobin stable -Thrombocytopenia resolved Hematuria, improved - urology recommendations appreciated- outpatient cystoscopy Pain related to malignancy - continue home regiment of oxy and MS contin A fib with RVR -Rate controlled -Amiodarone drip discontinued and patient maintained on amiodarone by mouth 200 mg every 4 hours per cardiology recommendation -Cardiology on board -Echocardiogram EF 55-60% -Cardiac monitoring poor overall prognosis - palliative care to evaluate patient Lactic acidosis, resolved Acute kidney injury, resolved Hypokalemia, resolved bleeding from ostomy, resolved Hypomagnesemia, resolved Patient is being discharged to skilled rehab. Assessment: General: non toxic, no distress, appears at stated age Derm: warm, dry Head: atraumatic, normocephalic, symmetric Eyes: EOMI, no lid lag, anicteric sclera Mouth: no lip lesion, mucus membranes dry Cardiovascular: S1S2 reg, no murmur, positive posterior tibial pulse bilateral, Lungs: Rhonchi bilateral bases, no accessory muscle use Abdominal: soft, nontender to palpation, no guarding, no appreciable organomegaly Ext: no gross muscle atrophy, left LE edema, + right upper extremity contractures Neuro: CN II-XI grossly intact, no focal neuro deficits, dusky appearance to finger nail beds bilaterally Psych: Alert, oriented, appropriate affect Patient Condition at Discharge: Stable Plan - Discharge Summary Discharge Rx Participant: No New Discharge Prescriptions: New diphenhydrAMINE ELIXIR [Benadryl Elixir] 75 mg PO TID ml Amiodarone [Cordarone] 200 mg PO Q48H tab Metoprolol Tartrate [Lopressor] 12.5 mg PO DAILY tab Cholestyramine (with Sugar) [Questran Packet] 4 gm PO ACHS packet Continue Tamsulosin [Flomax] 0.4 mg PO DAILY #30 Morphine Sulfate [Ms Contin] 30 mg PO Q12H 2 Days tab Loperamide [Imodium] 2 mg PO QID PRN cap PRN Reason: Diarrhea LORazepam [Ativan] 1 mg PO Q6H PRN 2 Days #4 tab PRN Reason: Anxiety oxyCODONE HCL [OxyIR] 15 mg PO Q6HR PRN #6 tab PRN Reason: Pain Discontinued Losartan Potassium [Cozaar] 100 mg PO DAILY Discharge Medication List Loperamide [Imodium] 2 mg PO QID PRN cap 11/14/21 [Rx] Tamsulosin [Flomax] 0.4 mg PO DAILY #30 01/02/22 [Rx] Amiodarone [Cordarone] 200 mg PO Q48H tab 02/15/22 [Rx] Cholestyramine (with Sugar) [Questran Packet] 4 gm PO ACHS packet 02/15/22 [Rx] LORazepam [Ativan] 1 mg PO Q6H PRN 2 Days #4 tab 02/15/22 [Rx] Metoprolol Tartrate [Lopressor] 12.5 mg PO DAILY tab 02/15/22 [Rx] Morphine Sulfate [Ms Contin] 30 mg PO Q12H 2 Days tab 02/15/22 [Rx] diphenhydrAMINE ELIXIR [Benadryl Elixir] 75 mg PO TID ml 02/15/22 [Rx] oxyCODONE HCL [OxyIR] 15 mg PO Q6HR PRN #6 tab 02/15/22 [Rx] Follow up Appointment(s)/Referral(s): Tonya Lu MD [Primary Care Provider] - 1-2 days Luis Ford MD [STAFF PHYSICIAN] - 1 Week Discharge Disposition: TRANSFER TO SNF/ECF
[2022-02-15 12:47] VITALS: BP 150/74; PULSE 60; RESP 18; TEMP 97.8
== END 2022-02-15 14:55 | DRG 871 ==
LOC: EC 13:10 → 2SICU 18:31 → 3SCARD 02-10 16:48 → 5NMEDONC 02-12 14:09
PROVIDERS: ADMIT Internal Medicine; ATTEND Internal Medicine
PROC: 3E043XZ Introduction of Vasopressor into Central Vein, Percutaneous Approach (ICD-10-PCS; 2022-02-05)
PROC: 06H03DZ Insertion of Intraluminal Device into Inferior Vena Cava, Percutaneous Approach (ICD-10-PCS; principal; 2022-02-09 17:25)
PROC: B5191ZZ Fluoroscopy of Inferior Vena Cava using Low Osmolar Contrast (ICD-10-PCS; principal; 2022-02-09 17:25)
DX: A41.81 Sepsis due to Enterococcus (principal); N17.0 Acute kidney failure with tubular necrosis; R65.21 Severe sepsis with septic shock; C20 Malignant neoplasm of rectum; C78.7 Secondary malignant neoplasm of liver and intrahepatic bile duct; C79.51 Secondary malignant neoplasm of bone; E87.1 Hypo-osmolality and hyponatremia; E87.2 Acidosis; I82.422 Acute embolism and thrombosis of left iliac vein; K56.7 Ileus, unspecified; K92.2 Gastrointestinal hemorrhage, unspecified; N02.9 Recurrent and persistent hematuria with unspecified morphologic changes; N13.6 Pyonephrosis; R64 Cachexia; K94.01 Colostomy hemorrhage; Z20.822 Contact with and (suspected) exposure to COVID-19; D64.81 Anemia due to antineoplastic chemotherapy; Z28.310 Unvaccinated for COVID-19; E88.09 Other disorders of plasma-protein metabolism, not elsewhere classified; D69.59 Other secondary thrombocytopenia; D70.9 Neutropenia, unspecified; E83.51 Hypocalcemia; G80.9 Cerebral palsy, unspecified; I10 Essential (primary) hypertension; K12.31 Oral mucositis (ulcerative) due to antineoplastic therapy; E83.42 Hypomagnesemia; K12.1 Other forms of stomatitis; I49.1 Atrial premature depolarization; I48.0 Paroxysmal atrial fibrillation; T45.1X5A Adverse effect of antineoplastic and immunosuppressive drugs, initial encounter; E86.0 Dehydration; E87.6 Hypokalemia; F41.9 Anxiety disorder, unspecified; G89.3 Neoplasm related pain (acute) (chronic); Z98.890 Other specified postprocedural states; Z68.23 Body mass index [BMI] 23.0-23.9, adult; Z79.899 Other long term (current) drug therapy; Z87.891 Personal history of nicotine dependence; Z90.49 Acquired absence of other specified parts of digestive tract; Z79.891 Long term (current) use of opiate analgesic; Z96.60 Presence of unspecified orthopedic joint implant
CPT/HCPCS: 36415; 36600; 37191; 71045; 74019; 76770; 80048; 80053; 80202; 81001; 82330; 82805; 83605; 83735; 84100; 84132; 84484; 85025; 85027; 85610; 85730; 87040; 87077; 87086; 87186; 87324; 87635; 93005; 93306; 96361; 96365; 96366; 96367; 96368; 96375; 96376; 99291

== ENCOUNTER 2022-05-13 12:00 | Observation (INO) | payer MEDICARE, BC ==
--- NOTE | 2022-05-13 12:23 | ED ---
General Adult HPI - General Chief complaint: Weakness Stated complaint: Rt side Weakness Time Seen by Provider: 05/13/22 12:01 Source: patient, EMS Mode of arrival: EMS Limitations: no limitations - History of Present Illness Initial comments: Dictation was produced using [employer] dictation software. please excuse any grammatical, word or spelling errors. Chief Complaint: 61-year-old male past medical history colon cancer presents wit h one week of weakness and difficulty with urinary retention History of Present Illness: Patient is a 61-year-old male he has past medical history of colon cancer. Patient is under active chemotherapy he states that his oncologist Dr. Ford. Patient states that his called the ambulance so that he could come to the ER. He states he has to come to the ER in order to qualify for rehab. Patient lives at home with his . is allegedly has difficulty caring for him at home. Patient states he's really weak and having urinary retention. Patient has any fever. He has chronic abdominal pain that he reports feels baseline. Denies any constitutional symptoms. The ROS documented in this emergency department record has been reviewed and confirmed by me. Those systems with pertinent positive or negative responses have been documented in the HPI. All other systems are other negative and/or noncontributory. PHYSICAL EXAM: General Impression: Alert and oriented x3, not in acute distress HEENT: Normocephalic atraumatic, extra-ocular movements intact, pupils equal and reactive to light bilaterally, mucous membranes moist. Cardiovascular: Heart regular rate and rhythm Chest: Able to complete full sentences, no retractions, no tachypnea Abdomen: abdomen soft, diffuse palpatory tenderness, non-distended, no organomegaly, ostomy place in the left abdomen Musculoskeletal: Pulses present and equal in all extremities, no peripheral edema Motor: no focal deficits noted Neurological: CN II-XII grossly intact, no focal motor or sensory deficits noted Skin: Intact with no visualized rashes Psych: Normal affect and mood ED course: 61-year-old male with multiple comorbidities presents emergency department for 70s weakness. Patient denies any other complaints at this time. He states he otherwise feels at baseline. Vital l signs upon arrival are within acceptable limits. Laboratory evaluation obtained. CBC unremarkable. Coag panel is unremarkable. Metabolic panel is negative. Urinalysis is negative. Abdominal x-ray shows no acute processes. Patient observed in emergency department for approximately one hour and 30 minutes reevaluated at bedside at 1:45 PM found with stable medical condition. Disposition options were discussed. is now at the bedside request that patient be admitted due to difficulty caring for the patient at home secondary to his significant weakness. Given that patient has poor social situation we will be admitted with consultation with social work. EKG interpretation: Ventricular rate before come sinus rhythm,. 193, Q 76, QTC 393. No TN prolongation, no QTC prolongation, no ST or T-wave changes noted. Overall, this EKG is unremarkable - Related Data Home Medications Medication Instructions Recorded Confirmed Amiodarone [Cordarone] 200 mg PO DAILY 05/13/22 05/13/22 Docusate [Colace] 100 mg PO TID PRN 05/13/22 05/13/22 Doxycycline [Vibramycin] 100 mg PO BID 05/13/22 05/13/22 Hydrocortisone Cream 1 applic TOPICAL BID PRN 05/13/22 05/13/22 [Hydrocortisone 1% Cream] LORazepam [Ativan] 1 mg PO Q6H PRN 05/13/22 05/13/22 Losartan Potassium [Cozaar] 100 mg PO DAILY 05/13/22 05/13/22 Morphine Sulfate [Ms Contin] 30 mg PO Q8H 05/13/22 05/13/22 Potassium Chloride ER [K-Dur 20] 20 meq PO DAILY 05/13/22 05/13/22 Tamsulosin [Flomax] 0.4 mg PO DIRECTED 05/13/22 05/13/22 polyethylene glycoL 3350 [Miralax] 17 gm PO DAILY PRN 05/13/22 05/13/22 Previous Rx's Medication Instructions Recorded oxyCODONE HCL [OxyIR] 15 mg PO Q6HR PRN #6 tab 02/15/22 Allergies Allergy/AdvReac Type Severity Reaction Status Date / Time No Known Allergies Allergy Verified 05/13/22 14:22 Review of Systems ROS Statement: Those systems with pertinent positive or pertinent negative responses have been documented in the HPI. ROS Other: All systems not noted in ROS Statement are negative. Past Medical History Past Medical History: Cancer, Hypertension, Liver Disease Additional Past Medical History / Comment(s): Right sided cerebral palsy, colon CA with mets to liver History of Any Multi-Drug Resistant Organisms: None Reported Past Surgical History: Back Surgery, Joint Replacement, Orthopedic Surgery Additional Past Surgical History / Comment(s): colostomy Past Anesthesia/Blood Transfusion Reactions: Unable to Obtain Past Psychological History: No Psychological Hx Reported Smoking Status: Former smoker Past Alcohol Use History: Occasional Past Drug Use History: None Reported - Past Family History Mother Family Medical History: No Reported History General Exam Limitations: no limitations Course Vital Signs 05/13/22 05/13/22 12:01 14:01 Temperature 98.1 F Pulse Rate 79 66 Respiratory 14 16 Rate Blood Pressure 130/89 109/75 O2 Sat by Pulse 95 99 Oximetry Medical Decision Making - Lab Data Result diagrams: 05/13/22 12:20 05/13/22 12:20 Lab Results 05/13/22 05/13/22 05/13/22 Range/Units 12:20 12:20 12:20 WBC 9.7 (3.8-10.6) k/uL RBC 4.73 (4.30-5.90) m/uL Hgb 14.8 (13.0-17.5) gm/dL Hct 44.3 (39.0-53.0) % MCV 93.6 (80.0-100.0) fL MCH 31.2 (25.0-35.0) pg MCHC 33.3 (31.0-37.0) g/dL RDW 13.0 (11.5-15.5) % Plt Count 180 (150-450) k/uL MPV 7.0 Neutrophils % 73 % Lymphocytes % 15 % Monocytes % 5 % Eosinophils % 4 % Basophils % 1 % Neutrophils # 7.1 (1.3-7.7) k/uL Lymphocytes # 1.4 (1.0-4.8) k/uL Monocytes # 0.5 (0-1.0) k/uL Eosinophils # 0.4 (0-0.7) k/uL Basophils # 0.1 (0-0.2) k/uL PT 11.8 (9.0-12.0) sec INR 1.1 (<1.2) APTT 32.1 H (22.0-30.0) sec Sodium (137-145) mmol/L Potassium (3.5-5.1) mmol/L Chloride (98-107) mmol/L Carbon Dioxide (22-30) mmol/L Anion Gap mmol/L BUN (9-20) mg/dL Creatinine (0.66-1.25) mg/dL Est GFR (CKD-EPI)AfAm (>60 ml/min/1.73 sqM) Est GFR (CKD-EPI)NonAf (>60 ml/min/1.73 sqM) Glucose (74-99) mg/dL Plasma Lactic Acid Yared (0.7-2.0) mmol/L Calcium (8.4-10.2) mg/dL Magnesium (1.6-2.3) mg/dL Total Bilirubin (0.2-1.3) mg/dL AST (17-59) U/L ALT (4-49) U/L Alkaline Phosphatase (38-126) U/L Total Protein (6.3-8.2) g/dL Albumin (3.5-5.0) g/dL Lipase (23-300) U/L Urine Color Yellow Urine Appearance Clear (Clear) Urine pH 6.5 (5.0-8.0) Ur Specific Bradner 1.019 (1.001-1.035) Urine Protein Negative (Negative) Urine Glucose (UA) Negative (Negative) Urine Ketones Negative (Negative) Urine Blood Negative (Negative) Urine Nitrite Negative (Negative) Urine Bilirubin Negative (Negative) Urine Urobilinogen <2.0 (<2.0) mg/dL Ur Leukocyte Esterase Negative (Negative) 05/13/22 05/13/22 Range/Units 12:20 12:20 WBC (3.8-10.6) k/uL RBC (4.30-5.90) m/uL Hgb (13.0-17.5) gm/dL Hct (39.0-53.0) % MCV (80.0-100.0) fL MCH (25.0-35.0) pg MCHC (31.0-37.0) g/dL RDW (11.5-15.5) % Plt Count (150-450) k/uL MPV Neutrophils % % Lymphocytes % % Monocytes % % Eosinophils % % Basophils % % Neutrophils # (1.3-7.7) k/uL Lymphocytes # (1.0-4.8) k/uL Monocytes # (0-1.0) k/uL Eosinophils # (0-0.7) k/uL Basophils # (0-0.2) k/uL PT (9.0-12.0) sec INR (<1.2) APTT (22.0-30.0) sec Sodium 136 L (137-145) mmol/L Potassium 3.9 (3.5-5.1) mmol/L Chloride 100 (98-107) mmol/L Carbon Dioxide 26 (22-30) mmol/L Anion Gap 10 mmol/L BUN 16 (9-20) mg/dL Creatinine 0.80 (0.66-1.25) mg/dL Est GFR (CKD-EPI)AfAm >90 (>60 ml/min/1.73 sqM) Est GFR (CKD-EPI)NonAf >90 (>60 ml/min/1.73 sqM) Glucose 129 H (74-99) mg/dL Plasma Lactic Acid Yared 1.5 (0.7-2.0) mmol/L Calcium 10.2 (8.4-10.2) mg/dL Magnesium 1.8 (1.6-2.3) mg/dL Total Bilirubin 0.6 (0.2-1.3) mg/dL AST 55 (17-59) U/L ALT 42 (4-49) U/L Alkaline Phosphatase 270 H (38-126) U/L Total Protein 8.1 (6.3-8.2) g/dL Albumin 4.5 (3.5-5.0) g/dL Lipase 33 (23-300) U/L Urine Color Urine Appearance (Clear) Urine pH (5.0-8.0) Ur Specific Bradner (1.001-1.035) Urine Protein (Negative) Urine Glucose (UA) (Negative) Urine Ketones (Negative) Urine Blood (Negative) Urine Nitrite (Negative) Urine Bilirubin (Negative) Urine Urobilinogen (<2.0) mg/dL Ur Leukocyte Esterase (Negative) Disposition Clinical Impression: Gravely disabled Disposition: ADMITTED IP TO THIS HOSP Condition: Fair Referrals: Tonya Lu MD [Primary Care Provider] - 1-2 days Decision Time: 14:31
[2022-05-13] MEDS ORDERED: LIDOCAINE URO-JET JELLY 2% 5 ML KIT URETHRAL ONE (12:30)
[2022-05-13 12:41] LABS: Basophils # (A) 0.1 k/uL (0-0.2); Basophils % (A) 1 %; Eosinophils # (A) 0.4 k/uL (0-0.7); Eosinophils % (A) 4 %; HCT 44.3 % (39.0-53.0); HGB 14.8 gm/dL (13.0-17.5); Lymphocytes # (A) 1.4 k/uL (1.0-4.8); Lymphocytes % (A) 15 %; MCH 31.2 pg (25.0-35.0); MCHC 33.3 g/dL (31.0-37.0); MCV 93.6 fL (80.0-100.0); Monocytes # (A) 0.5 k/uL (0-1.0); Monocytes % (A) 5 %; Neutrophils # (A) 7.1 k/uL (1.3-7.7); Neutrophils % (A) 73 %; Platelet Count 180 k/uL (150-450); RBC 4.73 m/uL (4.30-5.90); WBC 9.7 k/uL (3.8-10.6)
[2022-05-13 12:49] LABS: INR 1.1 (<1.2); Partial Thromboplastin Time 32.1 sec (22.0-30.0); Prothrombin Time 11.8 sec (9.0-12.0)
[2022-05-13 12:54] LABS: ALT 42 U/L (4-49); AST 55 U/L (17-59); African American GFR (CKD) >90 (>60 ml/min/1.73 sqM); Albumin 4.5 g/dL (3.5-5.0); Alkaline Phosphatase 270 U/L (38-126); Anion Gap 10 mmol/L; Blood Urea Nitrogen 16 mg/dL (9-20); Calcium 10.2 mg/dL (8.4-10.2); Carbon Dioxide 26 mmol/L (22-30); Chloride 100 mmol/L (98-107); Glucose 129 mg/dL (74-99); Lipase 33 U/L (23-300); Magnesium 1.8 mg/dL (1.6-2.3); Non-African American GFR(CKD) >90 (>60 ml/min/1.73 sqM); Potassium 3.9 mmol/L (3.5-5.1); Sodium 136 mmol/L (137-145); Total Bilirubin 0.6 mg/dL (0.2-1.3); Total Protein 8.1 g/dL (6.3-8.2)
[2022-05-13 13:12] LABS: Appearance,Urine Clear (Clear); Bilirubin,Urine Negative (Negative); Blood,Urine Negative (Negative); Color,Urine Yellow; Glucose,Urine (UA) Negative (Negative); Ketones,Urine Negative (Negative); Leukocyte Esterase,Urine Negative (Negative); Nitrite,Urine Negative (Negative); PH, Urine 6.5 (5.0-8.0); Protein,Urine Negative (Negative); Specific Gravity,Urine 1.019 (1.001-1.035); Urobilinogen,Urine <2.0 mg/dL (<2.0)
--- NOTE | 2022-05-13 13:30 | XR ---
EXAMINATION TYPE: XR abdomen 1V DATE OF EXAM: 05/13/2022 COMPARISON: 02/05/2022 HISTORY: Pain TECHNIQUE: Single supine KUB image of the abdomen is obtained FINDINGS: Small bowel demonstrates no evidence for dilatation or air fluid levels. Gas and fecal material is seen in non-distended colon. No convincing evidence for pneumoperitoneum. No unusual calcifications. IVC filter in place. Left lower quadrant ostomy. Bilateral hip prostheses noted. Miller rods thoracic spine. The lung bases are clear. The osseous structures are intact. IMPRESSION: 1. Overall nonobstructive bowel gas pattern.
[2022-05-13] MEDS ORDERED: NALOXONE 0.4 MG/ML 1 ML VIAL IV PRN (14:28)
[2022-05-13] MEDS: SODIUM CHLORIDE 0.9% 1,000 ML IV SCH (14:47)
[2022-05-13] MEDS ORDERED: LORazepam 1 MG TAB PO PRN (16:37)
[2022-05-13] MEDS ORDERED: polyethylene glycoL 3350 17 GM POWD.PACK PO PRN (16:37)
[2022-05-13] MEDS ORDERED: HYDROCORTISONE 1% CREAM 30 GM TUBE TOPICAL PRN (16:37)
[2022-05-13] MEDS ORDERED: DOCUSATE 100 MG CAP PO PRN (16:37)
[2022-05-13] MEDS: AMIODARONE 200 MG TAB PO SCH (17:38)
[2022-05-13] MEDS: MORPHINE SULFATE ER 30 MG TABLET PO SCH (17:40)
--- NOTE | 2022-05-13 18:35 | P.HPIM ---
History of Present Illness H&P Date: 05/13/22 Chief Complaint: weakness Patient is a 61 -year-old male who presented to the emergency room because of generalized weakness. He has a history of cerebral palsy, colon cancer status post colectomy, currently on chemotherapy. Patient has gotten progressively weaker over the last few weeks. And presented with urinary retention worsening abdominal pain. Patient was walking with a walker then require a wheelchair and currently required assistance with all activities of daily living by his . In the emergency room Shipman catheter was placed. Patient received IV hydration following fever remained with significant weakness he was hospitalized for f urther workup and management. Patient states he also has had some difficulty speaking clearly worsening abdominal pain decreased FROM his ostomy denies any fevers or chills Patient seen and examined at bedside. [] Pertinent positives and negatives as discussed in HPI, a complete review of systems was performed and all other systems are negative. Vital signs reviewed General: nontoxic, no distress, appears at stated age Derm: warm, dry Head: atraumatic, normocephalic, symmetric Eyes: EOMI, no lid lag, anicteric sclera, pupils equal round reactive to light ENT: Nose and ears atraumatic, no thrush, no pharyngeal erythema Neck: No thyromegaly, no cervical lymphadenopathy, trachea midline, supple Mouth: no lip lesion, mucus membranes moist Cardiovascular: S1S2 reg, no murmur, positive posterior tibial pulse bilateral, no edema, capillary refill less than 2 seconds Lungs: clear to auscultation bilateral, no rhonchi, no rales, no wheeze, no accessory muscle use Abdominal: soft, nontender to palpation, no guarding, no appreciable organomegaly, normal bowel sounds, plus ostomy without significant output Ext: no gross muscle atrophy, muscle strength muscle strength 3 plus out of 5 in all 4 extremities, no contractures Neuro: CN II-XII grossly intact, light touch intact all 4 extremities, finger to nose within normal limits, Psych: Alert, oriented, appropriate affect Assessment/Plan: [Dehydration and generalized weakness: Continue IV fluids, physical therapy and occupational therapy evaluation, community mental health social worker consult] The patient is placed in observation pending further diagnostic workup[]. Surrogate decision-maker: [] CODE STATUS:[ Full Code Past Medical History Past Medical History: Cancer, Deep Vein Thrombosis (DVT), Hypertension Additional Past Medical History / Comment(s): Right sided cerebral palsy, colon CA with mets to liver, 02/08/22 left leg DVT History of Any Multi-Drug Resistant Organisms: None Reported Past Surgical History: Back Surgery, Joint Replacement, Orthopedic Surgery Additional Past Surgical History / Comment(s): LLQ colostomy 2020, 02/09/22 placement of [place]ip filter by Dr. Reyes since he got a DVT in the left leg Past Anesthesia/Blood Transfusion Reactions: Unable to Obtain Past Psychological History: Anxiety Additional Psychological History / Comment(s): PRN Ativan at home for anxiety Smoking Status: Former smoker Past Alcohol Use History: Occasional Past Drug Use History: None Reported - Past Family History Mother Family Medical History: No Reported History Medications and Allergies Home Medications Medication Instructions Recorded Confirmed Type oxyCODONE HCL [OxyIR] 15 mg PO Q6HR PRN #6 tab 02/15/22 05/13/22 Rx Amiodarone [Cordarone] 200 mg PO DAILY 05/13/22 05/13/22 History Docusate [Colace] 100 mg PO TID PRN 05/13/22 05/13/22 History Doxycycline [Vibramycin] 100 mg PO BID 05/13/22 05/13/22 History Hydrocortisone Cream 1 applic TOPICAL BID PRN 05/13/22 05/13/22 History [Hydrocortisone 1% Cream] LORazepam [Ativan] 1 mg PO Q6H PRN 05/13/22 05/13/22 History Losartan Potassium [Cozaar] 100 mg PO DAILY 05/13/22 05/13/22 History Morphine Sulfate [Ms Contin] 30 mg PO Q8H 05/13/22 05/13/22 History Potassium Chloride ER [K-Dur 20] 20 meq PO DAILY 05/13/22 05/13/22 History Tamsulosin [Flomax] 0.4 mg PO DIRECTED 05/13/22 05/13/22 History polyethylene glycoL 3350 [Miralax] 17 gm PO DAILY PRN 05/13/22 05/13/22 History Allergies Allergy/AdvReac Type Severity Reaction Status Date / Time No Known Allergies Allergy Verified 05/13/22 14:22 Physical Exam Vitals: Vital Signs Temp Pulse Pulse Resp BP BP Pulse Ox 05/13/22 16:53 97.9 F 64 16 109/68 97 05/13/22 14:01 66 16 109/75 99 05/13/22 12:01 98.1 F 79 14 130/89 95 Intake and Output 05/13/22 05/13/22 05/13/22 06:59 14:59 22:59 Intake Total 20 Output Total 600 Balance -600 20 Intake: Intake, IV Titration 20 Amount Sodium Chloride 0.9% 1, 20 000 ml @ 20 mls/hr IV . Q24H REPLACED BY [facility] Rx#:[id number] Output: Urine 600 Uretheral (Shipman) 600 Other: Voiding Method Toilet Weight 59.874 kg 59.874 kg Results CBC & Chem 7: 05/13/22 12:20 05/13/22 12:20 Labs: Abnormal Lab Results - Last 24 Hours (Table) 05/13/22 05/13/22 Range/Units 12:20 12:20 APTT 32.1 H (22.0-30.0) sec Sodium 136 L (137-145) mmol/L Glucose 129 H (74-99) mg/dL Alkaline Phosphatase 270 H (38-126) U/L Thrombosis Risk Factor Assmnt - Choose All That Apply Any of the Below Risk Factors Present?: Yes Each Factor Represents 1 point: Age 41-60 years Other Risk Factors: Yes Each Risk Factor Represents 2 Points: Malignancy Each Risk Factor Represents 3 Points: History of DVT/PE Other congenital or acquired thrombophilia - If yes, enter type in comment: No Thrombosis Risk Factor Assessment Total Risk Factor Score: 6 Thrombosis Risk Factor Assessment Level: High Risk Assessment and Plan (1) Gravely disabled Narrative/Plan: Cytologic cancer treatment, patient dehydrated, will get physical and occupational therapy evaluation Current Visit: Yes Status: Acute Code(s): [id number] - SNOMED Code(s): 334348759 (2) Dehydration Narrative/Plan: Continue IV hydration and monitor patient's intake Current Visit: No Status: Acute Priority: High Code(s): E86.0 - DEHYDRATION SNOMED Code(s): 39502653 (3) Urinary retention Narrative/Plan: Displaced will need to continue to monitor continue Flomax Current Visit: No Status: Acute Code(s): R33.9 - RETENTION OF URINE, UNSPECIFIED SNOMED Code(s): 109023251 (4) Abdominal pain Narrative/Plan: Continue current pain regimen Current Visit: No Status: Acute Code(s): R10.9 - UNSPECIFIED ABDOMINAL PAIN SNOMED Code(s): 79746317 Plan: This patient in observation, PT/OT, IV fluids, social work consult
[2022-05-14] MEDS: MORPHINE SULFATE ER 30 MG TABLET PO SCH ×3 (00:08→16:14)
[2022-05-14] MEDS: LOSARTAN 50 MG TAB PO SCH (08:08)
[2022-05-14] MEDS: POTASSIUM CHLORIDE ER 20 MEQ TAB.ER PO SCH (08:09)
[2022-05-14] MEDS: AMIODARONE 200 MG TAB PO SCH (08:09)
[2022-05-14] MEDS ORDERED: TAMSULOSIN 0.4 MG CAP.ER.24H PO SCH (09:00)
[2022-05-14 10:28] LABS: HGB 14.5 g/dL (13.0-17.0); MCH 30.9 pg (27.0-32.0); MCV 93.6 fL (80.0-97.0); Mean Platelet Volume 10.3 fL (9.5-12.2); NRBC Per 100 WBC 0 /100 WBCS (0.0-0.0); Platelet Count 170 X 10*3/uL (140-440); RDW 12.9 % (11.5-14.5); WBC 10.26 X 10*3/uL (4.50-10.00)
[2022-05-14 10:48] LABS: African American GFR (CKD) 112.5 (60.0-200.0); Anion Gap 13.3 mmol/L (10.00-18.00); BUN/Creat Ratio 22.5 Ratio (12.00-20.00); Calcium 9.9 mg/dL (8.7-10.3); Carbon Dioxide 21.7 mmol/L (20.0-27.5); Non-African American GFR(CKD) 97.1 (60.0-200.0); Potassium 4.6 mmol/L (3.5-5.5)
--- NOTE | 2022-05-14 15:05 | P.PN ---
Subjective Progress Note Date: 05/14/22 Principal diagnosis: Generalized weakness The patient is a 61 y.o male with CPP metasttic colon cancer hwo presented with generalized weakness. The unable to provide adequate assistance at home. In the ER patient with urinary retention s/p foreman catheter placement Objective - Vital Signs Vital signs: Vital Signs Temp 98.4 F 05/14/22 12:57 Pulse 83 05/14/22 12:57 Resp 16 05/14/22 12:57 BP 99/65 05/14/22 12:57 Pulse Ox 94 L 05/14/22 12:57 FiO2 Intake & Output 05/13/22 05/14/22 05/14/22 18:59 06:59 18:59 Intake Total 20 Output Total 600 400 Balance -580 -400 Weight 59.874 kg Intake: Intake, IV Titration 20 Amount Sodium Chloride 0.9% 1, 20 000 ml @ 20 mls/hr IV . Q24H [facility] Rx#:[id number] Output: Urine 600 400 Uretheral (Foreman) 600 Other: Voiding Method Toilet Indwelling Catheter Indwelling Catheter - Constitutional General appearance: Present: no acute distress, thin - Respiratory Respiratory: bilateral: CTA - Cardiovascular Rhythm: regular - Gastrointestinal Gastrointestinal Comment(s): ostomy in place with no output General gastrointestinal: Present: normal bowel sounds - Integumentary Integumentary: Present: normal - Musculoskeletal Musculoskeletal: Present: generalized weakness - Labs CBC & Chem 7: 05/14/22 06:34 05/14/22 06:34 Labs: Abnormal Lab Results - Last 24 Hours (Table) 05/14/22 05/14/22 Range/Units 06:34 06:34 WBC 10.26 H (4.50-10.00) X 10*3/uL BUN/Creatinine Ratio 22.50 H (12.00-20.00) Ratio Assessment and Plan (1) Gravely disabled Narrative/Plan: The patient has a history of metastatic colon cancer. He presents with generalized weakness progressive over 2 weeks. He also had urinary retention and reduce from his ostomy. The patient also has decreased oral intake. We will get physical and occupational therapy evaluation. Current Visit: Yes Status: Acute Code(s): RMK1121 - SNOMED Code(s): 480788462 (2) Dehydration Narrative/Plan: Continue IV hydration and monitor patient's intake secondary to intravascular depletion Current Visit: No Status: Acute Priority: High Code(s): E86.0 - DEHYDRATION SNOMED Code(s): 36606357 (3) Urinary retention Narrative/Plan: Foreman Catheter placed with good output. We will need to continue to monitor and continue Flomax Current Visit: No Status: Acute Code(s): R33.9 - RETENTION OF URINE, UNSPECIFIED SNOMED Code(s): 678637928 (4) Abdominal pain Narrative/Plan: Patient with constipation and abdominal pain. There is no output in ostomy patient states this is a chronic issue will check CT of the abdomen order a stool softener Continue current pain regimen Current Visit: No Status: Acute Code(s): R10.9 - UNSPECIFIED ABDOMINAL PAIN SNOMED Code(s): 11192714 Plan: This patient in observation, PT/OT, IV fluids, social work consult, CT of the abdomen
[2022-05-14] MEDS: SODIUM CHLORIDE 0.9% 1,000 ML IV SCH (16:15)
[2022-05-14] MEDS: IOPAMIDOL CONTRAST (ORAL USE) VIAL PO PRN ×2 (16:18→17:22)
--- NOTE | 2022-05-14 19:21 | CT ---
EXAMINATION TYPE: CT abdomen pelvis w con DATE OF EXAM: 05/14/2022 COMPARISON: 03/17/2022 HISTORY: Abdominal pain CT DLP: 430.7 mGycm Automated exposure control for dose reduction was used. CONTRAST: Performed with IV Contrast, patient injected with 100 mL of Isovue 300. Images obtained from the diaphragm to the floor the pelvis with oral and IV contrast. There is right pleural effusion and right lower lobe infiltrate and atelectasis. Heart size is normal . No pericardial effusion. There are numerous vertebral size hypodense areas throughout the liver that measure up to 3.5 cm. The bile ducts are not dilated. Spleen is intact. No pancreatic mass. There is inferior vena cava filter . Stomach is intact. Gallbladder appears absent. There there is no adrenal mass. Kidneys have normal size and contour. There is normal contrast opaci fication of the kidneys. No hydronephrosis. There are a few enlarged left-sided retroperitoneal lymph nodes in the mid abdomen measuring up to 2 cm. There is bilateral hip prosthesis. No pelvic mass. Th ere is Shipman catheter in the urinary bladder. No inguinal hernia. There is posterior fusion surgery in the lower thoracic spine. There is T12 patchy osteosclerosis and lytic changes. There is minimal compression deformity of T12. There is soft tissue density extending into the right paraspinal region at T12. There is area of dense sclerosis involving the right 12th r ib. There are small areas of osteoblastic change in the other lumbar vertebra. There is left-sided co lostomy. There is no ascites or free air. No evidence of a bowel obstruction. No mesenteric edema. IMPRESSION: There is airspace consolidation and atelectasis and pleural fluid at the right lung base which is mos tly new compared to old exam. Extensive hepatic metastatic disease without much change. Osseous metastatic disease in the spine which is a changing pattern compared to old exam. There is de crease in the osteoblastic components. There is increasing retroperitoneal lymphadenopathy compared t o old exam.
[2022-05-15] MEDS: MORPHINE SULFATE ER 30 MG TABLET PO SCH ×3 (00:43→16:41)
[2022-05-15] MEDS: POTASSIUM CHLORIDE ER 20 MEQ TAB.ER PO SCH (08:02)
[2022-05-15] MEDS: LOSARTAN 50 MG TAB PO SCH (08:02)
[2022-05-15] MEDS: AMIODARONE 200 MG TAB PO SCH (08:02)
[2022-05-15 11:12] LABS: African American GFR (CKD) 119.4 (60.0-200.0); Anion Gap 13.8 mmol/L (10.00-18.00); BUN/Creat Ratio 19.34 Ratio (12.00-20.00); Blood Urea Nitrogen 13.4 mg/dL (9.0-27.0); Calcium 9.8 mg/dL (8.7-10.3); Potassium 4.4 mmol/L (3.5-5.5)
--- NOTE | 2022-05-15 14:18 | P.PN ---
Subjective Progress Note Date: 05/15/22 Principal diagnosis: Abdominal pain, debility Patient was seen and examined. No acute events overnight. Patient reports 9 out of 10 severity pain in his abdomen related to metastatic cancer. Awaiting placement. Reports decreased output in his ostomy. He denies any chest pain, shortness breath or palpitations. No nausea or vomiting. No fever or chills. General: [non toxic], [no distress], [appears at stated age] Derm: [warm], [dry] Head: [atraumatic], [normocephalic], [symmetric] Eyes: [EOMI], [no lid lag], [anicteric sclera] Mouth: [no lip lesion], [mucus membranes moist] Cardiovascular: [S1S2 reg], [no murmur] Lungs: [CTA bilateral], [no rhonchi, no rales] , [no accessory muscle use] Abdominal: [soft], [tenderness palpation all 4 quadrants without rebound], [no guarding], [no appreciable organomegaly] Ext: [no gross muscle atrophy], [no edema], [no contractures] Neuro: [no focal neuro deficits] Psych: [Alert], [oriented], [appropriate affect] Debility Abdominal pain Urinary retention Leukocytosis Hyponatremia History of metastatic colon cancer PT and OT has been consulted to work with this patient. CT abdomen pelvis shows airspace consolidation and atelectasis in the right lung base, extensive hepatic metastasis, osseous metastatic disease. Continue oxycodone and MS Contin for pain control. Dilaudid as needed for breakthrough. Continue Shipman catheter. Continue Flomax. Bladder scan as needed. Unknown etiology for leukocytosis. No active signs of infection. Continue to monitor. Likely due to dehydration. Encourage hydration by mouth. Discharge planning depending on insurance authorization for SNF. Objective - Vital Signs Vital signs: Vital Signs Temp 98.4 F 05/15/22 12:47 Pulse 81 05/15/22 12:47 Resp 16 05/15/22 12:47 BP 109/71 05/15/22 12:47 Pulse Ox 96 05/15/22 12:47 FiO2 Intake & Output 05/14/22 05/15/22 05/15/22 18:59 06:59 18:59 Intake Total 600 Output Total 300 500 650 Balance -300 100 -650 Intake: Intake, IV Titration 240 Amount Sodium Chloride 0.9% 1, 240 000 ml @ 20 mls/hr IV . Q24H [facility] Rx#:[id number] Oral 360 Output: Urine 300 500 650 Other: Voiding Method Indwelling Catheter Indwelling Catheter Indwelling Catheter # Bowel Movements 0 - Labs CBC & Chem 7: 05/14/22 06:34 05/15/22 06:45 Labs: Abnormal Lab Results - Last 24 Hours (Table) 05/15/22 Range/Units 06:45 Sodium 133 L (135-145) mmol/L
[2022-05-15] MEDS: SODIUM CHLORIDE 0.9% 1,000 ML IV SCH (16:42)
[2022-05-16] MEDS: LOSARTAN 50 MG TAB PO SCH (08:54)
[2022-05-16] MEDS: POTASSIUM CHLORIDE ER 20 MEQ TAB.ER PO SCH (08:54)
[2022-05-16] MEDS: AMIODARONE 200 MG TAB PO SCH (08:54)
[2022-05-16] MEDS: MORPHINE SULFATE ER 30 MG TABLET PO SCH ×3 (08:55→17:01)
--- NOTE | 2022-05-16 11:59 | P.PN ---
Subjective Progress Note Date: 05/16/22 Feels okay, no chest pain no abdominal pain no nausea no vomiting no dizziness no shortness of breath. In bed and does not appear to be in distress. Objective - Vital Signs Vital signs: Vital Signs Temp 98.0 F 05/16/22 05:08 Pulse 67 05/16/22 05:08 Resp 16 05/16/22 05:08 BP 107/67 05/16/22 05:08 Pulse Ox 93 L 05/16/22 05:08 FiO2 Intake & Output 05/15/22 05/16/22 05/16/22 18:59 06:59 18:59 Output Total 1050 450 Balance -1050 -450 Output: Urine 1050 450 Other: Voiding Method Indwelling Catheter Indwelling Catheter Indwelling Catheter - Exam General: [non toxic], [no distress], [appears at stated age] Derm: [warm], [dry] Head: [atraumatic], [normocephalic], [symmetric] Eyes: [EOMI], [no lid lag] Mouth: [no lip lesion] Cardiovascular: [S1S2 reg], [no murmur] Lungs: Decreased breath sounds, no wheezing Abdominal: [soft], [tenderness palpation all 4 quadrants without rebound], [no guarding], [no appreciable organomegaly] Ext: [no gross muscle atrophy], [no edema], [no contractures] Neuro: [no focal neuro deficits] Psych: [Alert], [oriented], [appropriate affect] - Labs CBC & Chem 7: 05/14/22 06:34 05/15/22 06:45 Assessment and Plan Plan: Debility Abdominal pain Urinary retention Leukocytosis Hyponatremia History of metastatic colon cancer PT and OT CT abdomen pelvis shows airspace consolidation and atelectasis in the right lung base, extensive hepatic metastasis, osseous metastatic disease. Continue oxycodone and MS Contin for pain control. Dilaudid as needed for breakthrough. Continue Shipman catheter. Continue Flomax. Bladder scan as needed. Unknown etiology for leukocytosis likely secondary to cancer with metastasis. No active signs of infection. Continue to monitor. Likely due to dehydration. Encourage hydration by mouth. Discharge planning depending on insurance authorization for SNF. Appreciate input from case management/social work faculty member
[2022-05-16 16:57] VITALS: BMI 18.9
[2022-05-16] MEDS: SODIUM CHLORIDE 0.9% 1,000 ML IV SCH (19:31)
[2022-05-16] MEDS: HYDROmorphone 1 MG/ML 1 ML SYRINGE IVP PRN (22:36)
[2022-05-17] MEDS: MORPHINE SULFATE ER 30 MG TABLET PO SCH ×3 (01:05→09:44)
[2022-05-17] MEDS: HYDROmorphone 1 MG/ML 1 ML SYRINGE IVP PRN (04:43)
[2022-05-17] MEDS: AMIODARONE 200 MG TAB PO SCH (08:54)
[2022-05-17] MEDS: LOSARTAN 50 MG TAB PO SCH (08:54)
[2022-05-17] MEDS: POTASSIUM CHLORIDE ER 20 MEQ TAB.ER PO SCH (09:17)
[2022-05-17 09:44] VITALS: RESP 14
--- NOTE | 2022-05-17 11:17 | P.DS ---
Providers Date of admission: 05/13/22 14:28 Expected date of discharge: 05/17/22 Attending physician: Rosita Seals MD Primary care physician: Tonya Lu MD Hospital Course: Discharge diagnosis: Debility Abdominal pain Urinary retention Leukocytosis Hyponatremia History of metastatic colon cancer HPI: Patient is a 61 -year-old male who presented to the emergency room because of generalized weakness. He has a history of cerebral palsy, colon cancer status post colectomy, currently on chemotherapy. Patient has gotten progressively weaker over the last few weeks. And presented with urinary retention worsening abdominal pain. Patient was walking with a walker then require a wheelchair and currently required assistance with all activities of daily living by his . In the emergency room Shipman catheter was placed. Patient received IV hydration following fever remained with significant weakness he was hospitalized for further workup and management. Patient states he also has had some difficulty speaking clearly worsening abdominal pain decreased FROM his ostomy denies any fevers or chills Patient seen and examined at bedside. [] Pertinent positives and negatives as discussed in HPI, a complete review of systems was performed and all other systems are negative. Hospital course and treatment: She was admitted to the hospital with generalized weakness and volume depletion /dehydration, he was treated with IV fluid resuscitation. Abdominal CT hows airspace consolidation and atelectasis in the right lung base, extensive hepatic metastasis, osseous metastatic disease He was treated with supportive care, cervical treatment and IV fluids. He was evaluated by PT OT Leukocytosis likely associated with volume depletion and cancer, WBC normalized. Patient is not on chemotherapy and is not interested in pursuing any chemotherapy treatments at this time. He will be discharged to SNF Patient Condition at Discharge: Fair Plan - Discharge Summary Discharge Rx Participant: Yes New Discharge Prescriptions: Continue Amiodarone [Cordarone] 200 mg PO DAILY oxyCODONE HCL [OxyIR] 15 mg PO Q6HR PRN #6 tab PRN Reason: Pain polyethylene glycoL 3350 [Miralax] 17 gm PO DAILY PRN PRN Reason: Constipation Tamsulosin [Flomax] 0.4 mg PO DIRECTED Potassium Chloride ER [K-Dur 20] 20 meq PO DAILY Docusate [Colace] 100 mg PO TID PRN PRN Reason: Constipation Morphine Sulfate [Ms Contin] 30 mg PO Q8H Losartan Potassium [Cozaar] 100 mg PO DAILY LORazepam [Ativan] 1 mg PO Q6H PRN PRN Reason: Anxiety Hydrocortisone Cream [Hydrocortisone 1% Cream] 1 applic TOPICAL BID PRN PRN Reason: Rash Discontinued Doxycycline [Vibramycin] 100 mg PO BID Discharge Medication List oxyCODONE HCL [OxyIR] 15 mg PO Q6HR PRN #6 tab 02/15/22 [Rx] Amiodarone [Cordarone] 200 mg PO DAILY 05/13/22 [History] Docusate [Colace] 100 mg PO TID PRN 05/13/22 [History] Hydrocortisone Cream [Hydrocortisone 1% Cream] 1 applic TOPICAL BID PRN 05/13/22 [History] LORazepam [Ativan] 1 mg PO Q6H PRN 05/13/22 [History] Losartan Potassium [Cozaar] 100 mg PO DAILY 05/13/22 [History] Morphine Sulfate [Ms Contin] 30 mg PO Q8H 05/13/22 [History] Potassium Chloride ER [K-Dur 20] 20 meq PO DAILY 05/13/22 [History] Tamsulosin [Flomax] 0.4 mg PO DIRECTED 05/13/22 [History] polyethylene glycoL 3350 [Miralax] 17 gm PO DAILY PRN 05/13/22 [History] Follow up Appointment(s)/Referral(s): Tonya Lu MD [Primary Care Provider] - 1-2 days Discharge Disposition: TRANSFER TO SNF/ECF
[2022-05-17] MEDS: SODIUM CHLORIDE 0.9% 1,000 ML IV SCH (12:43)
[2022-05-17 13:45] VITALS: BP 107/68; PULSE 83; TEMP 98.4
== END 2022-05-17 15:15 ==
LOC: EC 12:00 → 6NMEDSUR 14:28 → 5NMEDONC 15:22
PROVIDERS: ADMIT Internal Medicine; ATTEND Internal Medicine
DX: R53.81 Other malaise (principal); G89.29 Other chronic pain; R10.9 Unspecified abdominal pain; R33.9 Retention of urine, unspecified; D72.829 Elevated white blood cell count, unspecified; E87.1 Hypo-osmolality and hyponatremia; E86.0 Dehydration; C78.7 Secondary malignant neoplasm of liver and intrahepatic bile duct; J98.11 Atelectasis; C79.51 Secondary malignant neoplasm of bone; G80.9 Cerebral palsy, unspecified; F41.9 Anxiety disorder, unspecified; I10 Essential (primary) hypertension; K59.00 Constipation, unspecified; Z20.822 Contact with and (suspected) exposure to COVID-19; Z87.891 Personal history of nicotine dependence; Z86.718 Personal history of other venous thrombosis and embolism; Z85.038 Personal history of other malignant neoplasm of large intestine; Z92.21 Personal history of antineoplastic chemotherapy; Z90.49 Acquired absence of other specified parts of digestive tract; Z93.3 Colostomy status; Z79.899 Other long term (current) drug therapy; Z79.891 Long term (current) use of opiate analgesic; Z71.9 Counseling, unspecified
CPT/HCPCS: 96376; 96374; 96375; 99285; 51798; 36415; 93005; 97530; 97162; 97535; 97166; 80053; 80048 ×2; 83605; 83690; 83735; 85025; 85027; 85610; 85730; 81003; 87635; 74018; 74177; G0378 ×6; J1170 ×2; J1642; Q9967